=== PATIENT | female | born 1945 | race Caucasian/White ===

== ENCOUNTER → 2018-05-09 11:38 | Outpatient (CLI) | payer MEDICARE, SELFPAY ==
[2018-05-09 13:25] LABS: Appearance Urine UA CLEAR; Bilirubin Urine UA NEGATIVE (NEGATIVE); Color Urine UA YELLOW; Glucose Urine UA NEGATIVE (Normal); Ketones Urine UA NEGATIVE (NEGATIVE); Leukocyte Esterase Urine UA 1+ (NEGATIVE); Nitrite Urine UA Negative (Negative); Occult Blood Urine UA NEGATIVE (Negative); Protein Urine UA NEGATIVE (Negative); Specific Gravity Urine UA <=1.005 (1.000-1.035); Urobilinogen Urine UA 0.2 E.U./dL (0.2); pH Urine UA 6.5 (4.5-8.0)
[2018-05-09 13:29] LABS: Bacteria Urine Moderate (10-30); Culture Indicated Urine Specimen Cultured; RBC Urine 0-1/HPF (0-5/HPF); Squamous Epithelial Cell Urine 0-1 /HPF; WBC Urine 10-30/HPF (0-5/HPF)
== END ==
PROVIDERS: PCP Family Medicine; Visit Provider Family Medicine
DX: R30.0 Dysuria (principal)
CPT/HCPCS: 81001; 87077; 87086; 87186

== ENCOUNTER → 2018-05-09 11:44 | Outpatient (CLI) | payer MEDICARE, SELFPAY | PROVIDERS: Family Provider Family Medicine; PCP Family Medicine; Visit Provider Family Medicine | DX: Z53.9 Procedure and treatment not carried out, unspecified reason (principal) ==

== ENCOUNTER 2018-06-10 17:31 | Emergency (ER) | payer MEDICARE, SELFPAY ==
[2018-06-10 17:39] VITALS: BP 146/64; PULSE 77; RESP 18; TEMP 37.1; O2SAT 97
--- NOTE | 2018-06-10 17:44 | ED.FEMALEGU ---
HPI - Female Genitourinary <AMAIRANI Hurtado - Last Filed: 06/10/18 21:33> General Chief complaint: Urogenital-Female Stated complaint: UTI Time Seen by Provider: 06/10/18 17:44 Related Data Home Medications Medication Instructions Recorded Confirmed multivitamin [Multiple Vitamins] #0 11/19/17 Previous Rx's Medication Instructions Recorded atorvastatin 10 mg tablet 5 mg PO HS #30 tab 04/30/18 amoxicillin 875 mg tablet 875 mg PO BID #14 tab 05/09/18 losartan 50 mg PO QDAY #90 tab 06/03/18 nitrofurantoin monohyd/m-cryst 100 mg PO BID #14 cap 06/10/18 [Macrobid] Allergies Allergy/AdvReac Type Severity Reaction Status Date / Time Sulfa (Sulfonamide Allergy Severe ANAPHYLAXIS Verified 06/10/18 17:41 Antibiotics) Exam <AMAIRANI Hurtado - Last Filed: 06/10/18 21:33> Initial Vital Signs Initial Vital Signs: Vital Signs Temperature 98.7 F 06/10/18 17:39 Pulse Rate 77 06/10/18 17:39 Respiratory Rate 18 06/10/18 17:39 Blood Pressure 146/64 H 06/10/18 17:39 Pulse Oximetry 97 06/10/18 17:39 <Nava Madison DO - Last Filed: 06/11/18 01:17> Initial Vital Signs Initial Vital Signs: Vital Signs Temperature 98.7 F 06/10/18 17:39 Pulse Rate 77 06/10/18 17:39 Respiratory Rate 18 06/10/18 17:39 Blood Pressure 146/64 H 06/10/18 17:39 Pulse Oximetry 97 06/10/18 17:39 Course <AMAIRANI Hurtado - Last Filed: 06/10/18 21:33> Vital Signs - 8 hr 06/10/18 17:39 06/10/18 20:05 Temperature 98.7 F Pulse Rate 77 82 Respiratory Rate 18 12 Blood Pressure 146/64 H 138/87 Pulse Oximetry 97 97 <Nava Madison DO - Last Filed: 06/11/18 01:17> Vital Signs - 8 hr 06/10/18 17:39 06/10/18 20:05 Temperature 98.7 F Pulse Rate 77 82 Respiratory Rate 18 12 Blood Pressure 146/64 H 138/87 Pulse Oximetry 97 97 MDM - Female Genitourinary <AMAIRANI Hurtado - Last Filed: 06/10/18 21:33> Lab Data Lab Results 06/10/18 Range/Units Unknown Urine Color Emily Urine Appearance Slightly cloudy Urine pH 6.0 (4.5-8.0) Ur Specific [place] <=1.005 (1.000-1.035) Urine Protein Trace H (Negative) Urine Glucose (UA) Normal (Normal) g/dL Urine Ketones Negative (NEGATIVE) Urine Occult Blood 1+ H (Negative) Urine Nitrate Positive H (Negative) Urine Bilirubin Negative (NEGATIVE) Urine Urobilinogen 1.0 (0.2) E.U./dL Ur Leukocyte Esterase 3+ H (NEGATIVE) Urine RBC 0-1/hpf (0-5/HPF) Urine WBC 10-30/hpf H (0-5/HPF) Ur Squamous Epith Cells 0-1 /hpf Urine Bacteria Few (2-10) H (None) Ur Culture Indicated? Specimen cultured Micro UA Comment Not Reportable <Nava Madison DO - Last Filed: 06/11/18 01:17> Lab Data Lab Results 06/10/18 Range/Units Unknown Urine Color Emily Urine Appearance Slightly cloudy Urine pH 6.0 (4.5-8.0) Ur Specific [place] <=1.005 (1.000-1.035) Urine Protein Trace H (Negative) Urine Glucose (UA) Normal (Normal) g/dL Urine Ketones Negative (NEGATIVE) Urine Occult Blood 1+ H (Negative) Urine Nitrate Positive H (Negative) Urine Bilirubin Negative (NEGATIVE) Urine Urobilinogen 1.0 (0.2) E.U./dL Ur Leukocyte Esterase 3+ H (NEGATIVE) Urine RBC 0-1/hpf (0-5/HPF) Urine WBC 10-30/hpf H (0-5/HPF) Ur Squamous Epith Cells 0-1 /hpf Urine Bacteria Few (2-10) H (None) Ur Culture Indicated? Specimen cultured Micro UA Comment Not Reportable Discharge Plan Departure Patient Disposition: Home Clinical Impression: UTI (urinary tract infection) Discharge Date/Time: 06/10/18 20:06 Interventions: ED Discharge Assessment Last Done: 06/10/18 20:05 Instructions: DI for Urinary Tract Infection (UTI) Prescriptions: New nitrofurantoin monohyd/m-cryst [Macrobid] 100 mg capsule 100 mg PO BID Qty: 14 RF: 0 No Action multivitamin [Multiple Vitamins] 1 EACH tablet Qty: 0 RF: 0 atorvastatin [Lipitor] 10 mg tablet 5 mg PO HS Qty: 30 RF: 1 amoxicillin 875 mg tablet 875 mg PO BID Qty: 14 RF: 0 losartan 50 mg tablet 50 mg PO QDAY Qty: 90 RF: 2 Referrals: Marcell Ruvalcaba MD [Non-Staff] - Davey Mullen MD [Primary Care Provider] - (in 2-3 days for urine recheck, follow up with Alcoholic Counselor is fine too) Stanley Rivera MD [Non-Staff] - Adrian Butt MD [Non-Staff] - Tyra Carson MD [Non-Staff] - <Nava Madison DO - Last Filed: 06/11/18 01:17> Cosign ED Attending Cosignature Attestation: I was immediately available in the department for consultation. This documentation has been reviewed and I notified provider that there was no hpi, ros or exam findings. Supervised by Nava Madison DO
[2018-06-10 18:33] LABS: RBC Urine 0-1/HPF (0-5/HPF); WBC Urine 10-30/HPF (0-5/HPF)
[2018-06-10 18:34] LABS: Bacteria Urine Few (2-10); Culture Indicated Urine Specimen Cultured; Squamous Epithelial Cell Urine 0-1 /HPF
[2018-06-10 19:43] LABS: Appearance Urine UA Slightly Cloudy; Color Urine UA AMBER
[2018-06-10 19:44] LABS: Bilirubin Urine UA Negative (NEGATIVE); Glucose Urine UA Normal (Normal); Ketones Urine UA NEGATIVE (NEGATIVE); Leukocyte Esterase Urine UA 3+ (NEGATIVE); Nitrite Urine UA POSITIVE (Negative); Occult Blood Urine UA 1+ (Negative); Protein Urine UA TRACE (Negative); Specific Gravity Urine UA <=1.005 (1.000-1.035)
[2018-06-10 20:05] VITALS: BP 138/87; PULSE 82; RESP 12; O2SAT 97
--- NOTE | 2018-06-10 20:37 | ED_ITS ---
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, hx of frequent uti's and last bladder infection approx x1 month ago ROS: General: no fever Cardiac: no cp Resp: no trouble breathing Abd: no n/v/d Gu: as above, no vag issues Mus: no back pain Neuro: no dizziness, no lightheadedness, no weakness Exam: General: vs stable Head: normocephalic Neck: from without limitations Resp: resp even and unlabored, B breath sounds CTA Cardiac: RRR Abd: soft and nontender Gu: no cva/flank tenderness Musc: moving all 4 extremities without limitations Psych: normal behavior Neuro: a&ox3 results and dc plan discussed with pt, pt has appt next week with [facility] [employer] Room Attendant, agreed to give her some names of Urology, abx rx, and to continue with her azo, and pushing fluids, cranberry juice Original Note: HPI - Female Genitourinary <AMAIRANI Hurtado - Last Filed: 06/10/18 21:33> General Chief complaint: Urogenital-Female Stated complaint: UTI Time Seen by Provider: 06/10/18 17:44 Related Data Home Medications Medication Instructions Recorded Confirmed multivitamin [Multiple Vitamins] #0 11/19/17 Previous Rx's Medication Instructions Recorded atorvastatin 10 mg tablet 5 mg PO HS #30 tab 04/30/18 amoxicillin 875 mg tablet 875 mg PO BID #14 tab 05/09/18 losartan 50 mg PO QDAY #90 tab 06/03/18 nitrofurantoin monohyd/m-cryst 100 mg PO BID #14 cap 06/10/18 [Macrobid] Allergies Allergy/AdvReac Type Severity Reaction Status Date / Time Sulfa (Sulfonamide Allergy Severe ANAPHYLAXIS Verified 06/10/18 17:41 Antibiotics) Exam <AMAIRANI Hurtado - Last Filed: 06/10/18 21:33> Initial Vital Signs Initial Vital Signs: Vital Signs Temperature 98.7 F 06/10/18 17:39 Pulse Rate 77 06/10/18 17:39 Respiratory Rate 18 06/10/18 17:39 Blood Pressure 146/64 H 06/10/18 17:39 Pulse Oximetry 97 06/10/18 17:39 <Nava MadisonDO - Last Filed: 06/11/18 01:17> Initial Vital Signs Initial Vital Signs: Vital Signs Temperature 98.7 F 06/10/18 17:39 Pulse Rate 77 06/10/18 17:39 Respiratory Rate 18 06/10/18 17:39 Blood Pressure 146/64 H 06/10/18 17:39 Pulse Oximetry 97 06/10/18 17:39 Course <Louann MatthewCELIA hollandP - Last Filed: 06/10/18 21:33> Vital Signs - 8 hr 06/10/18 17:39 06/10/18 20:05 Temperature 98.7 F Pulse Rate 77 82 Respiratory Rate 18 12 Blood Pressure 146/64 H 138/87 Pulse Oximetry 97 97 <Nava BaerDO cayla - Last Filed: 06/11/18 01:17> Vital Signs - 8 hr 06/10/18 17:39 06/10/18 20:05 Temperature 98.7 F Pulse Rate 77 82 Respiratory Rate 18 12 Blood Pressure 146/64 H 138/87 Pulse Oximetry 97 97 MDM - Female Genitourinary <Louann Burks [facility] - Last Filed: 06/10/18 21:33> Lab Data Lab Results 06/10/18 Range/Units Unknown Urine Color Emily Urine Appearance Slightly cloudy Urine pH 6.0 (4.5-8.0) Ur Specific [place] <=1.005 (1.000-1.035) Urine Protein Trace H (Negative) Urine Glucose (UA) Normal (Normal) g/dL Urine Ketones Negative (NEGATIVE) Urine Occult Blood 1+ H (Negative) Urine Nitrate Positive H (Negative) Urine Bilirubin Negative (NEGATIVE) Urine Urobilinogen 1.0 (0.2) E.U./dL Ur Leukocyte Esterase 3+ H (NEGATIVE) Urine RBC 0-1/hpf (0-5/HPF) Urine WBC 10-30/hpf H (0-5/HPF) Ur Squamous Epith Cells 0-1 /hpf Urine Bacteria Few (2-10) H (None) Ur Culture Indicated? Specimen cultured Micro UA Comment Not Reportable <Nava Hero KeyurDO cayla - Last Filed: 06/11/18 01:17> Lab Data Lab Results 06/10/18 Range/Units Unknown Urine Color Emily Urine Appearance Slightly cloudy Urine pH 6.0 (4.5-8.0) Ur Specific [place] <=1.005 (1.000-1.035) Urine Protein Trace H (Negative) Urine Glucose (UA) Normal (Normal) g/dL Urine Ketones Negative (NEGATIVE) Urine Occult Blood 1+ H (Negative) Urine Nitrate Positive H (Negative) Urine Bilirubin Negative (NEGATIVE) Urine Urobilinogen 1.0 (0.2) E.U./dL Ur Leukocyte Esterase 3+ H (NEGATIVE) Urine RBC 0-1/hpf (0-5/HPF) Urine WBC 10-30/hpf H (0-5/HPF) Ur Squamous Epith Cells 0-1 /hpf Urine Bacteria Few (2-10) H (None) Ur Culture Indicated? Specimen cultured Micro UA Comment Not Reportable Discharge Plan Departure Patient Disposition: Home Clinical Impression: UTI (urinary tract infection) Discharge Date/Time: 06/10/18 20:06 Interventions: ED Discharge Assessment Last Done: 06/10/18 20:05 Instructions: DI for Urinary Tract Infection (UTI) Prescriptions: New nitrofurantoin monohyd/m-cryst [Macrobid] 100 mg capsule 100 mg PO BID Qty: 14 RF: 0 No Action multivitamin [Multiple Vitamins] 1 EACH tablet Qty: 0 RF: 0 atorvastatin [Lipitor] 10 mg tablet 5 mg PO HS Qty: 30 RF: 1 amoxicillin 875 mg tablet 875 mg PO BID Qty: 14 RF: 0 losartan 50 mg tablet 50 mg PO QDAY Qty: 90 RF: 2 Referrals: Marcell Ruvalcaba MD [Non-Staff] - Davey Mullen MD [Primary Care Provider] - (in 2-3 days for urine recheck, follow up with [facility] Room Attendant is fine too) Stanley Rivera MD [Non-Staff] - Adrian Butt MD [Non-Staff] - Tyra Carson MD [Non-Staff] - <Nava Madison DO - Last Filed: 06/11/18 01:17> Cosign ED Attending Cosignature Attestation: I was immediately available in the department for consultation. This documentation has been reviewed and I notified provider that there was no hpi, ros or exam findings. Supervised by Nava Madison DO
== END 2018-06-10 20:06 | disposition home or self-care (01) ==
PROVIDERS: Emergency Provider Nurse Practitioner; Family Provider Family Medicine; PCP Family Medicine
DX: N39.0 Urinary tract infection, site not specified (principal)
CPT/HCPCS: 81001; 87086; 99283

== ENCOUNTER → 2018-07-03 10:06 | Outpatient (CLI) | payer MEDICARE, SELFPAY ==
[2018-07-03 10:55] LABS: Add Manual Diff / Slide Review NO; Basophils Percent Auto 1.3 % (0-2); Hematocrit 41.6 % (36-46); Hemoglobin 13.6 g/dL (12.0-16.0); Lymphocytes Percent Auto 28.2 % (25-40); Mean Corpuscular HGB Conc 32.7 % (30-36); Mean Corpuscular Hemoglobin 28.5 PG (26-34); Monocytes Percent Auto 9.1 % (3-14); Neutrophils Absolute Auto 3300 /uL (3000-5900); Neutrophils Percent Auto 59.4 % (50-75); Platelet Count 237 X10^3/uL (150-400); Red Blood Cell Count 4.78 X10^6/uL (4.0-5.2); Red Cell Distribution Width 14.2 % (11.6-14.8); White Blood Cell Count 5.6 X10^3/uL (4.5-11.0)
[2018-07-03 11:17] LABS: Alanine Aminotransferase 39 IU/L (9-52); Albumin 4.7 g/dL (3.5-5.0); Albumin Globulin Ratio 1.4 (1.0-2.8); Alkaline Phosphatase 80 U/L (38-126); Aspartate Aminotransferase 33 IU/L (14-36); BUN Creatinine Ratio 28.3 (6-22); Bilirubin Total 1.7 mg/dL (0.2-1.3); Blood Urea Nitrogen 17 mg/dL (7-17); Calcium 9.5 mg/dL (8.4-10.2); Carbon Dioxide 30 mmol/L (22-32); Chloride 102 mmol/L (98-107); Cholesterol 160 mg/dL (140-199); Estimated Glomerular Filt Rate > 60.0 mL/min (>60); Globulin 3.3 g/dL (1.7-4.1); Glucose 107 mg/dL (80-110); HDL Cholesterol 45 mg/dL (40-60); HEMOLYSIS < 15 (0-50); LDL Cholesterol Calculated 100 mg/dL (<100); Potassium 4.5 mmol/L (3.4-5.1); Sodium 144 mmol/L (137-145); Triglycerides 73 mg/dL (35-150)
[2018-07-03 11:44] LABS: Thyroid Stimulating Hormone 1.16 uIU/mL (0.47-4.68)
== END ==
PROVIDERS: Family Provider Family Medicine; PCP Family Medicine; Visit Provider Family Medicine
DX: E78.2 Mixed hyperlipidemia (principal); I10 Essential (primary) hypertension
CPT/HCPCS: 36415; 80053; 80061; 84443; 85025

== ENCOUNTER → 2018-12-20 11:12 | Outpatient (CLI) | payer MEDICARE, SELFPAY ==
--- NOTE | 2018-12-20 | DI.MG.S_ITS ---
UNILATERAL LEFT DIGITAL SCREENING MAMMOGRAM 3D/2D WITH CAD POST MASTECTOMY: 12/20/2018 CLINICAL: Routine screening. Personal history of right breast cancer. Comparison is made to exams dated: 10/17/2017 mammogram, 08/29/2016 ultrasound, 08/28/2016 mammogram, 08/22/2016 mammogram, and 07/29/2015 mammogram - [facility]. There are scattered fibroglandular elements in left breast. Current study was also evaluated with a Computer Aided Detection (CAD) system. There are benign post operative findings in the left breast. There also are benign calcifications in the left breast. No significant masses, calcifications, or other findings are seen in the breast. There has been no significant interval change. IMPRESSION: There is no mammographic evidence of malignancy. A 1 year screening mammogram is recommended. This exam was interpreted at Station ID: [id number]. NOTE: For mammograms, a report in lay terms will be sent to the patient. Approximately 15% of breast malignancies will not be visualized mammographically. In the management of a palpable breast mass, a negative mammogram must not discourage biopsy of a clinically suspicious lesion. Electronically Signed By: Sadiq hankins/laurel:12/20/2018 19:35:50 letter sent: Normal Exam ACR BI-RADS Category 2: Benign Finding(s) 3342F
== END ==
PROVIDERS: PCP Family Medicine; Visit Provider Family Medicine
DX: Z12.31 Encounter for screening mammogram for malignant neoplasm of breast (principal); Z85.3 Personal history of malignant neoplasm of breast
CPT/HCPCS: 77063; 77067

== ENCOUNTER 2019-01-06 08:53 | Day surgery (SDC) | payer MEDICARE, SELFPAY ==
--- NOTE | 2019-01-06 | PATH_ITS ---
[facility] Accession Number: [id number] . 01 Material submitted: . sigmoid colon - SIGMOID COLON BIOPSY . 02 Diagnosis: Sigmoid Colon, Biopsies: Colonic mucosa with hyperplastic features. Negative for active or microscopic colitis. Negative for granulomata, dysplasia or malignancy. MRV/01/07/2019 . 02 Electronically signed: . Scooter Law MD, PhD, Pathologist NPI- [id number] . 01 Gross description: . SIGMOID COLON BIOPSY: Received in formalin is 1 fragment(s) of goldman, soft tissue measuring 0.7 x 0.3 x 0.2 cm which is entirely submitted and submitted entirely in 1 cassette(s) /DMC /DMC . 02 Pathologist provided ICD-10: Z12.11, K63.5 . 02 CPT . 678354 Performed at: 01 [facility] [address] [id number] MD Marcell Rand MD Phone: [phone] Performed at: [facility] [address] [place], [place] [id number] MD Hannah Lozoya MD Phone: [phone]
[2019-01-06] MEDS: SODIUM CHLORIDE 0.9% 1,000 ML 200 ML IV (09:05)
[2019-01-06 09:06] VITALS: BMI 32.0
[2019-01-06 09:17] VITALS: BP 121/76; PULSE 103; RESP 16; TEMP 36.5; O2SAT 96
--- NOTE | 2019-01-06 09:30 | PM.HP.1 ---
History of Present Illness Date Patient Seen: 01/06/19 Time Patient Seen: 09:30 Chief complaint: [id number] Colonoscopy Narrative: 73yo F for high risk screening colonoscopy. Last scope was 10 years ago, says they found a small benign polyp. Sister of CRC in her 60s (age estimate, pt says they were not close). No other family history. No symptoms in patient. Pt has personal history of breast cancer. Patient History Medical History Carpal tunnel syndrome (Acute) Carpal tunnel syndrome of right wrist (Acute) History of UTI (Acute) Skin lesion (Acute) Ankle pain (Chronic) Anxiety (Chronic) Breast cancer (Chronic) Chicken pox (Resolved) Mumps (Resolved) Surgical History Anesthesia (Resolved) History of mastectomy (Resolved ~10/1993) Status post left foot surgery (Resolved) Status post cholecystectomy (~2009) Status post hysterectomy (~08/2013) Family History Father No problems noted. Sister No problems noted. Social History household members: none Smoking Status: Never smoker Family & Social History Family History Father No problems noted. Sister No problems noted. Social History: household members none Tobacco & Substance use: Smoking Status Never smoker alcohol intake frequency 0-2 drinks per day Substance Use Type does not use Meds Home Medications Medication Instructions Recorded Confirmed Type multivitamin [Multiple Vitamins] 1 tab PO DAILY #0 11/19/17 07/03/18 History atorvastatin 10 mg tablet 5 mg PO HS #90 tab 07/03/18 01/06/19 Rx losartan 50 mg tablet 50 mg PO QDAY #90 tab 07/03/18 01/06/19 Rx Allergies Allergy/AdvReac Type Severity Reaction Status Date / Time Sulfa (Sulfonamide Allergy Severe ANAPHYLAXIS Verified 01/06/19 09:14 Antibiotics) Review of Systems Constitutional Constitutional: Reports as per HPI Exam Vital Signs (past 8 hours): AAO, nervous, NAD, oberweight female EOMI, MMM, no scleral icterus unlabored RA soft, nt/nd MAEW Assessment & Plan (1) Family history of colon cancer requiring screening colonoscopy: Current visit: Yes Status: Acute Assessment & Plan narrative: - high risk screening colonoscopy --> all R/B/A discussed and pt wishes to proceed
[2019-01-06] MEDS: MIDAZOLAM 5 MG/5 ML VIAL IV (10:21)
--- NOTE | 2019-01-06 10:24 | PM.OP.ENDO ---
Operative Date/Time/Diagnoses Date of procedure: 01/06/19 Time of procedure: 10:24 Pre-op diagnosis: High risk screening colonoscopy Post-op diagnosis: same Procedure & Clinicians Study performed: High risk screening colonscopy with biopsy Same procedure as scheduled: Yes Indications: Family history of CRC in sister, 10 years from last scope. Surgeon: Sita Garcia Procedure Notes SCOAP/Timeout: 938 Procedure in detail: After obtaining informed consent, the patient was brought to the GI suite and placed in the left lateral decubitus position on the examination table. After placement of appropriate monitors, the patient was given incremental doses of Versed and Fentanyl until an appropriate level of sedation was achieved. A time out was held per SCOAP protocol. A digital rectal examination was performed and did not reveal any masses or obstructing lesions but tiny external hemorrhoids and a possible 2mm cyst are noted. The colonoscope was gently passed into the patient's anus and the entire colon navigated to the level of the cecum with difficulty due to tortuosity and severe diverticulosis as well as a history of partial hysterectomy. The colonscope was exchanged for a pediatric scope which allowed us to proceed. Pt also did not respond well to medications so was quite uncomfortable despite steady titration. Prep was adequate. Once in the cecum, the scope was slowly withdrawn being sure to go before and beyond all mucosal folds and prominences as able to get a thorough examination. A 5mm polyp was noted in the sigmoid colon and was biopsied with cold forceps; not completely removed as it was sessile. Other findings include severe diverticulosis in the sigmoid and scattered diverticula throughout the colon. At the level of the rectal vault, the scope was retroflexed and the internal anal canal was examined. The scope was straightened and air aspirated from the colon. The instrument was removed from the patient's body and the procedure was concluded. The patient was allowed to awaken from sedation without difficulty and taken to the post-anesthesia care unit in good condition. Scope withdrawal time: 10 min Sedation minutes: 41 Findings: diverticulosis (severe) and polyp (small (~5mm), sessile, in sigmoid colon) Specimen(s): other (sigmoid polyp) Complications: none Impression: 1. severe diverticulosis- predominantly in sigmoid but scattered throughout colon 2. small polyp- biopsy sent 3. tortuous colon and poor patient tolerance- would recommend propofol sedation and pediatric scope for next procedure Recommendations: Colonscopy in 5 years (pending path) and High fiber diet Follow up: as needed Disposition: PACU
[2019-01-06] MEDS: fentaNYL 250 MCG/5 ML INJ IV (10:25)
[2019-01-06 10:27] VITALS: BP 98/58; PULSE 77; RESP 12; TEMP 36.5; O2SAT 93
[2019-01-06 10:32] VITALS: BP 94/50; PULSE 88; RESP 16; TEMP 36.5; O2SAT 96
[2019-01-06 10:37] VITALS: BP 104/59; PULSE 77; RESP 14; O2SAT 97
[2019-01-06 10:38] VITALS: BP 105/58; PULSE 77; RESP 14; TEMP 36.5; O2SAT 97
== END 2019-01-06 10:55 | disposition home or self-care (01) ==
PROVIDERS: PCP Family Medicine; Visit Provider Surgery
PROC: 0DJD8ZZ Inspection of Lower Intestinal Tract, Via Natural or Artificial Opening Endoscopic (ICD-10-PCS; CPT 45378; principal; 2019-01-06 09:45)
DX: Z12.11 Encounter for screening for malignant neoplasm of colon (principal); Z80.0 Family history of malignant neoplasm of digestive organs; Z85.3 Personal history of malignant neoplasm of breast; K57.30 Diverticulosis of large intestine without perforation or abscess without bleeding; K63.5 Polyp of colon
CPT/HCPCS: 45380; 88305; 99152; 99153; J2250; J3010

== ENCOUNTER 2019-03-23 20:35 | Emergency (ER) | payer MEDICARE, SELFPAY ==
[2019-03-23 20:44] VITALS: BP 160/79; PULSE 104; RESP 21; TEMP 36.4; O2SAT 96; BMI 31.4
--- NOTE | 2019-03-23 22:00 | ED_ITS ---
HPI - URI/Sore Throat General Chief Complaint: Nasal Problem Stated Complaint: allergies since yesterday, trouble breathing Time Seen by Provider: 03/23/19 21:52 Source: patient Mode of arrival: ambulatory Limitations: no limitations History of Present Illness HPI Narrative: Patient is a 73-year-old female presenting with nasal congestion. She says it has been off and on for about a week however yesterday after she painted is some things it has gotten significantly worse. She has significant pressure all over her maxillary sinuses. No fever. She says she is really worried because she cannot breathe out of her no Related Data Home Medications Medication Instructions Recorded Confirmed multivitamin [Multiple Vitamins] 1 tab PO DAILY #0 11/19/17 07/03/18 Previous Rx's Medication Instructions Recorded atorvastatin 10 mg tablet 5 mg PO HS #90 tab 07/03/18 losartan 50 mg tablet 50 mg PO QDAY #90 tab 07/03/18 Allergies Allergy/AdvReac Type Severity Reaction Status Date / Time Sulfa (Sulfonamide Allergy Severe ANAPHYLAXIS Verified 01/06/19 09:14 Antibiotics) Review of Systems Review of Systems ROS Unobtainable: All systems reviewed & are unremarkable except as noted in HPI and below Constitutional Denies chills, Denies fever(s), Denies lethargy and Denies weakness Eyes Denies change in vision, Denies eye discharge, Denies irritation and Denies loss of vision ENT Ears, Nose, Mouth, and Throat: Reports system reviewed and no additional complaints, except as docu, Reports post nasal drip and Reports sinus pressure Cardiovascular Denies chest pain, Denies irregular heart rhythm, Denies lightheadedness, Denies palpitations, Denies dyspnea, Denies dyspnea on exertion and Denies orthopnea Respiratory Denies cough, Denies dyspnea, Denies dyspnea on exertion and Denies wheezing Gastrointestinal Gastrointestinal: Denies abdominal pain, Denies change in bowel habits, Denies diarrhea, Denies nausea and Denies vomiting Genitourinary Denies hematuria, Denies flank pain, Denies urinary incontinence and Denies urinary urgency Musculoskeletal Denies back pain, Denies muscle weakness, Denies numbness and Denies tingling Integumentary/Breasts Denies pruritus, Denies erythema, Denies rash and Denies wounds Neurologic Denies loss of vision, Denies numbness, Denies tingling and Denies weakness Endocrine Denies palpitations Allergic/Immunologic Denies wheezing [facility] Social History household members: none Smoking Status: Former smoker Exam Initial Vital Signs Initial Vital Signs: Vital Signs Temperature 97.5 F L 03/23/19 20:44 Pulse Rate 104 H 03/23/19 20:44 Respiratory Rate 21 03/23/19 20:44 Blood Pressure 160/79 H 03/23/19 20:44 Pulse Oximetry 96 03/23/19 20:44 GENERAL: Well-appearing, well-nourished and in no acute distress. HEENT: Significant tenderness over maxillary sinuses. CARDIOVASCULAR: peripheral pulses in tact, cap refill <2 sec RESPIRATORY: No respiratory distress, speaks in full sentences without difficulty EXTREMITIES: Normal range of motion, no clubbing or edema. Neurovascularly intact NEUROLOGICAL: Cranial nerves II through XII grossly intact. Normal gait and speech. SKIN: Warm, dry, no petechiae, no rashes or lesions. Course Vital Signs - 8 hr 03/23/19 20:44 03/23/19 22:14 Temperature 97.5 F L Pulse Rate 104 H 89 Respiratory Rate 21 18 Blood Pressure 160/79 H 152/88 H Pulse Oximetry 96 96 MDM - URI/Sore Throat MDM Narrative Medical decision making narrative: Patient is quite anxious she has not seem septic. No indication for antibiotics at this time. I recommend that she take [id number] Benadryl and Claritin. Discharge Plan Departure Patient Disposition: Home Clinical Impression: Acute seasonal allergic rhinitis Discharge Date/Time: 03/23/19 22:15 Interventions: ED Discharge Assessment Last Done: 03/23/19 22:14 Instructions: Allergic Rhinitis Activity Restrictions/Additional Instructions: *You have been diagnosed with seasonal allergies *What to do: *Continue to take medications as directed Benadryl 25-50 mg at night time or every 6 hours Claritin or Bridgette take as directed [id number] *Follow up with your primary care provider in 2-3 days *Return to ER if you should have a fever, increased pain or any new, worsening or concerning symptoms Prescriptions: No Action multivitamin [Multiple Vitamins] 1 EACH tablet 1 tab PO DAILY Qty: 0 RF: 0 atorvastatin [Lipitor] 10 mg tablet 5 mg PO HS Qty: 90 RF: 3 losartan 50 mg tablet 50 mg PO QDAY Qty: 90 RF: 3 Referrals: Davey Mullen MD [Primary Care Provider] -
[2019-03-23 22:14] VITALS: BP 152/88; PULSE 89; RESP 18; O2SAT 96
== END 2019-03-23 22:15 | disposition home or self-care (01) ==
PROVIDERS: Emergency Provider Emergency Medicine; PCP Family Medicine
DX: J30.9 Allergic rhinitis, unspecified (principal)
CPT/HCPCS: 99282

== ENCOUNTER 2019-04-09 16:00 | Outpatient (RCR) | payer MEDICARE, SELFPAY ==
--- NOTE | 2019-02-05 17:35 | PT.OIE ---
Current Diagnoses Bursitis of left shoulder (02/05/19) Past Medical History (Last Reviewed 01/15/19 @ 14:58 by Sita Garcia MD) Arthritis (Acute) Carpal tunnel syndrome (Acute) Carpal tunnel syndrome of right wrist (Acute) History of UTI (Acute) Skin lesion (Acute) Ankle pain (Chronic) Anxiety (Chronic) Breast cancer (Chronic) Chicken pox (Resolved) Mumps (Resolved) Past Surgical History (Last Reviewed 01/15/19 @ 14:58 by Sita Garcia MD) Anesthesia (Resolved) History of mastectomy (Resolved ~10/1993) Status post left foot surgery (Resolved) Status post cholecystectomy (~2009) Status post hysterectomy (~08/2013) Provider Visit Care Team Role Provider Type Davey Mullen MD Primary Care Provider Physician Specialty: Family Practice Address: [address] [place] [address], [id number] Email: [email or web address] Luisito Ruelas MD Attending Provider Physician Specialty: Orthopedic Surgery Address: [address] [place] [address], [id number] Email: [email or web address] [facility] Initial Evaluation PT-OP-A Visit Information Start: 02/05/19 17:19 Freq: Status: Active Protocol: Document 02/05/19 17:22 EA (Rec: 02/05/19 17:31 EA [id number]) Out-Patient Physical Therapy Visit Information Visit Information Visit Type Initial Evaluation Visit Start Time 16:00 Visit Stop Time 16:35 Total Visit Minutes 35 Visit Number 1 Evaluation Information Evaluation Date 02/05/19 Precautions Precautions None identified PT-OP-B Current Condition Start: 02/05/19 17:19 Freq: Status: Active Protocol: Document 02/05/19 17:22 EA (Rec: 02/05/19 17:31 EA [id number]) Current Condition History of Current Condition Onset Date A year ago Current Complaints Right shoulder localized pain History of Current Condition Present condition gradually developed in a year course with no recalled of significant injury. Pt reports he loves to sleep on left shoulder even at this time where pain always wake her up. Patient reports had cortisone shot a month ago and feels that shoulder pain improves few days after the shot. Pt states she is referred to PT to prevent shoulder pain recurrence and to improve strength. Prior Treatments and Tests Cortisone shot a month ago X-ray from her shoulder specialist Future Testing and Treatments Planned Possible second phase of cortisone shot Treatment Goals Patient/Caregiver Goals Patient would like to prevent further shoulder symptoms recurrence. Patient would like to be able to perform overhead activities with no difficulty Prior Functional Status Baseline Function- ADL's Independent Baseline Function- Mobility Independent Baseline Function- Work/School Retired Baseline Function- Recreation/Hobbies House chores with no difficulty a year ago. Baseline Function- Other No difficulty with overhead activities and sleeping to left side a year ago Current Functional Impairments (Reported) Functional Limitations- ADL's Indep with limitation to overhead activities and other personal care. Functional Limitations- Work/School Retired Functional Limitations- Recreation/ Unable to perform recreational Hobbies activities that require hand overhead. Personal Factors Other Personal Factors That May Effect Blood pressure but controlled, Therapy/Recovery chronic low back pain PT-OP-C Subjective Start: 02/05/19 17:19 Freq: Status: Active Protocol: Document 02/05/19 17:31 EA (Rec: 02/05/19 17:38 EA [id number]) OP-PT Subjective Patient Comments Patient Comments as much as the shot helps my shoulder still sore Patient Reported Progress Improving Patient Questionnaires Quick Dash- Upper Extremity Quick Dash UE Score 30 Quick Dash UE Impairment 20 to 39% Impaired (Score 20- 39) PT-OP-E Functional Tests Start: 02/05/19 17:19 Freq: Status: Active Protocol: Document 02/05/19 17:31 EA (Rec: 02/05/19 17:38 EA [id number]) Functional Tests Noelleey's Scratch Test Action 1: The subject is instructed to touch the opposite shoulder with his/her hand. This motion checks Glenohumeral adduction, internal rotation , horizontal adduction and scapular protraction Action 2: The subject is instructed to place his/her arm overhead and reach behind the neck to touch his/her upper back. This motion checks Glenohumeral abduction, external rotation and scapular upward rotation and elevation. Action 3: The subject puts his/her hand on the lower back and reaches upward as far as possible. This motion checks glenohumeral adduction, internal rotation and scapular retraction with downward rotation Action 1- Left able to touch opp shoulder Action 1- Right able Action 2- Left T2 Action 2- Right C6 Action 3- Left L3 Action 3- Right T10 PT-OP-F Manual Assessment Start: 02/05/19 17:19 Freq: Status: Active Protocol: Document 02/05/19 17:31 EA (Rec: 02/05/19 17:38 EA [id number]) Manual Assessments Soft Tissue Assessment Soft Tissue Mobility Assessment Tight Pectorals, int rotators PT-OP-J Posture/Palpation/Skin Start: 02/05/19 17:19 Freq: Status: Active Protocol: Document 02/05/19 17:31 EA (Rec: 02/05/19 17:38 EA [id number]) Posture Evaluation Comments Posture Comments Sligth Fwd head and round shoulder Palpation Assessment Location One Palpation Location Anterior shoulder, LHBT, RTC tendon, SS/IF muscle Palpation Findings Soft Tissue Tightness Tenderness PT-OP-L Special Tests Start: 02/05/19 17:19 Freq: Status: Active Protocol: Document 02/05/19 17:31 EA (Rec: 02/05/19 17:38 EA [id number]) Special Tests Shoulder Special Tests Elevation Impingement Test Results + Empty Can Test Results + Drop Arm Rotator Cuff Test Results - Omalley Rickey Impingement Test Results + Yergason's Biceps Test Results + Lift-Off Rotator Cuff Test Results - Belly Press Test Results - PT-OP-M Strength Start: 02/05/19 17:19 Freq: Status: Active Protocol: Document 02/05/19 17:31 EA (Rec: 02/05/19 17:38 EA [id number]) Shoulder Strength Shoulder Manual Muscle Testing Left Flexion 3+ Fair+ Extension 4 Good Abduction (C5) 3+ Fair+ Adduction 4 Good External Rotation 4- Good- Internal Rotation 3+ Fair+ Horizontal Abduction 4- Good- Horizontal Adduction 4- Good- Right Reason Not Measured WFL PT-OP-Q Treatments Start: 02/05/19 17:19 Freq: Status: Active Protocol: Document 02/05/19 17:31 EA (Rec: 02/05/19 17:38 EA [id number]) Self-Care/Home Management Treatment Education Patient Education Home Exercise Program Joint Protection Pain Management Posture PT-OP-T Assessment and Plan Start: 02/05/19 17:19 Freq: Status: Active Protocol: Document 02/05/19 17:22 GRIFFIN (Rec: 02/05/19 17:31 EA [id number]) Physical Therapy Assessment Rehab Potential Rehabilitation Potential Good Evaluation Complexity Number of Personal Factors/Comorbidities 1-2 Number of Body Systems Impaired 1-2 Clinical Presentation at Evaluation Stable Impairments Impairments Activity Tolerance Functional Activities Pain Posture ROM Soft Tissue Mobility Strength Goals Three Impairment Impaired shoulder strength Skilled Nursing Goal (LTG) Patient will increase L shoulder ABD/Flexors, rotators to functional level to enable overhead activities without difficulty. LTG Duration 6 wks Two Impairment Impaired Apley's functional test Food Processing Chemist Goal (LTG) Patient will demonstrate normal shoulder mobility base on Apley's functional test LTG Duration 6 wks One Impairment Quick Dash score of 30 Skilled Nursing Goal (LTG) Quick Dash Score of less than 15 LTG Duration 4 wks Assessment Summary Assessment Pleasant 73 y/o F patient with referring diagnosis of L subacromial bursitis. Today patient demonstrates impaired shoulder mobility due to pain and LOM even to PROM. Special tests reveals three tests positive to a referring diagnosis. Due to joint and muscular dysfunction, patient unable to perform overhead activities that usually had no limitation 6 months ago. Although pain is much improved at this time, left shoulder muscular weakness is noticeable and shoulder substitution with overhead movement is noted. In my professional opinion, patient would greatly benefit with skilled PT to enhance shoulder function and improve quality of life. Physical Therapy Plan Frequency and Duration Frequency of Treatment 2x/Week Duration of Treatment 8 wks Plan of Care Start Date 02/05/19 Plan of Care End Date 04/02/19 Therapeutic Interventions Therapeutic Interventions Home Exercise Program Joint Mobilizations Manual Therapy Neuromuscular Re-education Orthotic/Prosthetic Management Patient/Caregiver Education Self-Care/Home Management Soft Tissue Mobilization Taping Therapeutic Exercises Modalities Cold Pack/Ice Massage Electric Stimulation Hot Packs Ultrasound Next Visit Focus/Plan Next Note Type Treatment Note Next Visit Plan strengthen, Provide HEP with images, modalities for pain
--- NOTE | 2019-02-05 17:35 | PT.OPPOC ---
Current Diagnoses Bursitis of left shoulder (02/05/19) Provider Visit Care Team Role Provider Type Davey Mullen MD Primary Care Provider Physician Specialty: Family Practice Address: [address] [place] [address], [phone] Email: [email or web address] Luisito Ruelas MD Attending Provider Physician Specialty: Orthopedic Surgery Address: [address] [place] [address], [phone] Email: [email or web address] Plan Of Care PT-OP-T Assessment and Plan Start: 02/05/19 17:19 Freq: Status: Active Protocol: Document 02/05/19 17:22 EA (Rec: 02/05/19 17:31 EA [id number]) Physical Therapy Assessment Rehab Potential Rehabilitation Potential Good Evaluation Complexity Number of Personal Factors/Comorbidities 1-2 Number of Body Systems Impaired 1-2 Clinical Presentation at Evaluation Stable Impairments Impairments Activity Tolerance Functional Activities Pain Posture ROM Soft Tissue Mobility Strength Goals Three Impairment Impaired shoulder strength Manager Operating Goal (LTG) Patient will increase L shoulder ABD/Flexors, rotators to functional level to enable overhead activities without difficulty. LTG Duration 6 wks Two Impairment Impaired Apley's functional test Manager Operating Goal (LTG) Patient will demonstrate normal shoulder mobility base on Apley's functional test LTG Duration 6 wks One Impairment Quick Dash score of 30 Manager Operating Goal (LTG) Quick Dash Score of less than 15 LTG Duration 4 wks Assessment Summary Assessment Pleasant 73 y/o F patient with referring diagnosis of L subacromial bursitis. Today patient demonstrates impaired shoulder mobility due to pain and LOM even to PROM. Special tests reveals three tests positive to a referring diagnosis. Due to joint and muscular dysfunction, patient unable to perform overhead activities that usually had no limitation 6 months ago. Although pain is much improved at this time, left shoulder muscular weakness is noticeable and shoulder substitution with overhead movement is noted. In my professional opinion, patient would greatly benefit with skilled PT to enhance shoulder function and improve quality of life. Physical Therapy Plan Frequency and Duration Frequency of Treatment 2x/Week Duration of Treatment 8 wks Plan of Care Start Date 02/05/19 Plan of Care End Date 04/02/19 Therapeutic Interventions Therapeutic Interventions Home Exercise Program Joint Mobilizations Manual Therapy Neuromuscular Re-education Orthotic/Prosthetic Management Patient/Caregiver Education Self-Care/Home Management Soft Tissue Mobilization Taping Therapeutic Exercises Modalities Cold Pack/Ice Massage Electric Stimulation Hot Packs Ultrasound Next Visit Focus/Plan Next Note Type Treatment Note Next Visit Plan strengthen, Provide HEP with images, modalities for pain Plan of Care Dates Plan of Care Start Date 02/05/19 Plan of Care End Date 04/02/19 Please Sign and Return: I have reviewed this Plan of Care and certify that the skilled therapy services above are required to meet the patient?s needs. Physician Signature Date Printed Name and Credentials Clinical Instructor Signature Printed Name and Credentials
--- NOTE | 2019-02-18 12:33 | PT.OTN ---
Current Diagnoses Bursitis of left shoulder (02/18/19) Physical Therapy Treatment Note PT-OP-A Visit Information Start: 02/05/19 17:19 Freq: Status: Active Protocol: Document 02/18/19 09:45 HH (Rec: 02/18/19 12:33 HH [email or web address]) Out-Patient Physical Therapy Visit Information Visit Information Visit Type Treatment Note Visit Start Time 09:45 Visit Stop Time 10:30 Total Visit Minutes 45 Visit Number 2 PT-OP-B Current Condition Start: 02/05/19 17:19 Freq: Status: Active Protocol: Document 02/05/19 17:22 EA (Rec: 02/05/19 17:31 EA [id number]) Current Condition History of Current Condition Onset Date A year ago Current Complaints Right shoulder localized pain History of Current Condition Present condition gradually developed in a year course with no recalled of significant injury. Pt reports he loves to sleep on left shoulder even at this time where pain always wake her up. Patient reports had cortisone shot a month ago and feels that shoulder pain improves few days after the shot. Pt states she is referred to PT to prevent shoulder pain recurrence and to improve strength. Prior Treatments and Tests Cortisone shot a month ago X-ray from her shoulder specialist Future Testing and Treatments Planned Possible second phase of cortisone shot Treatment Goals Patient/Caregiver Goals Patient would like to prevent further shoulder symptoms recurrence. Patient would like to be able to perform overhead activities with no difficulty Prior Functional Status Baseline Function- ADL's Independent Baseline Function- Mobility Independent Baseline Function- Work/School Retired Baseline Function- Recreation/Hobbies House chores with no difficulty a year ago. Baseline Function- Other No difficulty with overehad activities and sleeping to left side a year ago Current Functional Impairments (Reported) Functional Limitations- ADL's Indep with limitation to overhead activities and other personal care. Functional Limitations- Work/School Retired Functional Limitations- Recreation/ Unable to perform recreational Hobbies activities that require hand overhead. Personal Factors Other Personal Factors That May Effect Blood pressure but controlled, Therapy/Recovery chronic low back pain PT-OP-C Subjective Start: 02/05/19 17:19 Freq: Status: Active Protocol: Document 02/18/19 09:45 HH (Rec: 02/18/19 12:33 HH [email or web address]) OP-PT Subjective Patient Comments Patient Comments It's been bad for my left shoulder since last week especially i kind of hurt my shoulde because something heavy dropped on it couple days ago. PT-OP-E Functional Tests Start: 02/05/19 17:19 Freq: Status: Active Protocol: Document 02/05/19 17:31 EA (Rec: 02/05/19 17:38 EA [id number]) Functional Tests Apley's Scratch Test Action 1: The subject is instructed to touch the opposite shoulder with his/her hand. This motion checks Glenohumeral adduction, internal rotation , horizontal adduction and scapular protraction Action 2: The subject is instructed to place his/her arm overhead and reach behind the neck to touch his/her upper back. This motion checks Glenohumeral abduction, external rotation and scapular upward rotation and elevation. Action 3: The subject puts his/her hand on the lower back and reaches upward as far as possible. This motion checks glenohumeral adduction, internal rotation and scapular retraction with downward rotation Action 1- Left able to touch opp shoulder Action 1- Right able Action 2- Left T2 Action 2- Right C6 Action 3- Left L3 Action 3- Right T10 PT-OP-F Manual Assessment Start: 02/05/19 17:19 Freq: Status: Active Protocol: Document 02/05/19 17:31 EA (Rec: 02/05/19 17:38 EA [id number]) Manual Assessments Soft Tissue Assessment Soft Tissue Mobility Assessment Tight Pectorals, int rotators PT-OP-J Posture/Palpation/Skin Start: 02/05/19 17:19 Freq: Status: Active Protocol: Document 02/05/19 17:31 EA (Rec: 02/05/19 17:38 EA [id number]) Posture Evaluation Comments Posture Comments Sligth Fwd head and round shoulder Palpation Assessment Location One Palpation Location Anterior shoulder, LHBT, RTC tendon, SS/IF muscle Palpation Findings Soft Tissue Tightness Tenderness PT-OP-L Special Tests Start: 02/05/19 17:19 Freq: Status: Active Protocol: Document 02/05/19 17:31 EA (Rec: 02/05/19 17:38 EA [id number]) Special Tests Shoulder Special Tests Elevation Impingement Test Results + Empty Can Test Results + Drop Arm Rotator Cuff Test Results - Omalley Rickey Impingement Test Results + Yerucheson's Biceps Test Results + Lift-Off Rotator Cuff Test Results - Belly Press Test Results - PT-OP-M Strength Start: 02/05/19 17:19 Freq: Status: Active Protocol: Document 02/05/19 17:31 EA (Rec: 02/05/19 17:38 EA [id number]) Shoulder Strength Shoulder Manual Muscle Testing Left Flexion 3+ Fair+ Extension 4 Good Abduction (C5) 3+ Fair+ Adduction 4 Good External Rotation 4- Good- Internal Rotation 3+ Fair+ Horizontal Abduction 4- Good- Horizontal Adduction 4- Good- Right Reason Not Measured WFL PT-OP-Q Treatments Start: 02/05/19 17:19 Freq: Status: Active Protocol: Document 02/18/19 09:45 HH (Rec: 02/18/19 12:33 HH [email or web address]) Therapeutic Exercises Supine Exercises scap punch Side bilateral Reps/Minutes 8 x2 shoulder flexion Supine Exercise Name AAROM Side bilateral Reps/Minutes 5 x2 Comments slow concentric and eccentric Sidelying Exercises should flexion Sidelying Exercise Name AAROM Side left Reps/Minutes 8 x2 Comments focus on slow eccentric shoulder abd Sidelying Exercise Name AROM Side left Reps/Minutes 8 x2 Comments focus on slow eccentric Sitting Exercises OH pulleys Sitting Exercise Name scaption and flexion PROM and AAROM Equipment Used niki Reps/Minutes 5 mins Comments full ROM bilaterally Manual Therapy Treatment Joint Mobilizations scap mob 2 Joint downward rotation Grade II Body Position Sidelying Reps/Duration 8 mins Comments with L shd extension scap mob Joint upward rotation Grade II Body Position Sidelying Reps/Duration 7 mins Comments with L shoulder flexion and abd AAROM PT-OP-T Assessment and Plan Start: 02/05/19 17:19 Freq: Status: Active Protocol: Document 02/18/19 09:45 HH (Rec: 02/18/19 12:33 HH [email or web address]) Physical Therapy Assessment Assessment Summary Assessment Pt reports no pain with PROM/ AAROM during [place] niki and scap mob but increase in pain with AROM for flexion and abduction. Given sidelying shoulde flexion and abduction for HEP. Physical Therapy Plan Next Visit Focus/Plan Next Note Type Treatment Note Next Visit Plan start with PROM and AAROM for flexion and abduction in pain free range. Strength as nely
--- NOTE | 2019-02-21 10:30 | PT.OTN ---
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 Pt reports he loves to sleep on left shoulder even at this time where pain always wake her up. Patient reports had cortisone shot a month ago and feels that shoulder pain improves few days after the shot. Pt states she is referred to PT to prevent shoulder pain recurrence and to improve strength. Prior Treatments and Tests Cortisone shot a month ago X-ray from her shoulder specialist Future Testing and Treatments Planned Possible second phase of cortisone shot Treatment Goals Patient/Caregiver Goals Patient would like to prevent further shoulder symptoms recurrence. Patient would like to be able to perform overhead activities with no difficulty Prior Functional Status Baseline Function- ADL's Independent Baseline Function- Mobility Independent Baseline Function- Work/School Retired Baseline Function- Recreation/Hobbies House chores with no difficulty a year ago. Baseline Function- Other No difficulty with overehad activities and sleeping to left side a year ago Current Functional Impairments (Reported) Functional Limitations- ADL's Indep with limitation to overhead activities and other personal care. Functional Limitations- Work/School Retired Functional Limitations- Recreation/ Unable to perform recreational Hobbies activities that require hand overhead. Personal Factors Other Personal Factors That May Effect Blood pressure but controlled, Therapy/Recovery chronic low back pain PT-OP-C Subjective Start: 02/05/19 17:19 Freq: Status: Active Protocol: Document 02/21/19 09:45 DCW (Rec: 02/21/19 10:27 [facility] [id number]) OP-PT Subjective Patient Comments Patient Comments Pt reports overall she is improving, but it still gets sore, especially when she forgets about it and rolls over onto her shoulder. Pt does note that she has been working out in her yard, and her back is bothrering her, so she would prefer not to lay down for any of her exercises today. PT-OP-E Functional Tests Start: 02/05/19 17:19 Freq: Status: Active Protocol: Document 02/05/19 17:31 EA (Rec: 02/05/19 17:38 EA [id number]) Functional Tests Apley's Scratch Test Action 1: The subject is instructed to touch the opposite shoulder with his/her hand. This motion checks Glenohumeral adduction, internal rotation , horizontal adduction and scapular protraction Action 2: The subject is instructed to place his/her arm overhead and reach behind the neck to touch his/her upper back. This motion checks Glenohumeral abduction, external rotation and scapular upward rotation and elevation. Action 3: The subject puts his/her hand on the lower back and reaches upward as far as possible. This motion checks glenohumeral adduction, internal rotation and scapular retraction with downward rotation Action 1- Left able to touch opp shoulder Action 1- Right able Action 2- Left T2 Action 2- Right C6 Action 3- Left L3 Action 3- Right T10 PT-OP-F Manual Assessment Start: 02/05/19 17:19 Freq: Status: Active Protocol: Document 02/05/19 17:31 EA (Rec: 02/05/19 17:38 EA [id number]) Manual Assessments Soft Tissue Assessment Soft Tissue Mobility Assessment Tight Pectorals, int rotators PT-OP-J Posture/Palpation/Skin Start: 02/05/19 17:19 Freq: Status: Active Protocol: Document 02/05/19 17:31 EA (Rec: 02/05/19 17:38 EA [id number]) Posture Evaluation Comments Posture Comments [place] Fwd head and round shoulder Palpation Assessment Location One Palpation Location Anterior shoulder, LHBT, RTC tendon, SS/IF muscle Palpation Findings Soft Tissue Tightness Tenderness PT-OP-L Special Tests Start: 02/05/19 17:19 Freq: Status: Active Protocol: Document 02/05/19 17:31 EA (Rec: 02/05/19 17:38 EA [id number]) Special Tests Shoulder Special Tests Elevation Impingement Test Results + Empty Can Test Results + Drop Arm Rotator Cuff Test Results - Omalley Rickey Impingement Test Results + Yergason's Biceps Test Results + Lift-Off Rotator Cuff Test Results - Belly Press Test Results - PT-OP-M Strength Start: 02/05/19 17:19 Freq: Status: Active Protocol: Document 02/05/19 17:31 EA (Rec: 02/05/19 17:38 EA [id number]) Shoulder Strength Shoulder Manual Muscle Testing Left Flexion 3+ Fair+ Extension 4 Good Abduction (C5) 3+ Fair+ Adduction 4 Good External Rotation 4- Good- Internal Rotation 3+ Fair+ Horizontal Abduction 4- Good- Horizontal Adduction 4- Good- Right Reason Not Measured WFL PT-OP-Q Treatments Start: 02/05/19 17:19 Freq: Status: Active Protocol: Document 02/21/19 09:45 DCW (Rec: 02/21/19 10:27 DCW [id number]) Cardio Equipment Upper Body Ergometer (UBE) Duration (Minutes) 5 RPM 60 Seat Position 11 Height 2.5 Therapeutic Exercises Sitting Exercises OH pulleys Sitting Exercise Name scaption and flexion PROM and AAROM Equipment Used niki Reps/Minutes 5 mins Comments full ROM bilaterally Standing Exercises Shoulder Abduction Standing Exercise Name Abduction Side left Resistance 1# Comments Pain-free ROM, VCs to prevent shoulder shrugs Shoulder Flexion Standing Exercise Name Flexion Side left Resistance 1# Comments Pain-free ROM, VCs to prevent shoulder shrugs Wall Slides Standing Exercise Name Wall Slides - Flex/Abd Side left Equipment Used Furniture slider Comments Pain-free ROM Manual Therapy Treatment Joint Mobilizations GH mob Joint GH mobilization Direction Inf Grade III scap mob 2 Joint downward rotation Grade II Body Position Sidelying Reps/Duration 8 mins Comments with L shd extension scap mob Joint upward rotation Grade II Body Position Sidelying Reps/Duration 7 mins Comments with L shoulder flexion and abd AAROM PT-OP-R Modalities Start: 02/05/19 17:19 Freq: Status: Active Protocol: Document 02/21/19 09:45 DCW (Rec: 02/21/19 10:27 DCW [id number]) Hot Pack/Cold Pack Treatment Cold Pack Location L shoulder Patient Position Sitting Treatment Duration (minutes) 10 Patient Tolerance Good PT-OP-T Assessment and Plan Start: 02/05/19 17:19 Freq: Status: Active Protocol: Document 02/21/19 09:45 DCW (Rec: 02/21/19 10:27 DCW [id number]) Physical Therapy Assessment Impairments Impairments Activity Tolerance Functional Activities Pain Posture ROM Soft Tissue Mobility Strength Goals Three Impairment Impaired shoulder strength Skilled Nursing Goal (LTG) Patient will increase L shoulder ABD/Flexors, rotators to functional level to enable overhead activities without difficulty. LTG Duration 6 wks Two Impairment Impaired Apley's functional test Skilled Nursing Goal (LTG) Patient will demonstrate normal shoulder mobility base on Apley's functional test LTG Duration 6 wks One Impairment Quick Dash score of 30 Music Department Chair Goal (LTG) Quick Dash Score of less than 15 LTG Duration 4 wks Assessment Summary Assessment Pt reported mild pain with shoulder flexion and abduction , stopped exercises early. Pt overall feels optimistic with how shoulder is progressing. Physical Therapy Plan Frequency and Duration Frequency of Treatment 2x/Week Duration of Treatment 8 wks Plan of Care Start Date 02/05/19 Plan of Care End Date 04/02/19 Therapeutic Interventions Therapeutic Interventions Home Exercise Program Joint Mobilizations Manual Therapy Neuromuscular Re-education Orthotic/Prosthetic Management Patient/Caregiver Education Self-Care/Home Management Soft Tissue Mobilization Taping Therapeutic Exercises Modalities Cold Pack/Ice Massage Electric Stimulation Hot Packs Ultrasound Next Visit Focus/Plan Next Note Type Treatment Note Next Visit Plan start with PROM and AAROM for flexion and abduction in pain free range. Strength as nely
--- NOTE | 2019-03-10 12:14 | PT.OTN ---
Current Diagnoses Bursitis of left shoulder (03/10/19) Physical Therapy Treatment Note PT-OP-A Visit Information Start: 02/05/19 17:19 Freq: Status: Active Protocol: Document 03/10/19 12:08 EA (Rec: 03/10/19 12:14 EA [id number]) Out-Patient Physical Therapy Visit Information Visit Information Visit Type Treatment Note Visit Start Time 10:30 Visit Stop Time 11:15 Total Visit Minutes 45 Visit Number 4 PT-OP-B Current Condition Start: 02/05/19 17:19 Freq: Status: Active Protocol: Document 02/05/19 17:22 EA (Rec: 02/05/19 17:31 EA [id number]) Current Condition History of Current Condition Onset Date A year ago Current Complaints Right shoulder localized pain History of Current Condition Present condition gradually developed in a year course with no recalled of significant injury. Pt reports he loves to sleep on left shoulder even at this time where pain always wake her up. Patient reports had cortisone shot a month ago and feels that shoulder pain improves few days after the shot. Pt states she is referred to PT to prevent shoulder pain recurrence and to improve strength. Prior Treatments and Tests Cortisone shot a month ago X-ray from her shoulder specialist Future Testing and Treatments Planned Possible second phase of cortisone shot Treatment Goals Patient/Caregiver Goals Patient would like to prevent further shoulder symptoms recurrence. Patient would like to be able to perform overhead activities with no difficulty Prior Functional Status Baseline Function- ADL's Independent Baseline Function- Mobility Independent Baseline Function- Work/School Retired Baseline Function- Recreation/Hobbies House chores with no difficulty a year ago. Baseline Function- Other No difficulty with overehad activities and sleeping to left side a year ago Current Functional Impairments (Reported) Functional Limitations- ADL's Indep with limitation to overhead activities and other personal care. Functional Limitations- Work/School Retired Functional Limitations- Recreation/ Unable to perform recreational Hobbies activities that require hand overhead. Personal Factors Other Personal Factors That May Effect Blood pressure but controlled, Therapy/Recovery chronic low back pain PT-OP-C Subjective Start: 02/05/19 17:19 Freq: Status: Active Protocol: Document 03/10/19 12:08 EA (Rec: 03/10/19 12:14 EA [id number]) OP-PT Subjective Patient Comments Patient Comments Pt reports she is much feeling better pain colon; states pain only when sleeping to affected side. Pt request not to treat in laying position due to allergies reason PT-OP-E Functional Tests Start: 02/05/19 17:19 Freq: Status: Active Protocol: Document 02/05/19 17:31 EA (Rec: 02/05/19 17:38 EA [id number]) Functional Tests Apley's Scratch Test Action 1- Left able to touch opp shoulder Action 1- Right able Action 2- Left T2 Action 2- Right C6 Action 3- Left L3 Action 3- Right T10 PT-OP-F Manual Assessment Start: 02/05/19 17:19 Freq: Status: Active Protocol: Document 02/05/19 17:31 EA (Rec: 02/05/19 17:38 EA [id number]) Manual Assessments Soft Tissue Assessment Soft Tissue Mobility Assessment Tight Pectorals, int rotators PT-OP-J Posture/Palpation/Skin Start: 02/05/19 17:19 Freq: Status: Active Protocol: Document 02/05/19 17:31 EA (Rec: 02/05/19 17:38 EA [id number]) Posture Evaluation Comments Posture Comments [place] Fwd head and round shoulder Palpation Assessment Location One Palpation Location Anterior shoulder, LHBT, RTC tendon, SS/IF muscle Palpation Findings Soft Tissue Tightness Tenderness PT-OP-L Special Tests Start: 02/05/19 17:19 Freq: Status: Active Protocol: Document 02/05/19 17:31 EA (Rec: 02/05/19 17:38 EA [id number]) Special Tests Shoulder Special Tests Elevation Impingement Test Results + Empty Can Test Results + Drop Arm Rotator Cuff Test Results - Omalley Rickey Impingement Test Results + Yergason's Biceps Test Results + Lift-Off Rotator Cuff Test Results - Belly Press Test Results - PT-OP-M Strength Start: 02/05/19 17:19 Freq: Status: Active Protocol: Document 02/05/19 17:31 EA (Rec: 02/05/19 17:38 EA [id number]) Shoulder Strength Shoulder Manual Muscle Testing Left Flexion 3+ Fair+ Extension 4 Good Abduction (C5) 3+ Fair+ Adduction 4 Good External Rotation 4- Good- Internal Rotation 3+ Fair+ Horizontal Abduction 4- Good- Horizontal Adduction 4- Good- Right Reason Not Measured WFL PT-OP-Q Treatments Start: 02/05/19 17:19 Freq: Status: Active Protocol: Document 03/10/19 12:08 EA (Rec: 03/10/19 12:14 EA [id number]) Cardio Equipment Upper Body Ergometer (UBE) Duration (Minutes) 5 RPM 60 Seat Position 11 Height 2.5 Therapeutic Exercises Sidelying Exercises should flexion Sidelying Exercise Name arom Side left Reps/Minutes 15 Comments focus on slow eccentric shoulder abd Sidelying Exercise Name AROM Side left Reps/Minutes 15 reps Comments focus on slow eccentric Sitting Exercises OH pulleys Sitting Exercise Name scaption and flexion PROM and AAROM Equipment Used niki Reps/Minutes 5 mins Comments full ROM bilaterally Standing Exercises 2 Standing Exercise Name ER/IR Resistance Lv1 Reps/Minutes x 10 reps 1 Standing Exercise Name shoulder ext Resistance Lv1 Reps/Minutes x 10 reps Shoulder Abduction Standing Exercise Name Abduction Side left Resistance 1# Comments Pain-free ROM, VCs to prevent shoulder shrugs Shoulder Flexion Standing Exercise Name Flexion Side left Resistance 1# Comments Pain-free ROM, VCs to prevent shoulder shrugs Wall Slides Standing Exercise Name Wall Slides - Flex/Abd Side left Equipment Used Furniture slider Comments Pain-free ROM Manual Therapy Treatment Joint Mobilizations GH mob Joint GH mobilization Direction Inf Grade III scap mob 2 Joint downward rotation Grade II Body Position Sitting Reps/Duration 8 mins Comments with L shd extension PT-OP-R Modalities Start: 02/05/19 17:19 Freq: Status: Active Protocol: Document 03/10/19 12:08 EA (Rec: 03/10/19 12:14 EA [id number]) Hot Pack/Cold Pack Treatment Cold Pack Location L shoulder Patient Position Sitting Treatment Duration (minutes) 10 Patient Tolerance Good PT-OP-T Assessment and Plan Start: 02/05/19 17:19 Freq: Status: Active Protocol: Document 03/10/19 12:08 EA (Rec: 03/10/19 12:14 EA [id number]) Physical Therapy Assessment Assessment Summary Assessment Improved shoulder shoulder ROM and strength with min discomfort. Physical Therapy Plan Next Visit Focus/Plan Next Note Type Treatment Note Next Visit Plan start with PROM and AAROM for flexion and abduction in pain free range. Strength as nely
--- NOTE | 2019-03-12 16:48 | PT.OTN ---
Current Diagnoses Bursitis of left shoulder (03/12/19) Physical Therapy Treatment Note PT-OP-A Visit Information Start: 02/05/19 17:19 Freq: Status: Active Protocol: Document 03/12/19 16:41 SA (Rec: 03/12/19 16:48 SA [id number]) Out-Patient Physical Therapy Visit Information Visit Information Visit Type Treatment Note Visit Start Time 16:00 Visit Stop Time 16:46 Total Visit Minutes 46 Visit Number 5 Number of PARTS ANALYST Visits 1 PT-OP-B Current Condition Start: 02/05/19 17:19 Freq: Status: Active Protocol: Document 02/05/19 17:22 EA (Rec: 02/05/19 17:31 EA [id number]) Current Condition History of Current Condition Onset Date A year ago Current Complaints Right shoulder localized pain History of Current Condition Present condition gradually developed in a year course with no recalled of significant injury. Pt reports he loves to sleep on left shoulder even at this time where pain always wake her up. Patient reports had cortisone shot a month ago and feels that shoulder pain improves few days after the shot. Pt states she is referred to PT to prevent shoulder pain recurrence and to improve strength. Prior Treatments and Tests Cortisone shot a month ago X-ray from her shoulder specialist Future Testing and Treatments Planned Possible second phase of cortisone shot Treatment Goals Patient/Caregiver Goals Patient would like to prevent further shoulder symptoms recurrence. Patient would like to be able to perform overhead activities with no difficulty Prior Functional Status Baseline Function- ADL's Independent Baseline Function- Mobility Independent Baseline Function- Work/School Retired Baseline Function- Recreation/Hobbies House chores with no difficulty a year ago. Baseline Function- Other No difficulty with overehad activities and sleeping to left side a year ago Current Functional Impairments (Reported) Functional Limitations- ADL's Indep with limitation to overhead activities and other personal care. Functional Limitations- Work/School Retired Functional Limitations- Recreation/ Unable to perform recreational Hobbies activities that require hand overhead. Personal Factors Other Personal Factors That May Effect Blood pressure but controlled, Therapy/Recovery chronic low back pain PT-OP-C Subjective Start: 02/05/19 17:19 Freq: Status: Active Protocol: Document 03/12/19 16:41 SA (Rec: 03/12/19 16:48 SA [id number]) OP-PT Subjective Patient Comments Patient Comments Pt continues to report progress with decreased L shoulder pain and improving functional mobility. PT-OP-E Functional Tests Start: 02/05/19 17:19 Freq: Status: Active Protocol: Document 02/05/19 17:31 EA (Rec: 02/05/19 17:38 EA [id number]) Functional Tests Apley's Scratch Test Action 1- Left able to touch opp shoulder Action 1- Right able Action 2- Left T2 Action 2- Right C6 Action 3- Left L3 Action 3- Right T10 PT-OP-F Manual Assessment Start: 02/05/19 17:19 Freq: Status: Active Protocol: Document 02/05/19 17:31 EA (Rec: 02/05/19 17:38 EA [id number]) Manual Assessments Soft Tissue Assessment Soft Tissue Mobility Assessment Tight Pectorals, int rotators PT-OP-J Posture/Palpation/Skin Start: 02/05/19 17:19 Freq: Status: Active Protocol: Document 02/05/19 17:31 EA (Rec: 02/05/19 17:38 EA [id number]) Posture Evaluation Comments Posture Comments [place] Fwd head and round shoulder Palpation Assessment Location One Palpation Location Anterior shoulder, LHBT, RTC tendon, SS/IF muscle Palpation Findings Soft Tissue Tightness Tenderness PT-OP-L Special Tests Start: 02/05/19 17:19 Freq: Status: Active Protocol: Document 02/05/19 17:31 EA (Rec: 02/05/19 17:38 EA [id number]) Special Tests Shoulder Special Tests Elevation Impingement Test Results + Empty Can Test Results + Drop Arm Rotator Cuff Test Results - Omalley Rickey Impingement Test Results + Yergason's Biceps Test Results + Lift-Off Rotator Cuff Test Results - Belly Press Test Results - PT-OP-M Strength Start: 02/05/19 17:19 Freq: Status: Active Protocol: Document 02/05/19 17:31 EA (Rec: 02/05/19 17:38 EA [id number]) Shoulder Strength Shoulder Manual Muscle Testing Left Flexion 3+ Fair+ Extension 4 Good Abduction (C5) 3+ Fair+ Adduction 4 Good External Rotation 4- Good- Internal Rotation 3+ Fair+ Horizontal Abduction 4- Good- Horizontal Adduction 4- Good- Right Reason Not Measured WFL PT-OP-Q Treatments Start: 02/05/19 17:19 Freq: Status: Active Protocol: Document 03/12/19 16:41 SA (Rec: 03/12/19 16:48 SA [id number]) Cardio Equipment Upper Body Ergometer (UBE) Duration (Minutes) 5 RPM 60 Seat Position 11 Height 2.5 Therapeutic Exercises Supine Exercises shoulder flexion Supine Exercise Name AAROM Side bilateral Resistance wand Equipment Used standing Reps/Minutes 15x Comments slow concentric and eccentric Sitting Exercises OH pulleys Sitting Exercise Name scaption and flexion PROM and AAROM Equipment Used niki Reps/Minutes 5 mins Comments full ROM bilaterally Standing Exercises Scapular Rows Side bilateral Resistance LV 2 Reps/Minutes 15 x 2 Standing Exercise Name ER/IR Resistance LV 2 Reps/Minutes x 10 reps 1 Standing Exercise Name shoulder ext Resistance LV2 Reps/Minutes x 10 reps Shoulder Abduction Standing Exercise Name Abduction Side left Resistance 1# Comments Pain-free ROM, VCs to prevent shoulder shrugs Wall Slides Standing Exercise Name Wall Slides - Flex/Abd Side left Equipment Used Furniture slider Comments Pain-free ROM Manual Therapy Treatment Joint Mobilizations GH mob Joint GH mobilization Direction Inf Grade III scap mob 2 Joint downward rotation Grade II Body Position Sitting Reps/Duration 8 mins Comments with L shd extension scap mob Joint upward rotation Grade II Body Position Sidelying Reps/Duration 7 mins Comments with L shoulder flexion and abd AAROM PT-OP-R Modalities Start: 02/05/19 17:19 Freq: Status: Active Protocol: Document 03/12/19 16:41 SA (Rec: 03/12/19 16:48 [id number]) Hot Pack/Cold Pack Treatment Cold Pack Location L shoulder Patient Position Sitting Treatment Duration (minutes) 10 Patient Tolerance Good PT-OP-T Assessment and Plan Start: 02/05/19 17:19 Freq: Status: Active Protocol: Document 03/12/19 16:41 SA (Rec: 03/12/19 16:48 [id number]) Physical Therapy Assessment Assessment Summary Assessment Pt tolerating ther ex progressions well, consistent with HEP, decreasing symptoms. Physical Therapy Plan Next Visit Focus/Plan Next Note Type Treatment Note Next Visit Plan start with PROM and AAROM for flexion and abduction in pain free range. Strength as nely
--- NOTE | 2019-03-17 12:16 | PT.OTN ---
Current Diagnoses Bursitis of left shoulder (03/17/19) Physical Therapy Treatment Note PT-OP-A Visit Information Start: 02/05/19 17:19 Freq: Status: Active Protocol: Document 03/17/19 09:35 EA (Rec: 03/17/19 09:40 EA [id number]) Out-Patient Physical Therapy Visit Information Visit Information Visit Type Treatment Note Visit Start Time 09:00 Visit Stop Time 09:45 Total Visit Minutes 45 Visit Number 6 Number of HOT END OPERATOR Visits 0 PT-OP-B Current Condition Start: 02/05/19 17:19 Freq: Status: Active Protocol: Document 02/05/19 17:22 EA (Rec: 02/05/19 17:31 EA [id number]) Current Condition History of Current Condition Onset Date A year ago Current Complaints Right shoulder localized pain History of Current Condition Present condition gradually developed in a year course with no recalled of significant injury. Pt reports he loves to sleep on left shoulder even at this time where pain always wake her up. Patient reports had cortisone shot a month ago and feels that shoulder pain improves few days after the shot. Pt states she is referred to PT to prevent shoulder pain recurrence and to improve strength. Prior Treatments and Tests Cortisone shot a month ago X-ray from her shoulder specialist Future Testing and Treatments Planned Possible second phase of cortisone shot Treatment Goals Patient/Caregiver Goals Patient would like to prevent further shoulder symptoms recurrence. Patient would like to be able to perform overhead activities with no difficulty Prior Functional Status Baseline Function- ADL's Independent Baseline Function- Mobility Independent Baseline Function- Work/School Retired Baseline Function- Recreation/Hobbies House chores with no difficulty a year ago. Baseline Function- Other No difficulty with overehad activities and sleeping to left side a year ago Current Functional Impairments (Reported) Functional Limitations- ADL's Indep with limitation to overhead activities and other personal care. Functional Limitations- Work/School Retired Functional Limitations- Recreation/ Unable to perform recreational Hobbies activities that require hand overhead. Personal Factors Other Personal Factors That May Effect Blood pressure but controlled, Therapy/Recovery chronic low back pain PT-OP-C Subjective Start: 02/05/19 17:19 Freq: Status: Active Protocol: Document 03/17/19 09:35 EA (Rec: 03/17/19 09:40 EA [id number]) OP-PT Subjective Patient Comments Patient Comments I feel much even better at this time; states complied with HEP and no increased insymptoms except when sleeping to affected side. PT-OP-E Functional Tests Start: 02/05/19 17:19 Freq: Status: Active Protocol: Document 02/05/19 17:31 EA (Rec: 02/05/19 17:38 EA [id number]) Functional Tests Apley's Scratch Test Action 1- Left able to touch opp shoulder Action 1- Right able Action 2- Left T2 Action 2- Right C6 Action 3- Left L3 Action 3- Right T10 PT-OP-F Manual Assessment Start: 02/05/19 17:19 Freq: Status: Active Protocol: Document 02/05/19 17:31 EA (Rec: 02/05/19 17:38 EA [id number]) Manual Assessments Soft Tissue Assessment Soft Tissue Mobility Assessment Tight Pectorals, int rotators PT-OP-J Posture/Palpation/Skin Start: 02/05/19 17:19 Freq: Status: Active Protocol: Document 02/05/19 17:31 EA (Rec: 02/05/19 17:38 EA [id number]) Posture Evaluation Comments Posture Comments [place]lig[place] Fwd head and round shoulder Palpation Assessment Location One Palpation Location Anterior shoulder, LHBT, RTC tendon, SS/IF muscle Palpation Findings Soft Tissue Tightness Tenderness PT-OP-L Special Tests Start: 02/05/19 17:19 Freq: Status: Active Protocol: Document 02/05/19 17:31 EA (Rec: 02/05/19 17:38 EA [id number]) Special Tests Shoulder Special Tests Elevation Impingement Test Results + Empty Can Test Results + Drop Arm Rotator Cuff Test Results - Omalley Rickey Impingement Test Results + Yergason's Biceps Test Results + Lift-Off Rotator Cuff Test Results - Belly Press Test Results - PT-OP-M Strength Start: 02/05/19 17:19 Freq: Status: Active Protocol: Document 02/05/19 17:31 EA (Rec: 02/05/19 17:38 EA [id number]) Shoulder Strength Shoulder Manual Muscle Testing Left Flexion 3+ Fair+ Extension 4 Good Abduction (C5) 3+ Fair+ Adduction 4 Good External Rotation 4- Good- Internal Rotation 3+ Fair+ Horizontal Abduction 4- Good- Horizontal Adduction 4- Good- Right Reason Not Measured WFL PT-OP-Q Treatments Start: 02/05/19 17:19 Freq: Status: Active Protocol: Document 03/17/19 09:35 EA (Rec: 03/17/19 09:40 EA [id number]) Cardio Equipment Upper Body Ergometer (UBE) Duration (Minutes) 5 RPM 60 Seat Position 11 Height 3 Therapeutic Exercises Standing Exercises Scapular Rows Side bilateral Resistance LV 2 Reps/Minutes 15 x 2 Standing Exercise Name ER/IR Resistance LV 2 Reps/Minutes x 10 reps 1 Standing Exercise Name shoulder ext Resistance LV2 Reps/Minutes x 10 reps Shoulder Abduction Standing Exercise Name Abduction Side left Resistance 1# Comments Pain-free ROM, VCs to prevent shoulder shrugs Shoulder Flexion Standing Exercise Name Flexion Side left Resistance 1# Comments Pain-free ROM, VCs to prevent shoulder shrugs Wall Slides Standing Exercise Name Wall Slides - Flex/Abd Side left Equipment Used Furniture slider Comments AW to both hands Manual Therapy Treatment Joint Mobilizations GH mob Joint GH mobilization Direction Inf Grade III scap mob 2 Joint downward rotation Grade II Body Position Sitting Reps/Duration 8 mins Comments with L shd extension PT-OP-R Modalities Start: 02/05/19 17:19 Freq: Status: Active Protocol: Document 03/17/19 09:35 EA (Rec: 03/17/19 09:40 EA [id number]) Hot Pack/Cold Pack Treatment Cold Pack Location L shoulder Patient Position Sitting Treatment Duration (minutes) 10 Patient Tolerance Good PT-OP-T Assessment and Plan Start: 02/05/19 17:19 Freq: Status: Active Protocol: Document 03/17/19 09:35 EA (Rec: 03/17/19 09:40 EA [id number]) Physical Therapy Assessment Assessment Summary Assessment Performed overhead therex with no difficulty at lower resistance except when passing shoulder at 90 deg. Physical Therapy Plan Next Visit Focus/Plan Next Note Type Treatment Note Next Visit Plan progress as tolerated.
--- NOTE | 2019-03-19 15:20 | PT.OTN ---
Current Diagnoses Bursitis of left shoulder (03/19/19) Physical Therapy Treatment Note PT-OP-A Visit Information Start: 02/05/19 17:19 Freq: Status: Active Protocol: Document 03/19/19 14:29 EA (Rec: 03/19/19 14:33 EA [id number]) Out-Patient Physical Therapy Visit Information Visit Information Visit Type Treatment Note Visit Start Time 13:45 Visit Stop Time 14:30 Total Visit Minutes 45 Visit Number 7 PT-OP-B Current Condition Start: 02/05/19 17:19 Freq: Status: Active Protocol: Document 02/05/19 17:22 EA (Rec: 02/05/19 17:31 EA [id number]) Current Condition History of Current Condition Onset Date A year ago Current Complaints Right shoulder localized pain History of Current Condition Present condition gradually developed in a year course with no recalled of significant injury. Pt reports he loves to sleep on left shoulder even at this time where pain always wake her up. Patient reports had cortisone shot a month ago and feels that shoulder pain improves few days after the shot. Pt states she is referred to PT to prevent shoulder pain recurrence and to improve strength. Prior Treatments and Tests Cortisone shot a month ago X-ray from her shoulder specialist Future Testing and Treatments Planned Possible second phase of cortisone shot Treatment Goals Patient/Caregiver Goals Patient would like to prevent further shoulder symptoms recurrence. Patient would like to be able to perform overhead activities with no difficulty Prior Functional Status Baseline Function- ADL's Independent Baseline Function- Mobility Independent Baseline Function- Work/School Retired Baseline Function- Recreation/Hobbies House chores with no difficulty a year ago. Baseline Function- Other No difficulty with overehad activities and sleeping to left side a year ago Current Functional Impairments (Reported) Functional Limitations- ADL's Indep with limitation to overhead activities and other personal care. Functional Limitations- Work/School Retired Functional Limitations- Recreation/ Unable to perform recreational Hobbies activities that require hand overhead. Personal Factors Other Personal Factors That May Effect Blood pressure but controlled, Therapy/Recovery chronic low back pain PT-OP-C Subjective Start: 02/05/19 17:19 Freq: Status: Active Protocol: Document 03/19/19 14:29 EA (Rec: 03/19/19 14:33 EA [id number]) OP-PT Subjective Patient Comments Patient Comments Pt reports left shoulder was sore after last session but feels much better today. PT-OP-E Functional Tests Start: 02/05/19 17:19 Freq: Status: Active Protocol: Document 02/05/19 17:31 EA (Rec: 02/05/19 17:38 EA [id number]) Functional Tests Apley's Scratch Test Action 1- Left able to touch opp shoulder Action 1- Right able Action 2- Left T2 Action 2- Right C6 Action 3- Left L3 Action 3- Right T10 PT-OP-F Manual Assessment Start: 02/05/19 17:19 Freq: Status: Active Protocol: Document 02/05/19 17:31 EA (Rec: 02/05/19 17:38 EA [id number]) Manual Assessments Soft Tissue Assessment Soft Tissue Mobility Assessment Tight Pectorals, int rotators PT-OP-J Posture/Palpation/Skin Start: 02/05/19 17:19 Freq: Status: Active Protocol: Document 02/05/19 17:31 EA (Rec: 02/05/19 17:38 EA [id number]) Posture Evaluation Comments Posture Comments [place]lig[place] Fwd head and round shoulder Palpation Assessment Location One Palpation Location Anterior shoulder, LHBT, RTC tendon, SS/IF muscle Palpation Findings Soft Tissue Tightness Tenderness PT-OP-L Special Tests Start: 02/05/19 17:19 Freq: Status: Active Protocol: Document 02/05/19 17:31 EA (Rec: 02/05/19 17:38 EA [id number]) Special Tests Shoulder Special Tests Elevation Impingement Test Results + Empty Can Test Results + Drop Arm Rotator Cuff Test Results - Omalley Rickey Impingement Test Results + Yergason's Biceps Test Results + Lift-Off Rotator Cuff Test Results - Belly Press Test Results - PT-OP-M Strength Start: 02/05/19 17:19 Freq: Status: Active Protocol: Document 02/05/19 17:31 EA (Rec: 02/05/19 17:38 EA [id number]) Shoulder Strength Shoulder Manual Muscle Testing Left Flexion 3+ Fair+ Extension 4 Good Abduction (C5) 3+ Fair+ Adduction 4 Good External Rotation 4- Good- Internal Rotation 3+ Fair+ Horizontal Abduction 4- Good- Horizontal Adduction 4- Good- Right Reason Not Measured WFL PT-OP-Q Treatments Start: 02/05/19 17:19 Freq: Status: Active Protocol: Document 03/19/19 14:29 EA (Rec: 03/19/19 14:33 EA [id number]) Cardio Equipment Upper Body Ergometer (UBE) Duration (Minutes) 6 RPM 60 Seat Position 11 Height 3-5.5 Therapeutic Exercises Standing Exercises Scapular Rows Side bilateral Resistance LV 2 Reps/Minutes 15 x 2 Standing Exercise Name ER/IR Resistance LV 2 Reps/Minutes x 10 reps 1 Standing Exercise Name shoulder ext Resistance LV2 Reps/Minutes x 10 reps Shoulder Abduction Standing Exercise Name Abduction Side left Resistance 1# Comments Pain-free ROM, VCs to prevent shoulder shrugs Shoulder Flexion Standing Exercise Name Flexion Side left Resistance 1# Comments Pain-free ROM, VCs to prevent shoulder shrugs Wall Slides Standing Exercise Name Wall Slides - Flex/Abd Side left Resistance 1# AW Equipment Used Furniture slider Comments add small circular at 150 deg PT-OP-R Modalities Start: 02/05/19 17:19 Freq: Status: Active Protocol: Document 03/19/19 14:29 EA (Rec: 03/19/19 14:33 EA [id number]) Hot Pack/Cold Pack Treatment Cold Pack Location L shoulder Patient Position Sitting Treatment Duration (minutes) 10 Patient Tolerance Good PT-OP-T Assessment and Plan Start: 02/05/19 17:19 Freq: Status: Active Protocol: Document 03/19/19 14:29 EA (Rec: 03/19/19 14:33 EA [id number]) Physical Therapy Assessment Assessment Summary Assessment Discomfort after few sets of wall sliders exercises otherwise none in all therex. Physical Therapy Plan Next Visit Focus/Plan Next Note Type Treatment Note Next Visit Plan progress as tolerated.
--- NOTE | 2019-03-31 16:03 | PT.OTN ---
Current Diagnoses Bursitis of left shoulder (03/31/19) Physical Therapy Treatment Note PT-OP-A Visit Information Start: 02/05/19 17:19 Freq: Status: Active Protocol: Document 03/31/19 15:03 LRN (Rec: 03/31/19 16:02 LRN [id number]) Out-Patient Physical Therapy Visit Information Visit Information Visit Type Treatment Note Visit Start Time 15:03 Visit Stop Time 15:53 Total Visit Minutes 50 Visit Number 8 Evaluation Information Evaluation Date 02/05/19 Precautions Precautions None identified PT-OP-B Current Condition Start: 02/05/19 17:19 Freq: Status: Active Protocol: Document 02/05/19 17:22 EA (Rec: 02/05/19 17:31 EA [id number]) Current Condition History of Current Condition Onset Date A year ago Current Complaints Right shoulder localized pain History of Current Condition Present condition gradually developed in a year course with no recalled of significant injury. Pt reports he loves to sleep on left shoulder even at this time where pain always wake her up. Patient reports had cortisone shot a month ago and feels that shoulder pain improves few days after the shot. Pt states she is referred to PT to prevent shoulder pain recurrence and to improve strength. Prior Treatments and Tests Cortisone shot a month ago X-ray from her shoulder specialist Future Testing and Treatments Planned Possible second phase of cortisone shot Treatment Goals Patient/Caregiver Goals Patient would like to prevent further shoulder symptoms recurrence. Patient would like to be able to perform overhead activities with no difficulty Prior Functional Status Baseline Function- ADL's Independent Baseline Function- Mobility Independent Baseline Function- Work/School Retired Baseline Function- Recreation/Hobbies House chores with no difficulty a year ago. Baseline Function- Other No difficulty with overehad activities and sleeping to left side a year ago Current Functional Impairments (Reported) Functional Limitations- ADL's Indep with limitation to overhead activities and other personal care. Functional Limitations- Work/School Retired Functional Limitations- Recreation/ Unable to perform recreational Hobbies activities that require hand overhead. Personal Factors Other Personal Factors That May Effect Blood pressure but controlled, Therapy/Recovery chronic low back pain PT-OP-C Subjective Start: 02/05/19 17:19 Freq: Status: Active Protocol: Document 03/31/19 15:03 LRN (Rec: 03/31/19 16:02 LRN [id number]) OP-PT Subjective Patient Comments Patient Comments Way better than when first started. n Only 2 ex's at home . PT-OP-E Functional Tests Start: 02/05/19 17:19 Freq: Status: Active Protocol: Document 02/05/19 17:31 EA (Rec: 02/05/19 17:38 EA [id number]) Functional Tests Apley's Scratch Test Action 1- Left able to touch opp shoulder Action 1- Right able Action 2- Left T2 Action 2- Right C6 Action 3- Left L3 Action 3- Right T10 PT-OP-F Manual Assessment Start: 02/05/19 17:19 Freq: Status: Active Protocol: Document 02/05/19 17:31 EA (Rec: 02/05/19 17:38 EA [id number]) Manual Assessments Soft Tissue Assessment Soft Tissue Mobility Assessment Tight Pectorals, int rotators PT-OP-J Posture/Palpation/Skin Start: 02/05/19 17:19 Freq: Status: Active Protocol: Document 02/05/19 17:31 EA (Rec: 02/05/19 17:38 EA [id number]) Posture Evaluation Comments Posture Comments [place]ligth Fwd head and round shoulder Palpation Assessment Location One Palpation Location Anterior shoulder, LHBT, RTC tendon, SS/IF muscle Palpation Findings Soft Tissue Tightness Tenderness PT-OP-L Special Tests Start: 02/05/19 17:19 Freq: Status: Active Protocol: Document 02/05/19 17:31 EA (Rec: 02/05/19 17:38 EA [id number]) Special Tests Shoulder Special Tests Elevation Impingement Test Results + Empty Can Test Results + Drop Arm Rotator Cuff Test Results - Omalley Rickey Impingement Test Results + Yergason's Biceps Test Results + Lift-Off Rotator Cuff Test Results - Belly Press Test Results - PT-OP-M Strength Start: 02/05/19 17:19 Freq: Status: Active Protocol: Document 02/05/19 17:31 EA (Rec: 02/05/19 17:38 EA [id number]) Shoulder Strength Shoulder Manual Muscle Testing Left Flexion 3+ Fair+ Extension 4 Good Abduction (C5) 3+ Fair+ Adduction 4 Good External Rotation 4- Good- Internal Rotation 3+ Fair+ Horizontal Abduction 4- Good- Horizontal Adduction 4- Good- Right Reason Not Measured WFL PT-OP-Q Treatments Start: 02/05/19 17:19 Freq: Status: Active Protocol: Document 03/31/19 15:03 LRN (Rec: 03/31/19 16:02 LRN [id number]) Cardio Equipment Upper Body Ergometer (UBE) Duration (Minutes) 8 RPM 60 Seat Position 11 Height 3-5.5 Therapeutic Exercises Standing Exercises Chest press Standing Exercise Name Chest press Side bilateral Equipment Used Lev 2 T-Band Reps/Minutes 10x Scapular Rows Side bilateral Resistance LV 2 Reps/Minutes 15 x 2 2 Standing Exercise Name ER/IR Resistance LV 2 Reps/Minutes 15 x 2 reps 1 Standing Exercise Name shoulder ext Resistance LV2 Reps/Minutes 15 x 2 reps Shoulder Abduction Standing Exercise Name Abduction Side left Resistance 1# Reps/Minutes 10x Comments Pain-free ROM, VCs to prevent shoulder shrugs Shoulder Flexion Standing Exercise Name Flexion Side left Resistance 1# Reps/Minutes 10x Comments Pain-free ROM, VCs to prevent shoulder shrugs Manual Therapy Treatment Joint Mobilizations GH mob Joint GH mobilization Direction Inf Grade III scap mob 2 Joint downward rotation Grade II Body Position Sitting Comments with L shd extension Self-Care/Home Management Treatment Education Patient Education Home Exercise Program Activities Self-Care/Home Management Activities Issue & reviewed HEP: T-Band ex's of shoulder flex, row, ER , IR, extension. shoulder AB . Issued Lev 2 T-Band for home. PT-OP-R Modalities Start: 02/05/19 17:19 Freq: Status: Active Protocol: Document 03/19/19 14:29 EA (Rec: 03/19/19 14:33 EA [id number]) Hot Pack/Cold Pack Treatment Cold Pack Location L shoulder Patient Position Sitting Treatment Duration (minutes) 10 Patient Tolerance Good PT-OP-T Assessment and Plan Start: 02/05/19 17:19 Freq: Status: Active Protocol: Document 03/31/19 15:03 LRN (Rec: 03/31/19 16:02 LRN [id number]) Physical Therapy Assessment Assessment Summary Assessment Pt had no complaints of pain with T-Band home ex's. Added chest press and issued T-Band. Pt happy with progress. Physical Therapy Plan Frequency and Duration Frequency of Treatment 2x/Week Duration of Treatment 8 wks Plan of Care Start Date 02/05/19 Plan of Care End Date 04/02/19 Next Visit Focus/Plan Next Note Type Treatment Note Next Visit Plan Can start PROM with UBE or niki's, and progress as tolerated.
--- NOTE | 2019-04-07 12:14 | PT.OTN ---
Current Diagnoses Bursitis of left shoulder (04/07/19) Physical Therapy Treatment Note PT-OP-A Visit Information Start: 02/05/19 17:19 Freq: Status: Active Protocol: Document 04/07/19 09:40 EA (Rec: 04/07/19 09:46 EA [id number]) Out-Patient Physical Therapy Visit Information Visit Information Visit Type Treatment Note Visit Start Time 09:00 Visit Stop Time 09:45 Total Visit Minutes 45 Visit Number 9 Number of REPROGRAPHICS ASSOCIATE Visits 0 PT-OP-B Current Condition Start: 02/05/19 17:19 Freq: Status: Active Protocol: Document 02/05/19 17:22 EA (Rec: 02/05/19 17:31 EA [id number]) Current Condition History of Current Condition Onset Date A year ago Current Complaints Right shoulder localized pain History of Current Condition Present condition gradually developed in a year course with no recalled of significant injury. Pt reports he loves to sleep on left shoulder even at this time where pain always wake her up. Patient reports had cortisone shot a month ago and feels that shoulder pain improves few days after the shot. Pt states she is referred to PT to prevent shoulder pain recurrence and to improve strength. Prior Treatments and Tests Cortisone shot a month ago X-ray from her shoulder specialist Future Testing and Treatments Planned Possible second phase of cortisone shot Treatment Goals Patient/Caregiver Goals Patient would like to prevent further shoulder symptoms recurrence. Patient would like to be able to perform overhead activities with no difficulty Prior Functional Status Baseline Function- ADL's Independent Baseline Function- Mobility Independent Baseline Function- Work/School Retired Baseline Function- Recreation/Hobbies House chores with no difficulty a year ago. Baseline Function- Other No difficulty with overehad activities and sleeping to left side a year ago Current Functional Impairments (Reported) Functional Limitations- ADL's Indep with limitation to overhead activities and other personal care. Functional Limitations- Work/School Retired Functional Limitations- Recreation/ Unable to perform recreational Hobbies activities that require hand overhead. Personal Factors Other Personal Factors That May Effect Blood pressure but controlled, Therapy/Recovery chronic low back pain PT-OP-C Subjective Start: 02/05/19 17:19 Freq: Status: Active Protocol: Document 04/07/19 09:40 EA (Rec: 04/07/19 09:46 EA [id number]) OP-PT Subjective Patient Comments Patient Comments Pt reports that she was able to sleep on her left shoulder without increased of symptoms. PT-OP-E Functional Tests Start: 02/05/19 17:19 Freq: Status: Active Protocol: Document 02/05/19 17:31 EA (Rec: 02/05/19 17:38 EA [id number]) Functional Tests Apley's Scratch Test Action 1- Left able to touch opp shoulder Action 1- Right able Action 2- Left T2 Action 2- Right C6 Action 3- Left L3 Action 3- Right T10 PT-OP-F Manual Assessment Start: 02/05/19 17:19 Freq: Status: Active Protocol: Document 02/05/19 17:31 EA (Rec: 02/05/19 17:38 EA [id number]) Manual Assessments Soft Tissue Assessment Soft Tissue Mobility Assessment Tight Pectorals, int rotators PT-OP-J Posture/Palpation/Skin Start: 02/05/19 17:19 Freq: Status: Active Protocol: Document 02/05/19 17:31 EA (Rec: 02/05/19 17:38 EA [id number]) Posture Evaluation Comments Posture Comments [place]ligth Fwd head and round shoulder Palpation Assessment Location One Palpation Location Anterior shoulder, LHBT, RTC tendon, SS/IF muscle Palpation Findings Soft Tissue Tightness Tenderness PT-OP-L Special Tests Start: 02/05/19 17:19 Freq: Status: Active Protocol: Document 02/05/19 17:31 EA (Rec: 02/05/19 17:38 EA [id number]) Special Tests Shoulder Special Tests Elevation Impingement Test Results + Empty Can Test Results + Drop Arm Rotator Cuff Test Results - Omalley Rickey Impingement Test Results + Yergason's Biceps Test Results + Lift-Off Rotator Cuff Test Results - Belly Press Test Results - PT-OP-M Strength Start: 02/05/19 17:19 Freq: Status: Active Protocol: Document 02/05/19 17:31 EA (Rec: 02/05/19 17:38 EA [id number]) Shoulder Strength Shoulder Manual Muscle Testing Left Flexion 3+ Fair+ Extension 4 Good Abduction (C5) 3+ Fair+ Adduction 4 Good External Rotation 4- Good- Internal Rotation 3+ Fair+ Horizontal Abduction 4- Good- Horizontal Adduction 4- Good- Right Reason Not Measured WFL PT-OP-Q Treatments Start: 02/05/19 17:19 Freq: Status: Active Protocol: Document 04/07/19 09:40 EA (Rec: 04/07/19 09:46 EA [id number]) Cardio Equipment Upper Body Ergometer (UBE) Duration (Minutes) 8 RPM 60 Seat Position 11 Height 3-5.5 Gym Equipment Cable Column (Body Solid) Lat Pull Down Resistance 20# Reps/Time x 12 reps x 2 Therapeutic Exercises Standing Exercises Chest press Standing Exercise Name Chest press Side bilateral Equipment Used Lev 2 T-Band Reps/Minutes 10x Comments HEP comp Scapular Rows Side bilateral Resistance LV 2 Reps/Minutes 15 x 2 2 Standing Exercise Name ER/IR Resistance LV 2 Reps/Minutes 15 x 2 reps 1 Standing Exercise Name shoulder ext Resistance LV2 Reps/Minutes 15 x 2 reps Comments HEP comp Shoulder Abduction Standing Exercise Name Abduction Side left Resistance 1# Reps/Minutes 10x Comments Pain-free ROM, VCs to prevent shoulder shrugs Shoulder Flexion Standing Exercise Name Flexion Side left Resistance 1# Reps/Minutes 10x Comments Pain-free ROM, VCs to prevent shoulder shrugs Wall Slides Standing Exercise Name Wall Slides - Flex/Abd Side left Resistance 1# AW Equipment Used Furniture slider Comments add small circular at 150 deg PT-OP-R Modalities Start: 02/05/19 17:19 Freq: Status: Active Protocol: Document 04/07/19 09:47 EA (Rec: 04/07/19 09:47 EA [id number]) Hot Pack/Cold Pack Treatment Cold Pack Location L shoulder Patient Position Sitting Treatment Duration (minutes) 10 Patient Tolerance Good PT-OP-T Assessment and Plan Start: 02/05/19 17:19 Freq: Status: Active Protocol: Document 04/07/19 09:40 EA (Rec: 04/07/19 09:46 EA [id number]) Physical Therapy Assessment Rehab Potential Rehabilitation Potential Good Evaluation Complexity Number of Personal Factors/Comorbidities 1-2 Number of Body Systems Impaired 1-2 Clinical Presentation at Evaluation Stable Impairments Impairments Activity Tolerance Functional Activities Pain Posture ROM Soft Tissue Mobility Strength Goals Three Impairment Impaired shoulder strength Correction Goal (LTG) Patient will increase L shoulder ABD/Flexors, rotators to functional level to enable overhead activities without difficulty. LTG Duration 4 wks good progress Two Impairment Impaired Apley's functional test Correction Goal (LTG) Patient will demonstrate normal shoulder mobility base on Apley's functional test LTG Duration 6 wks (Good Progress) One Impairment Quick Dash score of 30 Correction Goal (LTG) Quick Dash Score of less than 15 LTG Duration 4 wks (Excellent progress) Assessment Summary Assessment Patient is very happy with her progress. Functionally she is performing well although she feels strength is not completely back yet. Overall patient is progressing well and will continue to benefit with skilled PT. Physical Therapy Plan Frequency and Duration Frequency of Treatment 1x/Week Duration of Treatment 6 wks Plan of Care Start Date 04/07/19 Plan of Care End Date 05/19/19 Therapeutic Interventions Therapeutic Interventions Home Exercise Program Joint Mobilizations Manual Therapy Neuromuscular Re-education Orthotic/Prosthetic Management Patient/Caregiver Education Self-Care/Home Management Soft Tissue Mobilization Taping Therapeutic Exercises Modalities Cold Pack/Ice Massage Electric Stimulation Hot Packs Ultrasound Next Visit Focus/Plan Next Note Type Treatment Note Next Visit Plan Advance as tolerated.
--- NOTE | 2019-04-07 12:14 | PT.OPPOC ---
Current Diagnoses Bursitis of left shoulder (04/07/19) Provider Visit Care Team Role Provider Type Davey Mullen MD Primary Care Provider Physician Specialty: Family Practice Address: [address] [place] [address], [id number] Email: [email or web address] Luisito Ruelas MD Attending Provider Physician Specialty: Orthopedic Surgery Address: [address] [place] [address], [id number] Email: [email or web address] Plan Of Care PT-OP-T Assessment and Plan Start: 02/05/19 17:19 Freq: Status: Active Protocol: Document 04/07/19 09:40 EA (Rec: 04/07/19 09:46 EA [id number]) Physical Therapy Assessment Rehab Potential Rehabilitation Potential Good Evaluation Complexity Number of Personal Factors/Comorbidities 1-2 Number of Body Systems Impaired 1-2 Clinical Presentation at Evaluation Stable Impairments Impairments Activity Tolerance Functional Activities Pain Posture ROM Soft Tissue Mobility Strength Goals Three Impairment Impaired shoulder strength Inspecting And Testing Lead Hand Goal (LTG) Patient will increase L shoulder ABD/Flexors, rotators to functional level to enable overhead activities without difficulty. LTG Duration 4 wks good progress Two Impairment Impaired Apley's functional test Inspecting And Testing Lead Hand Goal (LTG) Patient will demonstrate normal shoulder mobility base on Apley's functional test LTG Duration 6 wks (Good Progress) One Impairment Quick Dash score of 30 Residential Goal (LTG) Quick Dash Score of less than 15 LTG Duration 4 wks (Excellent progress) Assessment Summary Assessment Patient is very happy with her progress. Functionally she is performing well although she feels strength is not completely back yet. Overall patient is progressing well and will continue to benefit with skilled PT. Physical Therapy Plan Frequency and Duration Frequency of Treatment 1x/Week Duration of Treatment 6 wks Plan of Care Start Date 04/07/19 Plan of Care End Date 05/19/19 Therapeutic Interventions Therapeutic Interventions Home Exercise Program Joint Mobilizations Manual Therapy Neuromuscular Re-education Orthotic/Prosthetic Management Patient/Caregiver Education Self-Care/Home Management Soft Tissue Mobilization Taping Therapeutic Exercises Modalities Cold Pack/Ice Massage Electric Stimulation Hot Packs Ultrasound Next Visit Focus/Plan Next Note Type Treatment Note Next Visit Plan Advance as tolerated. Plan of Care Dates Plan of Care Start Date 04/07/19 Plan of Care End Date 05/19/19 Please Sign and Return: I have reviewed this Plan of Care and certify that the skilled therapy services above are required to meet the patient?s needs. Physician Signature Date Printed Name and Credentials Clinical Instructor Signature Printed Name and Credentials
--- NOTE | 2019-04-09 18:25 | PT.OTN ---
Current Diagnoses Bursitis of left shoulder (04/09/19) Physical Therapy Treatment Note PT-OP-A Visit Information Start: 02/05/19 17:19 Freq: Status: Active Protocol: Document 04/09/19 16:00 HH (Rec: 04/09/19 18:24 HH [email or web address]) Out-Patient Physical Therapy Visit Information Visit Information Visit Type Treatment Note Visit Start Time 16:00 Visit Stop Time 16:45 Total Visit Minutes 45 Visit Number 10 Number of CLERK RATING Visits 0 PT-OP-B Current Condition Start: 02/05/19 17:19 Freq: Status: Active Protocol: Document 02/05/19 17:22 EA (Rec: 02/05/19 17:31 EA [id number]) Current Condition History of Current Condition Onset Date A year ago Current Complaints Right shoulder localized pain History of Current Condition Present condition gradually developed in a year course with no recalled of significant injury. Pt reports he loves to sleep on left shoulder even at this time where pain always wake her up. Patient reports had cortisone shot a month ago and feels that shoulder pain improves few days after the shot. Pt states she is referred to PT to prevent shoulder pain recurrence and to improve strength. Prior Treatments and Tests Cortisone shot a month ago X-ray from her shoulder specialist Future Testing and Treatments Planned Possible second phase of cortisone shot Treatment Goals Patient/Caregiver Goals Patient would like to prevent further shoulder symptoms recurrence. Patient would like to be able to perform overhead activities with no difficulty Prior Functional Status Baseline Function- ADL's Independent Baseline Function- Mobility Independent Baseline Function- Work/School Retired Baseline Function- Recreation/Hobbies House chores with no difficulty a year ago. Baseline Function- Other No difficulty with overehad activities and sleeping to left side a year ago Current Functional Impairments (Reported) Functional Limitations- ADL's Indep with limitation to overhead activities and other personal care. Functional Limitations- Work/School Retired Functional Limitations- Recreation/ Unable to perform recreational Hobbies activities that require hand overhead. Personal Factors Other Personal Factors That May Effect Blood pressure but controlled, Therapy/Recovery chronic low back pain PT-OP-C Subjective Start: 02/05/19 17:19 Freq: Status: Active Protocol: Document 04/09/19 16:00 HH (Rec: 04/09/19 18:24 HH [email or web address]) OP-PT Subjective Patient Comments Patient Comments I am doing good overall. Cont to sleep on L side. But im not feeling very well today and i dont know why. Patient Reported Progress Improving PT-OP-E Functional Tests Start: 02/05/19 17:19 Freq: Status: Active Protocol: Document 02/05/19 17:31 EA (Rec: 02/05/19 17:38 EA [id number]) Functional Tests Apley's Scratch Test Action 1- Left able to touch opp shoulder Action 1- Right able Action 2- Left T2 Action 2- Right C6 Action 3- Left L3 Action 3- Right T10 PT-OP-F Manual Assessment Start: 02/05/19 17:19 Freq: Status: Active Protocol: Document 02/05/19 17:31 EA (Rec: 02/05/19 17:38 EA [id number]) Manual Assessments Soft Tissue Assessment Soft Tissue Mobility Assessment Tight Pectorals, int rotators PT-OP-J Posture/Palpation/Skin Start: 02/05/19 17:19 Freq: Status: Active Protocol: Document 02/05/19 17:31 EA (Rec: 02/05/19 17:38 EA [id number]) Posture Evaluation Comments Posture Comments [place]lig[place] Fwd head and round shoulder Palpation Assessment Location One Palpation Location Anterior shoulder, LHBT, RTC tendon, SS/IF muscle Palpation Findings Soft Tissue Tightness Tenderness PT-OP-L Special Tests Start: 02/05/19 17:19 Freq: Status: Active Protocol: Document 02/05/19 17:31 EA (Rec: 02/05/19 17:38 EA [id number]) Special Tests Shoulder Special Tests Elevation Impingement Test Results + Empty Can Test Results + Drop Arm Rotator Cuff Test Results - Omalley Rickey Impingement Test Results + Yergason's Biceps Test Results + Lift-Off Rotator Cuff Test Results - Belly Press Test Results - PT-OP-M Strength Start: 02/05/19 17:19 Freq: Status: Active Protocol: Document 02/05/19 17:31 EA (Rec: 02/05/19 17:38 EA [id number]) Shoulder Strength Shoulder Manual Muscle Testing Left Flexion 3+ Fair+ Extension 4 Good Abduction (C5) 3+ Fair+ Adduction 4 Good External Rotation 4- Good- Internal Rotation 3+ Fair+ Horizontal Abduction 4- Good- Horizontal Adduction 4- Good- Right Reason Not Measured WFL PT-OP-Q Treatments Start: 02/05/19 17:19 Freq: Status: Active Protocol: Document 04/09/19 16:00 (Rec: 04/09/19 18:24 [id number]) Cardio Equipment Upper Body Ergometer (UBE) Duration (Minutes) 8 RPM 60 Seat Position 11 Height 3-5.5 Therapeutic Exercises Sitting Exercises shoulder abd Sitting Exercise Name with shd ER and IR Side bilateral Reps/Minutes 10 x 3 Comments with trunk SB Standing Exercises wall clock Side bilateral Reps/Minutes 10 x 2 Comments clockwise and anticlockwise Scapular Rows Side bilateral Resistance LV 3 Reps/Minutes 15 x 2 2 Standing Exercise Name ER/IR Resistance LV 2 Reps/Minutes 15 x 2 reps 1 Standing Exercise Name shoulder ext Resistance LV3 Reps/Minutes 15 x 2 reps Shoulder Flexion Standing Exercise Name Flexion Side bilateral Resistance 2 lb PVC Reps/Minutes 10x Comments Pain-free ROM, VCs to prevent shoulder shrugs PT-OP-R Modalities Start: 02/05/19 17:19 Freq: Status: Active Protocol: Document 04/09/19 16:00 (Rec: 04/09/19 18:25 [email or web address]) Hot Pack/Cold Pack Treatment Cold Pack Location L shoulder Patient Position Sitting Treatment Duration (minutes) 5 Patient Tolerance Good PT-OP-T Assessment and Plan Start: 02/05/19 17:19 Freq: Status: Active Protocol: Document 04/09/19 16:00 (Rec: 04/09/19 18:24 [email or web address]) Physical Therapy Assessment Assessment Summary Assessment Pt cont to improve with ROM and strength. Noticeable pain during active shd abduction with IR UE, but pain reduced with ER UE. Pt denies pain with active abduction after wall clock and shd abduction ( with ER UE) Physical Therapy Plan Next Visit Focus/Plan Next Note Type Treatment Note Next Visit Plan Advance as tolerated. check shd abd
--- NOTE | 2019-05-05 17:00 | PT.OPDS ---
Current Diagnoses Bursitis of left shoulder (04/09/19) Provider Visit Care Team Role Provider Type Davey Mullen MD Primary Care Provider Physician Specialty: Family Practice Address: [address] [place] [address], [address] Email: [email or web address] Luisito Ruelas MD Attending Provider Physician Specialty: Orthopedic Surgery Address: [address] [place] [address], [address] Email: [email or web address] Visit Number Visit Number 10 Discharge Summary PT-OP-B Current Condition Start: 02/05/19 17:19 Freq: Status: Active Protocol: Document 02/05/19 17:22 EA (Rec: 02/05/19 17:31 EA [id number]) Current Condition History of Current Condition Onset Date A year ago Current Complaints Right shoulder localized pain History of Current Condition Present condition gradually developed in a year course with no recalled of significant injury. Pt reports he loves to sleep on left shoulder even at this time where pain always wake her up. Patient reports had cortisone shot a month ago and feels that shoulder pain improves few days after the shot. Pt states she is referred to PT to prevent shoulder pain recurrence and to improve strength. Prior Treatments and Tests Cortisone shot a month ago X-ray from her shoulder specialist Future Testing and Treatments Planned Possible second phase of cortisone shot Treatment Goals Patient/Caregiver Goals Patient would like to prevent further shoulder symptoms recurrence. Patient would like to be able to perform overhead activities with no difficulty Prior Functional Status Baseline Function- ADL's Independent Baseline Function- Mobility Independent Baseline Function- Work/School Retired Baseline Function- Recreation/Hobbies House chores with no difficulty a year ago. Baseline Function- Other No difficulty with overehad activities and sleeping to left side a year ago Current Functional Impairments (Reported) Functional Limitations- ADL's Indep with limitation to overhead activities and other personal care. Functional Limitations- Work/School Retired Functional Limitations- Recreation/ Unable to perform recreational Hobbies activities that require hand overhead. Personal Factors Other Personal Factors That May Effect Blood pressure but controlled, Therapy/Recovery chronic low back pain PT-OP-C Subjective Start: 02/05/19 17:19 Freq: Status: Active Protocol: Document 05/05/19 16:58 EA (Rec: 05/05/19 17:00 EA [id number]) OP-PT Subjective Patient Comments Patient Comments Pt reports by phone she would like to discharge in PT as she feels her shoulder is recovered. PT-OP-E Functional Tests Start: 02/05/19 17:19 Freq: Status: Active Protocol: Document 02/05/19 17:31 EA (Rec: 02/05/19 17:38 EA [id number]) Functional Tests Apley's Scratch Test Action 1- Left able to touch opp shoulder Action 1- Right able Action 2- Left T2 Action 2- Right C6 Action 3- Left L3 Action 3- Right T10 PT-OP-F Manual Assessment Start: 02/05/19 17:19 Freq: Status: Active Protocol: Document 02/05/19 17:31 EA (Rec: 02/05/19 17:38 EA [id number]) Manual Assessments Soft Tissue Assessment Soft Tissue Mobility Assessment Tight Pectorals, int rotators PT-OP-J Posture/Palpation/Skin Start: 02/05/19 17:19 Freq: Status: Active Protocol: Document 02/05/19 17:31 EA (Rec: 02/05/19 17:38 EA [id number]) Posture Evaluation Comments Posture Comments Sligth Fwd head and round shoulder Palpation Assessment Location One Palpation Location Anterior shoulder, LHBT, RTC tendon, SS/IF muscle Palpation Findings Soft Tissue Tightness Tenderness PT-OP-L Special Tests Start: 02/05/19 17:19 Freq: Status: Active Protocol: Document 02/05/19 17:31 EA (Rec: 02/05/19 17:38 EA [id number]) Special Tests Shoulder Special Tests Elevation Impingement Test Results + Empty Can Test Results + Drop Arm Rotator Cuff Test Results - Omalley Rickey Impingement Test Results + Yergason's Biceps Test Results + Lift-Off Rotator Cuff Test Results - Belly Press Test Results - PT-OP-M Strength Start: 02/05/19 17:19 Freq: Status: Active Protocol: Document 02/05/19 17:31 EA (Rec: 02/05/19 17:38 EA [id number]) Shoulder Strength Shoulder Manual Muscle Testing Left Flexion 3+ Fair+ Extension 4 Good Abduction (C5) 3+ Fair+ Adduction 4 Good External Rotation 4- Good- Internal Rotation 3+ Fair+ Horizontal Abduction 4- Good- Horizontal Adduction 4- Good- Right Reason Not Measured WFL PT-OP-T Assessment and Plan Start: 02/05/19 17:19 Freq: Status: Active Protocol: Document 05/05/19 16:58 EA (Rec: 05/05/19 17:00 GRIFFIN [id number]) Physical Therapy Assessment Assessment Summary Assessment Patient is discharge in PT today and aware for new referral is she wishes to comeback. Physical Therapy Plan Discharge Physical Therapy Discharge Reasons Goals Met Discharge Comments patient request
== END 2019-05-09 09:28 | disposition home or self-care (01) ==
LOC: PHYS 16:00
PROVIDERS: PCP Family Medicine; Visit Provider Orthopaedic Surgery
DX: M75.52 Bursitis of left shoulder (principal)
CPT/HCPCS: 97110; 97140; 97161; 97535

== ENCOUNTER → 2019-06-26 08:02 | Outpatient (CLI) | payer MEDICARE, SELFPAY ==
[2019-06-26 09:10] LABS: Add Manual Diff / Slide Review NO; Basophils Absolute Auto 0 /uL (0-100); Basophils Percent Auto 0.8 % (0-2); Eosinophils Absolute Auto 200 /uL (0-450); Eosinophils Percent Auto 4.3 % (2-4); Hemoglobin 13.6 g/dL (12.0-16.0); Lymphocytes Absolute Auto 1800 /uL (1100-4500); Lymphocytes Percent Auto 33.6 % (25-40); Mean Corpuscular HGB Conc 33.1 % (30-36); Mean Corpuscular Hemoglobin 28.9 PG (26-34); Mean Corpuscular Volume 87.3 fL (80-100); Monocytes Absolute Auto 500 /uL (0-900); Monocytes Percent Auto 8.5 % (3-14); Neutrophils Absolute Auto 2900 /uL (1500-7000); Neutrophils Percent Auto 52.8 % (50-75); Platelet Count 210 X10^3/uL (150-400); Red Cell Distribution Width 14.5 % (11.6-14.8); White Blood Cell Count 5.4 X10^3/uL (4.5-11.0)
[2019-06-26 09:38] LABS: Alanine Aminotransferase 29 IU/L (9-52); Albumin 4.4 g/dL (3.5-5.0); Albumin Globulin Ratio 1.4 (1.0-2.8); Alkaline Phosphatase 85 U/L (38-126); Aspartate Aminotransferase 32 IU/L (14-36); BUN Creatinine Ratio 26.7 (6-22); Bilirubin Total 1.1 mg/dL (0.2-1.3); Blood Urea Nitrogen 16 mg/dL (7-17); Calcium 9.7 mg/dL (8.4-10.2); Carbon Dioxide 25 mmol/L (22-32); Chloride 105 mmol/L (98-107); Cholesterol 146 mg/dL (140-199); Estimated Glomerular Filt Rate > 60.0 mL/min (>60); Globulin 3.1 g/dL (1.7-4.1); Glucose 111 mg/dL (80-110); HDL Cholesterol 39 mg/dL (40-60); HEMOLYSIS 23 (0-50); LDL Cholesterol Calculated 83 mg/dL (<100); Potassium 4.8 mmol/L (3.4-5.1); Sodium 139 mmol/L (137-145); Total Protein 7.5 g/dL (6.3-8.2); Triglycerides 119 mg/dL (35-150)
== END ==
PROVIDERS: PCP Family Medicine; Visit Provider Family Medicine
DX: Z13.0 Encounter for screening for diseases of the blood and blood-forming organs and certain disorders involving the immune mechanism (principal); Z13.1 Encounter for screening for diabetes mellitus; Z13.29 Encounter for screening for other suspected endocrine disorder; E78.2 Mixed hyperlipidemia; I10 Essential (primary) hypertension
CPT/HCPCS: 36415; 80053; 80061; 84443; 85025

== ENCOUNTER → 2019-07-18 09:35 | Outpatient (CLI) | payer MEDICARE, SELFPAY | PROVIDERS: PCP Family Medicine; Visit Provider Family Medicine | DX: M85.851 Other specified disorders of bone density and structure, right thigh (principal); Z78.0 Asymptomatic menopausal state; Z85.3 Personal history of malignant neoplasm of breast | CPT/HCPCS: 77080 ==

== ENCOUNTER 2019-10-23 15:57 | Observation (INO) | payer MEDICARE, SELFPAY ==
[2019-10-23] VITALS (8 sets, daily range): BP systolic 140–202; BP diastolic 72–99; PULSE 72–82; RESP 11–20; TEMP 36–36.6; O2SAT 95–98; BMI 32.0
[2019-10-23 17:26] LABS: Add Manual Diff / Slide Review NO; Basophils Absolute Auto 0 /uL (0-100); Basophils Percent Auto 0.7 % (0-2); Eosinophils Absolute Auto 200 /uL (0-450); Eosinophils Percent Auto 3.1 % (2-4); Hematocrit 41.7 % (36-46); Hemoglobin 13.9 g/dL (12.0-16.0); Lymphocytes Absolute Auto 1900 /uL (1100-4500); Lymphocytes Percent Auto 32.2 % (25-40); Mean Corpuscular HGB Conc 33.4 % (30-36); Mean Corpuscular Hemoglobin 29.2 PG (26-34); Mean Corpuscular Volume 87.2 fL (80-100); Monocytes Absolute Auto 500 /uL (0-900); Monocytes Percent Auto 8.8 % (3-14); Neutrophils Absolute Auto 3300 /uL (1500-7000); Neutrophils Percent Auto 55.2 % (50-75); Platelet Count 205 X10^3/uL (150-400); Red Blood Cell Count 4.78 X10^6/uL (4.0-5.2); Red Cell Distribution Width 13.9 % (11.6-14.8); White Blood Cell Count 5.9 X10^3/uL (4.5-11.0)
[2019-10-23 17:29] LABS: Prothrombin Time 11.6 SECONDS (10.1-12.7)
[2019-10-23 17:32] LABS: PTT Partial Thromboplastin Tim 31 SECONDS (26.4-36.2)
[2019-10-23 17:37] LABS: Alanine Aminotransferase 29 IU/L (<35); Albumin 4.6 g/dL (3.5-5.0); Albumin Globulin Ratio 1.2 (1.0-2.8); Alkaline Phosphatase 96 U/L (38-126); Aspartate Aminotransferase 35 IU/L (14-36); Bilirubin Total 1.4 mg/dL (0.2-1.3); Blood Urea Nitrogen 12 mg/dL (7-17); Carbon Dioxide 28 mmol/L (22-32); Chloride 104 mmol/L (98-107); Creatine Kinase 99 U/L (30-135); Estimated Glomerular Filt Rate > 60.0 mL/min (>60); Globulin 3.7 g/dL (1.7-4.1); Glucose 112 mg/dL (80-110); HEMOLYSIS < 15 (0-50); Lipase 79 U/L (23-300); Sodium 141 mmol/L (137-145); Total Protein 8.3 g/dL (6.3-8.2)
[2019-10-23 17:49] LABS: Troponin I < 0.012 ng/mL (0.01-0.034)
--- NOTE | 2019-10-23 18:06 | ED.GENADULT ---
HPI - General Adult General Chief complaint: Hypertension Stated complaint: tingling on right side hand,up arm,neck now mouth Time Seen by Provider: 10/23/19 18:04 Source: patient and family Mode of arrival: Ambulatory Limitations: no limitations History of Present Illness HPI narrative: 74F former smoker with HTN, hyperlipidemia presents with her son and chief complaint of neurologic symptoms including right upper extremity heaviness, numbness, tingling and right-sided facial numbness and tingling. She denies other neurologic symptoms such as blurred or double vision, trouble with speech or ambulation. She denies any chest pain or shortness of breath nor cardiac equivalent such as dizziness, lightheadedness, nausea or generalized weakness. She denies any recent injury. Her symptoms lasted approximately 10 minutes and resolved prior to her arrival. She has never had any similar symptoms nor any TIA or stroke in her past. Related Data Home Medications Medication Instructions Recorded Confirmed calcium 1,000 mg PO .QDAY 07/25/19 10/23/19 cholecalciferol (vitamin D3) 25 1,000 unit PO DAILY 07/25/19 10/23/19 mcg (1,000 unit) capsule Previous Rx's Medication Instructions Recorded atorvastatin 10 mg tablet 5 mg PO HS #90 tab 08/06/19 losartan 50 mg tablet 50 mg PO QDAY #90 tab 08/06/19 Allergies Allergy/AdvReac Type Severity Reaction Status Date / Time Sulfa (Sulfonamide Allergy Severe ANAPHYLAXIS Verified 10/23/19 16:01 Antibiotics) Review of Systems Constitutional Constitutional: Denies chills, Denies fatigue, Denies fever(s), Denies frequent falls, Denies lethargy and Reports weakness Eyes Eyes: Denies change in vision, Denies eye discharge, Denies irritation and Denies loss of vision ENT Ears, Nose, Mouth, and Throat: Denies change in voice, Denies dizziness, Denies neck pain, Denies sore throat and Denies throat swelling Cardiovascular Cardiovascular: Denies chest pain, Denies irregular heart rhythm, Denies lightheadedness, Denies palpitations, Denies dyspnea, Denies dyspnea on exertion and Denies orthopnea Respiratory Respiratory: Denies cough, Denies dyspnea, Denies dyspnea on exertion and Denies wheezing Gastrointestinal Gastrointestinal: Denies abdominal pain, Denies change in bowel habits, Denies diarrhea, Denies nausea and Denies vomiting Genitourinary Genitourinary: Denies hematuria, Denies flank pain, Denies urinary incontinence and Denies urinary urgency Musculoskeletal Musculoskeletal: Denies back pain, Denies muscle weakness, Denies neck pain, Reports numbness and Reports tingling Integumentary/Breasts Skin/Breast: Denies pruritus, Denies erythema, Denies rash and Denies wounds Neurologic Neurologic: Denies behavioral changes, Denies confusion, Denies dizziness, Denies frequent falls, Denies loss of vision, Reports numbness, Reports tingling and Reports weakness Psychiatric Psychiatric: Denies anxiety, Denies behavioral changes, Denies confusion, Denies depression, Denies homicidal ideation and Denies suicidal ideation Endocrine Endocrine: Denies fatigue, Denies flushing and Denies palpitations Hematologic/Lymphatic Hematologic/Lymphatic: Denies easy bruising Allergic/Immunologic Allergic/Immunologic: Denies urticaria, Denies throat swelling and Denies wheezing Patient History Medical History Ankle pain (Chronic) Anxiety (Chronic) Arthritis (Acute) Breast cancer (Chronic) Carpal tunnel syndrome (Acute) Carpal tunnel syndrome of right wrist (Acute) History of UTI (Acute) Skin lesion (Acute) Surgical History Anesthesia (Resolved) History of mastectomy (Resolved ~10/1993) Status post cholecystectomy (~2009) Status post hysterectomy (~08/2013) Status post left foot surgery (Resolved) Family History Father No problems noted. Sister No problems noted. Social History household members: none Smoking Status: Former smoker Smoking Status: Former smoker alcohol intake frequency: a few times a month Substance Use Type: does not use Exam Narrative Exam Narrative: GENERAL: [74] year old patient appears stated age. Well-nourished, well-developed patient, in mild distress. Anxious HEAD: Atraumatic. Normocephalic. EYES: Pupils equal round and reactive. Extraocular motions intact. No scleral icterus. No injection or drainage. ENT: Nose without bleeding, purulent drainage. Throat without erythema, tonsillar hypertrophy or exudate. Airway patent. NECK: Trachea midline. Non tender CARDIOVASCULAR: Regular rate and rhythm without murmurs, gallops, or rubs. RESPIRATORY: Clear to auscultation. Breath sounds equal bilaterally. No wheezes, rales, or rhonchi. GASTROINTESTINAL: Abdomen soft, non-tender, nondistended. EXTREMITIES: No edema or joint tenderness. BACK: Nontender without deformity or crepitance. No flank tenderness. NEURO: AOx3. SKIN: No rash or erythema of visible areas Initial Vital Signs Initial Vital Signs: Vital Signs Temperature 97.8 F 10/23/19 16:01 Pulse Rate 80 10/23/19 16:01 Respiratory Rate 17 10/23/19 16:01 Blood Pressure 202/91 H 10/23/19 16:01 Pulse Oximetry 98 10/23/19 16:01 Course Course Course Narrative: patient is former smoker with HTN and hyperlipidemia has neurologic symptoms consistent with TIA earlier today. No history of the same. Complete resolution of symptoms. She has mutltiple risk factors and a concerning set of symptoms. She requires hospitalization for further evaluation of her TIA Orders Ordered: ED Orders 10/23/19 16:09 EKG-12 Lead Stat 10/23/19 17:09 Complete Blood Count AUTO DIFF Stat Comprehensive Metabolic Panel Stat Lipase Stat Partial Thromboplastin Time Stat Prothrombin Time INR Stat Troponin & CK Cardiac Panel Stat 10/23/19 18:07 CT head/brain wo con Stat Acetaminophen (Tylenol) 650 mg PO Q6HR PRN PRN Reason: Fever/Mild Pain (1-3) Al Hydrox/Mg Hydrox/Simethicone (Maalox Plus) 30 ml PO Q6HR PRN PRN Reason: Dyspepsia Atorvastatin Calcium (Lipitor) 5 mg PO BEDTIME [facility] Last Admin: 10/23/19 22:54 Dose: 5 mg Documented by: MIMI Calcium Carbonate (Tums) 1,000 mg PO Q4HR PRN PRN Reason: Dyspepsia Enoxaparin Sodium (Lovenox) 40 mg SUBCUT DAILY [facility] Losartan Potassium (Cozaar) 50 mg PO DAILY [facility] Naloxone HCl (Narcan) 0.2 mg IV Q2MIN PRN PRN Reason: Opiate Reversal Sodium Chloride (Normal Saline 0.9% Flush) 10 ml IV PRN PRN PRN Reason: Flush Sodium Chloride (Normal Saline 0.9% Flush) 10 ml IV BID [facility] Last Admin: 10/23/19 22:56 Dose: 10 ml Documented by: MIMI Discontinued Medications Aspirin (Aspirin Chew) 324 mg PO NOW ONE Stop: 10/23/19 19:06 Last Admin: 10/23/19 20:11 Dose: 324 mg Documented by: BRUCE Vital Signs Vital signs: Vital Signs - 8 hr 10/23/19 16:01 10/23/19 16:35 10/23/19 18:17 Temperature 97.8 F Pulse Rate 80 76 74 Respiratory Rate 17 18 11 L Blood Pressure 202/91 H Blood Pressure [Right Arm] 179/76 H 176/81 H Pulse Oximetry 98 96 98 10/23/19 19:05 Temperature Pulse Rate 72 Respiratory Rate 17 Blood Pressure Blood Pressure [Right Arm] 155/72 H Pulse Oximetry 98 Medical Decision Making Lab Data Result diagrams: 10/23/19 17:09 10/23/19 17:09 Labs: Lab Results 10/23/19 10/23/19 10/23/19 Range/Units 17:09 17:09 17:09 WBC 5.9 (4.5-11.0) X10^3/uL RBC 4.78 (4.0-5.2) X10^6/uL Hgb 13.9 (12.0-16.0) g/dL Hct 41.7 (36-46) % MCV 87.2 (80-100) fL MCH 29.2 (26-34) PG MCHC 33.4 (30-36) % RDW 13.9 (11.6-14.8) % Plt Count 205 (150-400) X10^3/uL Neut % (Auto) 55.2 (50-75) % Lymph % (Auto) 32.2 (25-40) % [place] % (Auto) 8.8 (3-14) % Eos % (Auto) 3.1 (2-4) % Baso % (Auto) 0.7 (0-2) % Neut # (Auto) 3300 (9794-9329) /uL Lymph # (Auto) 1900 (6417-7319) /uL [place] # (Auto) 500 (0-900) /uL Eos # (Auto) 200 (0-450) /uL Baso # (Auto) 0 (0-100) /uL PT 11.6 (10.1-12.7) SECONDS INR 1.0 (0.9-1.3) APTT 31 (26.4-36.2) SECONDS Sodium 141 (137-145) mmol/L Potassium 4.0 (3.4-5.1) mmol/L Chloride 104 (98-107) mmol/L Carbon Dioxide 28 (22-32) mmol/L BUN 12 (7-17) mg/dL Creatinine 0.50 L (0.52-1.04) mg/dL Estimated GFR > 60.0 (>60) mL/min BUN/Creatinine Ratio 24.0 H (6-22) Glucose 112 H (80-110) mg/dL Calcium 10.0 (8.4-10.2) mg/dL Total Bilirubin 1.4 H (0.2-1.3) mg/dL AST 35 (14-36) IU/L ALT 29 (<35) IU/L Alkaline Phosphatase 96 (38-126) U/L Total Creatine Kinase 99 (30-135) U/L CK-MB (CK-2) TNP CK-MB (CK-2) Rel Index TNP Troponin I < 0.012 (0.01-0.034) ng/mL Total Protein 8.3 H (6.3-8.2) g/dL Albumin 4.6 (3.5-5.0) g/dL Globulin 3.7 (1.7-4.1) g/dL Albumin/Globulin Ratio 1.2 (1.0-2.8) Lipase 79 (23-300) U/L Imaging Data CT scan - head: Radiologist's Impression: Chart Viewer Diagnostics DATE TYPE STATUS AUTHOR Salima 10/23/19 18:07 CallProsper 07/18/19 10:49 Bone Density 07/18/19 09:38 01/06/19 08:53 12/20/18 00:00 Sadiq Bunch Jacqueline L 74, [id number] ADM BILL, Main ED R07 157.48cm 79.379kg BMI: 32.0kg/m? Search Chart No Data to Display NF - Not included in interaction checking ANAPHYLAXIS ONSET 04/19/17 04/19/17 Today 19:05 Saira Wu F [address] [address] [address] Scan Report Signed Patient: Saira Wu LMR#: [id number] : 4Acct:[id number] Age/Sex: 74 / FDate of Service: 10/23/19 Loc: ED Accession Number: [id number] Procedure: CT head/brain wo con Ordering Provider: Neri Aragon D.O. PROCEDURE: CT HEAD/BRAIN WO CON INDICATIONS: neuro symptoms TECHNIQUE: Noncontrast 4.5 mm thick angled axial sections acquired from the foramen magnum to the vertex, with coronal and sagittal reformats. For radiation dose reduction, the following was used: automated exposure control, adjustment of mA and/or kV according to patient size. COMPARISON: None. FINDINGS: Image quality: Excellent. CSF spaces: Basal cisterns are patent. No extra-axial fluid collections. Ventricles are normal in size and shape. Brain: No midline shift. No intracranial masses or hemorrhage. No area of hypodensity in a large vascular distribution to suggest acute infarction. Periventricular hypodensity consistent with chronic microvascular ischemic change. Distal intracranial ICA atherosclerotic calcification. Basal ganglia calcifications. Skull and face: Calvarium and visualized facial bones are intact, without suspicious lesions. Sinuses: Visualized sinuses and mastoids are clear. IMPRESSION: No acute intracranial abnormality demonstrated. Chronic microvascular ischemic disease. Dictated by: Prosper Goodwin M.D. on 10/23/2019 at 18:46 Approved by: Prosper Goodwin M.D. on 10/23/2019 at 18:48 Discharge Plan Departure Patient Disposition: Admitted as Observation Clinical Impression: Brain TIA Discharge Date/Time: 10/23/19 20:21 Admit Date/Time: 10/23/19 19:16 Admit Provider: Fredy Lambert
[2019-10-23] MEDS: ASPIRIN 81 MG CHEW TAB 324 MG PO (20:11)
[2019-10-23] MEDS: ATORVASTATIN 10 MG TABLET 5 MG PO (22:54)
[2019-10-23] MEDS: SODIUM CHLORIDE 0.9% FLUSH 10 ML IV (22:56)
--- NOTE | 2019-10-23 23:49 | PC.NURSE ---
Admit/Evening Shift Note- Patient arrived to room via stretcher from ER. Admission quesiothns done, home medicaitons reviewed, and physical assessment done. Patient alert and oriented and able to make needs known to staff. Patient pleasent, calm, and cooperative with care. No caomplaitns of pain or discomfort. No complaints of N/V. NIH stroke scale done with patient. Patient score= 0. Safety measures in place. Bed alarm activated. Patient agrees to call for assistance. Call mcgraw and phone within reach. Will continue to monitor.
[2019-10-24 04:01] VITALS: BP 136/75; PULSE 98; RESP 16; TEMP 36.6; O2SAT 95
--- NOTE | 2019-10-24 07:00 | DI.US.S_ITS ---
PROCEDURE: US CAROTID DOPPLER BI INDICATIONS: TIA TECHNIQUE: Color and pulse Doppler interrogation was performed of both carotid systems, with image documentation and velocity measurements. COMPARISON: None. FINDINGS: Stenosis calculations are based on SRU (Society of Radiologists in Ultrasound) criteria. Right side: Brachial blood pressure: 135/84 mm Hg. Common carotid artery peak systolic velocity: 97 cm/sec. Internal carotid artery peak systolic velocity: 64 cm/sec. Internal carotid artery end diastolic velocity: 26 cm/sec. External carotid artery peak systolic velocity: 74 cm/sec. ICA/CCA peak systolic ratio: 0.7 Abernathy scale imaging description: Mild plaquing Percent internal carotid artery stenosis: Less than 50%. Vertebral artery: Flow direction is antegrade. Left side: Brachial blood pressure: 143/74 mm Hg. Common carotid artery peak systolic velocity: 117 cm/sec. Internal carotid artery peak systolic velocity: 70 cm/sec. Internal carotid artery end diastolic velocity: 27 cm/sec. External carotid artery peak systolic velocity: 103 cm/sec. ICA/CCA peak systolic ratio: 0.6. Abernathy scale imaging description: Minimal plaquing Percent internal carotid artery stenosis: Less than 50%. Vertebral artery: Flow direction is antegrade. IMPRESSION: Less than 50% internal carotid stenosis bilaterally. Dictated by: Chandler Munoz M.D. on 10/24/2019 at 9:23 Approved by: Chandler Munoz M.D. on 10/24/2019 at 9:27
--- NOTE | 2019-10-24 07:17 | PM.HP.1 ---
History of Present Illness History of Present Illness Date Patient Seen: 10/24/19 Time Patient Seen: 07:00 Chief complaint: tingling on right side hand,up arm,neck now mouth Narrative: 74-year-old female who normally sees Dr. Mullen admitted via the emergency department after presenting with some neurologic symptoms Her story is that in the afternoon day of admission she developed some right arm heaviness with some discoordination difficulty using her hands. Also reported some vague numbness and tingling of her right upper lip. She denies any visual speech or swallowing difficulties. Denied any headache. There are no symptoms in her lower extremities whatsoever. No recent falls or other injuries. She estimates the symptoms lasted for 5-10 minutes (or perhaps even less) then resolved completely. She never had any prior symptoms such as this. Workup in the emergency department was unremarkable however this was felt to possibly be a TIA and was elected to admit her for further testing and observation. Of note her blood pressure was initially quite elevated in the emergency department at 202/91 but has consistently come down to more typical levels without specific intervention Patient History Medical History Ankle pain (Chronic) Anxiety (Chronic) Arthritis (Acute) Breast cancer (Chronic) Carpal tunnel syndrome (Acute) Carpal tunnel syndrome of right wrist (Acute) History of UTI (Acute) Skin lesion (Acute) Surgical History Anesthesia (Resolved) History of mastectomy (Resolved ~10/1993) Status post cholecystectomy (~2009) Status post hysterectomy (~08/2013) Status post left foot surgery (Resolved) Family & Social History Family History Father No problems noted. Sister No problems noted. Social History: household members none Prior Living Arrangements House Safety & Behavioral: Feels Safe in Current Yes Environment Been Physically Hurt or No Threatened By a Person Tobacco & Substance use: Smoking Status Former smoker alcohol intake frequency a few times a month Substance Use Type does not use Meds Home Medications and Allergies Home Medications Medication Instructions Recorded Confirmed Type calcium 1,000 mg PO .QDAY 07/25/19 10/23/19 History cholecalciferol (vitamin D3) 25 1,000 unit PO DAILY 07/25/19 10/23/19 History mcg (1,000 unit) capsule losartan 50 mg tablet 50 mg PO QDAY #90 tab 08/06/19 10/23/19 Rx aspirin 325 mg PO DAILY #150 tab 10/24/19 Rx atorvastatin 20 mg PO DAILY #30 tab 10/24/19 Rx Allergies Allergy/AdvReac Type Severity Reaction Status Date / Time Sulfa (Sulfonamide Allergy Severe ANAPHYLAXIS Verified 10/23/19 16:01 Antibiotics) Review of Systems Constitutional Constitutional: Denies excessive sweating, Denies fever(s), Denies headache(s), Denies weakness, Denies weight gain and Denies weight loss Eyes Eyes: Denies change in vision, Denies itchy eyes, Denies loss of vision and Denies other visual disturbances ENT Ears, Nose, Mouth, and Throat: No change in voice, No difficulty swallowing, No dizziness, No ear pain, No headache(s), No hoarseness, No lip swelling, No neck pain, No sore throat, No throat swelling and No tongue swelling Cardiovascular Cardiovascular: Denies chest pain, Denies fainting, Denies fast heart rate, Denies irregular heart rhythm, Denies rapid, pounding, or irregular heartbeat, Denies shortness of breath, Denies shortness of breath with activity and Denies slow heart rate Respiratory Respiratory: Denies chest congestion, Denies cough, Denies hemoptysis, Denies dyspnea, Denies dyspnea on exertion, Denies stridor and Denies wheezing Gastrointestinal Gastrointestinal: Denies abdominal pain, Denies bloating, Denies change in bowel habits, Denies change in stool character, Denies dysphagia, Denies nausea, Denies vomiting and Denies hematemesis Genitourinary Genitourinary: Denies hematuria, Denies urinary frequency and Denies difficulty voiding Musculoskeletal Musculoskeletal: Denies abnormal gait, Denies myalgias, Denies arthralgias, Denies limited range of motion and Denies neck pain Integumentary/Breasts Skin/Breast: Denies bleeding lesions, Denies change in pigmentation, Denies changing lesions, Denies new lesions, Denies rash, Denies skin swelling, Denies sores and Denies jaundice Neurologic Neurologic: Denies abnormal speech, Denies abnormal gait, Denies behavioral changes, Denies confusion, Denies dizziness, Denies syncope, Denies headache(s), Denies loss of vision, Denies memory loss, Denies seizure-like activity and Denies weakness Psychiatric Psychiatric: Denies behavioral changes, Denies change in appetite, Denies confusion, Denies difficulty concentrating, Denies auditory hallucinations, Denies memory loss, Denies mood swings and Denies suicidal ideation Endocrine Endocrine: Denies excessive sweating, Denies flushing, Denies polyuria and Denies palpitations Hematologic/Lymphatic Hematologic/Lymphatic: Denies easy bleeding, Denies easy bruising and Denies lymphadenopathy Allergic/Immunologic Allergic/Immunologic: Denies urticaria, Denies itchy eyes, Denies lip swelling, Denies throat swelling, Denies tongue swelling and Denies wheezing Exam Vital Signs (past 8 hours): - 10/23/19 23:52 10/24/19 04:01 Temperature 96.8 F L 97.9 F Pulse Rate 80 98 H Respiratory Rate 16 16 Blood Pressure 140/77 136/75 Pulse Oximetry 95 95 Oxygen Delivery Method Room Air Oxygen Flow Rate 0 Narrative Exam Narrative: Elderly female in no obvious distress lying in hospital bed HEENT-unremarkable, normocephalic atraumatic Neck-no lymphadenopathy no bruits Lungs-clear anteriorly and posteriorly no wheezes no crackles good breath sounds Heart-regular rate and rhythm, no murmur, rub, or gallop. normal S1-S2 Abdomen-positive bowel tones, soft, nontender, nondistended, no hepatosplenomegaly, no masses palpable Neuro-normal to screening exam, gait not tested, no muscle weakness, no sensory changes, specifically no changes in right upper extremity that I can detect or with right face Extremities-no cyanosis clubbing or edema Objective Labs Result Diagrams: 10/23/19 17:09 10/23/19 17:09 Labs: Laboratory Results - last 24 hr 10/23/19 10/23/19 10/23/19 17:09 17:09 17:09 WBC 5.9 RBC 4.78 Hgb 13.9 Hct 41.7 MCV 87.2 MCH 29.2 MCHC 33.4 RDW 13.9 Plt Count 205 Neut % (Auto) 55.2 Lymph % (Auto) 32.2 [place] % (Auto) 8.8 Eos % (Auto) 3.1 Baso % (Auto) 0.7 Neut # (Auto) 3300 Lymph # (Auto) 1900 [place] # (Auto) 500 Eos # (Auto) 200 Baso # (Auto) 0 PT 11.6 INR 1.0 APTT 31 Sodium 141 Potassium 4.0 Chloride 104 Carbon Dioxide 28 BUN 12 Creatinine 0.50 L Estimated GFR > 60.0 BUN/Creatinine Ratio 24.0 H Glucose 112 H Calcium 10.0 Total Bilirubin 1.4 H AST 35 ALT 29 Alkaline Phosphatase 96 Total Creatine Kinase 99 CK-MB (CK-2) TNP CK-MB (CK-2) Rel Index TNP Troponin I < 0.012 Total Protein 8.3 H Albumin 4.6 Globulin 3.7 Albumin/Globulin Ratio 1.2 Lipase 79 Assessment & Plan Assessment & Plan narrative: 1. Possible TIA-patient with a relatively vague neurologic symptoms of very short duration. In my opinion this is unlikely to be a vascular type TIA but certainly would be on the differential diagnosis. Patient with increased risk for vascular disease based on her known hypertension and hyperlipidemia. At this point she is admitted for continued observation to include quality assurance monitor chassis looking for dysrhythmias that may promote thromboembolic disease. Patient would benefit from MRI of the brain including angiography but she has severe anxiety and horrible claustrophobia the that basically makes this impossible by her report. After discussing with her at some length I agree I don't think she would tolerate this even with some fairly large dose benzodiazepine pre treatment. Therefore will skip the MRI but will obtain carotid ultrasound. If she does need MR imaging of the brain she may have to go to a center with an open MRI. However given what I think is a very atypical presentation for classic vascular TIA as above, I'm not convinced this is absolutely necessary at this time Continue with full-dose aspirin once daily. Monitor blood pressure carefully. 2. Patient's other medical problems appear to be stable including her hypertension hyperlipidemia. Continue usual medications. Depending on outcomes consider increase her lipid lowering therapy to high-intensity statin therapy given her presentation, again assuming this to be a true vascular TIA 3. VTE prophylaxis-SCDs and Lovenox 4. Code status-full code Scores NIHSS Level of Conciousness: Alert, keenly responsive Ask month/age: Answers both questions correctly. Open/close eyes, close hand: Performs both tasks correctly Best gaze horizontal: Normal Visual wilson: No visual loss Facial palsy: Normal symetrical movement Left arm drift: No drift for full 10 sec Right arm drift: No drift for full 10 sec Left leg drift: No drift for full 5 sec Right leg drift: No drift for full 5 sec Limb ataxia: Absent Sensory on face/arms/legs: Normal, no sensory loss Best language: No aphasia, normal Dysarthria: Normal Extinction or inattention: No abnormality Total NIH Stroke scale score: 0
[2019-10-24 08:00] VITALS: BP 143/74; PULSE 78; RESP 16; TEMP 36.5; O2SAT 96
[2019-10-24 08:02] VITALS: BP 135/84
[2019-10-24] MEDS: ENOXAPARIN 40 MG/0.4 ML SYRINGE SUBCUT (09:35)
[2019-10-24] MEDS: ASPIRIN 325 MG TABLET PO (09:35)
[2019-10-24] MEDS: LOSARTAN 50 MG TABLET PO (09:38)
[2019-10-24] MEDS: SODIUM CHLORIDE 0.9% FLUSH 10 ML IV (09:39)
--- NOTE | 2019-10-24 12:08 | P.DS_ITS ---
History of Present Illness History of Present Illness Chief complaint: tingling on right side hand,up arm,neck now mouth Narrative: 74-year-old female who normally sees Dr. Mullen admitted via the emergency department after presenting with some neurologic symptoms Her story is that in the afternoon day of admission she developed some right arm heaviness with some discoordination difficulty using her hands. Also reported some vague numbness and tingling of her right upper lip. She denies any visual speech or swallowing difficulties. Denied any headache. There are no symptoms in her lower extremities whatsoever. No recent falls or other injuries. She estimates the symptoms lasted for 5-10 minutes (or perhaps even less) then resolved completely. She never had any prior symptoms such as this. Workup in the emergency department was unremarkable however this was felt to possibly be a TIA and was elected to admit her for further testing and observation. Of note her blood pressure was initially quite elevated in the emergency department at 202/91 but has consistently come down to more typical l evels without specific intervention Discharge Providers Provider Date of admission: 10/23/19 19:16 Discharge Date: 10/24/19 Primary care physician: Davey Mullen MD Discharge provider: Fredy Lambert MD Summary Hospital Course Discharge Diagnosis: 1. Probable TIA 2. Hypertension 3. Hyperlipidemia 4. Obesity with BMI 32 Hospital Course: Patient was admitted to the hospital after her presentation in the ER as above. She had no further neurologic symptoms whatsoever. Patient refused an MRI because of severe claustrophobia. Carotid ultrasound was done which failed to show any evidence of significant obstruction of her carotids. There is no cardiac dysrhythmia identified on telemetry. Therefore she was felt to be stable to be discharged home. She will add an aspirin a day, full 325 mg aspirin to her regimen. Her statin therapy was increased to high-intensity statin therapy at 20 mg a day of atorvastatin which was felt to further lower her risk of further vascular events She will be seen by her PCP Dr. Mullen in the outpatient clinic in approximately 2 weeks time Exam Vital Signs (past 8 hours): - 10/24/19 08:00 10/24/19 08:02 Temperature 97.7 F Pulse Rate 78 Respiratory Rate 16 Blood Pressure 143/74 H 135/84 Pulse Oximetry 96 Oxygen Delivery Method Room Air Oxygen Flow Rate 0 Objective Labs Result Diagrams: 10/23/19 17:09 10/23/19 17:09 Labs: Laboratory Results - last 24 hr 10/23/19 10/23/19 10/23/19 17:09 17:09 17:09 WBC 5.9 RBC 4.78 Hgb 13.9 Hct 41.7 MCV 87.2 MCH 29.2 MCHC 33.4 RDW 13.9 Plt Count 205 Neut % (Auto) 55.2 Lymph % (Auto) 32.2 [place] % (Auto) 8.8 Eos % (Auto) 3.1 Baso % (Auto) 0.7 Neut # (Auto) 3300 Lymph # (Auto) 1900 [place] # (Auto) 500 Eos # (Auto) 200 Baso # (Auto) 0 PT 11.6 INR 1.0 APTT 31 Sodium 141 Potassium 4.0 Chloride 104 Carbon Dioxide 28 BUN 12 Creatinine 0.50 L Estimated GFR > 60.0 BUN/Creatinine Ratio 24.0 H Glucose 112 H Calcium 10.0 Total Bilirubin 1.4 H AST 35 ALT 29 Alkaline Phosphatase 96 Total Creatine Kinase 99 CK-MB (CK-2) TNP CK-MB (CK-2) Rel Index TNP Troponin I < 0.012 Total Protein 8.3 H Albumin 4.6 Globulin 3.7 Albumin/Globulin Ratio 1.2 Lipase 79 Discharge Plan Discharge Plan Patient Disposition: Home Discharge orders & Medications Prescriptions: New atorvastatin 20 mg tablet 20 mg PO DAILY Qty: 30 RF: 6 aspirin 325 mg tablet 325 mg PO DAILY Qty: 150 RF: 2 Continued cholecalciferol (vitamin D3) 1,000 unit capsule 1,000 unit PO DAILY RF: 0 calcium 1,000 mg PO .QDAY RF: 0 losartan 50 mg tablet 50 mg PO QDAY Qty: 90 RF: 3 Discontinued atorvastatin [Lipitor] 10 mg tablet 5 mg PO HS Qty: 90 RF: 3 Follow up/Referrals: Davey Mullen MD [Primary Care Provider] - 2 Weeks Discharge Health Status Multidrug resistant organism: No MDRO Diet/Activity/Treatments Diet: Low-sodium Discharge Data Primary Care Provider: Davey Mullen Attending Provider: Fredy Lambert Admit Date/Time: 10/23/19 19:16
[2019-10-24 13:00] VITALS: BP 121/66; PULSE 74; RESP 16; TEMP 36.9; O2SAT 97
--- NOTE | 2019-10-24 13:42 | PC.NURSE ---
Patient receptive to discharge instructions. Denies any pain, SOB, or discomfort at this time. Patient is amicable and talkative. Patient verbalizes potential anxiety around current job, passing of friend and passing of 5 years ago, sat with patient for some time. Suggested patient mention these feelings during follow up with PCM. Patient is receptive to that, believes she may internalize emotions. Patient expresses feeling better after discussion and education. Patient currently dressing herself and preparing for discharge.
--- NOTE | 2019-10-25 12:30 | CM.DPNOTE ---
Late Entry Initial DCP Assessment Note: Pt is a 74 yo female, resident of [place]. Pt here for TIA r/o PCP: Davey Mullen Payer: [employer]/PAMELA On 10.24.19, met w/pt in the morning to explain SW role. Pt explained she lives alone but has supportive family nearby. Pt is indp at baseline. Pt expected to DC home Sunday. She was sharing w/this NOCTURNIST that she is too anxious to get a closed MRI and so one was not done here, Dr Lambert then entered the room to discuss medical POC and this NOCTURNIST stepped out. No barriers identified by this NOCTURNIST, RN, or Dr Lambert to return home Sunday10.24.19. Home w/family JW
== END 2019-10-24 14:15 | disposition home or self-care (01) ==
LOC: ED 19:15 → AC 19:20
PROVIDERS: Emergency Medicine; Admitting Provider Internal Medicine; Emergency Provider Emergency Medicine; PCP Family Medicine; Referring Provider Family Medicine; Visit Provider Internal Medicine
DX: I10 Essential (primary) hypertension (principal); R20.2 Paresthesia of skin; R20.0 Anesthesia of skin; E78.5 Hyperlipidemia, unspecified; E66.9 Obesity, unspecified; Z68.32 Body mass index [BMI] 32.0-32.9, adult
CPT/HCPCS: 36415; 70450; 80053; 82550; 83690; 84484; 85025; 85610; 85730; 93005; 93880; 96372; 99219; 99284; 99285; G0378; J1650

== ENCOUNTER → 2020-04-02 10:59 | Outpatient (CLI) | payer MEDICARE, SELFPAY ==
[2019-10-23 20:40] VITALS: BMI 32.0
--- NOTE | 2020-04-02 | DI.MG.S_ITS ---
UNILATERAL LEFT DIGITAL SCREENING MAMMOGRAM 3D/2D WITH CAD POST MASTECTOMY: 04/02/2020 CLINICAL: Routine screening. Personal history of right breast cancer. Comparison is made to exams dated: 12/20/2018 mammogram, 10/17/2017 mammogram, and 08/28/2016 mammogram - [facility]. There are scattered fibroglandular elements in left breast. Current study was also evaluated with a Computer Aided Detection (CAD) system. There are benign calcifications in the left breast. There also are benign post operative findings in the left breast. No significant masses, calcifications, or other findings are seen in the breast. There has been no significant interval change. IMPRESSION: There is no mammographic evidence of malignancy. A 1 year screening mammogram is recommended. This exam was interpreted at Station ID: [id number]. NOTE: For mammograms, a report in lay terms will be sent to the patient. Approximately 15% of breast malignancies will not be visualized mammographically. In the management of a palpable breast mass, a negative mammogram must not discourage biopsy of a clinically suspicious lesion. Electronically Signed By: Bernadette vargas/laurel:04/02/2020 11:45:19 letter sent: Normal Exam ACR BI-RADS Category 2: Benign Finding(s) 3342F
== END ==
PROVIDERS: PCP Family Medicine; Referring Provider Family Medicine; Visit Provider Family Medicine
DX: Z12.31 Encounter for screening mammogram for malignant neoplasm of breast (principal); Z85.3 Personal history of malignant neoplasm of breast
CPT/HCPCS: 77063; 77067

== ENCOUNTER → 2020-06-17 08:50 | Outpatient (CLI) | payer MEDICARE, SELFPAY ==
[2019-10-23 20:40] VITALS: BMI 32.0
[2020-06-17 09:48] LABS: Add Manual Diff / Slide Review NO; Basophils Absolute Auto 0 /uL (0-100); Basophils Percent Auto 0.5 % (0-2); Eosinophils Absolute Auto 100 /uL (0-450); Eosinophils Percent Auto 2.1 % (2-4); Hematocrit 39.2 % (36-46); Lymphocytes Absolute Auto 1400 /uL (1100-4500); Lymphocytes Percent Auto 24.8 % (25-40); Mean Corpuscular HGB Conc 33.3 % (30-36); Monocytes Absolute Auto 500 /uL (0-900); Neutrophils Absolute Auto 3700 /uL (1500-7000); Neutrophils Percent Auto 63.6 % (50-75); Platelet Count 203 X10^3/uL (150-400); White Blood Cell Count 5.8 X10^3/uL (4.5-11.0)
[2020-06-17 10:20] LABS: Alanine Aminotransferase 27 IU/L (<35); Albumin Globulin Ratio 1.2 (1.0-2.8); Alkaline Phosphatase 85 U/L (38-126); Aspartate Aminotransferase 30 IU/L (14-36); BUN Creatinine Ratio 29.8 (6-22); Bilirubin Total 1.7 mg/dL (0.2-1.3); Blood Urea Nitrogen 17 mg/dL (7-17); Calcium 9.1 mg/dL (8.4-10.2); Carbon Dioxide 28 mmol/L (22-32); Chloride 105 mmol/L (98-107); Cholesterol 120 mg/dL (140-199); Estimated Glomerular Filt Rate > 60.0 mL/min (>60); Globulin 3.3 g/dL (1.7-4.1); Glucose 116 mg/dL (80-110); HDL Cholesterol 34 mg/dL (40-60); HEMOLYSIS < 15 (0-50); LDL Cholesterol Calculated 66 mg/dL (<100); Sodium 140 mmol/L (137-145); Total Protein 7.3 g/dL (6.3-8.2); Triglycerides 101 mg/dL (35-150)
[2020-06-17 11:37] LABS: Thyroid Stimulating Hormone 1.77 uIU/mL (0.47-4.68)
== END ==
PROVIDERS: PCP Family Medicine; Referring Provider Family Medicine; Visit Provider Family Medicine
DX: E78.2 Mixed hyperlipidemia (principal); I10 Essential (primary) hypertension
CPT/HCPCS: 36415; 80053; 80061; 82306; 84443; 85025

== ENCOUNTER → 2020-09-06 17:26 | Outpatient (CLI) | payer MEDICARE, SELFPAY ==
[2019-10-23 20:40] VITALS: BMI 32.0
== END ==
PROVIDERS: PCP Family Medicine; Visit Provider Physician Assistant
DX: N30.01 Acute cystitis with hematuria (principal)
CPT/HCPCS: 87077; 87086; 87186

== ENCOUNTER → 2020-12-16 09:39 | Outpatient (CLI) | payer MEDICARE, SELFPAY ==
[2019-10-23 20:40] VITALS: BMI 32.0
[2020-12-16] MEDS: COVID-19 VACC, Ad26(JANSSEN)/PF 0.5 ML IM (09:52)
== END ==
PROVIDERS: PCP Nurse Practitioner; Visit Provider Internal Medicine
DX: Z23 Encounter for immunization (principal)
CPT/HCPCS: 0031A; 91303

== ENCOUNTER → 2021-03-05 19:11 | Outpatient (CLI) | payer MEDICARE, SELFPAY ==
[2019-10-23 20:40] VITALS: BMI 32.0
== END ==
PROVIDERS: PCP Nurse Practitioner; Referring Provider Physician Assistant; Visit Provider Physician Assistant
DX: N34.3 Urethral syndrome, unspecified (principal)
CPT/HCPCS: 87077; 87086; 87186

== ENCOUNTER → 2021-03-16 08:19 | Outpatient (CLI) | payer MEDICARE, SELFPAY ==
[2019-10-23 20:40] VITALS: BMI 32.0
[2021-03-16 09:36] LABS: Add Manual Diff / Slide Review NO; Basophils Absolute Auto 0 /uL (0-100); Basophils Percent Auto 0.7 % (0-2); Eosinophils Absolute Auto 200 /uL (0-450); Eosinophils Percent Auto 2.6 % (2-4); Hematocrit 40.7 % (36-46); Hemoglobin 13.6 g/dL (12.0-16.0); Lymphocytes Absolute Auto 1700 /uL (1100-4500); Lymphocytes Percent Auto 25.2 % (25-40); Mean Corpuscular HGB Conc 33.4 % (30-36); Mean Corpuscular Hemoglobin 29.1 PG (26-34); Mean Corpuscular Volume 87.1 fL (80-100); Monocytes Absolute Auto 500 /uL (0-900); Monocytes Percent Auto 7.4 % (3-14); Neutrophils Absolute Auto 4300 /uL (1500-7000); Neutrophils Percent Auto 64.1 % (50-75); Platelet Count 205 X10^3/uL (150-400); Red Blood Cell Count 4.67 X10^6/uL (4.0-5.2); Red Cell Distribution Width 14.5 % (11.6-14.8); White Blood Cell Count 6.6 X10^3/uL (4.5-11.0)
[2021-03-16 10:30] LABS: Hemoglobin A1C% w Est Avg Glu 6.5 % (4.0-6.0)
[2021-03-16 10:31] LABS: Alanine Aminotransferase 23 IU/L (<35); Albumin 4.3 g/dL (3.5-5.0); Albumin Globulin Ratio 1.4 (1.0-2.8); Alkaline Phosphatase 78 U/L (38-126); Aspartate Aminotransferase 30 IU/L (14-36); BUN Creatinine Ratio 35.3 (6-22); Bilirubin Total 1.5 mg/dL (0.2-1.3); Blood Urea Nitrogen 18 mg/dL (7-17); Calcium 9.8 mg/dL (8.4-10.2); Carbon Dioxide 23 mmol/L (22-32); Chloride 106 mmol/L (98-107); Cholesterol 146 mg/dL (140-199); Estimated Glomerular Filt Rate > 60.0 mL/min (>60); Glucose 134 mg/dL (80-110); HDL Cholesterol 41 mg/dL (40-60); HEMOLYSIS 18 (0-50); LDL Cholesterol Calculated 78 mg/dL (<100); Potassium 4.7 mmol/L (3.4-5.1); Sodium 139 mmol/L (137-145); Total Protein 7.3 g/dL (6.3-8.2); Triglycerides 133 mg/dL (35-150)
[2021-03-16 10:44] LABS: Free T4, Direct Thyroxine 0.88 ng/dL (0.78-2.19)
[2021-03-16 10:57] LABS: Thyroid Stimulating Hormone 2.31 uIU/mL (0.47-4.68)
== END ==
PROVIDERS: PCP Nurse Practitioner; Referring Provider Nurse Practitioner; Visit Provider Nurse Practitioner
DX: E78.2 Mixed hyperlipidemia (principal); I10 Essential (primary) hypertension; Z79.899 Other long term (current) drug therapy; F41.0 Panic disorder [episodic paroxysmal anxiety]; F41.1 Generalized anxiety disorder; G45.9 Transient cerebral ischemic attack, unspecified; Z68.32 Body mass index [BMI] 32.0-32.9, adult; Z85.3 Personal history of malignant neoplasm of breast
CPT/HCPCS: 36415; 80053; 80061; 83036; 84439; 84443; 84481; 85025

== ENCOUNTER → 2021-03-17 11:45 | Outpatient (CLI) | payer MEDICARE, SELFPAY ==
[2019-10-23 20:40] VITALS: BMI 32.0
[2021-03-17 16:00] LABS: Creatinine Urine Random 57.3 mg/dL
[2021-03-17 16:09] LABS: Microalbumin Urine Random < 0.6 mg/dL (0-1.6)
== END ==
PROVIDERS: PCP Nurse Practitioner; Referring Provider Nurse Practitioner; Visit Provider Nurse Practitioner
DX: E78.2 Mixed hyperlipidemia (principal); F41.0 Panic disorder [episodic paroxysmal anxiety]; F41.1 Generalized anxiety disorder; G45.9 Transient cerebral ischemic attack, unspecified; I10 Essential (primary) hypertension; Z68.32 Body mass index [BMI] 32.0-32.9, adult; Z79.899 Other long term (current) drug therapy; Z85.3 Personal history of malignant neoplasm of breast
CPT/HCPCS: 82043; 82570

== ENCOUNTER → 2021-04-21 15:11 | Outpatient (CLI) | payer MEDICARE, SELFPAY ==
[2019-10-23 20:40] VITALS: BMI 32.0
== END ==
PROVIDERS: PCP Nurse Practitioner; Referring Provider Nurse Practitioner; Visit Provider Nurse Practitioner
DX: R73.03 Prediabetes (principal); Z71.3 Dietary counseling and surveillance
CPT/HCPCS: 97802

== ENCOUNTER 2021-04-22 15:14 | Emergency (ER) | payer MEDICARE, SELFPAY ==
[2019-10-23 20:40] VITALS: BMI 32.0
[2021-04-22] VITALS (26 sets, daily range): BP systolic 106–161; BP diastolic 52–77; PULSE 72–109; RESP 15–37; TEMP 36.9–37.3; O2SAT 88–98
--- NOTE | 2021-04-22 15:18 | DI.RAD.S_ITS ---
PROCEDURE: XR KNEE RT 1TO2V INDICATIONS: fall/deformed TECHNIQUE: 2 views of the knee were acquired. COMPARISON: None. FINDINGS: Bones: There is a comminuted intra-articular fracture of the proximal tibia. Large fracture with mild depression of approximately 4 mm is present the lateral tibial plateau. There is a focus of faint lucency identified within the midportion of the medial plateau without depression. The tibial spine particularly the lateral aspect appears abnormal. Fracture lucency is noted at the proximal tibial diaphysis. Soft tissues: No suspicious soft tissue calcifications. IMPRESSION: 1. Comminuted intra-articular proximal tibial fracture including depression of the lateral tibial plateau. There is questionable extension of fracture fragment into the tibial spine given somewhat dysmorphic appearance. Additionally, as noted above, lucency is also noted nondisplaced and nondepressed at the medial tibial plateau suggestive of fracture. Fracture lucencies also present at the proximal tibial diaphysis. Dictated by: Neelima Kohler M.D. on 04/22/2021 at 15:47 Approved by: Neelima Kohler M.D. on 04/22/2021 at 15:49
--- NOTE | 2021-04-22 15:18 | DI.RAD.S_ITS ---
PROCEDURE: XR SHOULDER RT MIN 2V INDICATIONS: fall/deformed TECHNIQUE: 2 views of the shoulder were acquired. COMPARISON: [facility], , SHOULDER MINIMUM 2VIEW RIGHT, 01/16/2013, 12:01. FINDINGS: Bones: There is inferior position of the humeral head in relation to the glenohumeral joint. No distinct fracture is identified. Soft tissues: No suspicious soft tissue calcifications. IMPRESSION: Anterior shoulder dislocation without visualized fracture. Dictated by: Neelima Kohler M.D. on 04/22/2021 at 15:49 Approved by: Neelima Kohler M.D. on 04/22/2021 at 15:54
--- NOTE | 2021-04-22 15:47 | DI.RAD.S_ITS ---
PROCEDURE: XR CHEST 1V INDICATIONS: fall, dislocated shoulder/knee fx. TECHNIQUE: One view of the chest was acquired. COMPARISON: [facility], , CHEST 2 VIEW, 01/05/2018, 20:26. FINDINGS: Surgical changes and devices: Right axillary clips. Lungs and pleura: Lungs are clear. No pleural effusions or pneumothorax. Mediastinum: Mediastinal contours appear normal. Heart size is normal. Bones and chest wall: No suspicious bony lesions. Overlying soft tissues appear unremarkable. Anterior right shoulder dislocation. IMPRESSION: Anterior right shoulder dislocation. No evidence acute pulmonary process. Dictated by: Shay Stevens M.D. on 04/22/2021 at 16:10 Approved by: Shay Stevens M.D. on 04/22/2021 at 16:11
--- NOTE | 2021-04-22 15:47 | DI.RAD.S_ITS ---
PROCEDURE: XR PELVIS 1-2V INDICATIONS: fall, dislocated shoulder/knee fx. TECHNIQUE: 1 view(s) of the pelvis acquired. COMPARISON: None. FINDINGS: Bones: No fractures or dislocations. No suspicious bony lesions. Left hip suboptimally visualized. Soft tissues: Visualized bowel gas pattern is normal. No suspicious soft tissue calcifications. IMPRESSION: No evidence acute bony abnormality of the pelvis. If clinical suspicion and/or symptoms persist, further assessment with repeat plain films, or advanced imaging (e.g., CT, MRI, or bone scan) may be helpful for further assessment. Dictated by: Shay Stevens M.D. on 04/22/2021 at 16:11 Approved by: Shay Stevens M.D. on 04/22/2021 at 16:12
[2021-04-22] MEDS: ONDANSETRON 4 MG/2 ML INJ IV (16:20)
[2021-04-22] MEDS: HYDROMORPHONE 1 MG INJ IV (16:21)
--- NOTE | 2021-04-22 16:25 | ED_ITS ---
HPI - Fall General Chief Complaint: Fall Stated Complaint: Possible dislocated knee Time Seen by Provider: 04/22/21 15:46 Source: patient, family (son) and EMS Mode of arrival: EMS Limitations: no limitations History of Present Illness HPI Narrative: This is a pleasant 75 year female who comes with complaint of right shoulder or knee pain. Patient was with her grandson, she stepped out the door way of a store that had a very small step/lip that she did not realize was present. She was turning because the shock deeper went to talk to her, missed the step down and with a twisting motion of her leg fell onto her right side. She denies hitting her head. She denies any neck or back pain. Her pain is localized to her right shoulder and she feels like there is a pressure against her chest with her shoulder and she cannot it she denies any numbness or tingling but has pain with attempt to move her arm. She also has pain at the right knee and states it looks twisted. She denies any numbness or tingling she states she could not lift or move it after she fell. She denies any chest pain or shortness of breath she denies any nausea or vomiting. She denies any headache. She denies any vision changes. She denies any loss of bowel or bladder control. She takes an aspirin daily. She takes atorvastatin and losartan daily. She does have a history of TIA but denies any prior history of coronary artery stents or intervention. She also has a known past history of breast cancer with mastectomy in 1993. Patient is a former remote smoker, rare alcohol, no illicit. She normally ambulates and lives independently. Related Data Home Medications Medication Instructions Recorded Confirmed calcium 1,000 mg PO .QDAY 07/25/19 03/22/21 cholecalciferol (vitamin D3) 25 1,000 unit PO DAILY 07/25/19 03/22/21 mcg (1,000 unit) capsule Previous Rx's Medication Instructions Recorded aspirin 325 mg tablet 325 mg PO DAILY #150 tab 10/24/19 atorvastatin 20 mg tablet 20 mg PO DAILY #90 tab 03/22/21 losartan 50 mg tablet 50 mg PO QDAY #90 tab 03/22/21 Allergies Allergy/AdvReac Type Severity Reaction Status Date / Time Sulfa (Sulfonamide Allergy Severe ANAPHYLAXIS Verified 03/22/21 10:14 Antibiotics) Review of Systems Review of Systems ROS Unobtainable: All systems reviewed & are unremarkable except as noted in HPI and below Patient History Medical History Ankle pain Anxiety Arthritis Breast cancer Carpal tunnel syndrome Carpal tunnel syndrome of right wrist Elevated fasting glucose Elevated liver enzymes History of UTI Pre-diabetes Skin lesion UTI (urinary tract infection) Surgical History Anesthesia History of mastectomy (~10/1993) Status post cholecystectomy (~2009) Status post hysterectomy (~08/2013) Status post left foot surgery Family History Father No problems noted. Sister No problems noted. Social History household members: none Smoking Status: Former smoker Smoking Status: Former smoker alcohol intake frequency: a few times a month Substance Use Type: does not use Exam Narrative Exam Narrative: GEN: Patient appears in moderate distress. HEAD: No evidence of trauma, no raccoon/Monroy sign. NECK: Nontender, painless range of motion, trachea midline Negative Nexus criteria, there is no mid line tenderness, distracting injury, altered mental status, neuro deficit, recent EtOH. EYES: PERRLA, EOMI ENT: External inspection normal, trachea is midline, TM's are normal no hemotypanum, Nares are clear, no septal hematoma, no dental or oral injury, airway is normal and with normal occlusion, No bony tenderness RESP: Chest is nontender and has symmetric movement, no ecchymosis, breath sounds are normal no crackles, wheezes or rales CVS: Heart sounds are normal, no murmur noted, No JVD. ABG/GI: Nontender, soft, normal bowel sounds, no distention, no organomegaly, pelvic rock is negative NEURO: Oriented AOx3, neuro is grossly intact, sensation and motor is normal all 4 extremities moving, cranial nerves II through XII are intact, GCS is 15 PSYCH: Normal mood and affect SKIN: Intact, warm and dry, no crepitus and without decubitus BACK: No CVA tenderness, no vertebral tenderness, no step-off's, no crepitus EXT: Patient has right shoulder deformity. She is nontender over the elbow, forearm or hand. 2+ radial pulse. Full range of motion of the hand with flexion extension and normal abduction/adduction, and flexion/extension of fingers. Patient has pain over the distal knee with some deformity infrapatellar. Patient does not have patellar tenderness. She does not have any tenderness over the hip. She has 2+ dorsalis pedis pulse bilaterally. Normal sensation throughout the lower extremity. No obvious ecchymosis. Patient does have some effusion at the knee. no pedal edema, normal color and temperature, normal range of motion of left upper and lower extremity, equal pulses bilaterally upper and lower extremities. Initial Vital Signs Initial Vital Signs: Vital Signs Temperature 98.4 F 04/22/21 15:44 Pulse Rate 78 04/22/21 15:44 Respiratory Rate 20 04/22/21 15:44 Blood Pressure 129/58 L 04/22/21 15:44 Pulse Oximetry 98 04/22/21 15:44 Procedures Orthopedic Joint Reduction Joint #1: Time Out Performed: Yes Side: right Joint Reduction Location: shoulder Analgesia: procedural sedation Shoulder Technique Used (if applicable): external rotation Post-reduction neuro exam: intact and no change Post-reduction vascular: intact and no change Post Reduction X-Ray Obtained: Yes Post Reduction X-Ray Results: reduced Splint Applied: Yes (sling) Patient Tolerated Procedure: Well Orthopedic Splinting/Casting Injury #1: Lower Extremity Injury Location: knee Lower Extremity Immobilizer: knee immobilizer Post splinting neuro exam: intact Post splinting vascular exam: intact Placed by: Provider Additional Comments: Mild traction of knee with rotation to mildline from slight internal rotation of foot. While patient was sedated. Procedural Sedation Consent signed: Yes Indication: fracture/dislocation reduction ASA Class: II Mallampati Airway Classification: Class II Time of Last PO Intake: 12:00 Preparation: ophthalmology technician applied, pulse oximeter, capnometry used, supplemental O2 applied, suction/airway equipment at bedside and IV secured Ketamine: IV Ketamine dose (mg): 80 ED Sedation Level: Moderate (Concious) Patient Tolerated Procedure: Well Complications: hypoxia Interventions: Assist by BVM (patient had low 02 but BP cuff activated. unclear if true hypoxia, no Oxygen applied.) Scores GCS [place] coma scale eye opening: Spontaneous Frank coma scale verbal response: Orientated [place] coma scale motor response: Obey commands [place] coma scale total score: 15 Course Orders Ordered: ED Orders 04/22/21 15:18 XR knee RT 1to2V Stat XR shoulder RT min 2V Stat 04/22/21 15:47 XR chest 1V Stat XR pelvis 1-2V Stat 04/22/21 15:54 COVID19 - ADMIT (RENEWALS REPRESENTATIVE swab/PCR) Stat 04/22/21 17:21 Basic Metabolic Panel Stat Complete Blood Count AUTO DIFF Stat 04/22/21 18:09 XR elbow RT 2V Stat XR shoulder RT min 2V Stat Discontinued Medications Hydromorphone HCl (Hydromorphone 1 Mg Inj) 1 mg IV NOW ONE Stop: 04/22/21 15:47 Last Admin: 04/22/21 16:21 Dose: 1 mg Documented by: SHEELA Ketamine HCl (Ketamine 500 Mg/5 Ml Inj) 80 mg 1 mg/kg (80 mg) IV NOW ONE Stop: 04/22/21 17:22 Last Admin: 04/22/21 18:03 Dose: 80 mg Documented by: VIVI Morphine Sulfate (Morphine 4 Mg/Ml Inj) 4 mg IV NOW ONE Stop: 04/22/21 21:38 Last Admin: 04/22/21 21:41 Dose: 4 mg Documented by: BEVERLY Morphine Sulfate (Morphine 4 Mg/Ml Inj) 4 mg IV NOW ONE Stop: 04/22/21 22:31 Last Admin: 04/22/21 22:35 Dose: 4 mg Documented by: BEVERLY Ondansetron HCl (Ondansetron 4 Mg/2 Ml Inj) 4 mg IV NOW ONE Stop: 04/22/21 15:47 Last Admin: 04/22/21 16:20 Dose: 4 mg Documented by: SHEELA Consultations Consultation #1: Dr. Lynch, orthopedic surgery at [facility]. Recommends patient be transferred or seen by Orthopedic surgery at [facility]. Consultation #2: [facility]- Dr. Marie accepts for transfer ED to ED. we did discuss patient's shoulder has been reduced. And her main reason for coming today is for her tibial plateau fracture as requested by Dr. Lynch. Chest and pelvic x-ray are negative. Patient's labs do not show any major abnormalities. Patient is covid negative with PCR. Vital Signs Vital signs: Vital Signs - 8 hr 04/22/21 15:44 04/22/21 17:45 04/22/21 17:54 Temperature 98.4 F Pulse Rate 78 90 72 Respiratory Rate 20 16 24 Blood Pressure 129/58 L Pulse Oximetry 98 97 04/22/21 18:00 04/22/21 18:01 04/22/21 18:05 Temperature Pulse Rate 88 90 99 H Respiratory Rate 32 H 35 H 25 H Blood Pressure 128/63 132/63 153/77 H Pulse Oximetry 94 95 91 04/22/21 18:07 04/22/21 18:10 04/22/21 18:15 Temperature Pulse Rate 104 H 109 H 104 H Respiratory Rate 16 17 19 Blood Pressure 153/77 H 155/67 H 147/58 H Pulse Oximetry 97 92 92 04/22/21 18:20 04/22/21 18:25 04/22/21 18:30 Temperature Pulse Rate 95 H 89 86 Respiratory Rate 21 26 H 27 H Blood Pressure 152/65 H 143/63 H 161/67 H Pulse Oximetry 93 96 98 04/22/21 18:36 04/22/21 18:41 04/22/21 19:00 Temperature Pulse Rate 77 75 77 Respiratory Rate 37 H 20 20 Blood Pressure 155/69 H 126/57 L 128/55 L Pulse Oximetry 98 98 95 04/22/21 19:13 04/22/21 19:30 04/22/21 19:31 Temperature 99.2 F Pulse Rate 80 80 Respiratory Rate 21 18 Blood Pressure 106/52 L Pulse Oximetry 88 L 92 04/22/21 20:00 04/22/21 20:01 04/22/21 20:30 Temperature Pulse Rate 79 78 77 Respiratory Rate 27 H 23 20 Blood Pressure 110/55 L 110/54 L Pulse Oximetry 95 96 94 04/22/21 21:00 04/22/21 21:30 04/22/21 21:31 Temperature Pulse Rate 80 80 80 Respiratory Rate 20 15 24 Blood Pressure 119/57 L 107/54 L Pulse Oximetry 97 94 93 04/22/21 22:00 04/22/21 22:30 Temperature Pulse Rate 76 78 Respiratory Rate 15 19 Blood Pressure 106/57 L 107/52 L Pulse Oximetry 93 92 MDM - Fall Lab Data Result diagrams: 04/22/21 17:21 04/22/21 17:21 Labs: Lab Results 04/22/21 04/22/21 04/22/21 Range/Units 15:54 17:21 17:21 WBC 11.7 H (4.5-11.0) X10^3/uL RBC 4.60 (4.0-5.2) X10^6/uL Hgb 13.1 (12.0-16.0) g/dL Hct 40.2 (36-46) % MCV 87.5 (80-100) fL MCH 28.4 (26-34) PG MCHC 32.5 (30-36) % RDW 14.3 (11.6-14.8) % Plt Count 203 (150-400) X10^3/uL Neut % (Auto) 84.2 H (50-75) % Lymph % (Auto) 8.9 L (25-40) % [place] % (Auto) 6.4 (3-14) % Eos % (Auto) 0.2 L (2-4) % Baso % (Auto) 0.3 (0-2) % Neut # (Auto) 9900 H (8541-8988) /uL Lymph # (Auto) 1000 L (2612-3484) /uL [place] # (Auto) 700 (0-900) /uL Eos # (Auto) 0 (0-450) /uL Baso # (Auto) 0 (0-100) /uL Sodium 140 (137-145) mmol/L Potassium 4.2 (3.4-5.1) mmol/L Chloride 104 (98-107) mmol/L Carbon Dioxide 27 (22-32) mmol/L BUN 19 H (7-17) mg/dL Creatinine 0.60 (0.52-1.04) mg/dL Estimated GFR > 60.0 (>60) mL/min BUN/Creatinine Ratio 31.7 H (6-22) Glucose 119 H (80-110) mg/dL Calcium 9.5 (8.4-10.2) mg/dL SARS-CoV-2 (PCR) Negative (Negative) Point of Care Testing Test Results Not applicable Imaging Data Chest x-ray: Radiologist's Impression: [address] [id number] ReportSigned Patient: Saira Wu LMR#: [id number]: 4Acct:[id number]/Sex: 75 / FDate of Service: 04/22/21Loc: E DAccession Number: [id number] Procedure: XR chest 1V Ordering Provider: Nava Madison D.O. PROCEDURE: XR CHEST 1V INDICATIONS: fall, dislocated shoulder/knee fx. TECHNIQUE: One view of the chest was acquired. COMPARISON: [facility], CHEST 2 VIEW, 01/05/2018, 20:26. FINDINGS: Surgical changes and devices: Right axillary clips. Lungs and pleura: Lungs are clear. No pleural effusions or pneumothorax. Mediastinum: Mediastinal contours appear normal. Heart size is normal. Bones and chest wall: No suspicious bony lesions. Overlying soft tissues appear unremarkable. Anterior right shoulder dislocation. IMPRESSION: Anterior right shoulder dislocation. No evidence acute pulmonary process. Dictated by: Shay Stevens M.D. on 04/22/2021 at 16:10 Approved by: Shay Stevens M.D. on 04/22/2021 at 16:11 pelvic Xray: Radiologist's Impression: [address] [id number] ReportSigned Patient: Saira Wu LMR#: [id number]: 4Acct:[id number]/Sex: 75 / FDate of Service: 04/22/21Loc: EDAccession Number: [id number] Procedure: XR pelvis 1-2V Ordering Provider: Nava Madison D.O. PROCEDURE: XR PELVIS 1-2V INDICATIONS: fall, dislocated shoulder/knee fx. TECHNIQUE: 1 view(s) of the pelvis acquired. COMPARISON: None. FINDINGS: Bones: No fractures or dislocations. No suspicious bony lesions. Left hip suboptimally visualized. Soft tissues: Visualized bowel gas pattern is normal. No suspicious soft tissue calcifications. IMPRESSION: No evidence acute bony abnormality of the pelvis. If clinical suspicion and/or symptoms persist, further assessment with repeat plain films, or advanced imaging (e.g., CT, MRI, or bone scan) may be helpful for further assessment. Dictated by: Shay Stevens M.D. on 04/22/2021 at 16:11 Approved by: Shay Stevens M.D. on 04/22/2021 at 16:12 Extremity x-ray #3: Radiologist's Impression: [address] [id number] ReportSigned Patient: Saira Wu LMR#: [id number]: 1943cct:[id number]/Se x: 75 / FDate of Service: 04/22/21Lo: EDAccession Number: [id number] Procedure: XR elbow RT 2V Ordering Provider: Nava Madison D.O. PROCEDURE: XR ELBOW RT 2V INDICATIONS: Trauma, fall TECHNIQUE: Two views of the elbow were acquired. COMPARISON: None. FINDINGS: Bones: No fracture demonstrated. Normal alignment of the elbow. Soft tissues: No elbow joint effusion. No suspicious soft tissue calcifications. IMPRESSION: No acute finding. Dictated by: Cj Moreno M.D. on 04/22/2021 at 18:31 Approved by: Cj Moreno M.D. on 04/22/2021 at 18:32 Extremity x-ray #1: Radiologist's Impression: [address] [id number] ReportSigned Patient: Saira Wu LMR#: [id number]: 4Acct:[id number]/Sex: 75 / FDate of Service: 04/22/21Lo: EDAccession Number: [id number] Procedure: XR knee RT 1to2V Ordering Provider: Nava Madison D.O. PROCEDURE: XR KNEE RT 1TO2V INDICATIONS: fall/deformed TECHNIQUE: 2 views of the knee were acquired. COMPARISON: None. FINDINGS: Bones: There is a comminuted intra-articular fracture of the proximal tibia. Large fracture with mild depression of approximately 4 mm is present the lateral tibial plateau. There is a focus of faint lucency identified within the midportion of the medial plateau without depression. The tibial spine particularly the lateral aspect appears abnormal. Fracture lucency is noted at the proximal tibial diaphysis. Soft tissues: No suspicious soft tissue calcifications. IMPRESSION: 1. Comminuted intra-articular proximal tibial fracture including depression of the lateral tibial plateau. There is questionable extension of fracture fragment into the tibial spine given somewhat dysmorphic appearance. Additionally, as noted above, lucency is also noted nondisplaced and nondepressed at the medial tibial plateau suggestive of fracture. Fracture lucencies also present at the proximal tibial diaphysis. Dictated by: Neelima Kohler M.D. on 04/22/2021 at 15:47 Approved by: Neelima Kohler M.D. on 04/22/2021 at 15:49 Extremity x-ray #2: Radiologist's Impression: [address] [id number] ReportSigned Patient: Saira Wu LMR#: [id number]: 1945cct:[id number]/Sex: 75 / FDate of Service: 04/22/21Loc: EDAccession Number: [id number] Procedure: XR shoulder RT min 2V Ordering Provider: Nava Madison D.O. PROCEDURE: XR SHOULDER RT MIN 2V INDICATIONS: fall/deformed TECHNIQUE: 2 views of the shoulder were acquired. COMPARISON: [facility], SHOULDER MINIMUM 2VIEW RIGHT, 01/16/2013, 12:01. FINDINGS: Bones: There is inferior position of the humeral head in relation to the glenohumeral joint. No distinct fracture is identified. Soft tissues: No suspicious soft tissue calcifications. IMPRESSION: Anterior shoulder dislocation without visualized fracture. Dictated by: Neelima Kohler M.D. on 04/22/2021 at 15:49 Approved by: Neelima Kohler M.D. on 04/22/2021 at 15:54 post reduc shoulder xray: Radiologist's Impression: [address] [id number] ReportSigned Patient: Saira Wu LMR#: [id number]: 1945cct:[id number]/Sex: 75 / FDate of Service: 04/22/21Loc: EDAccession Number: [id number] Procedure: XR shoulder RT min 2V Ordering Provider: Nava Madison D.O. PROCEDURE: XR SHOULDER RT MIN 2V INDICATIONS: Post reduction TECHNIQUE: Two views of the shoulder were acquired. COMPARISON: [facility], XR SHOULDER RT MIN 2V, 04/22/2021, 15:26. FINDINGS: There has been interval reduction of the previously seen anterior glenohumeral dislocation. There is a subtle cortical irregularity along the inferior aspect of the glenoid, suspicious for a fracture related to the dislocation. The humeral head appears intact. IMPRESSION: Successful interval glenohumeral reduction. Small cortical lucency in the inferior glenoid is suspicious for fracture. Dictated by: Cj Moreno M.D. on 04/22/2021 at 18:32 Approved by: Cj Moreno M.D. on 04/22/2021 at 18:33 [facility] Narrative Medical decision making narrative: This is a 75-year-old female comes emergency department with witnessed ground level fall without loss consciousness. Patient states she did not strike her head she does not have any headache, neck pain or back pain. Patient does have a right shoulder dislocation appears have a closed tibial plateau fracture which is comminuted and after discussion with our local orthopedic surgeon feels she needs higher level of care with thought on more specialized orthopedic surgery. Patient's shoulder was reduced. Chest and pelvic x-ray are negative. Patient has not had any new or worsening headache or neck pain requiring additional CT imaging. Patient is been neurovascularly intact and is much more comfortable after her shoulder dislocation was reduced. Patient tolerated procedure well. Patient was accepted by Dr. Marie at [facility] for ER to ER transfer. Patient is quite anxious about her transfer and was reassured that she is to the best possible option for her care. All questions answered. Plan for transfer via BLS. Patient has not required additional pain medication so far after her reduction. Patient did have additional doses of pain medication prior to transfer. Critical Care Time Critical Care Time Critical Care Time: Yes Total Critical Care Time: 60 Attestation: The high probability of a clinically significant, sudden or life threatening deterioration of the [msk] system(s) required my full and direct attention, intervention and personal management. The aggregate critical care time was [60] minutes. This time is in addition to time spent performing reported procedures but includes the following: [x] Data Review and interpretation [x] Patient assessment and monitoring of vital signs [x] Documentation [x] Medication orders and management Discharge Plan Departure Patient Disposition: [facility] Clinical Impression: Anterior shoulder dislocation, Closed fracture of tibial plateau Prescriptions: No Action cholecalciferol (vitamin D3) 1,000 unit capsule 1,000 unit PO DAILY RF: 0 calcium 1,000 mg PO .QDAY RF: 0 atorvastatin 20 mg tablet 20 mg PO DAILY Qty: 90 RF: 3 losartan 50 mg tablet 50 mg PO QDAY Qty: 90 RF: 3 aspirin 325 mg tablet 325 mg PO DAILY Qty: 150 RF: 2 Referrals: Loni Pereyra ARNP [Primary Care Provider] -
[2021-04-22 16:57] LABS: COVID19 - ADMIT (NP swab/PCR) Negative (Negative)
[2021-04-22 17:27] LABS: Add Manual Diff / Slide Review NO; Basophils Absolute Auto 0 /uL (0-100); Basophils Percent Auto 0.3 % (0-2); Eosinophils Absolute Auto 0 /uL (0-450); Eosinophils Percent Auto 0.2 % (2-4); Hematocrit 40.2 % (36-46); Hemoglobin 13.1 g/dL (12.0-16.0); Lymphocytes Absolute Auto 1000 /uL (1100-4500); Lymphocytes Percent Auto 8.9 % (25-40); Mean Corpuscular HGB Conc 32.5 % (30-36); Mean Corpuscular Hemoglobin 28.4 PG (26-34); Mean Corpuscular Volume 87.5 fL (80-100); Monocytes Absolute Auto 700 /uL (0-900); Monocytes Percent Auto 6.4 % (3-14); Neutrophils Absolute Auto 9900 /uL (1500-7000); Neutrophils Percent Auto 84.2 % (50-75); Platelet Count 203 X10^3/uL (150-400); Red Cell Distribution Width 14.3 % (11.6-14.8); White Blood Cell Count 11.7 X10^3/uL (4.5-11.0)
[2021-04-22 17:40] LABS: BUN Creatinine Ratio 31.7 (6-22); Blood Urea Nitrogen 19 mg/dL (7-17); Calcium 9.5 mg/dL (8.4-10.2); Carbon Dioxide 27 mmol/L (22-32); Chloride 104 mmol/L (98-107); Estimated Glomerular Filt Rate > 60.0 mL/min (>60); Glucose 119 mg/dL (80-110); HEMOLYSIS < 15 (0-50); Potassium 4.2 mmol/L (3.4-5.1); Sodium 140 mmol/L (137-145)
[2021-04-22] MEDS: KETAMINE 500 MG/5 ML INJ 80 MG IV (18:03)
--- NOTE | 2021-04-22 18:09 | DI.RAD.S_ITS ---
PROCEDURE: XR SHOULDER RT MIN 2V INDICATIONS: Post reduction TECHNIQUE: Two views of the shoulder were acquired. COMPARISON: [facility], , XR SHOULDER RT MIN 2V, 04/22/2021, 15:26. FINDINGS: There has been interval reduction of the previously seen anterior glenohumeral dislocation. There is a subtle cortical irregularity along the inferior aspect of the glenoid, suspicious for a fracture related to the dislocation. The humeral head appears intact. IMPRESSION: Successful interval glenohumeral reduction. Small cortical lucency in the inferior glenoid is suspicious for fracture. Dictated by: Cj Moreno M.D. on 04/22/2021 at 18:32 Approved by: Cj Moreno M.D. on 04/22/2021 at 18:33
--- NOTE | 2021-04-22 18:09 | DI.RAD.S_ITS ---
PROCEDURE: XR ELBOW RT 2V INDICATIONS: Trauma, fall TECHNIQUE: Two views of the elbow were acquired. COMPARISON: None. FINDINGS: Bones: No fracture demonstrated. Normal alignment of the elbow. Soft tissues: No elbow joint effusion. No suspicious soft tissue calcifications. IMPRESSION: No acute finding. Dictated by: Cj Moreno M.D. on 04/22/2021 at 18:31 Approved by: Cj Moreno M.D. on 04/22/2021 at 18:32
--- NOTE | 2021-04-22 18:11 | PC.NURSE ---
Pt had a need for PPV, after 2 resps, pt then became responsive and ventilated spontaneously.
[2021-04-22] MEDS: MORPHINE 4 MG/ML INJ IV ×2 (21:41→22:35)
== END 2021-04-22 22:56 | disposition short-term general hospital (02) ==
PROVIDERS: Emergency Provider Emergency Medicine; PCP Nurse Practitioner
DX: S43.004A Unspecified dislocation of right shoulder joint, initial encounter (principal); S82.141A Displaced bicondylar fracture of right tibia, initial encounter for closed fracture; R07.89 Other chest pain; Z20.822 Contact with and (suspected) exposure to COVID-19; W19.XXXA Unspecified fall, initial encounter
CPT/HCPCS: 23650; 36415; 71045; 72170; 73030; 73070; 73560; 80048; 85025; 87635; 96374; 96375; 96376; 99152; 99285; 99291; C9803; J1170; J2270; J2405

== ENCOUNTER → 2021-06-21 11:05 | Outpatient (CLI) | payer MEDICARE, SELFPAY ==
[2019-10-23 20:40] VITALS: BMI 32.0
[2021-06-21 12:42] LABS: Hemoglobin A1C% w Est Avg Glu 5.4 % (4.0-6.0)
[2021-06-21 12:54] LABS: Glucose 106 mg/dL (80-110)
[2021-06-22 07:08] LABS: HBsAg Screen Negative (Negative); Hepatitis A Antibody IgM Negative (Negative); Hepatitis B Core Antibody IgM Negative (Negative); Hepatitis C Antibody <0.1 s/co ratio (0.0-0.9)
== END ==
PROVIDERS: PCP Nurse Practitioner; Referring Provider Nurse Practitioner; Visit Provider Nurse Practitioner
DX: R73.01 Impaired fasting glucose (principal); R74.8 Abnormal levels of other serum enzymes; R73.03 Prediabetes; Z79.899 Other long term (current) drug therapy; R17 Unspecified jaundice
CPT/HCPCS: 36415; 80074; 82947; 83036

== ENCOUNTER → 2021-10-17 10:03 | Outpatient (CLI) | payer MEDICARE, SELFPAY ==
[2019-10-23 20:40] VITALS: BMI 32.0
--- NOTE | 2021-10-17 | DI.MG.S_ITS ---
UNILATERAL LEFT DIGITAL SCREENING MAMMOGRAM 3D/2D WITH CAD: 10/17/2021 CLINICAL: Routine screening. Personal history of right breast cancer. Family history of breast cancer. Comparison is made to exams dated: 04/02/2020 mammogram, 12/20/2018 mammogram, and 10/17/2017 mammogram - [facility]. There are scattered fibroglandular elements in left breast. Current study was also evaluated with a Computer Aided Detection (CAD) system. There are benign calcifications in the left breast. There also are benign post operative findings in the left breast. No significant masses, calcifications, or other findings are seen in the breast. There has been no significant interval change. IMPRESSION: BENIGN There is no mammographic evidence of malignancy. A 1 year screening mammogram is recommended. This exam was interpreted at Station ID: [id number]. NOTE: For mammograms, a report in lay terms will be sent to the patient. Approximately 15% of breast malignancies will not be visualized mammographically. In the management of a palpable breast mass, a negative mammogram must not discourage biopsy of a clinically suspicious lesion. Electronically Signed By: Cj Moreno M.D., jr/laurel:10/17/2021 11:30:09 letter sent: Normal Exam ACR BI-RADS Category 2: Benign Finding(s) 3342F
== END ==
PROVIDERS: PCP Nurse Practitioner; Referring Provider Nurse Practitioner; Visit Provider Nurse Practitioner
DX: Z12.31 Encounter for screening mammogram for malignant neoplasm of breast (principal); Z85.3 Personal history of malignant neoplasm of breast; Z80.3 Family history of malignant neoplasm of breast
CPT/HCPCS: 77063; 77067

== ENCOUNTER → 2021-10-27 10:28 | Outpatient (CLI) | payer MEDICARE, SELFPAY ==
[2019-10-23 20:40] VITALS: BMI 32.0
--- NOTE | 2021-10-27 10:29 | DI.RAD.S_ITS ---
PROCEDURE: XR DEXA AXIAL SKELETON INDICATIONS: osteoporosis with fracture COMPARISON: None. FINDINGS: This blank DEXA report has been sent in error by the PACS system. The correct and complete report will be forthcoming in 1-2 days. Thank you for your patience and understanding. Dictated by: Muna Chappell MD, PhD on 10/27/2021 at 15:07 Approved by: Muna Chappell MD, PhD on 10/27/2021 at 15:07
== END ==
PROVIDERS: PCP Nurse Practitioner; Referring Provider Nurse Practitioner; Visit Provider Nurse Practitioner
DX: M85.851 Other specified disorders of bone density and structure, right thigh (principal); Z78.0 Asymptomatic menopausal state; Z85.3 Personal history of malignant neoplasm of breast; Z87.891 Personal history of nicotine dependence
CPT/HCPCS: 77080

== ENCOUNTER 2022-05-05 13:00 | Outpatient (RCR) | payer MEDICARE, SELFPAY ==
[2019-10-23 20:40] VITALS: BMI 32.0
--- NOTE | 2022-02-09 16:31 | PT.OIE ---
Current Diagnoses Displaced bicondylar fracture of right tibia, initial encounter for closed fracture (02/09/22) Past Medical History (Last Reviewed 09/15/21 @ 11:09 by AMAIRANI Short) Ankle pain Anxiety Anxiety Arthritis Breast cancer Carpal tunnel syndrome Carpal tunnel syndrome of right wrist Elevated fasting glucose Elevated liver enzymes History of mastectomy (~10/1993) History of UTI Osteoporosis with fracture Pre-diabetes Skin lesion Status post left foot surgery UTI (urinary tract infection) Vitamin B12 deficiency Past Surgical History (Last Reviewed 09/15/21 @ 11:09 by AMAIRANI Short) Anesthesia History of mastectomy (~10/1993) Status post cholecystectomy (~2009) Status post hysterectomy (~08/2013) Status post left foot surgery Visit Care Team Role Provider Type Referring Provider Specialty: Address: Phone: Fax: Email: AMAIRANI Short Family Provider Advanced Drop Wire Stringer Primary Care Provider Specialty: Family Practice Address: [address] [place] [address], [facility] Email: [email or web address] Miguelito Massey MD Attending Provider Non-Staff Specialty: Orthopedic Surgery Address: [facility], [address] [place] [address],[id number], [place], [place], [facility] Email: Physical Therapy Initial Evaluation PT-OP-A Visit Information Start: 02/08/22 17:25 Freq: Status: Active Protocol: Document 02/09/22 10:30 AW (Rec: 02/08/22 17:45 AW [id number]) Out-Patient Physical Therapy Visit Information Visit Information Visit Type Initial Evaluation Visit Start Time 09:45 Visit Stop Time 10:35 Total Visit Minutes 50 Visit Number 1 Number of CONTINUOUS IMPROVEMENT BLACK BELT Visits 0 Evaluation Information Evaluation Date 02/09/22 PT-OP-B Current Condition Start: 02/08/22 17:25 Freq: Status: Active Protocol: Document 02/09/22 10:30 AW (Rec: 02/08/22 17:45 AW [id number]) Current Condition History of Current Condition Onset Date April 2021 Current Complaints RLE weakness, impaired balance ; RUE weakness and reduced ROM History of Current Condition Before last April, Dorothy had two falls over a period of eight years - one of which resulted in broken left ankle which was treated conservatively. On Sunday the (04/22/21), Dorothy fell down a stair when leaving a store. She dislocated her right shoulder which was reduced at ED. She also suffered a right tibial plateau fracture which was treated with ORIF on 04/23/21 at [facility]. Upon discharge from [facility] she went to [facility] SNF until June 15. She was NWB RLE for three months, upgraded to WBAT in July 2021. She progressed well with [facility] therapy for right arm and right leg until September when outpatient PT was recommended. It has taken several months for her to get to outpatient. She has no precautions currently. Using a cane mostly when out of the house but is able to navigate her home without AD. She does admit to staying close to roman and furniture for support. She states her right knee locks or sis every now and then while walking. She is hesitant to walk without a cane because of this. Pt has history of right radical mastectomy which may have decreased ROM R shoulder prior to current injury. She is now limited in her ability to hold a coffee cup at arm's length. She is also having difficulty styling her hair with her right arm. Dorothy Lives alone and has stairs at home. She is able to navigate stairs with a rail but she can not get to her backyard (3 steps no rail). Prior Treatments and Tests SNF and HH therapies as above. Treatment Goals Patient/Caregiver Goals Reach into microwave get coffee cup without using left arm to support the right. Comb and style hair with right hand. Improve confidence with RLE. Improve balance. Be able to shop in a housewares store without fear of bumping displays or falling. Personal Factors Other Personal Factors That May Effect PMH includes anxiety, R breast Therapy/Recovery cancer, hypertension, TIA PT-OP-C Subjective Start: 02/08/22 17:25 Freq: Status: Active Protocol: Document 02/09/22 10:30 AW (Rec: 02/09/22 11:01 AW [id number]) OP-PT Subjective Patient Comments Patient Comments Balance is my main concern. I 'd like to move with more confidence. OP-PT Pain Assessment Pain Assessment Grid Paper Pain Assessment Grid Completed No: Pt has pain with resisted R shoulder and R knee movements. Home Pain Medication Use Pain Medications Used Yes: occasional use of lidocaine patches for knee pain PT-OP-E Functional Tests Start: 02/08/22 17:25 Freq: Status: Active Protocol: Document 02/09/22 10:30 AW (Rec: 02/09/22 11:01 AW [id number]) Functional Tests 2 Minute Walk Test Distance 190 feet/42 seconds Device Used SPC carried but not used Comments 0.57 m/s average gait speed PT-OP-G Mobility & Gait Start: 02/08/22 17:25 Freq: Status: Active Protocol: Document 02/09/22 10:30 AW (Rec: 02/12/22 16:09 AW [id number]) OP Gait Assessment Comments Gait Comments Pt has bilateral genu valgum affecting gait stability. Feet are moderately pronated bilaterally. Right iliac crest is higher than left. Pt carries a cane but uses it only with increased distance or on uneven surfaces. PT-OP-H Neuro Start: 02/08/22 17:25 Freq: Status: Active Protocol: Document 02/09/22 10:30 AW (Rec: 02/12/22 16:09 AW [id number]) Sensation Evaluation Gross Sensation Gross Sensation WNL PT-OP-J Posture/Palpation/Skin Start: 02/08/22 17:25 Freq: Status: Active Protocol: Document 02/09/22 10:30 AW (Rec: 02/09/22 11:06 AW [id number]) Posture Evaluation Position Standing Evaluation View anterior, lateral Comments Posture Comments Pt stands and walks with modest genu valgus bilaterally . Feet are moderately pronated . Right iliac crest is higher than left. Pelvis is anteriorly tilted Skin Assessment Incisional Assessment Incision Appearance/Comments Well healed surgical incisions RLE PT-OP-K Range of Motion Start: 02/08/22 17:25 Freq: Status: Active Protocol: Document 02/09/22 10:30 AW (Rec: 02/09/22 11:06 AW [id number]) Shoulder Goniometric Range of Motion Shoulder Right Active Shoulder ROM WFL No Testing Position Sitting Flexion 140 Abduction 145 External Rotation at 0 degrees Abduction 0 Internal Rotation Behind Back (text) T8 Left Active Shoulder ROM WFL Yes Testing Position Sitting Flexion 145 Abduction 150 External Rotation at 0 degrees Abduction 50 Internal Rotation Behind Back (text) T4 Elbow/Forearm Range of Motion Elbow/Forearm bilat Elbow/Forearm ROM WFL Yes Hip Goniometric Range of Motion Hip bilat Hip ROM WFL Yes Testing Position Supine Comments No restriction in flexion, rotation. Knee Goniometric Range of Motion Knee Right Knee ROM WFL Yes Patient Position Supine Flexion Active (degrees) 128 Extension Active (degrees) 0 Comments Pt hesitates to flex knee further due to fear avoidance related to her surgery but ROM is WNL. Left Knee ROM WFL Yes Patient Position Supine Flexion Active (degrees) 139 Extension Active (degrees) 0 PT-OP-M Strength Start: 02/08/22 17:25 Freq: Status: Active Protocol: Document 02/09/22 10:30 AW (Rec: 02/09/22 11:09 AW [id number]) Shoulder Strength Shoulder Manual Muscle Testing Left Flexion 4 Good Abduction (C5) 4 Good External Rotation 4 Good Internal Rotation 4 Good Right Flexion 3 Fair Abduction (C5) 3+ Fair+ Internal Rotation 4- Good- Horizontal Abduction 4- Good- Hip Strength Hip Manual Muscle Testing Right Flexion (L2) 4- Good- Extension (S1) 3+ Fair+ Abduction 4- Good- External Rotation 4- Good- Internal Rotation 4- Good- Left Flexion (L2) 4+ Good+ Extension (S1) 4- Good- Abduction 4- Good- External Rotation 4 Good Internal Rotation 4 Good Knee Strength Knee Manual Muscle Testing Right Flexion (S2) 4- Good- Extension (L3) 4 Good Left Flexion (S2) 5 Normal Extension (L3) 5 Normal PT-OP-Q Treatments Start: 02/08/22 17:25 Freq: Status: Active Protocol: Document 02/09/22 10:30 AW (Rec: 02/12/22 16:31 AW [id number]) Self-Care/Home Management Treatment Education Other Education Discussed evaluation findings and proposed plan of care based on improving right side strength globally as well as focusing on balance and gait. Pt understood and agreed. PT-OP-T Assessment and Plan Start: 02/08/22 17:25 Freq: Status: Active Protocol: Document 02/09/22 10:30 AW (Rec: 02/12/22 16:31 AW [id number]) Physical Therapy Assessment Rehab Potential Rehabilitation Potential Good Evaluation Complexity Number of Personal Factors/Comorbidities 1-2 Number of Body Systems Impaired 3 Clinical Presentation at Evaluation Evolving Impairments Impairments Balance,Gait,Posture,ROM, Strength Goals Six Impairment balance Corporate Development Manager Goal (LTG) Pt will score 24/30 or greater on Functional Gait Assessment as a measure of improved self -efficacy in gait. LTG Duration 05/12/22 Five Impairment pt needs cane for longer distance gait Short Term Goal (STG) Pt will improve average gait speed on 6MWT to 0.75 m/s or greater without AD. STG Duration 03/23/22 Group Home Goal (LTG) Pt will improve distance on 6MWT without AD by 10% over performance on short term goal as a measure of safe community ambulation. LTG Duration 05/12/22 Four Impairment LE strength Short Term Goal (STG) Pt will complete 5 Time Sit to Stand without use of UE's in 13 seconds or less as a measure of improved LE strength STG Duration 03/23/22 Group Home Goal (LTG) Pt will complete 12 reps on 30 Second Sit to Stand test as a measure of improved LE strength and power. LTG Duration 05/12/22 Three Impairment RUE ROM Corporate Development Manager Goal (LTG) Pt will be able to style her own hair using both arms without compensatory measures and without increase in baseline pain. LTG Duration 05/12/22 Two Impairment RUE strength Short Term Goal (STG) Pt will be able to lift 2 pounds with straight right arm to improve her ability to complete household duties and to hold a coffee cup with outstretched arm. STG Duration 03/23/22 Corporate Development Manager Goal (LTG) Pt will lift five pounds or more overhead with right arm to improve her ability to put away dishes on tall shelves. LTG Duration 05/12/22 One Impairment lacks HEP Short Term Goal (STG) Pt will be instructed in HEP for right UE and LE ROM, strength, and balance to support therapy services provided in clinic. STG Duration 03/23/22 Group Home Goal (LTG) Pt will be independent with HEP for ROM, strength, and balance to sustain therapy gains. LTG Duration 05/12/22 Assessment Summary Assessment Dorothy is a 76 yo woman who attends physical therapy 10 months after right shoulder dislocation and right tibial plateau fracture resulting from a ground level fall. She had SNF rehab and home health but has had no therapy since September. She presents with impairments in RUE and RLE strength, RUE range of motion, gait, and balance. She should benefit from skilled therapy to address these deficits, improve her ability to care for herself, and improve her confidence in community ambulation. Physical Therapy Plan Frequency and Duration Frequency of Treatment 2x/Week Duration of Treatment 3 months Plan of Care Start Date 02/09/22 Plan of Care End Date 05/12/22 Therapeutic Interventions Therapeutic Interventions Balance Training,Gait Training ,Home Exercise Program,Manual Therapy,Neuromuscular Re- education,Self-Care/Home Management,Soft Tissue Mobilization,Taping, Therapeutic Activities, Therapeutic Exercises Modalities Cold Pack/Ice Massage,Electric Stimulation,Hot Packs Next Visit Focus/Plan Next Visit Plan Assess DGI and FGA. Assess pt' s HEP. Consider JG DODGE. Assess sit to stand (5x and 30 -sec).
--- NOTE | 2022-02-09 16:32 | PT.OPPOC ---
Physical, Occupational & Speech Therapy At [facility] Current Diagnoses Displaced bicondylar fracture of right tibia, initial encounter for closed fracture (02/09/22) Visit Care Team Role Provider Type Referring Provider Specialty: Address: Phone: Fax: Email: AMAIRANI Short Family Provider Advanced Attorney Law Clerk Primary Care Provider Specialty: Family Practice Address: [address] [place] [address], [id number] Email: [email or web address] Miguelito Massey MD Attending Provider Non-Staff Specialty: Orthopedic Surgery Address: [facility], [address] [place] [address] Avenue,[id number], [place], [address] Email: Plan Of Care PT-OP-T Assessment and Plan Start: 02/08/22 17:25 Freq: Status: Active Protocol: Document 02/09/22 10:30 AW (Rec: 02/12/22 16:31 AW [id number]) Physical Therapy Assessment Rehab Potential Rehabilitation Potential Good Evaluation Complexity Number of Personal Factors/Comorbidities 1-2 Number of Body Systems Impaired 3 Clinical Presentation at Evaluation Evolving Impairments Impairments Balance,Gait,Posture,ROM, Strength Goals Six Impairment balance Care Home Goal (LTG) Pt will score 24/30 or greater on Functional Gait Assessment as a measure of improved self -efficacy in gait. LTG Duration 05/12/22 Five Impairment pt needs cane for longer distance gait Short Term Goal (STG) Pt will improve average gait speed on 6MWT to 0.75 m/s or greater without AD. STG Duration 03/23/22 Global Chief Experience Officer Goal (LTG) Pt will improve distance on 6MWT without AD by 10% over performance on short term goal as a measure of safe community ambulation. LTG Duration 05/12/22 Four Impairment LE strength Short Term Goal (STG) Pt will complete 5 Time Sit to Stand without use of UE's in 13 seconds or less as a measure of improved LE strength STG Duration 03/23/22 Global Chief Experience Officer Goal (LTG) Pt will complete 12 reps on 30 Second Sit to Stand test as a measure of improved LE strength and power. LTG Duration 05/12/22 Three Impairment RUE ROM Care Home Goal (LTG) Pt will be able to style her own hair using both arms without compensatory measures and without increase in baseline pain. LTG Duration 05/12/22 Two Impairment RUE strength Short Term Goal (STG) Pt will be able to lift 2 pounds with straight right arm to improve her ability to complete household duties and to hold a coffee cup with outstretched arm. STG Duration 03/23/22 Global Chief Experience Officer Goal (LTG) Pt will lift five pounds or more overhead with right arm to improve her ability to put away dishes on tall shelves. LTG Duration 05/12/22 One Impairment lacks HEP Short Term Goal (STG) Pt will be instructed in HEP for right UE and LE ROM, strength, and balance to support therapy services provided in clinic. STG Duration 03/23/22 Global Chief Experience Officer Goal (LTG) Pt will be independent with HEP for ROM, strength, and balance to sustain therapy gains. LTG Duration 05/12/22 Assessment Summary Assessment Dorothy is a 76 yo woman who attends physical therapy 10 months after right shoulder dislocation and right tibial plateau fracture resulting from a ground level fall. She had SNF rehab and home health but has had no therapy since September. She presents with impairments in RUE and RLE strength, RUE range of motion, gait, and balance. She should benefit from skilled therapy to address these deficits, improve her ability to care for herself, and improve her confidence in community ambulation. Physical Therapy Plan Frequency and Duration Frequency of Treatment 2x/Week Duration of Treatment 3 months Plan of Care Start Date 02/09/22 Plan of Care End Date 05/12/22 Therapeutic Interventions Therapeutic Interventions Balance Training,Gait Training ,Home Exercise Program,Manual Therapy,Neuromuscular Re- education,Self-Care/Home Management,Soft Tissue Mobilization,Taping, Therapeutic Activities, Therapeutic Exercises Modalities Cold Pack/Ice Massage,Electric Stimulation,Hot Packs Next Visit Focus/Plan Next Visit Plan Assess DGI and FGA. Assess pt' s HEP. Consider AAROM RUE. Assess sit to stand (5x and 30 -sec). Plan of Care Dates Plan of Care Start Date 02/09/22 Plan of Care End Date 05/12/22 Electronically Signed by: Tahira Stanford, PT 02/12/22 1269 If you are in agreement with this Plan of Care, please return a signed and dated copy. I have reviewed this Plan of Care and certify that the skilled therapy services above are required to meet the patient?s needs. Physician Signature Date Printed Name and Credentials Clinical Instructor Signature Printed Name and Credentials
--- NOTE | 2022-02-14 12:33 | PT.OTN ---
Current Diagnoses Displaced bicondylar fracture of right tibia, initial encounter for closed fracture (02/14/22) Physical Therapy Treatment Note PT-OP-A Visit Information Start: 02/08/22 17:25 Freq: Status: Active Protocol: Document 02/14/22 09:00 AW (Rec: 02/14/22 09:48 AW [id number]) Out-Patient Physical Therapy Visit Information Visit Information Visit Type Treatment Note Visit Start Time 09:00 Visit Stop Time 09:45 Total Visit Minutes 45 Visit Number 2 Number of WINDOW INSTALLER Visits 0 Evaluation Information Evaluation Date 02/09/22 PT-OP-B Current Condition Start: 02/08/22 17:25 Freq: Status: Active Protocol: Document 02/09/22 10:30 AW (Rec: 02/08/22 17:45 AW [id number]) Current Condition History of Current Condition Onset Date April 2021 Current Complaints RLE weakness, impaired balance ; RUE weakness and reduced ROM History of Current Condition Before last April, Dorothy had two falls over a period of eight years - one of which resulted in broken left ankle which was treated conservatively. On Sunday the (04/22/21), Dorothy fell down a stair when leaving a store. She dislocated her right shoulder which was reduced at ED. She also suffered a right tibial plateau fracture which was treated with ORIF on 04/23/21 at [facility]. Upon discharge from [facility] she went to [facility] until June 15. She was NWB RLE for three months, upgraded to WBAT in July 2021. She progressed well with [facility] therapy for right arm and right leg until September when outpatient PT was recommended. It has taken several months for her to get to outpatient. She has no precautions currently. Using a cane mostly when out of the house but is able to navigate her home without AD. She does admit to staying close to roman and furniture for support. She states her right knee locks or sis every now and then while walking. She is hesitant to walk without a cane because of this. Pt has history of right radical mastectomy which may have decreased ROM R shoulder prior to current injury. She is now limited in her ability to hold a coffee cup at arm's length. She is also having difficulty styling her hair with her right arm. Dorothy Lives alone and has stairs at home. She is able to navigate stairs with a rail but she can not get to her backyard (3 steps no rail). Prior Treatments and Tests SNF and HH therapies as above. Treatment Goals Patient/Caregiver Goals Reach into microwave get coffee cup without using left arm to support the right. Comb and style hair with right hand. Improve confidence with RLE. Improve balance. Be able to shop in a housewares store without fear of bumping displays or falling. Personal Factors Other Personal Factors That May Effect PMH includes anxiety, R breast Therapy/Recovery cancer, hypertension, TIA PT-OP-C Subjective Start: 02/08/22 17:25 Freq: Status: Active Protocol: Document 02/14/22 09:00 AW (Rec: 02/14/22 09:48 AW [id number]) OP-PT Subjective Patient Comments Patient Comments Received Prolia shot for osteoporosis two weeks ago and had headaches, hip and shoulder pain. Dorothy thinks these have improved but still has some joint pain. PT-OP-E Functional Tests Start: 02/08/22 17:25 Freq: Status: Active Protocol: Document 02/14/22 09:00 AW (Rec: 02/14/22 12:33 AW [id number]) Functional Tests 30 Second Sit to Stand Test Score 12 reps Comments no UE support Dynamic Gait Index (DGI) Score 18 DGI Impairment Rating 20 to <40% Impaired (Score 15- 19) Five Times Sit to Stand Test Score 12.5 seconds Comments no UE support Functional Gait Assessment Score 17 Functional Gait Assessment Impairment 40 to <60% Impaired (Score 13- Rating 18) PT-OP-G Mobility & Gait Start: 02/08/22 17:25 Freq: Status: Active Protocol: Document 02/09/22 10:30 AW (Rec: 02/12/22 16:09 AW [id number]) OP Gait Assessment Comments Gait Comments Pt has bilateral genu valgum affecting gait stability. Feet are moderately pronated bilaterally. Right iliac crest is higher than left. Pt carries a cane but uses it only with increased distance or on uneven surfaces. PT-OP-H Neuro Start: 02/08/22 17:25 Freq: Status: Active Protocol: Document 02/09/22 10:30 AW (Rec: 02/12/22 16:09 AW [id number]) Sensation Evaluation Gross Sensation Gross Sensation WNL PT-OP-J Posture/Palpation/Skin Start: 02/08/22 17:25 Freq: Status: Active Protocol: Document 02/09/22 10:30 AW (Rec: 02/09/22 11:06 AW [id number]) Posture Evaluation Position Standing Evaluation View anterior, lateral Comments Posture Comments Pt stands and walks with modest genu valgus bilaterally . Feet are moderately pronated . Right iliac crest is higher than left. Pelvis is anteriorly tilted Skin Assessment Incisional Assessment Incision Appearance/Comments Well healed surgical incisions RLE PT-OP-K Range of Motion Start: 02/08/22 17:25 Freq: Status: Active Protocol: Document 02/09/22 10:30 AW (Rec: 02/09/22 11:06 AW [id number]) Shoulder Goniometric Range of Motion Shoulder Right Active Shoulder ROM WFL No Testing Position Sitting Flexion 140 Abduction 145 External Rotation at 0 degrees Abduction 0 Internal Rotation Behind Back (text) T8 Left Active Shoulder ROM WFL Yes Testing Position Sitting Flexion 145 Abduction 150 External Rotation at 0 degrees Abduction 50 Internal Rotation Behind Back (text) T4 Elbow/Forearm Range of Motion Elbow/Forearm bilat Elbow/Forearm ROM WFL Yes Hip Goniometric Range of Motion Hip bilat Hip ROM WFL Yes Testing Position Supine Comments No restriction in flexion, rotation. Knee Goniometric Range of Motion Knee Right Knee ROM WFL Yes Patient Position Supine Flexion Active (degrees) 128 Extension Active (degrees) 0 Comments Pt hesitates to flex knee further due to fear avoidance related to her surgery but ROM is WNL. Left Knee ROM WFL Yes Patient Position Supine Flexion Active (degrees) 139 Extension Active (degrees) 0 PT-OP-M Strength Start: 02/08/22 17:25 Freq: Status: Active Protocol: Document 02/09/22 10:30 AW (Rec: 02/09/22 11:09 AW [id number]) Shoulder Strength Shoulder Manual Muscle Testing Left Flexion 4 Good Abduction (C5) 4 Good External Rotation 4 Good Internal Rotation 4 Good Right Flexion 3 Fair Abduction (C5) 3+ Fair+ Internal Rotation 4- Good- Horizontal Abduction 4- Good- Hip Strength Hip Manual Muscle Testing Right Flexion (L2) 4- Good- Extension (S1) 3+ Fair+ Abduction 4- Good- External Rotation 4- Good- Internal Rotation 4- Good- Left Flexion (L2) 4+ Good+ Extension (S1) 4- Good- Abduction 4- Good- External Rotation 4 Good Internal Rotation 4 Good Knee Strength Knee Manual Muscle Testing Right Flexion (S2) 4- Good- Extension (L3) 4 Good Left Flexion (S2) 5 Normal Extension (L3) 5 Normal PT-OP-Q Treatments Start: 02/08/22 17:25 Freq: Status: Active Protocol: Document 02/14/22 09:00 AW (Rec: 02/14/22 09:48 AW [id number]) Cardio Equipment Recumbent Elliptical (Biodex) Duration (Minutes) 5 Resistance 3 Seat Position 5 seen Other target 30+ rpm Therapeutic Exercises Other Exercises sit to stand Other Exercise Name sit to stand Resistance education on technique, anterior weight shift, no use of UE's Equipment Used std height chair Comments 5xSTS in 12.5 seconds; 12 reps on 30 sec sit to stand Gait Training Gait Activity stairs Description stairs Device Used B rail, uni rail Level of Assistance SBA with B rail; CGA with uni rail Surface 6 steps Treatment Focus assessment Comments Pt able to ascend/descend step to pattern with B or unilateral rail. When asked to attempt with step over step pattern, pt able to ascend with unilateral rail CGA but decreased stabilty on RLE, poor control of descent requiring CGA. FGA Description FGA Device Used none Level of Assistance SBA (CGA with NBOS and EC ambulation) Treatment Focus assessment Comments (scanned to EMR) DGI Description DGI Device Used none Level of Assistance SBA Surface level Treatment Focus assessment Comments (scanned to EMR) Self-Care/Home Management Treatment Education Patient Education Home Exercise Program Other Education Added sit to stand - 10 reps AM, 10 reps PM, 10 reps evening - for HEP. PT-OP-T Assessment and Plan Start: 02/08/22 17:25 Freq: Status: Active Protocol: Document 02/14/22 09:00 AW (Rec: 02/14/22 09:48 AW [id number]) Physical Therapy Assessment Goals Six Impairment balance Detention Goal (LTG) Pt will score 24/30 or greater on Functional Gait Assessment as a measure of improved self -efficacy in gait. LTG Duration 05/12/22 Five Impairment pt needs cane for longer distance gait Short Term Goal (STG) Pt will improve average gait speed on 6MWT to 0.75 m/s or greater without AD. STG Duration 03/23/22 Consulting Practice Manager Goal (LTG) Pt will improve distance on 6MWT without AD by 10% over performance on short term goal as a measure of safe community ambulation. LTG Duration 05/12/22 Four Impairment LE strength Short Term Goal (STG) Pt will complete 5 Time Sit to Stand without use of UE's in 13 seconds or less as a measure of improved LE strength STG Duration 03/23/22 Consulting Practice Manager Goal (LTG) Pt will complete 12 reps on 30 Second Sit to Stand test as a measure of improved LE strength and power. LTG Duration 05/12/22 Three Impairment RUE ROM Detention Goal (LTG) Pt will be able to style her own hair using both arms without compensatory measures and without increase in baseline pain. LTG Duration 05/12/22 Two Impairment RUE strength Short Term Goal (STG) Pt will be able to lift 2 pounds with straight right arm to improve her ability to complete household duties and to hold a coffee cup with outstretched arm. STG Duration 03/23/22 Detention Goal (LTG) Pt will lift five pounds or more overhead with right arm to improve her ability to put away dishes on tall shelves. LTG Duration 05/12/22 One Impairment lacks HEP Short Term Goal (STG) Pt will be instructed in HEP for right UE and LE ROM, strength, and balance to support therapy services provided in clinic. STG Duration 03/23/22 Detention Goal (LTG) Pt will be independent with HEP for ROM, strength, and balance to sustain therapy gains. LTG Duration 05/12/22 Assessment Summary Assessment Assessed Dynamic Gait Index ( ) and Functional Gait Assessment (), indicating high risk of falls. Pt does ambulate with posteriorly-held weight and poor push off bilaterally and will benefit from gait training to improve anterior weight shift and glute drive. Added sit to stand for HEP today and will plan to progress HEP at next visit. Physical Therapy Plan Frequency and Duration Frequency of Treatment 2x/Week Duration of Treatment 3 months Plan of Care Start Date 02/09/22 Plan of Care End Date 05/12/22 Therapeutic Interventions Therapeutic Interventions Balance Training,Gait Training ,Home Exercise Program,Manual Therapy,Neuromuscular Re- education,Self-Care/Home Management,Soft Tissue Mobilization,Taping, Therapeutic Activities, Therapeutic Exercises Modalities Cold Pack/Ice Massage,Electric Stimulation,Hot Packs Next Visit Focus/Plan Next Visit Plan Corner balance with focus on weight distribution. Review sit to stands. Consider adding standing hip abduction and hip extension at rail - possibly for HEP. Consider step ups with 4 step.
--- NOTE | 2022-02-16 13:36 | PT.OTN ---
Current Diagnoses Displaced bicondylar fracture of right tibia, initial encounter for closed fracture (02/16/22) Physical Therapy Treatment Note PT-OP-A Visit Information Start: 02/08/22 17:25 Freq: Status: Active Protocol: Document 02/16/22 09:49 NBM (Rec: 02/16/22 13:35 NBM [id number]) Out-Patient Physical Therapy Visit Information Visit Information Visit Type Treatment Note Visit Start Time 09:49 Visit Stop Time 10:36 Total Visit Minutes 47 Visit Number 3 Number of CHOPPED STRAND OPERATOR Visits 1 PT-OP-B Current Condition Start: 02/08/22 17:25 Freq: Status: Active Protocol: Document 02/09/22 10:30 AW (Rec: 02/08/22 17:45 AW [id number]) Current Condition History of Current Condition Onset Date April 2021 Current Complaints RLE weakness, impaired balance ; RUE weakness and reduced ROM History of Current Condition Before last April, Dorothy had two falls over a period of eight years - one of which resulted in broken left ankle which was treated conservatively. On Sunday the (04/22/21), Dorothy fell down a stair when leaving a store. She dislocated her right shoulder which was reduced at ED. She also suffered a right tibial plateau fracture which was treated with ORIF on 04/23/21 at [facility]. Upon discharge from [facility] she went to [facility] until June 15. She was NWB RLE for three months, upgraded to WBAT in July 2021. She progressed well with [facility] therapy for right arm and right leg until September when outpatient PT was recommended. It has taken several months for her to get to outpatient. She has no precautions currently. Using a cane mostly when out of the house but is able to navigate her home without AD. She does admit to staying close to roman and furniture for support. She states her right knee locks or sis every now and then while walking. She is hesitant to walk without a cane because of this. Pt has history of right radical mastectomy which may have decreased ROM R shoulder prior to current injury. She is now limited in her ability to hold a coffee cup at arm's length. She is also having difficulty styling her hair with her right arm. Dorothy Lives alone and has stairs at home. She is able to navigate stairs with a rail but she can not get to her backyard (3 steps no rail). Prior Treatments and Tests SNF and HH therapies as above. Treatment Goals Patient/Caregiver Goals Reach into microwave get coffee cup without using left arm to support the right. Comb and style hair with right hand. Improve confidence with RLE. Improve balance. Be able to shop in a housewares store without fear of bumping displays or falling. Personal Factors Other Personal Factors That May Effect PMH includes anxiety, R breast Therapy/Recovery cancer, hypertension, TIA PT-OP-C Subjective Start: 02/08/22 17:25 Freq: Status: Active Protocol: Document 02/16/22 09:49 NBM (Rec: 02/16/22 13:35 NBM [id number]) OP-PT Subjective Patient Comments Patient Comments Feeling tired today. She felt she worked a lot at PT on , but it was good. PT-OP-E Functional Tests Start: 02/08/22 17:25 Freq: Status: Active Protocol: Document 02/14/22 09:00 AW (Rec: 02/14/22 12:33 AW [id number]) Functional Tests 30 Second Sit to Stand Test Score 12 reps Comments no UE support Dynamic Gait Index (DGI) Score 18 DGI Impairment Rating 20 to <40% Impaired (Score 15- 19) Five Times Sit to Stand Test Score 12.5 seconds Comments no UE support Functional Gait Assessment Score 17 Functional Gait Assessment Impairment 40 to <60% Impaired (Score 13- Rating 18) PT-OP-G Mobility & Gait Start: 02/08/22 17:25 Freq: Status: Active Protocol: Document 02/09/22 10:30 AW (Rec: 02/12/22 16:09 AW [id number]) OP Gait Assessment Comments Gait Comments Pt has bilateral genu valgum affecting gait stability. Feet are moderately pronated bilaterally. Right iliac crest is higher than left. Pt carries a cane but uses it only with increased distance or on uneven surfaces. PT-OP-H Neuro Start: 02/08/22 17:25 Freq: Status: Active Protocol: Document 02/09/22 10:30 AW (Rec: 02/12/22 16:09 AW [id number]) Sensation Evaluation Gross Sensation Gross Sensation WNL PT-OP-J Posture/Palpation/Skin Start: 06/01/22 17:25 Freq: Status: Active Protocol: Document 02/09/22 10:30 AW (Rec: 02/09/22 11:06 AW [id number]) Posture Evaluation Position Standing Evaluation View anterior, lateral Comments Posture Comments Pt stands and walks with modest genu valgus bilaterally . Feet are moderately pronated . Right iliac crest is higher than left. Pelvis is anteriorly tilted Skin Assessment Incisional Assessment Incision Appearance/Comments Well healed surgical incisions RLE PT-OP-K Range of Motion Start: 02/08/22 17:25 Freq: Status: Active Protocol: Document 02/09/22 10:30 AW (Rec: 02/09/22 11:06 AW [id number]) Shoulder Goniometric Range of Motion Shoulder Right Active Shoulder ROM WFL No Testing Position Sitting Flexion 140 Abduction 145 External Rotation at 0 degrees Abduction 0 Internal Rotation Behind Back (text) T8 Left Active Shoulder ROM WFL Yes Testing Position Sitting Flexion 145 Abduction 150 External Rotation at 0 degrees Abduction 50 Internal Rotation Behind Back (text) T4 Elbow/Forearm Range of Motion Elbow/Forearm bilat Elbow/Forearm ROM WFL Yes Hip Goniometric Range of Motion Hip bilat Hip ROM WFL Yes Testing Position Supine Comments No restriction in flexion, rotation. Knee Goniometric Range of Motion Knee Right Knee ROM WFL Yes Patient Position Supine Flexion Active (degrees) 128 Extension Active (degrees) 0 Comments Pt hesitates to flex knee further due to fear avoidance related to her surgery but ROM is WNL. Left Knee ROM WFL Yes Patient Position Supine Flexion Active (degrees) 139 Extension Active (degrees) 0 PT-OP-M Strength Start: 02/08/22 17:25 Freq: Status: Active Protocol: Document 02/09/22 10:30 AW (Rec: 02/09/22 11:09 AW [id number]) Shoulder Strength Shoulder Manual Muscle Testing Left Flexion 4 Good Abduction (C5) 4 Good External Rotation 4 Good Internal Rotation 4 Good Right Flexion 3 Fair Abduction (C5) 3+ Fair+ Internal Rotation 4- Good- Horizontal Abduction 4- Good- Hip Strength Hip Manual Muscle Testing Right Flexion (L2) 4- Good- Extension (S1) 3+ Fair+ Abduction 4- Good- External Rotation 4- Good- Internal Rotation 4- Good- Left Flexion (L2) 4+ Good+ Extension (S1) 4- Good- Abduction 4- Good- External Rotation 4 Good Internal Rotation 4 Good Knee Strength Knee Manual Muscle Testing Right Flexion (S2) 4- Good- Extension (L3) 4 Good Left Flexion (S2) 5 Normal Extension (L3) 5 Normal PT-OP-Q Treatments Start: 02/08/22 17:25 Freq: Status: Active Protocol: Document 02/16/22 09:49 [facility] (Rec: 02/16/22 13:35 [facility] [id number]) Cardio Equipment Recumbent Elliptical (Biodex) Duration (Minutes) 6 Resistance 3 Seat Position 5 Other target 30+ rpm Therapeutic Exercises Standing Exercises Hip Extension Side bilateral Reps/Minutes 2 x 10 ea Comments verbal and tactile cueing for form and controlled movement. Added to HEP. Hip Abduction Side bilateral Reps/Minutes 2 x 10 rep ea Comments verbal and tactile cueing for form and controlled movement. Added to HEP. Other Exercises sit to stand Other Exercise Name sit to stand Equipment Used std height chair Comments 5xSTS, good control, used UE last two reps Neuro Re-Education Treatment Balance Activities Corner Balance Details 1. Standard 2. Narrow ANDREW 3. Staggered Comments EO/EC with each x 30 sec. Increased swaying and anterior trunk lean w/ narrow ANDREW and staggered, increased with EC. Self-Care/Home Management Treatment Education Patient Education Home Exercise Program Caregiver Education Gait with SPC with each step 2 x 10' Other Education Added standing hip abduction/ extension 3 x 5-10 - reduce how far out to avoid leaning, stop if pain in low back PT-OP-T Assessment and Plan Start: 02/08/22 17:25 Freq: Status: Active Protocol: Document 02/16/22 09:49 [facility] (Rec: 02/16/22 13:35 [facility] [id number]) Physical Therapy Assessment Goals Six Impairment balance Jail Goal (LTG) Pt will score 24/30 or greater on Functional Gait Assessment as a measure of improved self -efficacy in gait. LTG Duration 05/12/22 Five Impairment pt needs cane for longer distance gait Short Term Goal (STG) Pt will improve average gait speed on 6MWT to 0.75 m/s or greater without AD. STG Duration 03/23/22 Jail Goal (LTG) Pt will improve distance on 6MWT without AD by 10% over performance on short term goal as a measure of safe community ambulation. LTG Duration 05/12/22 Four Impairment LE strength Short Term Goal (STG) Pt will complete 5 Time Sit to Stand without use of UE's in 13 seconds or less as a measure of improved LE strength STG Duration 03/23/22 Jail Goal (LTG) Pt will complete 12 reps on 30 Second Sit to Stand test as a measure of improved LE strength and power. LTG Duration 05/12/22 Three Impairment RUE ROM Renewable Energy Consultant Goal (LTG) Pt will be able to style her own hair using both arms without compensatory measures and without increase in baseline pain. LTG Duration 05/12/22 Two Impairment RUE strength Short Term Goal (STG) Pt will be able to lift 2 pounds with straight right arm to improve her ability to complete household duties and to hold a coffee cup with outstretched arm. STG Duration 03/23/22 Jail Goal (LTG) Pt will lift five pounds or more overhead with right arm to improve her ability to put away dishes on tall shelves. LTG Duration 05/12/22 One Impairment lacks HEP Short Term Goal (STG) Pt will be instructed in HEP for right UE and LE ROM, strength, and balance to support therapy services provided in clinic. STG Duration 03/23/22 Renewable Energy Consultant Goal (LTG) Pt will be independent with HEP for ROM, strength, and balance to sustain therapy gains. LTG Duration 05/12/22 Assessment Summary Assessment Dorothy demonstrates challenge with balance with decreased ANDREW and w/ eyes closed. She demonstrates decreased self- awareness for form with fatigue with sit to stands. She responds well to verbal and tactile cues for form with standing hip extension and abduction. Physical Therapy Plan Next Visit Focus/Plan Next Visit Plan Corner balance with focus on weight distribution. Review standing hip abduction and hip extension at rail. Consider step ups with 4 step.
--- NOTE | 2022-02-21 10:35 | PT.OTN ---
Current Diagnoses Displaced bicondylar fracture of right tibia, initial encounter for closed fracture (02/21/22) Physical Therapy Treatment Note PT-OP-A Visit Information Start: 02/08/22 17:25 Freq: Status: Active Protocol: Document 02/21/22 09:52 SP (Rec: 02/21/22 11:10 SP [id number]) Out-Patient Physical Therapy Visit Information Visit Information Visit Type Treatment Note Visit Start Time 09:52 Visit Stop Time 10:35 Total Visit Minutes 43 Visit Number 4 Number of MANAGER DISCOVERY Visits 2 Evaluation Information Evaluation Date 02/09/22 PT-OP-B Current Condition Start: 02/08/22 17:25 Freq: Status: Active Protocol: Document 02/09/22 10:30 AW (Rec: 02/08/22 17:45 AW [id number]) Current Condition History of Current Condition Onset Date April 2021 Current Complaints RLE weakness, impaired balance ; RUE weakness and reduced ROM History of Current Condition Before last April, Dorothy had two falls over a period of eight years - one of which resulted in broken left ankle which was treated conservatively. On Sunday the (04/22/21), Dorothy fell down a stair when leaving a store. She dislocated her right shoulder which was reduced at ED. She also suffered a right tibial plateau fracture which was treated with ORIF on 04/23/21 at [facility]. Upon discharge from [facility] she went to [facility] until June 15. She was NWB RLE for three months, upgraded to WBAT in July 2021. She progressed well with [facility] therapy for right arm and right leg until September when outpatient PT was recommended. It has taken several months for her to get to outpatient. She has no precautions currently. Using a cane mostly when out of the house but is able to navigate her home without AD. She does admit to staying close to roman and furniture for support. She states her right knee locks or sis every now and then while walking. She is hesitant to walk without a cane because of this. Pt has history of right radical mastectomy which may have decreased ROM R shoulder prior to current injury. She is now limited in her ability to hold a coffee cup at arm's length. She is also having difficulty styling her hair with her right arm. Dorothy Lives alone and has stairs at home. She is able to navigate stairs with a rail but she can not get to her backyard (3 steps no rail). Prior Treatments and Tests SNF and HH therapies as above. Treatment Goals Patient/Caregiver Goals Reach into microwave get coffee cup without using left arm to support the right. Comb and style hair with right hand. Improve confidence with RLE. Improve balance. Be able to shop in a housewares store without fear of bumping displays or falling. Personal Factors Other Personal Factors That May Effect PMH includes anxiety, R breast Therapy/Recovery cancer, hypertension, TIA PT-OP-C Subjective Start: 02/08/22 17:25 Freq: Status: Active Protocol: Document 02/21/22 09:52 SP (Rec: 02/21/22 11:10 SP [id number]) OP-PT Subjective Patient Comments Patient Comments Pt reported R knee at times feels like lock spasm tightens straight and buckle feeling others that stops her in her place but goes away quickly no pain though. She uses R arm circles wiping down top stove exercise at home but hoping will get R arm exercises, did pulleys in past with HHPT/ Rehab. She feels little nervous walking backwards but notices alot improvement with PT has been getting, compliant with HEP current and past have been given. She even thinks of TA and proper form vaccuming/ mopping carryover proper form wt shifts. She states gets tired easy, due for prolia shot for osteoporosis. PT-OP-E Functional Tests Start: 02/08/22 17:25 Freq: Status: Active Protocol: Document 02/14/22 09:00 AW (Rec: 02/14/22 12:33 AW [id number]) Functional Tests 30 Second Sit to Stand Test Score 12 reps Comments no UE support Dynamic Gait Index (DGI) Score 18 DGI Impairment Rating 20 to <40% Impaired (Score 15- 19) Five Times Sit to Stand Test Score 12.5 seconds Comments no UE support Functional Gait Assessment Score 17 Functional Gait Assessment Impairment 40 to <60% Impaired (Score 13- Rating 18) PT-OP-G Mobility & Gait Start: 02/08/22 17:25 Freq: Status: Active Protocol: Document 02/09/22 10:30 AW (Rec: 02/12/22 16:09 AW [id number]) OP Gait Assessment Comments Gait Comments Pt has bilateral genu valgum affecting gait stability. Feet are moderately pronated bilaterally. Right iliac crest is higher than left. Pt carries a cane but uses it only with increased distance or on uneven surfaces. PT-OP-H Neuro Start: 02/08/22 17:25 Freq: Status: Active Protocol: Document 02/09/22 10:30 AW (Rec: 02/12/22 16:09 AW [id number]) Sensation Evaluation Gross Sensation Gross Sensation WNL PT-OP-J Posture/Palpation/Skin Start: 02/08/22 17:25 Freq: Status: Active Protocol: Document 02/09/22 10:30 AW (Rec: 02/09/22 11:06 AW [id number]) Posture Evaluation Position Standing Evaluation View anterior, lateral Comments Posture Comments Pt stands and walks with modest genu valgus bilaterally . Feet are moderately pronated . Right iliac crest is higher than left. Pelvis is anteriorly tilted Skin Assessment Incisional Assessment Incision Appearance/Comments Well healed surgical incisions RLE PT-OP-K Range of Motion Start: 02/08/22 17:25 Freq: Status: Active Protocol: Document 02/09/22 10:30 AW (Rec: 02/09/22 11:06 AW [id number]) Shoulder Goniometric Range of Motion Shoulder Right Active Shoulder ROM WFL No Testing Position Sitting Flexion 140 Abduction 145 External Rotation at 0 degrees Abduction 0 Internal Rotation Behind Back (text) T8 Left Active Shoulder ROM WFL Yes Testing Position Sitting Flexion 145 Abduction 150 External Rotation at 0 degrees Abduction 50 Internal Rotation Behind Back (text) T4 Elbow/Forearm Range of Motion Elbow/Forearm bilat Elbow/Forearm ROM WFL Yes Hip Goniometric Range of Motion Hip bilat Hip ROM WFL Yes Testing Position Supine Comments No restriction in flexion, rotation. Knee Goniometric Range of Motion Knee Right Knee ROM WFL Yes Patient Position Supine Flexion Active (degrees) 128 Extension Active (degrees) 0 Comments Pt hesitates to flex knee further due to fear avoidance related to her surgery but ROM is WNL. Left Knee ROM WFL Yes Patient Position Supine Flexion Active (degrees) 139 Extension Active (degrees) 0 PT-OP-M Strength Start: 02/08/22 17:25 Freq: Status: Active Protocol: Document 02/09/22 10:30 AW (Rec: 02/09/22 11:09 AW [id number]) Shoulder Strength Shoulder Manual Muscle Testing Left Flexion 4 Good Abduction (C5) 4 Good External Rotation 4 Good Internal Rotation 4 Good Right Flexion 3 Fair Abduction (C5) 3+ Fair+ Internal Rotation 4- Good- Horizontal Abduction 4- Good- Hip Strength Hip Manual Muscle Testing Right Flexion (L2) 4- Good- Extension (S1) 3+ Fair+ Abduction 4- Good- External Rotation 4- Good- Internal Rotation 4- Good- Left Flexion (L2) 4+ Good+ Extension (S1) 4- Good- Abduction 4- Good- External Rotation 4 Good Internal Rotation 4 Good Knee Strength Knee Manual Muscle Testing Right Flexion (S2) 4- Good- Extension (L3) 4 Good Left Flexion (S2) 5 Normal Extension (L3) 5 Normal PT-OP-Q Treatments Start: 02/08/22 17:25 Freq: Status: Active Protocol: Document 02/21/22 09:52 SP (Rec: 02/21/22 11:10 SP [id number]) Therapeutic Exercises Sitting Exercises hip abd Sitting Exercise Name add next tx Resistance TB loop- review past HEP HS curl Sitting Exercise Name added next tx pulleys Sitting Exercise Name added to HEP- FF, scaption Side right Resistance PROM Equipment Used mirror for self feedback Reps/Minutes x10 Comments occasional cues for no UT, LT facilitation eccentric control LAQ Sitting Exercise Name added to HEP Side right Reps/Minutes 10 s hold x10 Comments good form and response Standing Exercises heel and toe raises Standing Exercise Name added to HEP Resistance AROM Equipment Used contact chair for support needed Reps/Minutes 10x2 Comments cued pelvis under her Hip Extension Standing Exercise Name reviewed HEP Side bilateral Reps/Minutes 2 x 10 ea Comments occasional cue for form, tall over stance LE, to range glut fac lift Hip Abduction Standing Exercise Name reviewed HEP Side bilateral Reps/Minutes 2 x 10 rep ea Comments occasional cue for form and controlled movement. Other Exercises sit to stand Other Exercise Name sit to stand Resistance arms across chest Equipment Used std height chair Reps/Minutes 2x5 reps- Comments good control, knees apart with toes Gait Training Gait Activity gait mirror Description fwd/bwk Device Used 0 Level of Assistance S Surface firm Distance/Duration 20 ft x3 laps in from mirror Treatment Focus hip abd and core fac Comments cued tall posture, core hip abd fac, no lateral SB, allow UE swing wit PT-OP-T Assessment and Plan Start: 02/08/22 17:25 Freq: Status: Active Protocol: Document 02/21/22 09:52 SP (Rec: 02/21/22 11:10 SP [id number]) Physical Therapy Assessment Goals Six Impairment balance [employer] Goal (LTG) Pt will score 24/30 or greater on Functional Gait Assessment as a measure of improved self -efficacy in gait. LTG Duration 05/12/22 Five Impairment pt needs cane for longer distance gait Short Term Goal (STG) Pt will improve average gait speed on 6MWT to 0.75 m/s or greater without AD. STG Duration 03/23/22 Correction Goal (LTG) Pt will improve distance on 6MWT without AD by 10% over performance on short term goal as a measure of safe community ambulation. LTG Duration 05/12/22 Four Impairment LE strength Short Term Goal (STG) Pt will complete 5 Time Sit to Stand without use of UE's in 13 seconds or less as a measure of improved LE strength STG Duration 03/23/22 Correction Goal (LTG) Pt will complete 12 reps on 30 Second Sit to Stand test as a measure of improved LE strength and power. LTG Duration 05/12/22 Three Impairment RUE ROM Correction Goal (LTG) Pt will be able to style her own hair using both arms without compensatory measures and without increase in baseline pain. LTG Duration 05/12/22 Two Impairment RUE strength Short Term Goal (STG) Pt will be able to lift 2 pounds with straight right arm to improve her ability to complete household duties and to hold a coffee cup with outstretched arm. STG Duration 03/23/22 Correction Goal (LTG) Pt will lift five pounds or more overhead with right arm to improve her ability to put away dishes on tall shelves. LTG Duration 05/12/22 One Impairment lacks HEP Short Term Goal (STG) Pt will be instructed in HEP for right UE and LE ROM, strength, and balance to support therapy services provided in clinic. STG Duration 03/23/22 [employer] Goal (LTG) Pt will be independent with HEP for ROM, strength, and balance to sustain therapy gains. LTG Duration 05/12/22 Assessment Summary Assessment Pt good feedback to ther ex initiated/self past HEP for home hyperverbal at times review past experience/trauma with good feedback occasional cues for task at hand, cued for R knee alignment hip abd fac. Pt able ascend/descend chair without UE support and proper hip hinge ease. Pt good understanding mechanics standing and R UE niki initiated today post ed and cued form/alignment corrections. Provided HOs for self recall and form support at home. Physical Therapy Plan Frequency and Duration Frequency of Treatment 2x/Week Duration of Treatment 3 months Plan of Care Start Date 02/09/22 Plan of Care End Date 05/12/22 Therapeutic Interventions Therapeutic Interventions Balance Training,Gait Training ,Home Exercise Program,Manual Therapy,Neuromuscular Re- education,Self-Care/Home Management,Soft Tissue Mobilization,Taping, Therapeutic Activities, Therapeutic Exercises Modalities Cold Pack/Ice Massage,Electric Stimulation,Hot Packs Next Visit Focus/Plan Next Visit Plan Next tx: HEP review needed. Incorporate corner balance with focus on weight distribution w/ R knee alignment. Consider step ups with 4 step next tx.
--- NOTE | 2022-02-23 12:51 | PT.OTN ---
Current Diagnoses Displaced bicondylar fracture of right tibia, initial encounter for closed fracture (02/23/22) Physical Therapy Treatment Note PT-OP-A Visit Information Start: 02/08/22 17:25 Freq: Status: Active Protocol: Document 02/23/22 08:59 AW (Rec: 02/23/22 12:50 AW [id number]) Out-Patient Physical Therapy Visit Information Visit Information Visit Type Treatment Note Visit Start Time 09:45 Visit Stop Time 10:30 Total Visit Minutes 45 Visit Number 5 Number of ELECTRONIC MASKING SYSTEM OPERATOR Visits 0 Evaluation Information Evaluation Date 02/09/22 PT-OP-B Current Condition Start: 02/08/22 17:25 Freq: Status: Active Protocol: Document 02/09/22 10:30 AW (Rec: 02/08/22 17:45 AW [id number]) Current Condition History of Current Condition Onset Date April 2021 Current Complaints RLE weakness, impaired balance ; RUE weakness and reduced ROM History of Current Condition Before last April, Dorothy had two falls over a period of eight years - one of which resulted in broken left ankle which was treated conservatively. On Sunday the (04/22/21), Dorothy fell down a stair when leaving a store. She dislocated her right shoulder which was reduced at ED. She also suffered a right tibial plateau fracture which was treated with ORIF on 04/23/21 at [facility]. Upon discharge from [facility] she went to [facility] until June 15. She was NWB RLE for three months, upgraded to WBAT in July 2021. She progressed well with [facility] therapy for right arm and right leg until September when outpatient PT was recommended. It has taken several months for her to get to outpatient. She has no precautions currently. Using a cane mostly when out of the house but is able to navigate her home without AD. She does admit to staying close to roman and furniture for support. She states her right knee locks or sis every now and then while walking. She is hesitant to walk without a cane because of this. Pt has history of right radical mastectomy which may have decreased ROM R shoulder prior to current injury. She is now limited in her ability to hold a coffee cup at arm's length. She is also having difficulty styling her hair with her right arm. Dorothy Lives alone and has stairs at home. She is able to navigate stairs with a rail but she can not get to her backyard (3 steps no rail). Prior Treatments and Tests SNF and HH therapies as above. Treatment Goals Patient/Caregiver Goals Reach into microwave get coffee cup without using left arm to support the right. Comb and style hair with right hand. Improve confidence with RLE. Improve balance. Be able to shop in a housewares store without fear of bumping displays or falling. Personal Factors Other Personal Factors That May Effect PMH includes anxiety, R breast Therapy/Recovery cancer, hypertension, TIA PT-OP-C Subjective Start: 02/08/22 17:25 Freq: Status: Active Protocol: Document 02/23/22 08:59 AW (Rec: 02/23/22 12:50 AW [id number]) OP-PT Subjective Patient Comments Patient Comments Pt would like to focus on UE today. PT-OP-E Functional Tests Start: 02/08/22 17:25 Freq: Status: Active Protocol: Document 02/14/22 09:00 AW (Rec: 02/14/22 12:33 AW [id number]) Functional Tests 30 Second Sit to Stand Test Score 12 reps Comments no UE support Dynamic Gait Index (DGI) Score 18 DGI Impairment Rating 20 to <40% Impaired (Score 15- 19) Five Times Sit to Stand Test Score 12.5 seconds Comments no UE support Functional Gait Assessment Score 17 Functional Gait Assessment Impairment 40 to <60% Impaired (Score 13- Rating 18) PT-OP-G Mobility & Gait Start: 02/08/22 17:25 Freq: Status: Active Protocol: Document 02/09/22 10:30 AW (Rec: 02/12/22 16:09 AW [id number]) OP Gait Assessment Comments Gait Comments Pt has bilateral genu valgum affecting gait stability. Feet are moderately pronated bilaterally. Right iliac crest is higher than left. Pt carries a cane but uses it only with increased distance or on uneven surfaces. PT-OP-H Neuro Start: 02/08/22 17:25 Freq: Status: Active Protocol: Document 02/09/22 10:30 AW (Rec: 02/12/22 16:09 AW [id number]) Sensation Evaluation Gross Sensation Gross Sensation WNL PT-OP-J Posture/Palpation/Skin Start: 02/08/22 17:25 Freq: Status: Active Protocol: Document 02/09/22 10:30 AW (Rec: 02/09/22 11:06 AW [id number]) Posture Evaluation Position Standing Evaluation View anterior, lateral Comments Posture Comments Pt stands and walks with modest genu valgus bilaterally . Feet are moderately pronated . Right iliac crest is higher than left. Pelvis is anteriorly tilted Skin Assessment Incisional Assessment Incision Appearance/Comments Well healed surgical incisions RLE PT-OP-K Range of Motion Start: 02/08/22 17:25 Freq: Status: Active Protocol: Document 02/09/22 10:30 AW (Rec: 02/09/22 11:06 AW [id number]) Shoulder Goniometric Range of Motion Shoulder Right Active Shoulder ROM WFL No Testing Position Sitting Flexion 140 Abduction 145 External Rotation at 0 degrees Abduction 0 Internal Rotation Behind Back (text) T8 Left Active Shoulder ROM WFL Yes Testing Position Sitting Flexion 145 Abduction 150 External Rotation at 0 degrees Abduction 50 Internal Rotation Behind Back (text) T4 Elbow/Forearm Range of Motion Elbow/Forearm bilat Elbow/Forearm ROM WFL Yes Hip Goniometric Range of Motion Hip bilat Hip ROM WFL Yes Testing Position Supine Comments No restriction in flexion, rotation. Knee Goniometric Range of Motion Knee Right Knee ROM WFL Yes Patient Position Supine Flexion Active (degrees) 128 Extension Active (degrees) 0 Comments Pt hesitates to flex knee further due to fear avoidance related to her surgery but ROM is WNL. Left Knee ROM WFL Yes Patient Position Supine Flexion Active (degrees) 139 Extension Active (degrees) 0 PT-OP-M Strength Start: 02/08/22 17:25 Freq: Status: Active Protocol: Document 02/09/22 10:30 AW (Rec: 02/09/22 11:09 AW [id number]) Shoulder Strength Shoulder Manual Muscle Testing Left Flexion 4 Good Abduction (C5) 4 Good External Rotation 4 Good Internal Rotation 4 Good Right Flexion 3 Fair Abduction (C5) 3+ Fair+ Internal Rotation 4- Good- Horizontal Abduction 4- Good- Hip Strength Hip Manual Muscle Testing Right Flexion (L2) 4- Good- Extension (S1) 3+ Fair+ Abduction 4- Good- External Rotation 4- Good- Internal Rotation 4- Good- Left Flexion (L2) 4+ Good+ Extension (S1) 4- Good- Abduction 4- Good- External Rotation 4 Good Internal Rotation 4 Good Knee Strength Knee Manual Muscle Testing Right Flexion (S2) 4- Good- Extension (L3) 4 Good Left Flexion (S2) 5 Normal Extension (L3) 5 Normal PT-OP-Q Treatments Start: 02/08/22 17:25 Freq: Status: Active Protocol: Document 02/23/22 08:59 AW (Rec: 02/23/22 12:50 AW [id number]) Cardio Equipment Recumbent Elliptical (Biodex) Duration (Minutes) 6 Resistance 4 Seat Position 5 Other target 40+ rpm Therapeutic Exercises Sidelying Exercises GH ER Sidelying Exercise Name GH ER Side right Resistance AROM>AAROM with therapist assist Comments pt needs max cues for set up, maintaining elbow flexion; clinic only Sitting Exercises GH flexion AROM Sitting Exercise Name GH flexion AROM Side right Resistance AROM to shoulder ht Reps/Minutes 3-5 sec hold X 15 Comments HEP isometric GH ER Sitting Exercise Name isometric GH ER Side bilateral Resistance TB1 held with elbows at sides Equipment Used gentle pull apart and hold 5 sec Reps/Minutes x20 Comments clinic only pulleys Sitting Exercise Name HEP review- FF, scaption Side right Resistance PROM Equipment Used mirror for self feedback Reps/Minutes x10 Comments occasional cues for no UT, LT facilitation eccentric control Other Exercises sit to stand Other Exercise Name sit to stand Resistance arms across chest Equipment Used std height chair Reps/Minutes 2x5 reps- Comments good control, knees apart with toes Self-Care/Home Management Treatment Education Patient Education Home Exercise Program Other Education Added standing shoulder flexion AROM/isometric hold and resisted row PT-OP-T Assessment and Plan Start: 02/08/22 17:25 Freq: Status: Active Protocol: Document 02/23/22 08:59 AW (Rec: 02/23/22 12:50 AW [id number]) Physical Therapy Assessment Goals Six Impairment balance Senior Living Goal (LTG) Pt will score 24/30 or greater on Functional Gait Assessment as a measure of improved self -efficacy in gait. LTG Duration 05/12/22 Five Impairment pt needs cane for longer distance gait Short Term Goal (STG) Pt will improve average gait speed on 6MWT to 0.75 m/s or greater without AD. STG Duration 03/23/22 Senior Living Goal (LTG) Pt will improve distance on 6MWT without AD by 10% over performance on short term goal as a measure of safe community ambulation. LTG Duration 05/12/22 Four Impairment LE strength Short Term Goal (STG) Pt will complete 5 Time Sit to Stand without use of UE's in 13 seconds or less as a measure of improved LE strength STG Duration 03/23/22 Spa Technician Goal (LTG) Pt will complete 12 reps on 30 Second Sit to Stand test as a measure of improved LE strength and power. LTG Duration 05/12/22 Three Impairment RUE ROM Spa Technician Goal (LTG) Pt will be able to style her own hair using both arms without compensatory measures and without increase in baseline pain. LTG Duration 05/12/22 Two Impairment RUE strength Short Term Goal (STG) Pt will be able to lift 2 pounds with straight right arm to improve her ability to complete household duties and to hold a coffee cup with outstretched arm. STG Duration 03/23/22 Spa Technician Goal (LTG) Pt will lift five pounds or more overhead with right arm to improve her ability to put away dishes on tall shelves. LTG Duration 05/12/22 One Impairment lacks HEP Short Term Goal (STG) Pt will be instructed in HEP for right UE and LE ROM, strength, and balance to support therapy services provided in clinic. STG Duration 03/23/22 Senior Living Goal (LTG) Pt will be independent with HEP for ROM, strength, and balance to sustain therapy gains. LTG Duration 05/12/22 Assessment Summary Assessment Initiated shoulder strength with pt today. She has ER ROM deficits and needs max cues for set up with sidelying external rotation (clinic only ). Plan to continue addressing lower and upper extremity ROM and strength. Physical Therapy Plan Frequency and Duration Frequency of Treatment 2x/Week Duration of Treatment 3 months Plan of Care Start Date 02/09/22 Plan of Care End Date 05/12/22 Therapeutic Interventions Therapeutic Interventions Balance Training,Gait Training ,Home Exercise Program,Manual Therapy,Neuromuscular Re- education,Self-Care/Home Management,Soft Tissue Mobilization,Taping, Therapeutic Activities, Therapeutic Exercises Modalities Cold Pack/Ice Massage,Electric Stimulation,Hot Packs Next Visit Focus/Plan Next Note Type Treatment Note Next Visit Plan Review HEP LE and UE. Continue static balance with focus on weight distribution w/ R knee alignment. Consider step ups on short step
--- NOTE | 2022-02-28 10:33 | PT.OTN ---
Current Diagnoses Displaced bicondylar fracture of right tibia, initial encounter for closed fracture (02/28/22) Physical Therapy Treatment Note PT-OP-A Visit Information Start: 02/08/22 17:25 Freq: Status: Active Protocol: Document 02/28/22 09:50 SP (Rec: 02/28/22 10:36 SP [id number]) Out-Patient Physical Therapy Visit Information Visit Information Visit Type Treatment Note Visit Start Time 09:50 Visit Stop Time 10:33 Total Visit Minutes 43 Visit Number 6 Number of EDGE GLUER Visits 1 Evaluation Information Evaluation Date 02/09/22 PT-OP-B Current Condition Start: 02/08/22 17:25 Freq: Status: Active Protocol: Document 02/09/22 10:30 AW (Rec: 02/08/22 17:45 AW [id number]) Current Condition History of Current Condition Onset Date April 2021 Current Complaints RLE weakness, impaired balance ; RUE weakness and reduced ROM History of Current Condition Before last April, Dorothy had two falls over a period of eight years - one of which resulted in broken left ankle which was treated conservatively. On Sunday the (04/22/21), Dorothy fell down a stair when leaving a store. She dislocated her right shoulder which was reduced at ED. She also suffered a right tibial plateau fracture which was treated with ORIF on 04/23/21 at [facility]. [place] [facility] she went to [facility] until June 15. She was NWB RLE for three months, upgraded to WBAT in July 2021. She progressed well with [facility] therapy for right arm and right leg until September when outpatient PT was recommended. It has taken several months for her to get to outpatient. She has no precautions currently. Using a cane mostly when out of the house but is able to navigate her home without AD. She does admit to staying close to roman and furniture for support. She states her right knee locks or sis every now and then while walking. She is hesitant to walk without a cane because of this. Pt has history of right radical mastectomy which may have decreased ROM R shoulder prior to current injury. She is now limited in her ability to hold a coffee cup at arm's length. She is also having difficulty styling her hair with her right arm. Dorothy Lives alone and has stairs at home. She is able to navigate stairs with a rail but she can not get to her backyard (3 steps no rail). Prior Treatments and Tests SNF and HH therapies as above. Treatment Goals Patient/Caregiver Goals Reach into microwave get coffee cup without using left arm to support the right. Comb and style hair with right hand. Improve confidence with RLE. Improve balance. Be able to shop in a housewares store without fear of bumping displays or falling. Personal Factors Other Personal Factors That May Effect PMH includes anxiety, R breast Therapy/Recovery cancer, hypertension, TIA PT-OP-C Subjective Start: 02/08/22 17:25 Freq: Status: Active Protocol: Document 02/28/22 09:50 SP (Rec: 02/28/22 10:36 SP [id number]) OP-PT Subjective Patient Comments Patient Comments Pt stated felt fine with focus of upper body, is challenged with R UE ER isometric, plans to focus on strength to get things to work better. States incorporates UE ROM when cleaning, joyce top of stove. Pt stated had across LBP, focused on postural alignment walking helped to improve gait alignment and less pain. PT-OP-E Functional Tests Start: 02/08/22 17:25 Freq: Status: Active Protocol: Document 02/14/22 09:00 AW (Rec: 02/14/22 12:33 AW [id number]) Functional Tests 30 Second Sit to Stand Test Score 12 reps Comments no UE support Dynamic Gait Index (DGI) Score 18 DGI Impairment Rating 20 to <40% Impaired (Score 15- 19) Five Times Sit to Stand Test Score 12.5 seconds Comments no UE support Functional Gait Assessment Score 17 Functional Gait Assessment Impairment 40 to <60% Impaired (Score 13- Rating 18) PT-OP-G Mobility & Gait Start: 02/08/22 17:25 Freq: Status: Active Protocol: Document 02/09/22 10:30 AW (Rec: 02/12/22 16:09 AW [id number]) OP Gait Assessment Comments Gait Comments Pt has bilateral genu valgum affecting gait stability. Feet are moderately pronated bilaterally. Right iliac crest is higher than left. Pt carries a cane but uses it only with increased distance or on uneven surfaces. PT-OP-H Neuro Start: 02/08/22 17:25 Freq: Status: Active Protocol: Document 02/09/22 10:30 AW (Rec: 02/12/22 16:09 AW [id number]) Sensation Evaluation Gross Sensation Gross Sensation WNL PT-OP-J Posture/Palpation/Skin Start: 02/08/22 17:25 Freq: Status: Active Protocol: Document 02/09/22 10:30 AW (Rec: 02/09/22 11:06 AW [id number]) Posture Evaluation Position Standing Evaluation View anterior, lateral Comments Posture Comments Pt stands and walks with modest genu valgus bilaterally . Feet are moderately pronated . Right iliac crest is higher than left. Pelvis is anteriorly tilted Skin Assessment Incisional Assessment Incision Appearance/Comments Well healed surgical incisions RLE PT-OP-K Range of Motion Start: 02/08/22 17:25 Freq: Status: Active Protocol: Document 02/09/22 10:30 AW (Rec: 02/09/22 11:06 AW [id number]) Shoulder Goniometric Range of Motion Shoulder Right Active Shoulder ROM WFL No Testing Position Sitting Flexion 140 Abduction 145 External Rotation at 0 degrees Abduction 0 Internal Rotation Behind Back (text) T8 Left Active Shoulder ROM WFL Yes Testing Position Sitting Flexion 145 Abduction 150 External Rotation at 0 degrees Abduction 50 Internal Rotation Behind Back (text) T4 Elbow/Forearm Range of Motion Elbow/Forearm bilat Elbow/Forearm ROM WFL Yes Hip Goniometric Range of Motion Hip bilat Hip ROM WFL Yes Testing Position Supine Comments No restriction in flexion, rotation. Knee Goniometric Range of Motion Knee Right Knee ROM WFL Yes Patient Position Supine Flexion Active (degrees) 128 Extension Active (degrees) 0 Comments Pt hesitates to flex knee further due to fear avoidance related to her surgery but ROM is WNL. Left Knee ROM WFL Yes Patient Position Supine Flexion Active (degrees) 139 Extension Active (degrees) 0 PT-OP-M Strength Start: 02/08/22 17:25 Freq: Status: Active Protocol: Document 02/09/22 10:30 AW (Rec: 02/09/22 11:09 AW [id number]) Shoulder Strength Shoulder Manual Muscle Testing Left Flexion 4 Good Abduction (C5) 4 Good External Rotation 4 Good Internal Rotation 4 Good Right Flexion 3 Fair Abduction (C5) 3+ Fair+ Internal Rotation 4- Good- Horizontal Abduction 4- Good- Hip Strength Hip Manual Muscle Testing Right Flexion (L2) 4- Good- Extension (S1) 3+ Fair+ Abduction 4- Good- External Rotation 4- Good- Internal Rotation 4- Good- Left Flexion (L2) 4+ Good+ Extension (S1) 4- Good- Abduction 4- Good- External Rotation 4 Good Internal Rotation 4 Good Knee Strength Knee Manual Muscle Testing Right Flexion (S2) 4- Good- Extension (L3) 4 Good Left Flexion (S2) 5 Normal Extension (L3) 5 Normal PT-OP-Q Treatments Start: 02/08/22 17:25 Freq: Status: Active Protocol: Document 02/28/22 09:50 SP (Rec: 02/28/22 10:36 SP [id number]) Cardio Equipment Recumbent Elliptical (Soccer Manager) Duration (Minutes) 6 Resistance 4 Seat Position 5 Other target 45-50 RPMs, Therapeutic Exercises Sitting Exercises GH flexion AROM Sitting Exercise Name GH flexion AROM- performed in standing from mirror Side right Resistance AROM to shoulder ht, AAROM to 120 deg contact LT recruitment and use mirror Equipment Used mirror in front for corrections Reps/Minutes 3-5 sec hold X 15 Comments HEP, cued no UT recruit isometric GH ER Sitting Exercise Name isometric GH ER Side bilateral Resistance standing at doorframe Equipment Used towel under arm- post shld deltoid fac Reps/Minutes 2x10 2 sec hold Comments Cued straight wrist, scap retract, inferior glide LAQ Sitting Exercise Name reviewed HEP Side right Resistance AROM Reps/Minutes 10 s hold x10 Comments good form and response Standing Exercises shld ER Standing Exercise Name [facility] washers- IR/ ER added to HEP Side right Resistance AROM Equipment Used elbow on table, cone Reps/Minutes x10 Comments cued straight wrist, elbow close to side, rotation motion only- improved step ups Standing Exercise Name add next tx Equipment Used 4 step Hip Extension Standing Exercise Name reviewed HEP Side bilateral Resistance TB #1 loop- added Reps/Minutes 2 x 10 ea Comments cued knee extension Hip Abduction Standing Exercise Name reviewed HEP Side bilateral Resistance TB #1 loop- added Reps/Minutes 2 x 10 rep ea Comments cued knee extension Gait Training Gait Activity corner balance Description add next tx PT-OP-T Assessment and Plan Start: 02/08/22 17:25 Freq: Status: Active Protocol: Document 02/28/22 09:50 SP (Rec: 02/28/22 10:36 SP [id number]) Physical Therapy Assessment Goals Six Impairment balance Group Home Goal (LTG) Pt will score 24/30 or greater on Functional Gait Assessment as a measure of improved self -efficacy in gait. LTG Duration 05/12/22 Five Impairment pt needs cane for longer distance gait Short Term Goal (STG) Pt will improve average gait speed on 6MWT to 0.75 m/s or greater without AD. STG Duration 03/23/22 Group Home Goal (LTG) Pt will improve distance on 6MWT without AD by 10% over performance on short term goal as a measure of safe community ambulation. LTG Duration 05/12/22 Four Impairment LE strength Short Term Goal (STG) Pt will complete 5 Time Sit to Stand without use of UE's in 13 seconds or less as a measure of improved LE strength STG Duration 03/23/22 Radial Drill Press Operator For Plastic Goal (LTG) Pt will complete 12 reps on 30 Second Sit to Stand test as a measure of improved LE strength and power. LTG Duration 05/12/22 Three Impairment RUE ROM Group Home Goal (LTG) Pt will be able to style her own hair using both arms without compensatory measures and without increase in baseline pain. LTG Duration 05/12/22 Two Impairment RUE strength Short Term Goal (STG) Pt will be able to lift 2 pounds with straight right arm to improve her ability to complete household duties and to hold a coffee cup with outstretched arm. STG Duration 03/23/22 Group Home Goal (LTG) Pt will lift five pounds or more overhead with right arm to improve her ability to put away dishes on tall shelves. LTG Duration 05/12/22 One Impairment lacks HEP Short Term Goal (STG) Pt will be instructed in HEP for right UE and LE ROM, strength, and balance to support therapy services provided in clinic. STG Duration 03/23/22 Radial Drill Press Operator For Plastic Goal (LTG) Pt will be independent with HEP for ROM, strength, and balance to sustain therapy gains. LTG Duration 05/12/22 Assessment Summary Assessment Pt improved R shld ER isometric modified using corner vs TB with good scapular stabilization to support trunk alignment during gait. Pt had decreased to no hip elevation during hip abd/ ext with added resistance this tx. Next tx incorporate corner balance and step ups for WB facilitation into RLE. Physical Therapy Plan Frequency and Duration Frequency of Treatment 2x/Week Duration of Treatment 3 months Plan of Care Start Date 02/09/22 Plan of Care End Date 05/12/22 Therapeutic Interventions Therapeutic Interventions Balance Training,Gait Training ,Home Exercise Program,Manual Therapy,Neuromuscular Re- education,Self-Care/Home Management,Soft Tissue Mobilization,Taping, Therapeutic Activities, Therapeutic Exercises Modalities Cold Pack/Ice Massage,Electric Stimulation,Hot Packs Next Visit Focus/Plan Next Note Type Treatment Note Next Visit Plan Review HEP LE and UE. Continue static balance with focus on weight distribution w/ R knee alignment. Consider step ups on short step
--- NOTE | 2022-03-02 10:31 | PT.OTN ---
Current Diagnoses Displaced bicondylar fracture of right tibia, initial encounter for closed fracture (03/02/22) Physical Therapy Treatment Note PT-OP-A Visit Information Start: 02/08/22 17:25 Freq: Status: Active Protocol: Document 03/02/22 09:49 SP (Rec: 03/02/22 10:33 SP [id number]) Out-Patient Physical Therapy Visit Information Visit Information Visit Type Treatment Note Visit Start Time 09:49 Visit Stop Time 10:31 Total Visit Minutes 42 Visit Number 7 Number of BLACKJACK DEALER Visits 2 Evaluation Information Evaluation Date 02/09/22 PT-OP-B Current Condition Start: 02/08/22 17:25 Freq: Status: Active Protocol: Document 02/09/22 10:30 AW (Rec: 02/08/22 17:45 AW [id number]) Current Condition History of Current Condition Onset Date April 2021 Current Complaints RLE weakness, impaired balance ; RUE weakness and reduced ROM History of Current Condition Before last April, Dorothy had two falls over a period of eight years - one of which resulted in broken left ankle which was treated conservatively. On Sunday the (04/22/21), Dorothy fell down a stair when leaving a store. She dislocated her right shoulder which was reduced at ED. She also suffered a right tibial plateau fracture which was treated with ORIF on 04/23/21 at [facility]. Upon discharge from [facility] she went to [facility] until June 15. She was NWB RLE for three months, upgraded to WBAT in July 2021. She progressed well with [facility] therapy for right arm and right leg until September when outpatient PT was recommended. It has taken several months for her to get to outpatient. She has no precautions currently. Using a cane mostly when out of the house but is able to navigate her home without AD. She does admit to staying close to roman and furniture for support. She states her right knee locks or sis every now and then while walking. She is hesitant to walk without a cane because of this. Pt has history of right radical mastectomy which may have decreased ROM R shoulder prior to current injury. She is now limited in her ability to hold a coffee cup at arm's length. She is also having difficulty styling her hair with her right arm. Dorothy Lives alone and has stairs at home. She is able to navigate stairs with a rail but she can not get to her backyard (3 steps no rail). Prior Treatments and Tests SNF and HH therapies as above. Treatment Goals Patient/Caregiver Goals Reach into microwave get coffee cup without using left arm to support the right. Comb and style hair with right hand. Improve confidence with RLE. Improve balance. Be able to shop in a housewares store without fear of bumping displays or falling. Personal Factors Other Personal Factors That May Effect PMH includes anxiety, R breast Therapy/Recovery cancer, hypertension, TIA PT-OP-C Subjective Start: 02/08/22 17:25 Freq: Status: Active Protocol: Document 03/02/22 09:49 SP (Rec: 03/02/22 10:33 SP [id number]) OP-PT Subjective Patient Comments Patient Comments Pt reported was ableto complete R shld ER on side last night but when sat up still can't perform as well as standing. Wants to go for walks on uneven grass near park and beach but nervous off falling if go on beach/sand so wants to have someone for safety. Has follow up on March 15 with ortho. PT-OP-E Functional Tests Start: 02/08/22 17:25 Freq: Status: Active Protocol: Document 02/14/22 09:00 AW (Rec: 02/14/22 12:33 AW [id number]) Functional Tests 30 Second Sit to Stand Test Score 12 reps Comments no UE support Dynamic Gait Index (DGI) Score 18 DGI Impairment Rating 20 to <40% Impaired (Score 15- 19) Five Times Sit to Stand Test Score 12.5 seconds Comments no UE support Functional Gait Assessment Score 17 Functional Gait Assessment Impairment 40 to <60% Impaired (Score 13- Rating 18) PT-OP-G Mobility & Gait Start: 02/08/22 17:25 Freq: Status: Active Protocol: Document 02/09/22 10:30 AW (Rec: 02/12/22 16:09 AW [id number]) OP Gait Assessment Comments Gait Comments Pt has bilateral genu valgum affecting gait stability. Feet are moderately pronated bilaterally. Right iliac crest is higher than left. Pt carries a cane but uses it only with increased distance or on uneven surfaces. PT-OP-H Neuro Start: 02/08/22 17:25 Freq: Status: Active Protocol: Document 02/09/22 10:30 AW (Rec: 02/12/22 16:09 AW [id number]) Sensation Evaluation Gross Sensation Gross Sensation WNL PT-OP-J Posture/Palpation/Skin Start: 02/08/22 17:25 Freq: Status: Active Protocol: Document 02/09/22 10:30 AW (Rec: 02/09/22 11:06 AW [id number]) Posture Evaluation Position Standing Evaluation View anterior, lateral Comments Posture Comments Pt stands and walks with modest genu valgus bilaterally . Feet are moderately pronated . Right iliac crest is higher than left. Pelvis is anteriorly tilted Skin Assessment Incisional Assessment Incision Appearance/Comments Well healed surgical incisions RLE PT-OP-K Range of Motion Start: 02/08/22 17:25 Freq: Status: Active Protocol: Document 02/09/22 10:30 AW (Rec: 02/09/22 11:06 AW [id number]) Shoulder Goniometric Range of Motion Shoulder Right Active Shoulder ROM WFL No Testing Position Sitting Flexion 140 Abduction 145 External Rotation at 0 degrees Abduction 0 Internal Rotation Behind Back (text) T8 Left Active Shoulder ROM WFL Yes Testing Position Sitting Flexion 145 Abduction 150 External Rotation at 0 degrees Abduction 50 Internal Rotation Behind Back (text) T4 Elbow/Forearm Range of Motion Elbow/Forearm bilat Elbow/Forearm ROM WFL Yes Hip Goniometric Range of Motion Hip bilat Hip ROM WFL Yes Testing Position Supine Comments No restriction in flexion, rotation. Knee Goniometric Range of Motion Knee Right Knee ROM WFL Yes Patient Position Supine Flexion Active (degrees) 128 Extension Active (degrees) 0 Comments Pt hesitates to flex knee further due to fear avoidance related to her surgery but ROM is WNL. Left Knee ROM WFL Yes Patient Position Supine Flexion Active (degrees) 139 Extension Active (degrees) 0 PT-OP-M Strength Start: 02/08/22 17:25 Freq: Status: Active Protocol: Document 02/09/22 10:30 AW (Rec: 02/09/22 11:09 AW [id number]) Shoulder Strength Shoulder Manual Muscle Testing Left Flexion 4 Good Abduction (C5) 4 Good External Rotation 4 Good Internal Rotation 4 Good Right Flexion 3 Fair Abduction (C5) 3+ Fair+ Internal Rotation 4- Good- Horizontal Abduction 4- Good- Hip Strength Hip Manual Muscle Testing Right Flexion (L2) 4- Good- Extension (S1) 3+ Fair+ Abduction 4- Good- External Rotation 4- Good- Internal Rotation 4- Good- Left Flexion (L2) 4+ Good+ Extension (S1) 4- Good- Abduction 4- Good- External Rotation 4 Good Internal Rotation 4 Good Knee Strength Knee Manual Muscle Testing Right Flexion (S2) 4- Good- Extension (L3) 4 Good Left Flexion (S2) 5 Normal Extension (L3) 5 Normal PT-OP-Q Treatments Start: 02/08/22 17:25 Freq: Status: Active Protocol: Document 03/02/22 09:49 SP (Rec: 03/02/22 10:33 SP [id number]) Cardio Equipment Recumbent Elliptical ([place]) Duration (Minutes) 6 Resistance 2>3>2 due to hard breath with mask Seat Position 5 Other target 45-50 RPMs at 2, 40-50 briefly RPMs at L3,610 steps Therapeutic Exercises Sidelying Exercises GH ER Sidelying Exercise Name GH ER- HEP reviewed Side right Resistance AROM>AAROM with therapist assist Comments cued elbow 90 deg and proper form, improve ROM post manual Standing Exercises ball wall self STMs Standing Exercise Name add PRN HEP relax muscles: Trap, infrasp, Pec Side right Resistance corner wall Reps/Minutes 1 min Comments good feedback and form shld ER Standing Exercise Name alison clementsers- IR/ ER reviewed HEP Side right Resistance AROM Equipment Used towel under arm (seated) Reps/Minutes x10 Comments cued straight wrist, elbow close to side, rotation motion only- improved Other Exercises sit to stand Other Exercise Name sit to stand Resistance arms across chest Equipment Used std height chair Reps/Minutes x10 at quick pace Comments good control, cue x1 knees apart with toes Gait Training Gait Activity uneven surfaces Description balance stability, R knee stability Device Used 0, CIVIL ENGINE[employer]AND [employer]ELOPMENT as needed Level of Assistance SBA- CGA Surface uneven grass,curb Distance/Duration 20 ft Treatment Focus R knee soft knee, RLE extension calf fac for hip abd stability Comments cued calf toe off and level pelvis, improved confidence. stairs Description stairs and curb Device Used B rail, uni rail Level of Assistance SBA with B rail; CGA with uni rail Surface 6 curb and stairs outside MAP bldg Distance/Duration F/B stepping curb SPCon R, descend 7 stairs L SPC Treatment Focus assessment Comments Pt able to ascend/descend receiprocal pattern SPC in LUE . CGA provided but able to complete. Improved stair mgt, decreased RLE stance time descend knee flexion but able SPC in LUE. no LOB. Gait level surfaces no AD, improve almost equal R and L with cues and self upright posture and TA fac awareness. Manual Therapy Treatment Soft Tissue Mobilization R shld Body Location pec, UT, LS, infraspinatus, teres, SCM, Temporalis Mobilization Type Cross-Friction,Myofascial Release,Strumming Intensity/Depth Moderate Body Position Sidelying Comments manual and ed use of LUE R anterior shld and SCM, and ball roll in sock on wall post scap. Joint Mobilizations scapulothoracis Joint L PT-OP-T Assessment and Plan Start: 02/08/22 17:25 Freq: Status: Active Protocol: Document 03/02/22 09:49 SP (Rec: 03/02/22 10:33 SP [id number]) Physical Therapy Assessment Goals Six Impairment balance Straddle Carrier Operator Goal (LTG) Pt will score 24/30 or greater on Functional Gait Assessment as a measure of improved self -efficacy in gait. LTG Duration 05/12/22 Five Impairment pt needs cane for longer distance gait Short Term Goal (STG) Pt will improve average gait speed on 6MWT to 0.75 m/s or greater without AD. STG Duration 03/23/22 Half-Way Goal (LTG) Pt will improve distance on 6MWT without AD by 10% over performance on short term goal as a measure of safe community ambulation. LTG Duration 05/12/22 Four Impairment LE strength Short Term Goal (STG) Pt will complete 5 Time Sit to Stand without use of UE's in 13 seconds or less as a measure of improved LE strength STG Duration 03/23/22 Straddle Carrier Operator Goal (LTG) Pt will complete 12 reps on 30 Second Sit to Stand test as a measure of improved LE strength and power. LTG Duration 05/12/22 Three Impairment RUE ROM Half-Way Goal (LTG) Pt will be able to style her own hair using both arms without compensatory measures and without increase in baseline pain. LTG Duration 05/12/22 Two Impairment RUE strength Short Term Goal (STG) Pt will be able to lift 2 pounds with straight right arm to improve her ability to complete household duties and to hold a coffee cup with outstretched arm. STG Duration 03/23/22 Half-Way Goal (LTG) Pt will lift five pounds or more overhead with right arm to improve her ability to put away dishes on tall shelves. LTG Duration 05/12/22 One Impairment lacks HEP Short Term Goal (STG) Pt will be instructed in HEP for right UE and LE ROM, strength, and balance to support therapy services provided in clinic. STG Duration 03/23/22 Half-Way Goal (LTG) Pt will be independent with HEP for ROM, strength, and balance to sustain therapy gains. LTG Duration 05/12/22 Assessment Summary Assessment Pt improved in R shld ER post manual sidelying, seated and provided self use ball on wall post scap and pec anteriorly. Pt improved increased R hip stability post STS and curb stepping to allow no use of AD but conscious awareness of posture and TA and more comfortable uneven surface with SBA- CGA not using AD but know to use at this time. Physical Therapy Plan Frequency and Duration Frequency of Treatment 2x/Week Duration of Treatment 3 months Plan of Care Start Date 02/09/22 Plan of Care End Date 05/12/22 Therapeutic Interventions Therapeutic Interventions Balance Training,Gait Training ,Home Exercise Program,Manual Therapy,Neuromuscular Re- education,Self-Care/Home Management,Soft Tissue Mobilization,Taping, Therapeutic Activities, Therapeutic Exercises Modalities Cold Pack/Ice Massage,Electric Stimulation,Hot Packs Next Visit Focus/Plan Next Note Type Treatment Note Next Visit Plan Review HEP LE and UE. Continue static balance with focus on weight distribution w/ R knee alignment. Dynamic gait without AD, uneven surfaces and for confidence during PT.
--- NOTE | 2022-03-09 10:33 | PT.OTN ---
Current Diagnoses Displaced bicondylar fracture of right tibia, initial encounter for closed fracture (03/09/22) Physical Therapy Treatment Note PT-OP-A Visit Information Start: 02/08/22 17:25 Freq: Status: Active Protocol: Document 03/09/22 09:50 SP (Rec: 03/09/22 10:35 SP [id number]) Out-Patient Physical Therapy Visit Information Visit Information Visit Type Treatment Note Visit Start Time 09:50 Visit Stop Time 10:33 Total Visit Minutes 42 Visit Number 8 Number of HEAVY MOBILE EQUIPMENT REPAIRER Visits 3 Evaluation Information Evaluation Date 02/09/22 PT-OP-B Current Condition Start: 02/08/22 17:25 Freq: Status: Active Protocol: Document 02/09/22 10:30 AW (Rec: 02/08/22 17:45 AW [id number]) Current Condition History of Current Condition Onset Date April 2021 Current Complaints RLE weakness, impaired balance ; RUE weakness and reduced ROM History of Current Condition Before last April, Dorothy had two falls over a period of eight years - one of which resulted in broken left ankle which was treated conservatively. On Sunday the (04/22/21), Dorothy fell down a stair when leaving a store. She dislocated her right shoulder which was reduced at ED. She also suffered a right tibial plateau fracture which was treated with ORIF on 04/23/21 at [facility]. Upon discharge from [facility] she went to [facility] until June 15. She was NWB RLE for three months, upgraded to WBAT in July 2021. She progressed well with [facility] therapy for right arm and right leg until September when outpatient PT was recommended. It has taken several months for her to get to outpatient. She has no precautions currently. Using a cane mostly when out of the house but is able to navigate her home without AD. She does admit to staying close to roman and furniture for support. She states her right knee locks or sis every now and then while walking. She is hesitant to walk without a cane because of this. Pt has history of right radical mastectomy which may have decreased ROM R shoulder prior to current injury. She is now limited in her ability to hold a coffee cup at arm's length. She is also having difficulty styling her hair with her right arm. Dorothy Lives alone and has stairs at home. She is able to navigate stairs with a rail but she can not get to her backyard (3 steps no rail). Prior Treatments and Tests SNF and HH therapies as above. Treatment Goals Patient/Caregiver Goals Reach into microwave get coffee cup without using left arm to support the right. Comb and style hair with right hand. Improve confidence with RLE. Improve balance. Be able to shop in a housewares store without fear of bumping displays or falling. Personal Factors Other Personal Factors That May Effect PMH includes anxiety, R breast Therapy/Recovery cancer, hypertension, TIA PT-OP-C Subjective Start: 02/08/22 17:25 Freq: Status: Active Protocol: Document 03/09/22 09:50 SP (Rec: 03/09/22 10:35 SP [id number]) OP-PT Subjective Patient Comments Patient Comments Pt reported practiced ascend/ descend bottom step outside with rail and cane PRN assist if needed and focus slow quality movement and felt helped build more confidence, thinks the fall descend curb was traumatizing and after last tx realized needs to work more on this to feel normal/ no fear and more stable doing stairs. Patient Reported Progress Improving PT-OP-E Functional Tests Start: 02/08/22 17:25 Freq: Status: Active Protocol: Document 02/14/22 09:00 AW (Rec: 02/14/22 12:33 AW [id number]) Functional Tests 30 Second Sit to Stand Test Score 12 reps Comments no UE support Dynamic Gait Index (DGI) Score 18 DGI Impairment Rating 20 to <40% Impaired (Score 15- 19) Five Times Sit to Stand Test Score 12.5 seconds Comments no UE support Functional Gait Assessment Score 17 Functional Gait Assessment Impairment 40 to <60% Impaired (Score 13- Rating 18) PT-OP-G Mobility & Gait Start: 02/08/22 17:25 Freq: Status: Active Protocol: Document 02/09/22 10:30 AW (Rec: 02/12/22 16:09 AW [id number]) OP Gait Assessment Comments Gait Comments Pt has bilateral genu valgum affecting gait stability. Feet are moderately pronated bilaterally. Right iliac crest is higher than left. Pt carries a cane but uses it only with increased distance or on uneven surfaces. PT-OP-H Neuro Start: 02/08/22 17:25 Freq: Status: Active Protocol: Document 02/09/22 10:30 AW (Rec: 02/12/22 16:09 AW [id number]) Sensation Evaluation Gross Sensation Gross Sensation WNL PT-OP-J Posture/Palpation/Skin Start: 02/08/22 17:25 Freq: Status: Active Protocol: Document 02/09/22 10:30 AW (Rec: 02/09/22 11:06 AW [id number]) Posture Evaluation Position Standing Evaluation View anterior, lateral Comments Posture Comments Pt stands and walks with modest genu valgus bilaterally . Feet are moderately pronated . Right iliac crest is higher than left. Pelvis is anteriorly tilted Skin Assessment Incisional Assessment Incision Appearance/Comments Well healed surgical incisions RLE PT-OP-K Range of Motion Start: 02/08/22 17:25 Freq: Status: Active Protocol: Document 02/09/22 10:30 AW (Rec: 02/09/22 11:06 AW [id number]) Shoulder Goniometric Range of Motion Shoulder Right Active Shoulder ROM WFL No Testing Position Sitting Flexion 140 Abduction 145 External Rotation at 0 degrees Abduction 0 Internal Rotation Behind Back (text) T8 Left Active Shoulder ROM WFL Yes Testing Position Sitting Flexion 145 Abduction 150 External Rotation at 0 degrees Abduction 50 Internal Rotation Behind Back (text) T4 Elbow/Forearm Range of Motion Elbow/Forearm bilat Elbow/Forearm ROM WFL Yes Hip Goniometric Range of Motion Hip bilat Hip ROM WFL Yes Testing Position Supine Comments No restriction in flexion, rotation. Knee Goniometric Range of Motion Knee Right Knee ROM WFL Yes Patient Position Supine Flexion Active (degrees) 128 Extension Active (degrees) 0 Comments Pt hesitates to flex knee further due to fear avoidance related to her surgery but ROM is WNL. Left Knee ROM WFL Yes Patient Position Supine Flexion Active (degrees) 139 Extension Active (degrees) 0 PT-OP-M Strength Start: 02/08/22 17:25 Freq: Status: Active Protocol: Document 02/09/22 10:30 AW (Rec: 02/09/22 11:09 AW [id number]) Shoulder Strength Shoulder Manual Muscle Testing Left Flexion 4 Good Abduction (C5) 4 Good External Rotation 4 Good Internal Rotation 4 Good Right Flexion 3 Fair Abduction (C5) 3+ Fair+ Internal Rotation 4- Good- Horizontal Abduction 4- Good- Hip Strength Hip Manual Muscle Testing Right Flexion (L2) 4- Good- Extension (S1) 3+ Fair+ Abduction 4- Good- External Rotation 4- Good- Internal Rotation 4- Good- Left Flexion (L2) 4+ Good+ Extension (S1) 4- Good- Abduction 4- Good- External Rotation 4 Good Internal Rotation 4 Good Knee Strength Knee Manual Muscle Testing Right Flexion (S2) 4- Good- Extension (L3) 4 Good Left Flexion (S2) 5 Normal Extension (L3) 5 Normal PT-OP-Q Treatments Start: 02/08/22 17:25 Freq: Status: Active Protocol: Document 03/09/22 09:50 SP (Rec: 03/09/22 10:35 SP [id number]) Cardio Equipment Recumbent Elliptical (Unmetric) Duration (Minutes) 8 Resistance 3 with hospital mask Seat Position 5 Other target 45-50 RPMs at L 3, 769 steps Therapeutic Exercises Standing Exercises step downs Standing Exercise Name Lead LLE for RLe stability/ alignment into ABD neutral Side right Resistance forward Equipment Used 6 step, contact min WB RUE rail>light>no AD Reps/Minutes x10 reps Comments improved slower descend LLE/ RLE stabililty with abd cues step ups Standing Exercise Name step up/ back down, lateral caused pain so stopped Equipment Used 6 step, rail PRN initially and light RLE ascend, able deminish Reps/Minutes 5x2 lead each LE Comments difficulty initially ascend RLE without UE support & momentum, impro w/reps Other Exercises sit to stand Other Exercise Name sit to stand Resistance arms across chest Equipment Used std height chair Reps/Minutes 5 reps in 9sec Comments good control, cue x1 knees apart with toes Gait Training Gait Activity dynamic gait Description across gym end tx: HT, pivot turns Device Used 0 Level of Assistance SBA/S Surface firm Distance/Duration 30 ft x3 laps Treatment Focus trunk alignment, Comments able complete HTs and vertical stable no deviation but little decrease in speed noted . 6MWT Device Used 0 Distance/Duration 315m/s: Treatment Focus trunk alignment, heel toe to normalize gait and endurance for community amb Comments 1034 ft in 6 min stairs Description step ups curb 6 step, Device Used B rail, uni rail Level of Assistance SBA with B rail; CGA with uni rail Surface 6 curb and stairs outside MAP bldg Distance/Duration F/B stepping curb SPCon R, descend 7 stairs L SPC Treatment Focus assessment Comments Able to ascend RLE descend LLE improved with reps no UE contact nearby safety PT-OP-T Assessment and Plan Start: 02/08/22 17:25 Freq: Status: Active Protocol: Document 03/09/22 09:50 SP (Rec: 03/09/22 10:35 SP [id number]) Physical Therapy Assessment Goals Six Impairment balance Executive Legal Secretary Goal (LTG) Pt will score 24/30 or greater on Functional Gait Assessment as a measure of improved self -efficacy in gait. LTG Duration 05/12/22 Five Impairment pt needs cane for longer distance gait Short Term Goal (STG) Pt will improve average gait speed on 6MWT to 0.75 m/s or greater without AD. 03/09/22: MET GOAL: 315m/360s=0 .87m/s with no AD, noted lateral trunk wt shifting cues for posture/core stability corrections. STG Duration GOAL MET 03/09/22 Fdc Goal (LTG) Pt will improve distance on 6MWT without AD by 10% over performance on short term goal as a measure of safe community ambulation. LTG Duration 05/12/22 Four Impairment LE strength Short Term Goal (STG) Pt will complete 5 Time Sit to Stand without use of UE's in 13 seconds or less as a measure of improved LE strength 03/09/22: MET GOAL: 5 STS in 9sec, arms across chest. STG Duration GOAL MET 03/09/22 Executive Legal Secretary Goal (LTG) Pt will complete 12 reps on 30 Second Sit to Stand test as a measure of improved LE strength and power. 03/09/22: progress: LTG Duration 05/12/22 progressing 03/09/22 Three Impairment RUE ROM Fdc Goal (LTG) Pt will be able to style her own hair using both arms without compensatory measures and without increase in baseline pain. LTG Duration 05/12/22 Two Impairment RUE strength Short Term Goal (STG) Pt will be able to lift 2 pounds with straight right arm to improve her ability to complete household duties and to hold a coffee cup with outstretched arm. STG Duration 03/23/22 Fdc Goal (LTG) Pt will lift five pounds or more overhead with right arm to improve her ability to put away dishes on tall shelves. LTG Duration 05/12/22 One Impairment lacks HEP Short Term Goal (STG) Pt will be instructed in HEP for right UE and LE ROM, strength, and balance to support therapy services provided in clinic. STG Duration 03/23/22 Fdc Goal (LTG) Pt will be independent with HEP for ROM, strength, and balance to sustain therapy gains. LTG Duration 05/12/22 Progress Towards Goals Progress Towards Goals Progressing Toward Goals Progress Comments MET STG GOAL: #4, #5 Assessment Summary Assessment Tx focused on updated goal data baseline, patterning step mgt ascend/ descend, improved R knee stability with reps forward/back stepping with deminishing RUE support. Unable lateral step up without lateral R knee pain with and without support so stopped will stick to sagittal plane for now. Physical Therapy Plan Frequency and Duration Frequency of Treatment 2x/Week Duration of Treatment 3 months Plan of Care Start Date 02/09/22 Plan of Care End Date 05/12/22 Therapeutic Interventions Therapeutic Interventions Balance Training,Gait Training ,Home Exercise Program,Manual Therapy,Neuromuscular Re- education,Self-Care/Home Management,Soft Tissue Mobilization,Taping, Therapeutic Activities, Therapeutic Exercises Modalities Cold Pack/Ice Massage,Electric Stimulation,Hot Packs Next Visit Focus/Plan Next Note Type Treatment Note Next Visit Plan Review HEP LE and UE. Continue static balance with focus on weight distribution w/ R knee alignment. Dynamic gait without AD, uneven surfaces and for confidence during PT.
--- NOTE | 2022-03-14 12:18 | PT.OTN ---
Current Diagnoses Displaced bicondylar fracture of right tibia, initial encounter for closed fracture (03/14/22) Physical Therapy Treatment Note PT-OP-A Visit Information Start: 02/08/22 17:25 Freq: Status: Active Protocol: Document 03/14/22 09:50 AW (Rec: 03/14/22 10:32 AW [id number]) Out-Patient Physical Therapy Visit Information Visit Information Visit Type Progress Note Visit Start Time 09:49 Visit Stop Time 10:30 Total Visit Minutes 41 Visit Number 9 Number of LANDSCAPE ACCOUNT MANAGER Visits 0 Evaluation Information Evaluation Date 02/09/22 PT-OP-B Current Condition Start: 02/08/22 17:25 Freq: Status: Active Protocol: Document 02/09/22 10:30 AW (Rec: 02/08/22 17:45 AW [id number]) Current Condition History of Current Condition Onset Date April 2021 Current Complaints RLE weakness, impaired balance ; RUE weakness and reduced ROM History of Current Condition Before last April, Dorothy had two falls over a period of eight years - one of which resulted in broken left ankle which was treated conservatively. On Sunday the (04/22/21), Dorothy fell down a stair when leaving a store. She dislocated her right shoulder which was reduced at ED. She also suffered a right tibial plateau fracture which was treated with ORIF on 04/23/21 at [facility]. Upon discharge from [facility] she went to [facility] until June 15. She was NWB RLE for three months, upgraded to WBAT in July 2021. She progressed well with [facility] therapy for right arm and right leg until September when outpatient PT was recommended. It has taken several months for her to get to outpatient. She has no precautions currently. Using a cane mostly when out of the house but is able to navigate her home without AD. She does admit to staying close to roman and furniture for support. She states her right knee locks or sis every now and then while walking. She is hesitant to walk without a cane because of this. Pt has history of right radical mastectomy which may have decreased ROM R shoulder prior to current injury. She is now limited in her ability to hold a coffee cup at arm's length. She is also having difficulty styling her hair with her right arm. Dorothy Lives alone and has stairs at home. She is able to navigate stairs with a rail but she can not get to her backyard (3 steps no rail). Prior Treatments and Tests SNF and HH therapies as above. Treatment Goals Patient/Caregiver Goals Reach into microwave get coffee cup without using left arm to support the right. Comb and style hair with right hand. Improve confidence with RLE. Improve balance. Be able to shop in a housewares store without fear of bumping displays or falling. Personal Factors Other Personal Factors That May Effect PMH includes anxiety, R breast Therapy/Recovery cancer, hypertension, TIA PT-OP-C Subjective Start: 02/08/22 17:25 Freq: Status: Active Protocol: Document 03/14/22 09:50 AW (Rec: 03/14/22 10:32 AW [id number]) OP-PT Subjective Patient Comments Patient Comments I feel like I'm walking funny this weekend. Starting to have some hip and low back pain. PT-OP-E Functional Tests Start: 02/08/22 17:25 Freq: Status: Active Protocol: Document 02/14/22 09:00 AW (Rec: 02/14/22 12:33 AW [id number]) Functional Tests 30 Second Sit to Stand Test Score 12 reps Comments no UE support Dynamic Gait Index (DGI) Score 18 DGI Impairment Rating 20 to <40% Impaired (Score 15- 19) Five Times Sit to Stand Test Score 12.5 seconds Comments no UE support Functional Gait Assessment Score 17 Functional Gait Assessment Impairment 40 to <60% Impaired (Score 13- Rating 18) PT-OP-G Mobility & Gait Start: 02/08/22 17:25 Freq: Status: Active Protocol: Document 02/09/22 10:30 AW (Rec: 02/12/22 16:09 AW [id number]) OP Gait Assessment Comments Gait Comments Pt has bilateral genu valgum affecting gait stability. Feet are moderately pronated bilaterally. Right iliac crest is higher than left. Pt carries a cane but uses it only with increased distance or on uneven surfaces. PT-OP-H Neuro Start: 02/08/22 17:25 Freq: Status: Active Protocol: Document 02/09/22 10:30 AW (Rec: 02/12/22 16:09 AW [id number]) Sensation Evaluation Gross Sensation Gross Sensation WNL PT-OP-J Posture/Palpation/Skin Start: 02/08/22 17:25 Freq: Status: Active Protocol: Document 02/09/22 10:30 AW (Rec: 02/09/22 11:06 AW [id number]) Posture Evaluation Position Standing Evaluation View anterior, lateral Comments Posture Comments Pt stands and walks with modest genu valgus bilaterally . Feet are moderately pronated . Right iliac crest is higher than left. Pelvis is anteriorly tilted Skin Assessment Incisional Assessment Incision Appearance/Comments Well healed surgical incisions RLE PT-OP-K Range of Motion Start: 02/08/22 17:25 Freq: Status: Active Protocol: Document 02/09/22 10:30 AW (Rec: 02/09/22 11:06 AW [id number]) Shoulder Goniometric Range of Motion Shoulder Right Active Shoulder ROM WFL No Testing Position Sitting Flexion 140 Abduction 145 External Rotation at 0 degrees Abduction 0 Internal Rotation Behind Back (text) T8 Left Active Shoulder ROM WFL Yes Testing Position Sitting Flexion 145 Abduction 150 External Rotation at 0 degrees Abduction 50 Internal Rotation Behind Back (text) T4 Elbow/Forearm Range of Motion Elbow/Forearm bilat Elbow/Forearm ROM WFL Yes Hip Goniometric Range of Motion Hip bilat Hip ROM WFL Yes Testing Position Supine Comments No restriction in flexion, rotation. Knee Goniometric Range of Motion Knee Right Knee ROM WFL Yes Patient Position Supine Flexion Active (degrees) 128 Extension Active (degrees) 0 Comments Pt hesitates to flex knee further due to fear avoidance related to her surgery but ROM is WNL. Left Knee ROM WFL Yes Patient Position Supine Flexion Active (degrees) 139 Extension Active (degrees) 0 PT-OP-M Strength Start: 02/08/22 17:25 Freq: Status: Active Protocol: Document 02/09/22 10:30 AW (Rec: 02/09/22 11:09 AW [id number]) Shoulder Strength Shoulder Manual Muscle Testing Left Flexion 4 Good Abduction (C5) 4 Good External Rotation 4 Good Internal Rotation 4 Good Right Flexion 3 Fair Abduction (C5) 3+ Fair+ Internal Rotation 4- Good- Horizontal Abduction 4- Good- Hip Strength Hip Manual Muscle Testing Right Flexion (L2) 4- Good- Extension (S1) 3+ Fair+ Abduction 4- Good- External Rotation 4- Good- Internal Rotation 4- Good- Left Flexion (L2) 4+ Good+ Extension (S1) 4- Good- Abduction 4- Good- External Rotation 4 Good Internal Rotation 4 Good Knee Strength Knee Manual Muscle Testing Right Flexion (S2) 4- Good- Extension (L3) 4 Good Left Flexion (S2) 5 Normal Extension (L3) 5 Normal PT-OP-Q Treatments Start: 02/08/22 17:25 Freq: Status: Active Protocol: Document 03/14/22 09:50 AW (Rec: 03/14/22 10:32 AW [id number]) Cardio Equipment Recumbent Elliptical ([email or web address]) Duration (Minutes) 8 Resistance 3 with hospital mask Seat Position 5 Other target 45-50 RPMs at L 3, 751 steps Therapeutic Exercises Standing Exercises SLS Standing Exercise Name SLS Side bilateral Reps/Minutes up to 10 LLE with min rail support; 5-10 RLE with mod rail support Comments cued glute and core engage; HEP Other Exercises sit to stand Other Exercise Name sit to stand Resistance arms across chest Equipment Used std height chair Reps/Minutes 15 reps in 30 seconds Comments good control, cue x1 knees apart with toes Gait Training Gait Activity stairs Description step ups curb 6 step, Device Used B rail, uni rail Level of Assistance SBA with B rail; CGA with uni rail Surface 6 curb and stairs outside MAP bldg Distance/Duration F/B stepping curb SPCon R, descend 7 stairs L SPC Treatment Focus assessment Comments Able to ascend RLE descend LLE improved with reps no UE contact nearby safety PT-OP-T Assessment and Plan Start: 02/08/22 17:25 Freq: Status: Active Protocol: Document 03/14/22 09:50 AW (Rec: 03/14/22 10:32 AW [id number]) Physical Therapy Assessment Goals Seven Impairment RLE single leg strength Fdc Goal (LTG) Pt will stand on right leg 20 seconds without increased lateral shear and without UE support LTG Duration 05/12/22 Six Impairment balance Desolderer Goal (LTG) Pt will score 24/30 or greater on Functional Gait Assessment as a measure of improved self -efficacy in gait. LTG Duration 05/12/22 Five Impairment pt needs cane for longer distance gait Short Term Goal (STG) Pt will improve average gait speed on 6MWT to 0.75 m/s or greater without AD. 03/09/22: MET GOAL: 315m/360s=0 .87m/s with no AD, noted lateral trunk wt shifting cues for posture/core stability corrections. STG Duration GOAL MET 03/09/22 Fdc Goal (LTG) Pt will improve distance on 6MWT without AD by 10% over performance on short term goal as a measure of safe community ambulation. LTG Duration 05/12/22 Four Impairment LE strength Short Term Goal (STG) Pt will complete 5 Time Sit to Stand without use of UE's in 13 seconds or less as a measure of improved LE strength 03/09/22: MET GOAL: 5 STS in 9 sec, arms across chest. STG Duration GOAL MET 03/09/22 Fdc Goal (LTG) Pt will complete 12 reps on 30 Second Sit to Stand test as a measure of improved LE strength and power. 03/09/22: progress: Pt completes 15 reps on 30 Sec STS. LTG Duration 05/12/22 progressing 03/09/22 GOAL MET Three Impairment RUE ROM Fdc Goal (LTG) Pt will be able to style her own hair using both arms without compensatory measures and without increase in baseline pain. LTG Duration 05/12/22 Two Impairment RUE strength Short Term Goal (STG) Pt will be able to lift 2 pounds with straight right arm to improve her ability to complete household duties and to hold a coffee cup with outstretched arm. 03/14/22 - Pt able to lift weight of arm with good self- correction/no shoulder hike. Can lift 1#db 1 rep before fatigue. STG Duration 03/23/22 Fdc Goal (LTG) Pt will lift five pounds or more overhead with right arm to improve her ability to put away dishes on tall shelves. LTG Duration 05/12/22 One Impairment lacks HEP Short Term Goal (STG) Pt will be instructed in HEP for right UE and LE ROM, strength, and balance to support therapy services provided in clinic. STG Duration 03/23/22 Desolderer Goal (LTG) Pt will be independent with HEP for ROM, strength, and balance to sustain therapy gains. LTG Duration 05/12/22 Progress Towards Goals Progress Towards Goals Progressing Toward Goals Progress Comments MET LTG #4, progressing toward STG #2 Assessment Summary Assessment Dorothy has improved in her BLE strength and is able to complete 15 reps on 30 Second Sit to Stand test. Single leg strength remains challenged. RUE strength is improving and pt is able to hold her arm in 90 degrees elevation up to 15 seconds but is challenged with the addition of 1 pounds weight. Gait initiation has improved with no signs of hesitancy. Pt arrived today with a significant limp but left with improved gait mechanics. Physical Therapy Plan Frequency and Duration Frequency of Treatment 2x/Week Duration of Treatment 3 months Plan of Care Start Date 02/09/22 Plan of Care End Date 05/12/22 Therapeutic Interventions Therapeutic Interventions Balance Training,Gait Training ,Home Exercise Program,Manual Therapy,Neuromuscular Re- education,Self-Care/Home Management,Soft Tissue Mobilization,Taping, Therapeutic Activities, Therapeutic Exercises Modalities Cold Pack/Ice Massage,Electric Stimulation,Hot Packs Next Visit Focus/Plan Next Note Type Treatment Note Next Visit Plan Review HEP LE and UE. Continue static balance with focus on weight distribution w/ R knee alignment. Dynamic gait without AD, uneven surfaces and for confidence during PT. Re-visit RUE flexion, scaption with mirror for feedback on UT activation.
--- NOTE | 2022-03-16 12:26 | PT.OTN ---
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 On Sunday the (04/22/21), Dorothy fell down a stair when leaving a store. She dislocated her right shoulder which was reduced at ED. She also suffered a right tibial plateau fracture which was treated with ORIF on 04/23/21 at [facility]. Upon discharge from [facility] she went to [facility] until June 15. She was NWB RLE for three months, upgraded to WBAT in July 2021. She progressed well with [facility] therapy for right arm and right leg until September when outpatient PT was recommended. It has taken several months for her to get to outpatient. She has no precautions currently. Using a cane mostly when out of the house but is able to navigate her home without AD. She does admit to staying close to roman and furniture for support. She states her right knee locks or sis every now and then while walking. She is hesitant to walk without a cane because of this. Pt has history of right radical mastectomy which may have decreased ROM R shoulder prior to current injury. She is now limited in her ability to hold a coffee cup at arm's length. She is also having difficulty styling her hair with her right arm. Dorothy Lives alone and has stairs at home. She is able to navigate stairs with a rail but she can not get to her backyard (3 steps no rail). Prior Treatments and Tests SNF and HH therapies as above. Treatment Goals Patient/Caregiver Goals Reach into microwave get coffee cup without using left arm to support the right. Comb and style hair with right hand. Improve confidence with RLE. Improve balance. Be able to shop in a housewares store without fear of bumping displays or falling. Personal Factors Other Personal Factors That May Effect PMH includes anxiety, R breast Therapy/Recovery cancer, hypertension, TIA PT-OP-C Subjective Start: 02/08/22 17:25 Freq: Status: Active Protocol: Document 03/16/22 08:55 AW (Rec: 03/16/22 10:33 AW [id number]) OP-PT Subjective Patient Comments Patient Comments Pt saw ortho yesterday at [facility]. No concerns other than need for more strength. PT-OP-E Functional Tests Start: 02/08/22 17:25 Freq: Status: Active Protocol: Document 02/14/22 09:00 AW (Rec: 02/14/22 12:33 AW [id number]) Functional Tests 30 Second Sit to Stand Test Score 12 reps Comments no UE support Dynamic Gait Index (DGI) Score 18 DGI Impairment Rating 20 to <40% Impaired (Score 15- 19) Five Times Sit to Stand Test Score 12.5 seconds Comments no UE support Functional Gait Assessment Score 17 Functional Gait Assessment Impairment 40 to <60% Impaired (Score 13- Rating 18) PT-OP-G Mobility & Gait Start: 02/08/22 17:25 Freq: Status: Active Protocol: Document 02/09/22 10:30 AW (Rec: 02/12/22 16:09 AW [id number]) OP Gait Assessment Comments Gait Comments Pt has bilateral genu valgum affecting gait stability. Feet are moderately pronated bilaterally. Right iliac crest is higher than left. Pt carries a cane but uses it only with increased distance or on uneven surfaces. PT-OP-H Neuro Start: 02/08/22 17:25 Freq: Status: Active Protocol: Document 02/09/22 10:30 AW (Rec: 02/12/22 16:09 AW [id number]) Sensation Evaluation Gross Sensation Gross Sensation WNL PT-OP-J Posture/Palpation/Skin Start: 02/08/22 17:25 Freq: Status: Active Protocol: Document 02/09/22 10:30 AW (Rec: 02/09/22 11:06 AW [id number]) Posture Evaluation Position Standing Evaluation View anterior, lateral Comments Posture Comments Pt stands and walks with modest genu valgus bilaterally . Feet are moderately pronated . Right iliac crest is higher than left. Pelvis is anteriorly tilted Skin Assessment Incisional Assessment Incision Appearance/Comments Well healed surgical incisions RLE PT-OP-K Range of Motion Start: 02/08/22 17:25 Freq: Status: Active Protocol: Document 02/09/22 10:30 AW (Rec: 02/09/22 11:06 AW [id number]) Shoulder Goniometric Range of Motion Shoulder Right Active Shoulder ROM WFL No Testing Position Sitting Flexion 140 Abduction 145 External Rotation at 0 degrees Abduction 0 Internal Rotation Behind Back (text) T8 Left Active Shoulder ROM WFL Yes Testing Position Sitting Flexion 145 Abduction 150 External Rotation at 0 degrees Abduction 50 Internal Rotation Behind Back (text) T4 Elbow/Forearm Range of Motion Elbow/Forearm bilat Elbow/Forearm ROM WFL Yes Hip Goniometric Range of Motion Hip bilat Hip ROM WFL Yes Testing Position Supine Comments No restriction in flexion, rotation. Knee Goniometric Range of Motion Knee Right Knee ROM WFL Yes Patient Position Supine Flexion Active (degrees) 128 Extension Active (degrees) 0 Comments Pt hesitates to flex knee further due to fear avoidance related to her surgery but ROM is WNL. Left Knee ROM WFL Yes Patient Position Supine Flexion Active (degrees) 139 Extension Active (degrees) 0 PT-OP-M Strength Start: 02/08/22 17:25 Freq: Status: Active Protocol: Document 02/09/22 10:30 AW (Rec: 02/09/22 11:09 AW [id number]) Shoulder Strength Shoulder Manual Muscle Testing Left Flexion 4 Good Abduction (C5) 4 Good External Rotation 4 Good Internal Rotation 4 Good Right Flexion 3 Fair Abduction (C5) 3+ Fair+ Internal Rotation 4- Good- Horizontal Abduction 4- Good- Hip Strength Hip Manual Muscle Testing Right Flexion (L2) 4- Good- Extension (S1) 3+ Fair+ Abduction 4- Good- External Rotation 4- Good- Internal Rotation 4- Good- Left Flexion (L2) 4+ Good+ Extension (S1) 4- Good- Abduction 4- Good- External Rotation 4 Good Internal Rotation 4 Good Knee Strength Knee Manual Muscle Testing Right Flexion (S2) 4- Good- Extension (L3) 4 Good Left Flexion (S2) 5 Normal Extension (L3) 5 Normal PT-OP-Q Treatments Start: 02/08/22 17:25 Freq: Status: Active Protocol: Document 03/16/22 08:55 AW (Rec: 03/16/22 10:33 AW [id number]) Cardio Equipment Recumbent Elliptical (Biodex) Duration (Minutes) 6 Resistance 3 with hospital mask Seat Position 5 Other target 45-50 RPM Gym Equipment Shuttle Recovery Bilateral Squats Details B squats Resistance 50, 75; start at 75 next time Shuttle Recovery Platform Stable Reps/Time 2x10 Therapeutic Exercises Supine Exercises LTR Supine Exercise Name LTR Comments offered for HEP SKTC Supine Exercise Name SKTC Comments offered for HEP TrA Supine Exercise Name BKFO, SL march Reps/Minutes nylon belt under low back for tactile feedback Comments HEP (BKFO) Other Exercises sit to stand Other Exercise Name squat tap Resistance arms across chest Equipment Used std height chair Reps/Minutes x10 Comments no cues needed for knees apart PT-OP-T Assessment and Plan Start: 02/08/22 17:25 Freq: Status: Active Protocol: Document 03/16/22 08:55 AW (Rec: 03/16/22 10:33 AW [id number]) Physical Therapy Assessment Goals Seven Impairment RLE single leg strength Scrap Picker Goal (LTG) Pt will stand on right leg 20 seconds without increased lateral shear and without UE support LTG Duration 05/12/22 Six Impairment balance Care Home Goal (LTG) Pt will score 24/30 or greater on Functional Gait Assessment as a measure of improved self -efficacy in gait. LTG Duration 05/12/22 Five Impairment pt needs cane for longer distance gait Short Term Goal (STG) Pt will improve average gait speed on 6MWT to 0.75 m/s or greater without AD. 03/09/22: MET GOAL: 315m/360s=0 .87m/s with no AD, noted lateral trunk wt shifting cues for posture/core stability corrections. STG Duration GOAL MET 03/09/22 Care Home Goal (LTG) Pt will improve distance on 6MWT without AD by 10% over performance on short term goal as a measure of safe community ambulation. LTG Duration 05/12/22 Four Impairment LE strength Short Term Goal (STG) Pt will complete 5 Time Sit to Stand without use of UE's in 13 seconds or less as a measure of improved LE strength 03/09/22: MET GOAL: 5 STS in 9 sec, arms across chest. STG Duration GOAL MET 03/09/22 Care Home Goal (LTG) Pt will complete 12 reps on 30 Second Sit to Stand test as a measure of improved LE strength and power. 03/09/22: progress: Pt completes 15 reps on 30 Sec STS. LTG Duration 05/12/22 progressing 03/09/22 GOAL MET Three Impairment RUE ROM Scrap Picker Goal (LTG) Pt will be able to style her own hair using both arms without compensatory measures and without increase in baseline pain. LTG Duration 05/12/22 Two Impairment RUE strength Short Term Goal (STG) Pt will be able to lift 2 pounds with straight right arm to improve her ability to complete household duties and to hold a coffee cup with outstretched arm. 03/14/22 - Pt able to lift weight of arm with good self- correction/no shoulder hike. Can lift 1#db 1 rep before fatigue. STG Duration 03/23/22 Care Home Goal (LTG) Pt will lift five pounds or more overhead with right arm to improve her ability to put away dishes on tall shelves. LTG Duration 05/12/22 One Impairment lacks HEP Short Term Goal (STG) Pt will be instructed in HEP for right UE and LE ROM, strength, and balance to support therapy services provided in clinic. STG Duration 03/23/22 Care Home Goal (LTG) Pt will be independent with HEP for ROM, strength, and balance to sustain therapy gains. LTG Duration 05/12/22 Assessment Summary Assessment Pt has complained of low back pain - possibly due to altered gait mechanics - for the past week. Spent time today initiating core training in supine and pt has good awareness of pelvic tilt, is able to isolate transverse abdominus. Will re-check core strength next visit and progress to sitting as able. Initiated squat tap today to replace sit to stands and educated pt on need to continue to load and progress resistance in all exercises. Physical Therapy Plan Frequency and Duration Frequency of Treatment 2x/Week Duration of Treatment 3 months Plan of Care Start Date 02/09/22 Plan of Care End Date 05/12/22 Therapeutic Interventions Therapeutic Interventions Balance Training,Gait Training ,Home Exercise Program,Manual Therapy,Neuromuscular Re- education,Self-Care/Home Management,Soft Tissue Mobilization,Taping, Therapeutic Activities, Therapeutic Exercises Modalities Cold Pack/Ice Massage,Electric Stimulation,Hot Packs Next Visit Focus/Plan Next Note Type Treatment Note Next Visit Plan Re-visit core stab in supine; progress to sitting as able ( ball?) Single leg stance, dynamic gait, uneven surfaces. Curb training. Consider [facility] towel stretch.
--- NOTE | 2022-03-21 10:31 | PT.OTN ---
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 On Sunday the (04/22/21), Dorothy fell down a stair when leaving a store. She dislocated her right shoulder which was reduced at ED. She also suffered a right tibial plateau fracture which was treated with ORIF on 04/23/21 at [facility]. Upon [facility] she went to [facility] until June 15. She was NWB RLE for three months, upgraded to WBAT in July 2021. She progressed well with [facility] therapy for right arm and right leg until September when outpatient PT was recommended. It has taken several months for her to get to outpatient. She has no precautions currently. Using a cane mostly when out of the house but is able to navigate her home without AD. She does admit to staying close to roman and furniture for support. She states her right knee locks or sis every now and then while walking. She is hesitant to walk without a cane because of this. Pt has history of right radical mastectomy which may have decreased ROM R shoulder prior to current injury. She is now limited in her ability to hold a coffee cup at arm's length. She is also having difficulty styling her hair with her right arm. Dorothy Lives alone and has stairs at home. She is able to navigate stairs with a rail but she can not get to her backyard (3 steps no rail). Prior Treatments and Tests SNF and HH therapies as above. Treatment Goals Patient/Caregiver Goals Reach into microwave get coffee cup without using left arm to support the right. Comb and style hair with right hand. Improve confidence with RLE. Improve balance. Be able to shop in a housewares store without fear of bumping displays or falling. Personal Factors Other Personal Factors That May Effect PMH includes anxiety, R breast Therapy/Recovery cancer, hypertension, TIA PT-OP-C Subjective Start: 02/08/22 17:25 Freq: Status: Active Protocol: Document 03/21/22 09:46 SP (Rec: 03/21/22 10:35 SP [id number]) OP-PT Subjective Patient Comments Patient Comments Pt reports trying to be more aware of no UT recruitment, level pelvis trunk walking alignment for no trunk SB wt shift for normal gait. PT-OP-E Functional Tests Start: 02/08/22 17:25 Freq: Status: Active Protocol: Document 02/14/22 09:00 AW (Rec: 02/14/22 12:33 AW [id number]) Functional Tests 30 Second Sit to Stand Test Score 12 reps Comments no UE support Dynamic Gait Index (DGI) Score 18 DGI Impairment Rating 20 to <40% Impaired (Score 15- 19) Five Times Sit to Stand Test Score 12.5 seconds Comments no UE support Functional Gait Assessment Score 17 Functional Gait Assessment Impairment 40 to <60% Impaired (Score 13- Rating 18) PT-OP-G Mobility & Gait Start: 02/08/22 17:25 Freq: Status: Active Protocol: Document 02/09/22 10:30 AW (Rec: 02/12/22 16:09 AW [id number]) OP Gait Assessment Comments Gait Comments Pt has bilateral genu valgum affecting gait stability. Feet are moderately pronated bilaterally. Right iliac crest is higher than left. Pt carries a cane but uses it only with increased distance or on uneven surfaces. PT-OP-H Neuro Start: 02/08/22 17:25 Freq: Status: Active Protocol: Document 02/09/22 10:30 AW (Rec: 02/12/22 16:09 AW [id number]) Sensation Evaluation Gross Sensation Gross Sensation WNL PT-OP-J Posture/Palpation/Skin Start: 02/08/22 17:25 Freq: Status: Active Protocol: Document 02/09/22 10:30 AW (Rec: 02/09/22 11:06 AW [id number]) Posture Evaluation Position Standing Evaluation View anterior, lateral Comments Posture Comments Pt stands and walks with modest genu valgus bilaterally . Feet are moderately pronated . Right iliac crest is higher than left. Pelvis is anteriorly tilted Skin Assessment Incisional Assessment Incision Appearance/Comments Well healed surgical incisions RLE PT-OP-K Range of Motion Start: 02/08/22 17:25 Freq: Status: Active Protocol: Document 02/09/22 10:30 AW (Rec: 02/09/22 11:06 AW [id number]) Shoulder Goniometric Range of Motion Shoulder Right Active Shoulder ROM WFL No Testing Position Sitting Flexion 140 Abduction 145 External Rotation at 0 degrees Abduction 0 Internal Rotation Behind Back (text) T8 Left Active Shoulder ROM WFL Yes Testing Position Sitting Flexion 145 Abduction 150 External Rotation at 0 degrees Abduction 50 Internal Rotation Behind Back (text) T4 Elbow/Forearm Range of Motion Elbow/Forearm bilat Elbow/Forearm ROM WFL Yes Hip Goniometric Range of Motion Hip bilat Hip ROM WFL Yes Testing Position Supine Comments No restriction in flexion, rotation. Knee Goniometric Range of Motion Knee Right Knee ROM WFL Yes Patient Position Supine Flexion Active (degrees) 128 Extension Active (degrees) 0 Comments Pt hesitates to flex knee further due to fear avoidance related to her surgery but ROM is WNL. Left Knee ROM WFL Yes Patient Position Supine Flexion Active (degrees) 139 Extension Active (degrees) 0 PT-OP-M Strength Start: 02/08/22 17:25 Freq: Status: Active Protocol: Document 02/09/22 10:30 AW (Rec: 02/09/22 11:09 AW [id number]) Shoulder Strength Shoulder Manual Muscle Testing Left Flexion 4 Good Abduction (C5) 4 Good External Rotation 4 Good Internal Rotation 4 Good Right Flexion 3 Fair Abduction (C5) 3+ Fair+ Internal Rotation 4- Good- Horizontal Abduction 4- Good- Hip Strength Hip Manual Muscle Testing Right Flexion (L2) 4- Good- Extension (S1) 3+ Fair+ Abduction 4- Good- External Rotation 4- Good- Internal Rotation 4- Good- Left Flexion (L2) 4+ Good+ Extension (S1) 4- Good- Abduction 4- Good- External Rotation 4 Good Internal Rotation 4 Good Knee Strength Knee Manual Muscle Testing Right Flexion (S2) 4- Good- Extension (L3) 4 Good Left Flexion (S2) 5 Normal Extension (L3) 5 Normal PT-OP-Q Treatments Start: 02/08/22 17:25 Freq: Status: Active Protocol: Document 03/21/22 09:46 SP (Rec: 03/21/22 10:35 SP [id number]) Cardio Equipment Recumbent Elliptical (Massdrop) Duration (Minutes) 6 Resistance 3 with hospital mask Seat Position 5 Other target 45-50 RPM, 530 reps Therapeutic Exercises Supine Exercises LTR Supine Exercise Name LTR HEP review Reps/Minutes x10 Comments cued feet together and upper body still SKTC Supine Exercise Name SKTC- HEP review Equipment Used nylon belt under low back for tactile feedback Reps/Minutes x10 TrA Supine Exercise Name BKFO, SL march- HEP review Equipment Used nylon belt under low back for tactile feedback Reps/Minutes x10 Comments cued level pelvis stationary Standing Exercises SLS Standing Exercise Name SLS- HEP Side bilateral Equipment Used marco dynadisc/kickbll initial 4 trunk awareness then SLS timed, //bars PRN Reps/Minutes 3, 3, 4: LLE; 5, 9, 12: RLE Comments cued glute & core engage w/ alignment Other Exercises sit to stand Other Exercise Name 1. squat tap x10 firm floor, 2 . STS on blue foam Resistance arms across chest Equipment Used Mesh chair, blue foam Reps/Minutes x10 each Comments 1 cue for knees apart Gait Training Gait Activity gait mirror Description fwd/bwk Device Used 0 Level of Assistance S Surface firm Distance/Duration 20 ft x3 laps in from mirror Treatment Focus hip abd and core fac Comments cued tall posture, no lateral SB, allow UE swing w/ no UT recruitment improved. PT-OP-T Assessment and Plan Start: 02/08/22 17:25 Freq: Status: Active Protocol: Document 03/21/22 09:46 SP (Rec: 03/21/22 10:35 SP [id number]) Physical Therapy Assessment Goals Seven Impairment RLE single leg strength Sterilization Tech Goal (LTG) Pt will stand on right leg 20 seconds without increased lateral shear and without UE support LTG Duration 05/12/22 Six Impairment balance Longterm Goal (LTG) Pt will score 24/30 or greater on Functional Gait Assessment as a measure of improved self -efficacy in gait. LTG Duration 05/12/22 Five Impairment pt needs cane for longer distance gait Short Term Goal (STG) Pt will improve average gait speed on 6MWT to 0.75 m/s or greater without AD. 03/09/22: MET GOAL: 315m/360s=0 .87m/s with no AD, noted lateral trunk wt shifting cues for posture/core stability corrections. STG Duration GOAL MET 03/09/22 Sterilization Tech Goal (LTG) Pt will improve distance on 6MWT without AD by 10% over performance on short term goal as a measure of safe community ambulation. LTG Duration 05/12/22 Four Impairment LE strength Short Term Goal (STG) Pt will complete 5 Time Sit to Stand without use of UE's in 13 seconds or less as a measure of improved LE strength 03/09/22: MET GOAL: 5 STS in 9 sec, arms across chest. STG Duration GOAL MET 03/09/22 Longterm Goal (LTG) Pt will complete 12 reps on 30 Second Sit to Stand test as a measure of improved LE strength and power. 03/09/22: progress: Pt completes 15 reps on 30 Sec STS. LTG Duration 05/12/22 progressing 03/09/22 GOAL MET Three Impairment RUE ROM Longterm Goal (LTG) Pt will be able to style her own hair using both arms without compensatory measures and without increase in baseline pain. LTG Duration 05/12/22 Two Impairment RUE strength Short Term Goal (STG) Pt will be able to lift 2 pounds with straight right arm to improve her ability to complete household duties and to hold a coffee cup with outstretched arm. 03/14/22 - Pt able to lift weight of arm with good self- correction/no shoulder hike. Can lift 1#db 1 rep before fatigue. STG Duration 03/23/22 Longterm Goal (LTG) Pt will lift five pounds or more overhead with right arm to improve her ability to put away dishes on tall shelves. LTG Duration 05/12/22 One Impairment lacks HEP Short Term Goal (STG) Pt will be instructed in HEP for right UE and LE ROM, strength, and balance to support therapy services provided in clinic. STG Duration 03/23/22 Longterm Goal (LTG) Pt will be independent with HEP for ROM, strength, and balance to sustain therapy gains. LTG Duration 05/12/22 Assessment Summary Assessment Pt improved with demonstration newly added core HEP given last tx, occasional cues for stable pelvis during LTR with good PPT positioning. Pt improved 12 SLS on RLE post opp foot contact uneven surface support, LLE challenged. Pt improved STS on uneven surface, and eccentric squat taps firm surface painfree. Physical Therapy Plan Frequency and Duration Frequency of Treatment 2x/Week Duration of Treatment 3 months Plan of Care Start Date 02/09/22 Plan of Care End Date 05/12/22 Therapeutic Interventions Therapeutic Interventions Balance Training,Gait Training ,Home Exercise Program,Manual Therapy,Neuromuscular Re- education,Self-Care/Home Management,Soft Tissue Mobilization,Taping, Therapeutic Activities, Therapeutic Exercises Modalities Cold Pack/Ice Massage,Electric Stimulation,Hot Packs Next Visit Focus/Plan Next Note Type Treatment Note Next Visit Plan Progress to sitting as able ( ball?) next tx. Single leg stance, dynamic gait, uneven surfaces. Curb training. Consider [facility] towel stretch.
--- NOTE | 2022-03-23 12:19 | PT.OTN ---
Current Diagnoses Displaced bicondylar fracture of right tibia, initial encounter for closed fracture (03/23/22) Physical Therapy Treatment Note PT-OP-A Visit Information Start: 02/08/22 17:25 Freq: Status: Active Protocol: Document 03/23/22 09:47 AW (Rec: 03/23/22 10:32 AW [id number]) Out-Patient Physical Therapy Visit Information Visit Information Visit Type Treatment Note Visit Start Time 09:50 Visit Stop Time 10:30 Total Visit Minutes 40 Visit Number 12 Evaluation Information Evaluation Date 02/09/22 PT-OP-B Current Condition Start: 02/08/22 17:25 Freq: Status: Active Protocol: Document 02/09/22 10:30 AW (Rec: 02/08/22 17:45 AW [id number]) Current Condition History of Current Condition Onset Date April 2021 Current Complaints RLE weakness, impaired balance ; RUE weakness and reduced ROM History of Current Condition Before last April, Dorothy had two falls over a period of eight years - one of which resulted in broken left ankle which was treated conservatively. On Sunday the (04/22/21), Dorothy fell down a stair when leaving a store. She dislocated her right shoulder which was reduced at ED. She also suffered a right tibial plateau fracture which was treated with ORIF on 04/23/21 at [facility]. Upon discharge from [facility], she went to [facility] until June 15. She was NWB RLE for three months, upgraded to WBAT in July 2021. She progressed well with [facility] therapy for right arm and right leg until September when outpatient PT was recommended. It has taken several months for her to get to outpatient. She has no precautions currently. Using a cane mostly when out of the house but is able to navigate her home without AD. She does admit to staying close to roman and furniture for support. She states her right knee locks or sis every now and then while walking. She is hesitant to walk without a cane because of this. Pt has history of right radical mastectomy which may have decreased ROM R shoulder prior to current injury. She is now limited in her ability to hold a coffee cup at arm's length. She is also having difficulty styling her hair with her right arm. Dorothy Lives alone and has stairs at home. She is able to navigate stairs with a rail but she can not get to her backyard (3 steps no rail). Prior Treatments and Tests SNF and HH therapies as above. Treatment Goals Patient/Caregiver Goals Reach into microwave get coffee cup without using left arm to support the right. Comb and style hair with right hand. Improve confidence with RLE. Improve balance. Be able to shop in a housewares store without fear of bumping displays or falling. Personal Factors Other Personal Factors That May Effect PMH includes anxiety, R breast Therapy/Recovery cancer, hypertension, TIA PT-OP-C Subjective Start: 02/08/22 17:25 Freq: Status: Active Protocol: Document 03/23/22 09:47 AW (Rec: 03/23/22 10:32 AW [id number]) OP-PT Subjective Patient Comments Patient Comments Pt states she is walking more intentionally but finds she has more back pain end of day when she is so focused on self -corrections. PT-OP-E Functional Tests Start: 02/08/22 17:25 Freq: Status: Active Protocol: Document 02/14/22 09:00 AW (Rec: 02/14/22 12:33 AW [id number]) Functional Tests 30 Second Sit to Stand Test Score 12 reps Comments no UE support Dynamic Gait Index (DGI) Score 18 DGI Impairment Rating 20 to <40% Impaired (Score 15- 19) Five Times Sit to Stand Test Score 12.5 seconds Comments no UE support Functional Gait Assessment Score 17 Functional Gait Assessment Impairment 40 to <60% Impaired (Score 13- Rating 18) PT-OP-G Mobility & Gait Start: 02/08/22 17:25 Freq: Status: Active Protocol: Document 02/09/22 10:30 AW (Rec: 02/12/22 16:09 AW [id number]) OP Gait Assessment Comments Gait Comments Pt has bilateral genu valgum affecting gait stability. Feet are moderately pronated bilaterally. Right iliac crest is higher than left. Pt carries a cane but uses it only with increased distance or on uneven surfaces. PT-OP-H Neuro Start: 02/08/22 17:25 Freq: Status: Active Protocol: Document 02/09/22 10:30 AW (Rec: 02/12/22 16:09 AW [id number]) Sensation Evaluation Gross Sensation Gross Sensation WNL PT-OP-J Posture/Palpation/Skin Start: 02/08/22 17:25 Freq: Status: Active Protocol: Document 02/09/22 10:30 AW (Rec: 02/09/22 11:06 AW [id number]) Posture Evaluation Position Standing Evaluation View anterior, lateral Comments Posture Comments Pt stands and walks with modest genu valgus bilaterally . Feet are moderately pronated . Right iliac crest is higher than left. Pelvis is anteriorly tilted Skin Assessment Incisional Assessment Incision Appearance/Comments Well healed surgical incisions RLE PT-OP-K Range of Motion Start: 02/08/22 17:25 Freq: Status: Active Protocol: Document 02/09/22 10:30 AW (Rec: 02/09/22 11:06 AW [id number]) Shoulder Goniometric Range of Motion Shoulder Right Active Shoulder ROM WFL No Testing Position Sitting Flexion 140 Abduction 145 External Rotation at 0 degrees Abduction 0 Internal Rotation Behind Back (text) T8 Left Active Shoulder ROM WFL Yes Testing Position Sitting Flexion 145 Abduction 150 External Rotation at 0 degrees Abduction 50 Internal Rotation Behind Back (text) T4 Elbow/Forearm Range of Motion Elbow/Forearm bilat Elbow/Forearm ROM WFL Yes Hip Goniometric Range of Motion Hip bilat Hip ROM WFL Yes Testing Position Supine Comments No restriction in flexion, rotation. Knee Goniometric Range of Motion Knee Right Knee ROM WFL Yes Patient Position Supine Flexion Active (degrees) 128 Extension Active (degrees) 0 Comments Pt hesitates to flex knee further due to fear avoidance related to her surgery but ROM is WNL. Left Knee ROM WFL Yes Patient Position Supine Flexion Active (degrees) 139 Extension Active (degrees) 0 PT-OP-M Strength Start: 02/08/22 17:25 Freq: Status: Active Protocol: Document 02/09/22 10:30 AW (Rec: 02/09/22 11:09 AW [id number]) Shoulder Strength Shoulder Manual Muscle Testing Left Flexion 4 Good Abduction (C5) 4 Good External Rotation 4 Good Internal Rotation 4 Good Right Flexion 3 Fair Abduction (C5) 3+ Fair+ Internal Rotation 4- Good- Horizontal Abduction 4- Good- Hip Strength Hip Manual Muscle Testing Right Flexion (L2) 4- Good- Extension (S1) 3+ Fair+ Abduction 4- Good- External Rotation 4- Good- Internal Rotation 4- Good- Left Flexion (L2) 4+ Good+ Extension (S1) 4- Good- Abduction 4- Good- External Rotation 4 Good Internal Rotation 4 Good Knee Strength Knee Manual Muscle Testing Right Flexion (S2) 4- Good- Extension (L3) 4 Good Left Flexion (S2) 5 Normal Extension (L3) 5 Normal PT-OP-Q Treatments Start: 02/08/22 17:25 Freq: Status: Active Protocol: Document 03/23/22 09:47 AW (Rec: 03/23/22 10:32 AW [id number]) Cardio Equipment Recumbent Elliptical (Biodex) Duration (Minutes) 6 Resistance 3 with hospital mask Seat Position 5 Other target 45-50 RPM, Gym Equipment Shuttle Recovery Unilateral Squats Details uni squats Resistance 50 Shuttle Recovery Platform Stable Reps/Time 2x15 Bilateral Squats Details B squats Resistance 75; start 87 next visit Shuttle Recovery Platform Stable Reps/Time 2x12 Therapeutic Ball pelvic circles Exercise Details pelvic circles Ball Size/Color large green Body Position Sitting Comments cued TU, core awareness Therapeutic Exercises Standing Exercises paloff press Standing Exercise Name paloff press Side bilateral Resistance TB1 (both bands) Reps/Minutes 2x12 Gait Training Gait Activity stairs Description 4 step Device Used uni rail Level of Assistance SBA Surface 4 step Distance/Duration 6 steps x 10 Treatment Focus R knee stability on descent PT-OP-T Assessment and Plan Start: 02/08/22 17:25 Freq: Status: Active Protocol: Document 03/23/22 09:47 AW (Rec: 03/23/22 10:32 AW [id number]) Physical Therapy Assessment Goals Seven Impairment RLE single leg strength Barrel Loader Goal (LTG) Pt will stand on right leg 20 seconds without increased lateral shear and without UE support LTG Duration 05/12/22 Six Impairment balance Barrel Loader Goal (LTG) Pt will score 24/30 or greater on Functional Gait Assessment as a measure of improved self -efficacy in gait. LTG Duration 05/12/22 Five Impairment pt needs cane for longer distance gait Short Term Goal (STG) Pt will improve average gait speed on 6MWT to 0.75 m/s or greater without AD. 03/09/22: MET GOAL: 315m/360s=0 .87m/s with no AD, noted lateral trunk wt shifting cues for posture/core stability corrections. STG Duration GOAL MET 03/09/22 Alf Goal (LTG) Pt will improve distance on 6MWT without AD by 10% over performance on short term goal as a measure of safe community ambulation. LTG Duration 05/12/22 Four Impairment LE strength Short Term Goal (STG) Pt will complete 5 Time Sit to Stand without use of UE's in 13 seconds or less as a measure of improved LE strength 03/09/22: MET GOAL: 5 STS in 9 sec, arms across chest. STG Duration GOAL MET 03/09/22 Barrel Loader Goal (LTG) Pt will complete 12 reps on 30 Second Sit to Stand test as a measure of improved LE strength and power. 03/09/22: progress: Pt completes 15 reps on 30 Sec STS. LTG Duration 05/12/22 progressing 03/09/22 GOAL MET Three Impairment RUE ROM Alf Goal (LTG) Pt will be able to style her own hair using both arms without compensatory measures and without increase in baseline pain. LTG Duration 05/12/22 Two Impairment RUE strength Short Term Goal (STG) Pt will be able to lift 2 pounds with straight right arm to improve her ability to complete household duties and to hold a coffee cup with outstretched arm. 03/14/22 - Pt able to lift weight of arm with good self- correction/no shoulder hike. Can lift 1#db 1 rep before fatigue. STG Duration 03/23/22 Alf Goal (LTG) Pt will lift five pounds or more overhead with right arm to improve her ability to put away dishes on tall shelves. LTG Duration 05/12/22 One Impairment lacks HEP Short Term Goal (STG) Pt will be instructed in HEP for right UE and LE ROM, strength, and balance to support therapy services provided in clinic. STG Duration 03/23/22 Barrel Loader Goal (LTG) Pt will be independent with HEP for ROM, strength, and balance to sustain therapy gains. LTG Duration 05/12/22 Assessment Summary Assessment Transitioned core work to sitting on ball with hands on knees. Pt able to isolate pelvic movement fairly well. Spent extra time on stair management today with pt able to ascend and descend step over step with unilateral rail . Cueing and tactile facilitation were required for eccentric control of descent. Physical Therapy Plan Frequency and Duration Frequency of Treatment 2x/Week Duration of Treatment 3 months Plan of Care Start Date 02/09/22 Plan of Care End Date 05/12/22 Therapeutic Interventions Therapeutic Interventions Balance Training,Gait Training ,Home Exercise Program,Manual Therapy,Neuromuscular Re- education,Self-Care/Home Management,Soft Tissue Mobilization,Taping, Therapeutic Activities, Therapeutic Exercises Modalities Cold Pack/Ice Massage,Electric Stimulation,Hot Packs Next Visit Focus/Plan Next Note Type Treatment Note Next Visit Plan Continue core stab to address back pain. Single leg stance, dynamic gait, uneven surfaces. Curb training. Consider IR towel stretch.
--- NOTE | 2022-04-04 14:33 | PT.OTN ---
Current Diagnoses Displaced bicondylar fracture of right tibia, initial encounter for closed fracture (04/04/22) Physical Therapy Treatment Note PT-OP-A Visit Information Start: 02/08/22 17:25 Freq: Status: Active Protocol: Document 04/04/22 13:47 SP (Rec: 04/04/22 14:42 SP [id number]) Out-Patient Physical Therapy Visit Information Visit Information Visit Type Treatment Note Visit Note GIOVANNA Martinez assisted with pt's ther ex under direct supervision of SHADI Monson. Visit Start Time 13:47 Visit Stop Time 14:33 Total Visit Minutes 46 Visit Number 13 Number of TRAFFIC RATE ANALYST Visits 1 Evaluation Information Evaluation Date 02/09/22 PT-OP-B Current Condition Start: 02/08/22 17:25 Freq: Status: Active Protocol: Document 02/09/22 10:30 AW (Rec: 02/08/22 17:45 AW [id number]) Current Condition History of Current Condition Onset Date April 2021 Current Complaints RLE weakness, impaired balance ; RUE weakness and reduced ROM History of Current Condition Before last April, Dorothy had two falls over a period of eight years - one of which resulted in broken left ankle which was treated conservatively. On Sunday the (04/22/21), Dorothy fell down a stair when leaving a store. She dislocated her right shoulder which was reduced at ED. She also suffered a right tibial plateau fracture which was treated with ORIF on 04/23/21 at [facility]. Upon discharge from [facility] she went to [facility] until June 15. She was NWB RLE for three months, upgraded to WBAT in July 2021. She progressed well with [facility] therapy for right arm and right leg until September when outpatient PT was recommended. It has taken several months for her to get to outpatient. She has no precautions currently. Using a cane mostly when out of the house but is able to navigate her home without AD. She does admit to staying close to roman and furniture for support. She states her right knee locks or sis every now and then while walking. She is hesitant to walk without a cane because of this. Pt has history of right radical mastectomy which may have decreased ROM R shoulder prior to current injury. She is now limited in her ability to hold a coffee cup at arm's length. She is also having difficulty styling her hair with her right arm. Dorothy Lives alone and has stairs at home. She is able to navigate stairs with a rail but she can not get to her backyard (3 steps no rail). Prior Treatments and Tests SNF and HH therapies as above. Treatment Goals Patient/Caregiver Goals Reach into microwave get coffee cup without using left arm to support the right. Comb and style hair with right hand. Improve confidence with RLE. Improve balance. Be able to shop in a housewares store without fear of bumping displays or falling. Personal Factors Other Personal Factors That May Effect PMH includes anxiety, R breast Therapy/Recovery cancer, hypertension, TIA PT-OP-C Subjective Start: 02/08/22 17:25 Freq: Status: Active Protocol: Document 04/04/22 13:47 SP (Rec: 04/04/22 14:42 SP [id number]) OP-PT Subjective Patient Comments Patient Comments Pt reports improved back pain, was able to walk over uneven surfaces at picnic w/o use of SPC and went for walk down driveway. Pt states she can walk for up to an hour w/ LB pain and fatigue at the end of [employer] trip, with pain at 9/ 10 across LB. Laying down on side helps relieve LB pain. PT-OP-E Functional Tests Start: 02/08/22 17:25 Freq: Status: Active Protocol: Document 04/04/22 13:47 SP (Rec: 04/04/22 14:42 SP [id number]) Functional Tests 6 Minute Walk Test Distance 1101ft Device Used 0 Comments cued soft heel strike to decrease SI impact PT-OP-G Mobility & Gait Start: 02/08/22 17:25 Freq: Status: Active Protocol: Document 02/09/22 10:30 AW (Rec: 02/12/22 16:09 AW [id number]) OP Gait Assessment Comments Gait Comments Pt has bilateral genu valgum affecting gait stability. Feet are moderately pronated bilaterally. Right iliac crest is higher than left. Pt carries a cane but uses it only with increased distance or on uneven surfaces. PT-OP-H Neuro Start: 02/08/22 17:25 Freq: Status: Active Protocol: Document 02/09/22 10:30 AW (Rec: 02/12/22 16:09 AW [id number]) Sensation Evaluation Gross Sensation Gross Sensation WNL PT-OP-J Posture/Palpation/Skin Start: 02/08/22 17:25 Freq: Status: Active Protocol: Document 02/09/22 10:30 AW (Rec: 02/09/22 11:06 AW [id number]) Posture Evaluation Position Standing Evaluation View anterior, lateral Comments Posture Comments Pt stands and walks with modest genu valgus bilaterally . Feet are moderately pronated . Right iliac crest is higher than left. Pelvis is anteriorly tilted Skin Assessment Incisional Assessment Incision Appearance/Comments Well healed surgical incisions RLE PT-OP-K Range of Motion Start: 02/08/22 17:25 Freq: Status: Active Protocol: Document 02/09/22 10:30 AW (Rec: 02/09/22 11:06 AW [id number]) Shoulder Goniometric Range of Motion Shoulder Right Active Shoulder ROM WFL No Testing Position Sitting Flexion 140 Abduction 145 External Rotation at 0 degrees Abduction 0 Internal Rotation Behind Back (text) T8 Left Active Shoulder ROM WFL Yes Testing Position Sitting Flexion 145 Abduction 150 External Rotation at 0 degrees Abduction 50 Internal Rotation Behind Back (text) T4 Elbow/Forearm Range of Motion Elbow/Forearm bilat Elbow/Forearm ROM WFL Yes Hip Goniometric Range of Motion Hip bilat Hip ROM WFL Yes Testing Position Supine Comments No restriction in flexion, rotation. Knee Goniometric Range of Motion Knee Right Knee ROM WFL Yes Patient Position Supine Flexion Active (degrees) 128 Extension Active (degrees) 0 Comments Pt hesitates to flex knee further due to fear avoidance related to her surgery but ROM is WNL. Left Knee ROM WFL Yes Patient Position Supine Flexion Active (degrees) 139 Extension Active (degrees) 0 PT-OP-M Strength Start: 02/08/22 17:25 Freq: Status: Active Protocol: Document 02/09/22 10:30 AW (Rec: 02/09/22 11:09 AW [id number]) Shoulder Strength Shoulder Manual Muscle Testing Left Flexion 4 Good Abduction (C5) 4 Good External Rotation 4 Good Internal Rotation 4 Good Right Flexion 3 Fair Abduction (C5) 3+ Fair+ Internal Rotation 4- Good- Horizontal Abduction 4- Good- Hip Strength Hip Manual Muscle Testing Right Flexion (L2) 4- Good- Extension (S1) 3+ Fair+ Abduction 4- Good- External Rotation 4- Good- Internal Rotation 4- Good- Left Flexion (L2) 4+ Good+ Extension (S1) 4- Good- Abduction 4- Good- External Rotation 4 Good Internal Rotation 4 Good Knee Strength Knee Manual Muscle Testing Right Flexion (S2) 4- Good- Extension (L3) 4 Good Left Flexion (S2) 5 Normal Extension (L3) 5 Normal PT-OP-Q Treatments Start: 02/08/22 17:25 Freq: Status: Active Protocol: Document 04/04/22 13:47 SP (Rec: 04/04/22 14:42 SP [id number]) Cardio Equipment Recumbent Elliptical (Pull) Duration (Minutes) 6 Resistance 4 w/ hospital mask Seat Position 5 Other 552 steps, 45-50 RPMs Therapeutic Exercises Supine Exercises B shld FF w/ dowel Supine Exercise Name added to HEP Side bilateral Resistance AROM Equipment Used dowel Reps/Minutes x10 Comments good feedback response, painfree range and states feels good using dowel piriformis fig 4 stretch Supine Exercise Name added to HEP Side bilateral Reps/Minutes 3 reps x30 sec Comments good feedback response to less tension. Standing Exercises SLS Standing Exercise Name SLS- HEP Side bilateral Equipment Used firm floor at rail Reps/Minutes 4, 5, 6: LLE; 5, 13: RLE Comments cued glute & core engage w/ alignment Gait Training Gait Activity 6MWT Device Used 0 Distance/Duration 0.93m/s= 3.01ft/s Treatment Focus trunk alignment, heel toe to normalize gait and endurance for community amb Comments 1101 ft (335.5 m) in 6 min( 360s) Manual Therapy Treatment Soft Tissue Mobilization R piriformis, glut med Mobilization Type Cross-Friction,Myofascial Release,Rolling Intensity/Depth Moderate Body Position Sidelying Comments manual, good feedback response softening to muscle PT-OP-T Assessment and Plan Start: 02/08/22 17:25 Freq: Status: Active Protocol: Document 04/04/22 13:47 SP (Rec: 04/04/22 14:42 SP [id number]) Physical Therapy Assessment Goals Seven Impairment RLE single leg strength Mcfp Goal (LTG) Pt will stand on right leg 20 seconds without increased lateral shear and without UE support 04/04/22: prgrogressing :4, 5 , 6: LLE; 5, 13: RLE. LTG Duration 05/12/22 Six Impairment balance Media Traffic Manager Goal (LTG) Pt will score 24/30 or greater on Functional Gait Assessment as a measure of improved self -efficacy in gait. LTG Duration 05/12/22 Five Impairment pt needs cane for longer distance gait Short Term Goal (STG) Pt will improve average gait speed on 6MWT to 0.75 m/s or greater without AD. 03/09/22: MET GOAL: 315m/360s=0 .87m/s with no AD, noted lateral trunk wt shifting cues for posture/core stability corrections. STG Duration GOAL MET 03/09/22 Media Traffic Manager Goal (LTG) Pt will improve distance on 6MWT without AD by 10% over performance on short term goal as a measure of safe community ambulation. 04/04/22: 0.93m/s= 3.01ft/s LTG Duration 05/12/22 progressing Four Impairment LE strength Short Term Goal (STG) Pt will complete 5 Time Sit to Stand without use of UE's in 13 seconds or less as a measure of improved LE strength 03/09/22: MET GOAL: 5 STS in 9 sec, arms across chest. STG Duration GOAL MET 03/09/22 Mcfp Goal (LTG) Pt will complete 12 reps on 30 Second Sit to Stand test as a measure of improved LE strength and power. 03/09/22: progress: Pt completes 15 reps on 30 Sec STS. LTG Duration 05/12/22 progressing 03/09/22 GOAL MET Three Impairment RUE ROM Media Traffic Manager Goal (LTG) Pt will be able to style her own hair using both arms without compensatory measures and without increase in baseline pain. LTG Duration 05/12/22 Two Impairment RUE strength Short Term Goal (STG) Pt will be able to lift 2 pounds with straight right arm to improve her ability to complete household duties and to hold a coffee cup with outstretched arm. 03/14/22 - Pt able to lift weight of arm with good self- correction/no shoulder hike. Can lift 1#db 1 rep before fatigue. STG Duration 03/23/22 Mcfp Goal (LTG) Pt will lift five pounds or more overhead with right arm to improve her ability to put away dishes on tall shelves. LTG Duration 05/12/22 One Impairment lacks HEP Short Term Goal (STG) Pt will be instructed in HEP for right UE and LE ROM, strength, and balance to support therapy services provided in clinic. STG Duration 03/23/22 Mcfp Goal (LTG) Pt will be independent with HEP for ROM, strength, and balance to sustain therapy gains. LTG Duration 05/12/22 Assessment Summary Assessment Pt improved gait distance without use of AD but reports pain R hip end distance, improved post manual and initiated PF stretching. She stated L shld has been bothersome lately and during eccentric lowering PF stretch L shld grabbed causing pain, improved post initiated FF w/ dowel assist, suggested continue at home warm up in am . Pt is concerned appts end end of Apr and hoping that she can improve gait and functional mobility in community goals before finishes for better quality of life. TRAFFIC RATE ANALYST educated continue walking on own, may need to drive to level surface location besides times goes to [facility], is compliant with supine HEP per discussion. Physical Therapy Plan Frequency and Duration Frequency of Treatment 2x/Week Duration of Treatment 3 months Plan of Care Start Date 02/09/22 Plan of Care End Date 05/12/22 Therapeutic Interventions Therapeutic Interventions Balance Training,Gait Training ,Home Exercise Program,Manual Therapy,Neuromuscular Re- education,Self-Care/Home Management,Soft Tissue Mobilization,Taping, Therapeutic Activities, Therapeutic Exercises Modalities Cold Pack/Ice Massage,Electric Stimulation,Hot Packs Next Visit Focus/Plan Next Note Type Treatment Note Next Visit Plan Recheck PF stretch, supine FF and continue core stab to address back pain. Consider GH IR towel stretch. Single leg stance, dynamic gait, uneven surfaces. Curb training.
--- NOTE | 2022-04-07 14:30 | PT.OTN ---
Current Diagnoses Displaced bicondylar fracture of right tibia, initial encounter for closed fracture (04/07/22) Physical Therapy Treatment Note PT-OP-A Visit Information Start: 02/08/22 17:25 Freq: Status: Active Protocol: Document 04/07/22 13:49 SP (Rec: 04/07/22 14:34 SP [id number]) Out-Patient Physical Therapy Visit Information Visit Information Visit Type Treatment Note Visit Note GIOVANNA Martinez assisted with pt's ther ex under direct supervision of SHADI Monson. Visit Start Time 13:49 Visit Stop Time 14:30 Total Visit Minutes 41 Visit Number 14 Number of BIZTALK DEVELOPER Visits 2 Evaluation Information Evaluation Date 02/09/22 PT-OP-B Current Condition Start: 02/08/22 17:25 Freq: Status: Active Protocol: Document 02/09/22 10:30 AW (Rec: 02/08/22 17:45 AW [id number]) Current Condition History of Current Condition Onset Date April 2021 Current Complaints RLE weakness, impaired balance ; RUE weakness and reduced ROM History of Current Condition Before last April, Dorothy had two falls over a period of eight years - one of which resulted in broken left ankle which was treated conservatively. On Sunday the (04/22/21), Dorothy fell down a stair when leaving a store. She dislocated her right shoulder which was reduced at ED. She also suffered a right tibial plateau fracture which was treated with ORIF on 04/23/21 at [facility]. [facility] [place] [facility] she went to [facility] until June 15. She was NWB RLE for three months, upgraded to WBAT in July 2021. She progressed well with [facility] therapy for right arm and right leg until September when outpatient PT was recommended. It has taken several months for her to get to outpatient. She has no precautions currently. Using a cane mostly when out of the house but is able to navigate her home without AD. She does admit to staying close to roman and furniture for support. She states her right knee locks or sis every now and then while walking. She is hesitant to walk without a cane because of this. Pt has history of right radical mastectomy which may have decreased ROM R shoulder prior to current injury. She is now limited in her ability to hold a coffee cup at arm's length. She is also having difficulty styling her hair with her right arm. Dorothy Lives alone and has stairs at home. She is able to navigate stairs with a rail but she can not get to her backyard (3 steps no rail). Prior Treatments and Tests SNF and HH therapies as above. Treatment Goals Patient/Caregiver Goals Reach into microwave get coffee cup without using left arm to support the right. Comb and style hair with right hand. Improve confidence with RLE. Improve balance. Be able to shop in a [employer] store without fear of bumping displays or falling. Personal Factors Other Personal Factors That May Effect PMH includes anxiety, R breast Therapy/Recovery cancer, hypertension, TIA PT-OP-C Subjective Start: 02/08/22 17:25 Freq: Status: Active Protocol: Document 04/07/22 13:49 SP (Rec: 04/07/22 14:34 SP [id number]) OP-PT Subjective Patient Comments Patient Comments Pt reports LB little tension but much better. She states can up a cup coffee in microwave now, little OH. PT-OP-E Functional Tests Start: 02/08/22 17:25 Freq: Status: Active Protocol: Document 04/04/22 13:47 SP (Rec: 04/04/22 14:42 SP [id number]) Functional Tests 6 Minute Walk Test Distance 1101ft Device Used 0 Comments cued soft heel strike to decrease SI impact PT-OP-G Mobility & Gait Start: 02/08/22 17:25 Freq: Status: Active Protocol: Document 02/09/22 10:30 AW (Rec: 02/12/22 16:09 AW [id number]) OP Gait Assessment Comments Gait Comments Pt has bilateral genu valgum affecting gait stability. Feet are moderately pronated bilaterally. Right iliac crest is higher than left. Pt carries a cane but uses it only with increased distance or on uneven surfaces. PT-OP-H Neuro Start: 02/08/22 17:25 Freq: Status: Active Protocol: Document 02/09/22 10:30 AW (Rec: 02/12/22 16:09 AW [id number]) Sensation Evaluation Gross Sensation Gross Sensation WNL PT-OP-J Posture/Palpation/Skin Start: 02/08/22 17:25 Freq: Status: Active Protocol: Document 02/09/22 10:30 AW (Rec: 02/09/22 11:06 AW [id number]) Posture Evaluation Position Standing Evaluation View anterior, lateral Comments Posture Comments Pt stands and walks with modest genu valgus bilaterally . Feet are moderately pronated . Right iliac crest is higher than left. Pelvis is anteriorly tilted Skin Assessment Incisional Assessment Incision Appearance/Comments Well healed surgical incisions RLE PT-OP-K Range of Motion Start: 02/08/22 17:25 Freq: Status: Active Protocol: Document 02/09/22 10:30 AW (Rec: 02/09/22 11:06 AW [id number]) Shoulder Goniometric Range of Motion Shoulder Right Active Shoulder ROM WFL No Testing Position Sitting Flexion 140 Abduction 145 External Rotation at 0 degrees Abduction 0 Internal Rotation Behind Back (text) T8 Left Active Shoulder ROM WFL Yes Testing Position Sitting Flexion 145 Abduction 150 External Rotation at 0 degrees Abduction 50 Internal Rotation Behind Back (text) T4 Elbow/Forearm Range of Motion Elbow/Forearm bilat Elbow/Forearm ROM WFL Yes Hip Goniometric Range of Motion Hip bilat Hip ROM WFL Yes Testing Position Supine Comments No restriction in flexion, rotation. Knee Goniometric Range of Motion Knee Right Knee ROM WFL Yes Patient Position Supine Flexion Active (degrees) 128 Extension Active (degrees) 0 Comments Pt hesitates to flex knee further due to fear avoidance related to her surgery but ROM is WNL. Left Knee ROM WFL Yes Patient Position Supine Flexion Active (degrees) 139 Extension Active (degrees) 0 PT-OP-M Strength Start: 02/08/22 17:25 Freq: Status: Active Protocol: Document 02/09/22 10:30 AW (Rec: 02/09/22 11:09 AW [id number]) Shoulder Strength Shoulder Manual Muscle Testing Left Flexion 4 Good Abduction (C5) 4 Good External Rotation 4 Good Internal Rotation 4 Good Right Flexion 3 Fair Abduction (C5) 3+ Fair+ Internal Rotation 4- Good- Horizontal Abduction 4- Good- Hip Strength Hip Manual Muscle Testing Right Flexion (L2) 4- Good- Extension (S1) 3+ Fair+ Abduction 4- Good- External Rotation 4- Good- Internal Rotation 4- Good- Left Flexion (L2) 4+ Good+ Extension (S1) 4- Good- Abduction 4- Good- External Rotation 4 Good Internal Rotation 4 Good Knee Strength Knee Manual Muscle Testing Right Flexion (S2) 4- Good- Extension (L3) 4 Good Left Flexion (S2) 5 Normal Extension (L3) 5 Normal PT-OP-Q Treatments Start: 02/08/22 17:25 Freq: Status: Active Protocol: Document 04/07/22 13:49 SP (Rec: 04/07/22 14:34 SP [id number]) Therapeutic Exercises Sitting Exercises pulleys Sitting Exercise Name HEP review- FF (seated and standing today) Side right Resistance PROM Reps/Minutes x10 Comments good form Standing Exercises GH IR Standing Exercise Name AAROM GH IR w/ Towel- added to HEP Side right Reps/Minutes x5, held 5 breaths Comments cued 1st across to opp pelvis then up back AROM R Shlr Standing Exercise Name 1. wall walk up: ABD, Flex Reach OH taps 2. place cones into cupboard Side right Equipment Used Wall Reps/Minutes 2x10 Comments Cued for preventing shldr elevation ball wall self STMs Standing Exercise Name add PRN HEP: Trap, infrasp, RH , Piriformis, Glute Max Side right Resistance corner wall Reps/Minutes 1 min Comments good feedback and form PT-OP-T Assessment and Plan Start: 02/08/22 17:25 Freq: Status: Active Protocol: Document 04/07/22 13:49 SP (Rec: 04/07/22 14:34 SP [id number]) Physical Therapy Assessment Goals Seven Impairment RLE single leg strength Legal Compliance Officer Goal (LTG) Pt will stand on right leg 20 seconds without increased lateral shear and without UE support 04/04/22: prgrogressing :4, 5 , 6: LLE; 5, 13: RLE. LTG Duration 05/12/22 Six Impairment balance Fpc Goal (LTG) Pt will score 24/30 or greater on Functional Gait Assessment as a measure of improved self -efficacy in gait. LTG Duration 05/12/22 Five Impairment pt needs cane for longer distance gait Short Term Goal (STG) Pt will improve average gait speed on 6MWT to 0.75 m/s or greater without AD. 03/09/22: MET GOAL: 315m/360s=0 .87m/s with no AD, noted lateral trunk wt shifting cues for posture/core stability corrections. STG Duration GOAL MET 03/09/22 Fpc Goal (LTG) Pt will improve distance on 6MWT without AD by 10% over performance on short term goal as a measure of safe community ambulation. 04/04/22: 0.93m/s= 3.01ft/s LTG Duration 05/12/22 (progressed 04/04/22) Four Impairment LE strength Short Term Goal (STG) Pt will complete 5 Time Sit to Stand without use of UE's in 13 seconds or less as a measure of improved LE strength 03/09/22: MET GOAL: 5 STS in 9 sec, arms across chest. STG Duration GOAL MET 03/09/22 Fpc Goal (LTG) Pt will complete 12 reps on 30 Second Sit to Stand test as a measure of improved LE strength and power. 03/09/22: progress: Pt completes 15 reps on 30 Sec STS. LTG Duration 05/12/22 progressing 03/09/22 GOAL MET Three Impairment RUE ROM Legal Compliance Officer Goal (LTG) Pt will be able to style her own hair using both arms without compensatory measures and without increase in baseline pain. 04/07/22: Progressing: able to pick front and R/L side of head but still can't quite get back head and hold for period time. LTG Duration 05/12/22 progressing 04/07/22 Two Impairment RUE strength Short Term Goal (STG) Pt will be able to lift 2 pounds with straight right arm to improve her ability to complete household duties and to hold a coffee cup with outstretched arm. 03/14/22 - Pt able to lift weight of arm with good self- correction/no shoulder hike. Can lift 1#db 1 rep before fatigue. 04/07/22: able lift DB #1 1 rep OH but then fatigues, able to perform about 8 more AROM seated and standing. She is able to put dishes away with RUE. STG Duration 03/23/22 Progressing 04/07/22 Legal Compliance Officer Goal (LTG) Pt will lift five pounds or more overhead with right arm to improve her ability to put away dishes on tall shelves. LTG Duration 05/12/22 One Impairment lacks HEP Short Term Goal (STG) Pt will be instructed in HEP for right UE and LE ROM, strength, and balance to support therapy services provided in clinic. STG Duration 03/23/22 Fpc Goal (LTG) Pt will be independent with HEP for ROM, strength, and balance to sustain therapy gains. LTG Duration 05/12/22 Assessment Summary Assessment Pt improved in FF AROM over head cones up into cupboard and tolerated R GH IR stretching w/ towel vs cane, able to reach behind back actively, not measured. Pt is making gains in OH reaching AROM with abillitiy to put away dishes but not use of 1# DB yet >1 rep today. Ecouraged to utilize OH reaching dish activity as HEP for progression in strength. She states still has LBP, stretching does help. Physical Therapy Plan Frequency and Duration Frequency of Treatment 2x/Week Duration of Treatment 3 months Plan of Care Start Date 02/09/22 Plan of Care End Date 05/12/22 Therapeutic Interventions Therapeutic Interventions Balance Training,Gait Training ,Home Exercise Program,Manual Therapy,Neuromuscular Re- education,Self-Care/Home Management,Soft Tissue Mobilization,Taping, Therapeutic Activities, Therapeutic Exercises Modalities Cold Pack/Ice Massage,Electric Stimulation,Hot Packs Next Visit Focus/Plan Next Note Type Treatment Note Next Visit Plan Recheck R GH IR AROM, and progressed over all measurements RUE, PF stretch, continue core stab to address back pain. Single leg stance, dynamic gait, uneven surfaces . Curb training.
--- NOTE | 2022-04-25 13:05 | PT.OTN ---
Current Diagnoses Displaced bicondylar fracture of right tibia, initial encounter for closed fracture (04/25/22) Physical Therapy Treatment Note PT-OP-A Visit Information Start: 02/08/22 17:25 Freq: Status: Active Protocol: Document 04/25/22 12:15 SP (Rec: 04/25/22 13:06 SP [id number]) Out-Patient Physical Therapy Visit Information Visit Information Visit Type Treatment Note Visit Start Time 12:15 Visit Stop Time 13:05 Total Visit Minutes 50 Visit Number 15 Number of ACCESSIBILITY LIFT TECHNICIAN Visits 3 Evaluation Information Evaluation Date 02/09/22 PT-OP-B Current Condition Start: 02/08/22 17:25 Freq: Status: Active Protocol: Document 02/09/22 10:30 AW (Rec: 02/08/22 17:45 AW [id number]) Current Condition History of Current Condition Onset Date April 2021 Current Complaints RLE weakness, impaired balance ; RUE weakness and reduced ROM History of Current Condition Before last April, Dorothy had two falls over a period of eight years - one of which resulted in broken left ankle which was treated conservatively. On Sunday the (04/22/21), Dorothy fell down a stair when leaving a store. She dislocated her right shoulder which was reduced at ED. She also suffered a right tibial plateau fracture which was treated with ORIF on 04/23/21 at [facility]. [place] [facility] she went to [facility] until June 15. She was NWB RLE for three months, upgraded to WBAT in July 2021. She progressed well with [facility] therapy for right arm and right leg until September when outpatient PT was recommended. It has taken several months for her to get to outpatient. She has no precautions currently. Using a cane mostly when out of the house but is able to navigate her home without AD. She does admit to staying close to roman and furniture for support. She states her right knee locks or sis every now and then while walking. She is hesitant to walk without a cane because of this. Pt has history of right radical mastectomy which may have decreased ROM R shoulder prior to current injury. She is now limited in her ability to hold a coffee cup at arm's length. She is also having difficulty styling her hair with her right arm. Dorothy Lives alone and has stairs at home. She is able to navigate stairs with a rail but she can not get to her backyard (3 steps no rail). Prior Treatments and Tests SNF and HH therapies as above. Treatment Goals Patient/Caregiver Goals Reach into microwave get coffee cup without using left arm to support the right. Comb and style hair with right hand. Improve confidence with RLE. Improve balance. Be able to shop in a housewares store without fear of bumping displays or falling. Personal Factors Other Personal Factors That May Effect PMH includes anxiety, R breast Therapy/Recovery cancer, hypertension, TIA PT-OP-C Subjective Start: 02/08/22 17:25 Freq: Status: Active Protocol: Document 04/25/22 12:15 SP (Rec: 04/25/22 13:06 SP [id number]) OP-PT Subjective Patient Comments Patient Comments Pt states can pick comb but not use curling ironstill withRUE dueto lack of ROM. Compliant with HEP. Doing walks in driveway putting out/ pulling in. States can perform yard incline and decline carefully. Is able to mop floors now better, not uneven surface. PT-OP-E Functional Tests Start: 02/08/22 17:25 Freq: Status: Active Protocol: Document 04/04/22 13:47 SP (Rec: 04/04/22 14:42 SP [id number]) Functional Tests 6 Minute Walk Test Distance 1101ft Device Used 0 Comments cued soft heel strike to decrease SI impact PT-OP-G Mobility & Gait Start: 02/08/22 17:25 Freq: Status: Active Protocol: Document 02/09/22 10:30 AW (Rec: 02/12/22 16:09 AW [id number]) OP Gait Assessment Comments Gait Comments Pt has bilateral genu valgum affecting gait stability. Feet are moderately pronated bilaterally. Right iliac crest is higher than left. Pt carries a cane but uses it only with increased distance or on uneven surfaces. PT-OP-H Neuro Start: 02/08/22 17:25 Freq: Status: Active Protocol: Document 02/09/22 10:30 AW (Rec: 02/12/22 16:09 AW [id number]) Sensation Evaluation Gross Sensation Gross Sensation WNL PT-OP-J Posture/Palpation/Skin Start: 02/08/22 17:25 Freq: Status: Active Protocol: Document 02/09/22 10:30 AW (Rec: 02/09/22 11:06 AW [id number]) Posture Evaluation Position Standing Evaluation View anterior, lateral Comments Posture Comments Pt stands and walks with modest genu valgus bilaterally . Feet are moderately pronated . Right iliac crest is higher than left. Pelvis is anteriorly tilted Skin Assessment Incisional Assessment Incision Appearance/Comments Well healed surgical incisions RLE PT-OP-K Range of Motion Start: 02/08/22 17:25 Freq: Status: Active Protocol: Document 02/09/22 10:30 AW (Rec: 02/09/22 11:06 AW [id number]) Shoulder Goniometric Range of Motion Shoulder Right Active Shoulder ROM WFL No Testing Position Sitting Flexion 140 Abduction 145 External Rotation at 0 degrees Abduction 0 Internal Rotation Behind Back (text) T8 Left Active Shoulder ROM WFL Yes Testing Position Sitting Flexion 145 Abduction 150 External Rotation at 0 degrees Abduction 50 Internal Rotation Behind Back (text) T4 Elbow/Forearm Range of Motion Elbow/Forearm bilat Elbow/Forearm ROM WFL Yes Hip Goniometric Range of Motion Hip bilat Hip ROM WFL Yes Testing Position Supine Comments No restriction in flexion, rotation. Knee Goniometric Range of Motion Knee Right Knee ROM WFL Yes Patient Position Supine Flexion Active (degrees) 128 Extension Active (degrees) 0 Comments Pt hesitates to flex knee further due to fear avoidance related to her surgery but ROM is WNL. Left Knee ROM WFL Yes Patient Position Supine Flexion Active (degrees) 139 Extension Active (degrees) 0 PT-OP-M Strength Start: 02/08/22 17:25 Freq: Status: Active Protocol: Document 02/09/22 10:30 AW (Rec: 02/09/22 11:09 AW [id number]) Shoulder Strength Shoulder Manual Muscle Testing Left Flexion 4 Good Abduction (C5) 4 Good External Rotation 4 Good Internal Rotation 4 Good Right Flexion 3 Fair Abduction (C5) 3+ Fair+ Internal Rotation 4- Good- Horizontal Abduction 4- Good- Hip Strength Hip Manual Muscle Testing Right Flexion (L2) 4- Good- Extension (S1) 3+ Fair+ Abduction 4- Good- External Rotation 4- Good- Internal Rotation 4- Good- Left Flexion (L2) 4+ Good+ Extension (S1) 4- Good- Abduction 4- Good- External Rotation 4 Good Internal Rotation 4 Good Knee Strength Knee Manual Muscle Testing Right Flexion (S2) 4- Good- Extension (L3) 4 Good Left Flexion (S2) 5 Normal Extension (L3) 5 Normal PT-OP-Q Treatments Start: 02/08/22 17:25 Freq: Status: Active Protocol: Document 04/25/22 12:15 SP (Rec: 04/25/22 13:06 SP [id number]) Cardio Equipment Other Cardio Equipment Other Cardio Equipment Lower body peddles on floor front chair: AROM 8 min no resistance, unable to provide. Painfree. Therapeutic Exercises Sitting Exercises HS curl Sitting Exercise Name added to HEP Side right Resistance TB #2 lrg loop Equipment Used anchored to banister Reps/Minutes 2x10 Comments good form, discussed set up at home. Standing Exercises step up/downs Standing Exercise Name added to HEP Side bilateral Equipment Used contact rail LLE Reps/Minutes 2x5 reps Comments cued soft knee end range for HS fac TKE Standing Exercise Name added to [facility] (give HO next tx) Side right Resistance TB #2 Reps/Minutes 2x10, hold 5 sec quad/ HS fac Comments cued soft knee end range hold 5 sec. heel and toe raises Standing Exercise Name reviewed HEP Resistance AROM Equipment Used contact chair for support needed Reps/Minutes 10x2 Comments cued pelvis under her, soft R knee positioning Gait Training Gait Activity 6MWT Device Used 0 Level of Assistance uneven pavement outside parkinglot Surface uneven (04/04 indoors) Distance/Duration 0.92m/s= 3.01ft/s Treatment Focus trunk alignment, heel toe to normalize gait and endurance for community amb Comments 1084 ft (330.4 m) in 6 min( 360s). PT-OP-T Assessment and Plan Start: 02/08/22 17:25 Freq: Status: Active Protocol: Document 04/25/22 12:15 SP (Rec: 04/25/22 13:06 SP [id number]) Physical Therapy Assessment Goals Seven Impairment RLE single leg strength Meat Stuffer Goal (LTG) Pt will stand on right leg 20 seconds without increased lateral shear and without UE support 04/04/22: prgrogressing :4, 5 , 6: LLE; 5, 13: RLE. LTG Duration 05/12/22 Six Impairment balance Care Home Goal (LTG) Pt will score 24/30 or greater on Functional Gait Assessment as a measure of improved self -efficacy in gait. LTG Duration 05/12/22 Five Impairment pt needs cane for longer distance gait Short Term Goal (STG) Pt will improve average gait speed on 6MWT to 0.75 m/s or greater without AD. 03/09/22: MET GOAL: 315m/360s=0 .87m/s with no AD, noted lateral trunk wt shifting cues for posture/core stability corrections. STG Duration GOAL MET 03/09/22 Meat Stuffer Goal (LTG) Pt will improve distance on 6MWT without AD by 10% over performance on short term goal as a measure of safe community ambulation. 04/04/22: 0.93m/s= 3.01ft/s 04/25/22: 0.91m/s= 3.01 ft/s LTG Duration 05/12/22 (progressed 04/25/22) Four Impairment LE strength Short Term Goal (STG) Pt will complete 5 Time Sit to Stand without use of UE's in 13 seconds or less as a measure of improved LE strength 03/09/22: MET GOAL: 5 STS in 9 sec, arms across chest. STG Duration GOAL MET 03/09/22 Meat Stuffer Goal (LTG) Pt will complete 12 reps on 30 Second Sit to Stand test as a measure of improved LE strength and power. 03/09/22: GOAL MET 15 reps in 30 sec. LTG Duration 05/12/22 03/09/22 GOAL MET Three Impairment RUE ROM Meat Stuffer Goal (LTG) Pt will be able to style her own hair using both arms without compensatory measures and without increase in baseline pain. 04/07/22: Progressing: able to pick front and R/L side of head but still can't quite get back head and hold for period time. 04/25/22: pt states can pick with comb but cant' reach reach behind head still to use curling iron. LTG Duration 05/12/22 progressing 04/25/22 Two Impairment RUE strength Short Term Goal (STG) Pt will be able to lift 2 pounds with straight right arm to improve her ability to complete household duties and to hold a coffee cup with outstretched arm. 03/14/22 - Pt able to lift weight of arm with good self- correction/no shoulder hike. Can lift 1#db 1 rep before fatigue. 04/07/22: able lift DB #1 1 rep OH but then fatigues, able to perform about 8 more AROM seated and standing. She is able to put dishes away with RUE. STG Duration 03/23/22 Progressing 04/07/22 Care Home Goal (LTG) Pt will lift five pounds or more overhead with right arm to improve her ability to put away dishes on tall shelves. LTG Duration 05/12/22 One Impairment lacks HEP Short Term Goal (STG) Pt will be instructed in HEP for right UE and LE ROM, strength, and balance to support therapy services provided in clinic. STG Duration 03/23/22 Meat Stuffer Goal (LTG) Pt will be independent with HEP for ROM, strength, and balance to sustain therapy gains. LTG Duration 05/12/22 Assessment Summary Assessment Pt improved HS/ calf facilitation today with less hyperextension noted with added resistated HS curl, TKE and step ups today. Cued soft knee decrease heavy heel strike also allows less impact on LB. Physical Therapy Plan Frequency and Duration Frequency of Treatment 2x/Week Duration of Treatment 3 months Plan of Care Start Date 02/09/22 Plan of Care End Date 05/12/22 Therapeutic Interventions Therapeutic Interventions Balance Training,Gait Training ,Home Exercise Program,Manual Therapy,Neuromuscular Re- education,Self-Care/Home Management,Soft Tissue Mobilization,Taping, Therapeutic Activities, Therapeutic Exercises Modalities Cold Pack/Ice Massage,Electric Stimulation,Hot Packs Next Visit Focus/Plan Next Note Type Treatment Note Next Visit Plan Recheck R GH IR AROM, and progressed over all measurements RUE, PF stretch, continue core stab to address back pain. Single leg stance, dynamic gait, uneven surfaces . Curb training.
--- NOTE | 2022-04-28 11:00 | PT-OP ANOTE ---
Called Dorothy on and left voicemail regarding missed 11:45a PT appointment - advised there is currently an opening with me on Sunday05/01/22 at 2:30pm and to call PT front desk admin if they would like to schedule.
--- NOTE | 2022-04-28 14:04 | PT.OTN ---
Current Diagnoses Displaced bicondylar fracture of right tibia, initial encounter for closed fracture (04/28/22) Physical Therapy Treatment Note PT-OP-A Visit Information Start: 02/08/22 17:25 Freq: Status: Active Protocol: Document 04/28/22 11:04 NBM (Rec: 04/28/22 14:04 NBM [id number]) Out-Patient Physical Therapy Visit Information Visit Information Visit Type Treatment Note Visit Start Time 11:00 Visit Stop Time 11:32 Total Visit Minutes 32 Visit Number 16 Number of DAY HABILITATION SPECIALIST Visits 4 PT-OP-B Current Condition Start: 02/08/22 17:25 Freq: Status: Active Protocol: Document 02/09/22 10:30 AW (Rec: 02/08/22 17:45 AW [id number]) Current Condition History of Current Condition Onset Date April 2021 Current Complaints RLE weakness, impaired balance ; RUE weakness and reduced ROM History of Current Condition Before last April, Dorothy had two falls over a period of eight years - one of which resulted in broken left ankle which was treated conservatively. On Sunday the (04/22/21), Dorothy fell down a stair when leaving a store. She dislocated her right shoulder which was reduced at ED. She also suffered a right tibial plateau fracture which was treated with ORIF on 04/23/21 at [facility]. Upon discharge from [facility] she went to [facility] until June 15. She was NWB RLE for three months, upgraded to WBAT in July 2021. She progressed well with [facility] therapy for right arm and right leg until September when outpatient PT was recommended. It has taken several months for her to get to outpatient. She has no precautions currently. Using a cane mostly when out of the house but is able to navigate her home without AD. She does admit to staying close to roman and furniture for support. She states her right knee locks or sis every now and then while walking. She is hesitant to walk without a cane because of this. Pt has history of right radical mastectomy which may have decreased ROM R shoulder prior to current injury. She is now limited in her ability to hold a coffee cup at arm's length. She is also having difficulty styling her hair with her right arm. Dorothy Lives alone and has stairs at home. She is able to navigate stairs with a rail but she can not get to her backyard (3 steps no rail). Prior Treatments and Tests SNF and HH therapies as above. Treatment Goals Patient/Caregiver Goals Reach into microwave get coffee cup without using left arm to support the right. Comb and style hair with right hand. Improve confidence with RLE. Improve balance. Be able to shop in a housewares store without fear of bumping displays or falling. Personal Factors Other Personal Factors That May Effect PMH includes anxiety, R breast Therapy/Recovery cancer, hypertension, TIA PT-OP-C Subjective Start: 02/08/22 17:25 Freq: Status: Active Protocol: Document 04/28/22 11:04 NBM (Rec: 04/28/22 14:04 NBM [id number]) OP-PT Subjective Patient Comments Patient Comments Pt states she called this morning to confirm start time and was advised 11am. Pt reports she notices everything now in her body and feels in tune. She has a lot of exercises for leg and reports she can't reach back of head to style, and getting hair done once a week is getting expensive. PT-OP-E Functional Tests Start: 02/08/22 17:25 Freq: Status: Active Protocol: Document 04/04/22 13:47 SP (Rec: 04/04/22 14:42 SP [id number]) Functional Tests 6 Minute Walk Test Distance 1101ft Device Used 0 Comments cued soft heel strike to decrease SI impact PT-OP-G Mobility & Gait Start: 02/08/22 17:25 Freq: Status: Active Protocol: Document 02/09/22 10:30 AW (Rec: 02/12/22 16:09 AW [id number]) OP Gait Assessment Comments Gait Comments Pt has bilateral genu valgum affecting gait stability. Feet are moderately pronated bilaterally. Right iliac crest is higher than left. Pt carries a cane but uses it only with increased distance or on uneven surfaces. PT-OP-H Neuro Start: 02/08/22 17:25 Freq: Status: Active Protocol: Document 02/09/22 10:30 AW (Rec: 02/12/22 16:09 AW [id number]) Sensation Evaluation Gross Sensation Gross Sensation WNL PT-OP-J Posture/Palpation/Skin Start: 02/08/22 17:25 Freq: Status: Active Protocol: Document 02/09/22 10:30 AW (Rec: 02/09/22 11:06 AW [id number]) Posture Evaluation Position Standing Evaluation View anterior, lateral Comments Posture Comments Pt stands and walks with modest genu valgus bilaterally . Feet are moderately pronated . Right iliac crest is higher than left. Pelvis is anteriorly tilted Skin Assessment Incisional Assessment Incision Appearance/Comments Well healed surgical incisions RLE PT-OP-K Range of Motion Start: 02/08/22 17:25 Freq: Status: Active Protocol: Document 02/09/22 10:30 AW (Rec: 02/09/22 11:06 AW [id number]) Shoulder Goniometric Range of Motion Shoulder Right Active Shoulder ROM WFL No Testing Position Sitting Flexion 140 Abduction 145 External Rotation at 0 degrees Abduction 0 Internal Rotation Behind Back (text) T8 Left Active Shoulder ROM WFL Yes Testing Position Sitting Flexion 145 Abduction 150 External Rotation at 0 degrees Abduction 50 Internal Rotation Behind Back (text) T4 Elbow/Forearm Range of Motion Elbow/Forearm bilat Elbow/Forearm ROM WFL Yes Hip Goniometric Range of Motion Hip bilat Hip ROM WFL Yes Testing Position Supine Comments No restriction in flexion, rotation. Knee Goniometric Range of Motion Knee Right Knee ROM WFL Yes Patient Position Supine Flexion Active (degrees) 128 Extension Active (degrees) 0 Comments Pt hesitates to flex knee further due to fear avoidance related to her surgery but ROM is WNL. Left Knee ROM WFL Yes Patient Position Supine Flexion Active (degrees) 139 Extension Active (degrees) 0 PT-OP-M Strength Start: 02/08/22 17:25 Freq: Status: Active Protocol: Document 02/09/22 10:30 AW (Rec: 02/09/22 11:09 AW [id number]) Shoulder Strength Shoulder Manual Muscle Testing Left Flexion 4 Good Abduction (C5) 4 Good External Rotation 4 Good Internal Rotation 4 Good Right Flexion 3 Fair Abduction (C5) 3+ Fair+ Internal Rotation 4- Good- Horizontal Abduction 4- Good- Hip Strength Hip Manual Muscle Testing Right Flexion (L2) 4- Good- Extension (S1) 3+ Fair+ Abduction 4- Good- External Rotation 4- Good- Internal Rotation 4- Good- Left Flexion (L2) 4+ Good+ Extension (S1) 4- Good- Abduction 4- Good- External Rotation 4 Good Internal Rotation 4 Good Knee Strength Knee Manual Muscle Testing Right Flexion (S2) 4- Good- Extension (L3) 4 Good Left Flexion (S2) 5 Normal Extension (L3) 5 Normal PT-OP-Q Treatments Start: 02/08/22 17:25 Freq: Status: Active Protocol: Document 04/28/22 11:04 [facility] (Rec: 04/28/22 14:04 [facility] [id number]) Therapeutic Exercises Sitting Exercises pulleys Sitting Exercise Name HEP review- FF, abd, scaption, elbow straight Side right Resistance PROM Reps/Minutes x10 Comments cues for R UT overactivation, scap retraction Standing Exercises UE Posterior Chain Strengthening Standing Exercise Name 1. Scap retraction 2. Shoulder extension 3. Shoulder ER - elbows at sides Side bilateral Resistance Lvl 2 TB Reps/Minutes x 10 ea Comments Max cues initially for R UT overactivation, improved Manual Therapy Treatment Soft Tissue Mobilization R narayan-scapula Body Location R Rhomboids, Lower trapezius, UT Mobilization Type Rolling,Sustained Pressure, Trigger Point Release Intensity/Depth Moderate Body Position Sitting Comments Pt able to reach back of head w/ cueing for scap retraction after manual therapy. Self-Care/Home Management Treatment Education Patient Education Home Exercise Program,Pain Management Other Education Discussed using ball for self- STM to R narayan-scapular muscles for pain relief. PT-OP-T Assessment and Plan Start: 02/08/22 17:25 Freq: Status: Active Protocol: Document 04/28/22 11:04 [facility] (Rec: 04/28/22 14:04 [facility] [id number]) Physical Therapy Assessment Goals Seven Impairment RLE single leg strength Polymerization Kettle Operator Goal (LTG) Pt will stand on right leg 20 seconds without increased lateral shear and without UE support 04/04/22: prgrogressing :4, 5 , 6: LLE; 5, 13: RLE. LTG Duration 05/12/22 Six Impairment balance Polymerization Kettle Operator Goal (LTG) Pt will score 24/30 or greater on Functional Gait Assessment as a measure of improved self -efficacy in gait. LTG Duration 05/12/22 Five Impairment pt needs cane for longer distance gait Short Term Goal (STG) Pt will improve average gait speed on 6MWT to 0.75 m/s or greater without AD. 03/09/22: MET GOAL: 315m/360s=0 .87m/s with no AD, noted lateral trunk wt shifting cues for posture/core stability corrections. STG Duration GOAL MET 03/09/22 Senior Care Goal (LTG) Pt will improve distance on 6MWT without AD by 10% over performance on short term goal as a measure of safe community ambulation. 04/04/22: 0.93m/s= 3.01ft/s 04/25/22: 0.91m/s= 3.01 ft/s LTG Duration 05/12/22 (progressed 04/25/22) Four Impairment LE strength Short Term Goal (STG) Pt will complete 5 Time Sit to Stand without use of UE's in 13 seconds or less as a measure of improved LE strength 03/09/22: MET GOAL: 5 STS in 9 sec, arms across chest. STG Duration GOAL MET 03/09/22 Polymerization Kettle Operator Goal (LTG) Pt will complete 12 reps on 30 Second Sit to Stand test as a measure of improved LE strength and power. 03/09/22: GOAL MET 15 reps in 30 sec. LTG Duration 05/12/22 03/09/22 GOAL MET Three Impairment RUE ROM Polymerization Kettle Operator Goal (LTG) Pt will be able to style her own hair using both arms without compensatory measures and without increase in baseline pain. 04/07/22: Progressing: able to pick front and R/L side of head but still can't quite get back head and hold for period time. 04/25/22: pt states can pick with comb but cant' reach reach behind head still to use curling iron. LTG Duration 05/12/22 progressing 04/25/22 Two Impairment RUE strength Short Term Goal (STG) Pt will be able to lift 2 pounds with straight right arm to improve her ability to complete household duties and to hold a coffee cup with outstretched arm. 03/14/22 - Pt able to lift weight of arm with good self- correction/no shoulder hike. Can lift 1#db 1 rep before fatigue. 04/07/22: able lift DB #1 1 rep OH but then fatigues, able to perform about 8 more AROM seated and standing. She is able to put dishes away with RUE. STG Duration 03/23/22 Progressing 04/07/22 Polymerization Kettle Operator Goal (LTG) Pt will lift five pounds or more overhead with right arm to improve her ability to put away dishes on tall shelves. LTG Duration 05/12/22 One Impairment lacks HEP Short Term Goal (STG) Pt will be instructed in HEP for right UE and LE ROM, strength, and balance to support therapy services provided in clinic. STG Duration 03/23/22 Senior Care Goal (LTG) Pt will be independent with HEP for ROM, strength, and balance to sustain therapy gains. LTG Duration 05/12/22 Assessment Summary Assessment Shortened session today due to pt's confusion around appt start time. Treatment focus today on R scapular strengthening and manual therapy. Pt's self-awareness of R Upper trapezius overactivation and scapular setting improved throughout today's session. End of session pt is able to reach back of head w/ R hand when cued to maintain scapular retraction throughout motion. Pt advised to disregard voicemail DAY HABILITATION SPECIALIST left regarding rescheduling today's appointment. Physical Therapy Plan Next Visit Focus/Plan Next Note Type Treatment Note Next Visit Plan Recheck R GH IR AROM, and progressed over all measurements RUE, PF stretch, continue core stab to address back pain. Single leg stance, dynamic gait, uneven surfaces . Curb training.
--- NOTE | 2022-05-03 14:50 | PT.OTN ---
Current Diagnoses Displaced bicondylar fracture of right tibia, initial encounter for closed fracture (05/03/22) Physical Therapy Treatment Note PT-OP-A Visit Information Start: 02/08/22 17:25 Freq: Status: Active Protocol: Document 05/03/22 13:07 AW (Rec: 05/03/22 13:46 AW [id number]) Out-Patient Physical Therapy Visit Information Visit Information Visit Type Treatment Note Visit Start Time 13:03 Visit Stop Time 13:45 Total Visit Minutes 42 Visit Number 17 Number of MALARIOLOGIST Visits 0 Evaluation Information Evaluation Date 02/09/22 PT-OP-B Current Condition Start: 02/08/22 17:25 Freq: Status: Active Protocol: Document 02/09/22 10:30 AW (Rec: 02/08/22 17:45 AW [id number]) Current Condition History of Current Condition Onset Date April 2021 Current Complaints RLE weakness, impaired balance ; RUE weakness and reduced ROM History of Current Condition Before last April, Dorothy had two falls over a period of eight years - one of which resulted in broken left ankle which was treated conservatively. On Sunday the (04/22/21), Dorothy fell down a stair when leaving a store. She dislocated her right shoulder which was reduced at ED. She also suffered a right tibial plateau fracture which was treated with ORIF on 04/23/[address] [facility]. Upon discharge from [facility] she went to [facility] until June 15. She was NWB RLE for three months, upgraded to WBAT in July 2021. She progressed well with [facility] therapy for right arm and right leg until September when outpatient PT was recommended. It has taken several months for her to get to outpatient. She has no precautions currently. Using a cane mostly when out of the house but is able to navigate her home without AD. She does admit to staying close to roman and furniture for support. She states her right knee locks or sis every now and then while walking. She is hesitant to walk without a cane because of this. Pt has history of right radical mastectomy which may have decreased ROM R shoulder prior to current injury. She is now limited in her ability to hold a coffee cup at arm's length. She is also having difficulty styling her hair with her right arm. Dorothy Lives alone and has stairs at home. She is able to navigate stairs with a rail but she can not get to her backyard (3 steps no rail). Prior Treatments and Tests SNF and HH therapies as above. Treatment Goals Patient/Caregiver Goals Reach into microwave get coffee cup without using left arm to support the right. Comb and style hair with right hand. Improve confidence with RLE. Improve balance. Be able to shop in a housewares store without fear of bumping displays or falling. Personal Factors Other Personal Factors That May Effect PMH includes anxiety, R breast Therapy/Recovery cancer, hypertension, TIA PT-OP-C Subjective Start: 02/08/22 17:25 Freq: Status: Active Protocol: Document 05/03/22 13:07 AW (Rec: 05/03/22 13:46 AW [id number]) OP-PT Subjective Patient Comments Patient Comments Pt reports upset stomach today but otherwise ok. PT-OP-E Functional Tests Start: 02/08/22 17:25 Freq: Status: Active Protocol: Document 04/04/22 13:47 SP (Rec: 04/04/22 14:42 SP [id number]) Functional Tests 6 Minute Walk Test Distance 1101ft Device Used 0 Comments cued soft heel strike to decrease SI impact PT-OP-G Mobility & Gait Start: 02/08/22 17:25 Freq: Status: Active Protocol: Document 02/09/22 10:30 AW (Rec: 02/12/22 16:09 AW [id number]) OP Gait Assessment Comments Gait Comments Pt has bilateral genu valgum affecting gait stability. Feet are moderately pronated bilaterally. Right iliac crest is higher than left. Pt carries a cane but uses it only with increased distance or on uneven surfaces. PT-OP-H Neuro Start: 02/08/22 17:25 Freq: Status: Active Protocol: Document 02/09/22 10:30 AW (Rec: 02/12/22 16:09 AW [id number]) Sensation Evaluation Gross Sensation Gross Sensation WNL PT-OP-J Posture/Palpation/Skin Start: 02/08/22 17:25 Freq: Status: Active Protocol: Document 02/09/22 10:30 AW (Rec: 02/09/22 11:06 AW [id number]) Posture Evaluation Position Standing Evaluation View anterior, lateral Comments Posture Comments Pt stands and walks with modest genu valgus bilaterally . Feet are moderately pronated . Right iliac crest is higher than left. Pelvis is anteriorly tilted Skin Assessment Incisional Assessment Incision Appearance/Comments Well healed surgical incisions RLE PT-OP-K Range of Motion Start: 02/08/22 17:25 Freq: Status: Active Protocol: Document 05/03/22 13:07 AW (Rec: 05/03/22 14:44 AW [id number]) Shoulder Goniometric Range of Motion Shoulder Right Active Shoulder ROM WFL No Testing Position Sitting Flexion 165 Abduction 155 External Rotation at 0 degrees Abduction 30 Internal Rotation Behind Back (text) T7 PT-OP-M Strength Start: 02/08/22 17:25 Freq: Status: Active Protocol: Document 02/09/22 10:30 AW (Rec: 02/09/22 11:09 AW [id number]) Shoulder Strength Shoulder Manual Muscle Testing Left Flexion 4 Good Abduction (C5) 4 Good External Rotation 4 Good Internal Rotation 4 Good Right Flexion 3 Fair Abduction (C5) 3+ Fair+ Internal Rotation 4- Good- Horizontal Abduction 4- Good- Hip Strength Hip Manual Muscle Testing Right Flexion (L2) 4- Good- Extension (S1) 3+ Fair+ Abduction 4- Good- External Rotation 4- Good- Internal Rotation 4- Good- Left Flexion (L2) 4+ Good+ Extension (S1) 4- Good- Abduction 4- Good- External Rotation 4 Good Internal Rotation 4 Good Knee Strength Knee Manual Muscle Testing Right Flexion (S2) 4- Good- Extension (L3) 4 Good Left Flexion (S2) 5 Normal Extension (L3) 5 Normal PT-OP-Q Treatments Start: 02/08/22 17:25 Freq: Status: Active Protocol: Document 05/03/22 13:07 AW (Rec: 05/03/22 13:46 AW [id number]) Cardio Equipment Recumbent Elliptical (Biodex) Duration (Minutes) 6 Resistance 4 Seat Position 5 Other 552 steps, 45-50 RPMs Therapeutic Exercises Sitting Exercises pulleys Sitting Exercise Name HEP review- FF, abd, scaption, elbow straight Side right Resistance PROM Reps/Minutes x10 Comments cues for R UT overactivation, scap retraction Standing Exercises UE Posterior Chain Strengthening Standing Exercise Name 1. Scap retraction 2. Shoulder extension 3. Shoulder ER - elbows at sides Side bilateral Resistance Lvl 2 TB Reps/Minutes x 10 ea Comments faded cues for UT overactivation, improved Other Exercises sit to stand Other Exercise Name 1. squat tap x10 firm floor, 2 . STS on blue foam Resistance arms across chest Equipment Used Mesh chair, blue foam Reps/Minutes x10 each Comments 1 cue for knees apart Manual Therapy Treatment Soft Tissue Mobilization R narayan-scapula Body Location R Rhomboids, Lower trapezius, UT Mobilization Type Rolling,Sustained Pressure, Trigger Point Release Intensity/Depth Moderate Body Position Sitting Comments Pt able to reach back of head w/ cueing for scap retraction after manual therapy. PT-OP-T Assessment and Plan Start: 02/08/22 17:25 Freq: Status: Active Protocol: Document 05/03/22 13:07 AW (Rec: 05/03/22 13:46 AW [id number]) Physical Therapy Assessment Goals Seven Impairment RLE single leg strength Correction Goal (LTG) Pt will stand on right leg 20 seconds without increased lateral shear and without UE support 04/04/22: prgrogressing :4, 5 , 6: LLE; 5, 13: RLE. LTG Duration 05/12/22 PROGRESSING Six Impairment balance Fundraising Sale Representative Goal (LTG) Pt will score 24/30 or greater on Functional Gait Assessment as a measure of improved self -efficacy in gait. LTG Duration 05/12/22 Five Impairment pt needs cane for longer distance gait Short Term Goal (STG) Pt will improve average gait speed on 6MWT to 0.75 m/s or greater without AD. 03/09/22: MET GOAL: 315m/360s=0 .87m/s with no AD, noted lateral trunk wt shifting cues for posture/core stability corrections. STG Duration GOAL MET 03/09/22 Fundraising Sale Representative Goal (LTG) Pt will improve distance on 6MWT without AD by 10% over performance on short term goal as a measure of safe community ambulation. 04/04/22: 0.93m/s= 3.01ft/s 04/25/22: 0.91m/s= 3.01 ft/s LTG Duration 05/12/22 (progressed 04/25/22) Four Impairment LE strength Short Term Goal (STG) Pt will complete 5 Time Sit to Stand without use of UE's in 13 seconds or less as a measure of improved LE strength 03/09/22: MET GOAL: 5 STS in 9 sec, arms across chest. STG Duration GOAL MET 03/09/22 Fundraising Sale Representative Goal (LTG) Pt will complete 12 reps on 30 Second Sit to Stand test as a measure of improved LE strength and power. 03/09/22: GOAL MET 15 reps in 30 sec. LTG Duration 05/12/22 03/09/22 GOAL MET Three Impairment RUE ROM Correction Goal (LTG) Pt will be able to style her own hair using both arms without compensatory measures and without increase in baseline pain. 04/07/22: Progressing: able to pick front and R/L side of head but still can't quite get back head and hold for period time. 04/25/22: pt states can pick with comb but cant' reach reach behind head still to use curling iron. LTG Duration 05/12/22 progressing 04/25/22 Two Impairment RUE strength Short Term Goal (STG) Pt will be able to lift 2 pounds with straight right arm to improve her ability to complete household duties and to hold a coffee cup with outstretched arm. 03/14/22 - Pt able to lift weight of arm with good self- correction/no shoulder hike. Can lift 1#db 1 rep before fatigue. 04/07/22: able lift DB #1 1 rep OH but then fatigues, able to perform about 8 more AROM seated and standing. She is able to put dishes away with RUE. STG Duration 03/23/22 Progressing 04/07/22 Fundraising Sale Representative Goal (LTG) Pt will lift five pounds or more overhead with right arm to improve her ability to put away dishes on tall shelves. 05/03/22 - Pt can lift 2 pounds overhead x 2 without compensation before fatiguing. LTG Duration 05/12/22 PROGRESSING One Impairment lacks HEP Short Term Goal (STG) Pt will be instructed in HEP for right UE and LE ROM, strength, and balance to support therapy services provided in clinic. STG Duration 03/23/22 Correction Goal (LTG) Pt will be independent with HEP for ROM, strength, and balance to sustain therapy gains. 05/03/22 - GOAL MET LTG Duration 05/12/22 Assessment Summary Assessment Assessed goals today in preparation for discharge. Pt feels she has made the progress she hoped for in terms of walking and strength. Her right shoulder ROM has improved in all planes, including rotation though rotation remains most limited. She continues to have concerns over her limited RUE ROM which makes it difficult for her to style her hair. However, she feels she has plateaued and is ready to discharge after next visit. Will plan to consolidate HEP at final visit and then discharge. Physical Therapy Plan Frequency and Duration Frequency of Treatment 2x/Week Duration of Treatment 3 months Plan of Care Start Date 02/09/22 Plan of Care End Date 05/12/22 Therapeutic Interventions Therapeutic Interventions Balance Training,Gait Training ,Home Exercise Program,Manual Therapy,Neuromuscular Re- education,Self-Care/Home Management,Soft Tissue Mobilization,Taping, Therapeutic Activities, Therapeutic Exercises Modalities Cold Pack/Ice Massage,Electric Stimulation,Hot Packs Next Visit Focus/Plan Next Note Type Treatment Note Next Visit Plan Assess FGA for goals. Review HEP for independent performance in preparation for discharge.
--- NOTE | 2022-05-05 13:45 | PT.OTN ---
Current Diagnoses Displaced bicondylar fracture of right tibia, initial encounter for closed fracture (05/05/22) Physical Therapy Treatment Note PT-OP-A Visit Information Start: 02/08/22 17:25 Freq: Status: Active Protocol: Document 05/05/22 13:03 SP (Rec: 05/05/22 13:54 SP [id number]) Out-Patient Physical Therapy Visit Information Visit Information Visit Type Treatment Note Visit Start Time 13:03 Visit Stop Time 13:45 Total Visit Minutes 42 Visit Number 18 Number of PALEOLOGY TEACHER Visits 1 Evaluation Information Evaluation Date 02/09/22 PT-OP-B Current Condition Start: 02/08/22 17:25 Freq: Status: Active Protocol: Document 02/09/22 10:30 AW (Rec: 02/08/22 17:45 AW [id number]) Current Condition History of Current Condition Onset Date April 2021 Current Complaints RLE weakness, impaired balance ; RUE weakness and reduced ROM History of Current Condition Before last April, Dorothy had two falls over a period of eight years - one of which resulted in broken left ankle which was treated conservatively. On Sunday the (04/22/21), Dorothy fell down a stair when leaving a store. She dislocated her right shoulder which was reduced at ED. She also suffered a right tibial plateau fracture which was treated with ORIF on 04/23/[address] [facility]. Upon discharge from [facility] she went to [facility] until June 15. She was NWB RLE for three months, upgraded to WBAT in July 2021. She progressed well with [facility] therapy for right arm and right leg until September when outpatient PT was recommended. It has taken several months for her to get to outpatient. She has no precautions currently. Using a cane mostly when out of the house but is able to navigate her home without AD. She does admit to staying close to roman and furniture for support. She states her right knee locks or sis every now and then while walking. She is hesitant to walk without a cane because of this. Pt has history of right radical mastectomy which may have decreased ROM R shoulder prior to current injury. She is now limited in her ability to hold a coffee cup at arm's length. She is also having difficulty styling her hair with her right arm. Dorohty Lives alone and has stairs at home. She is able to navigate stairs with a rail but she can not get to her backyard (3 steps no rail). Prior Treatments and Tests SNF and HH therapies as above. Treatment Goals Patient/Caregiver Goals Reach into microwave get coffee cup without using left arm to support the right. Comb and style hair with right hand. Improve confidence with RLE. Improve balance. Be able to shop in a housewares store without fear of bumping displays or falling. Personal Factors Other Personal Factors That May Effect PMH includes anxiety, R breast Therapy/Recovery cancer, hypertension, TIA PT-OP-C Subjective Start: 02/08/22 17:25 Freq: Status: Active Protocol: Document 05/05/22 13:03 SP (Rec: 05/05/22 13:54 SP [id number]) OP-PT Subjective Patient Comments Patient Comments Pt last tx today, review HEP for I. Stated also noticed at times R knee throughs off balance if allow R knee full extend behind. Pt stated can reach up RUE OH eye height and take cup coffee out of microwave and low bring down to put on counter without LUE support. Pt reports just wants to focus on RUE HEP and use of gym equip for able return to [facility] again. Patient Reported Progress Improving PT-OP-E Functional Tests Start: 02/08/22 17:25 Freq: Status: Active Protocol: Document 04/04/22 13:47 SP (Rec: 04/04/22 14:42 SP [id number]) Functional Tests 6 Minute Walk Test Distance 1101ft Device Used 0 Comments cued soft heel strike to decrease SI impact PT-OP-G Mobility & Gait Start: 02/08/22 17:25 Freq: Status: Active Protocol: Document 02/09/22 10:30 AW (Rec: 02/12/22 16:09 AW [id number]) OP Gait Assessment Comments Gait Comments Pt has bilateral genu valgum affecting gait stability. Feet are moderately pronated bilaterally. Right iliac crest is higher than left. Pt carries a cane but uses it only with increased distance or on uneven surfaces. PT-OP-H Neuro Start: 02/08/22 17:25 Freq: Status: Active Protocol: Document 02/09/22 10:30 AW (Rec: 02/12/22 16:09 AW [id number]) Sensation Evaluation Gross Sensation Gross Sensation WNL PT-OP-J Posture/Palpation/Skin Start: 02/08/22 17:25 Freq: Status: Active Protocol: Document 02/09/22 10:30 AW (Rec: 02/09/22 11:06 AW [id number]) Posture Evaluation Position Standing Evaluation View anterior, lateral Comments Posture Comments Pt stands and walks with modest genu valgus bilaterally . Feet are moderately pronated . Right iliac crest is higher than left. Pelvis is anteriorly tilted Skin Assessment Incisional Assessment Incision Appearance/Comments Well healed surgical incisions RLE PT-OP-K Range of Motion Start: 02/08/22 17:25 Freq: Status: Active Protocol: Document 05/03/22 13:07 AW (Rec: 05/03/22 14:44 AW [id number]) Shoulder Goniometric Range of Motion Shoulder Right Active Shoulder ROM WFL No Testing Position Sitting Flexion 165 Abduction 155 External Rotation at 0 degrees Abduction 30 Internal Rotation Behind Back (text) T7 PT-OP-M Strength Start: 02/08/22 17:25 Freq: Status: Active Protocol: Document 02/09/22 10:30 AW (Rec: 02/09/22 11:09 AW [id number]) Shoulder Strength Shoulder Manual Muscle Testing Left Flexion 4 Good Abduction (C5) 4 Good External Rotation 4 Good Internal Rotation 4 Good Right Flexion 3 Fair Abduction (C5) 3+ Fair+ Internal Rotation 4- Good- Horizontal Abduction 4- Good- Hip Strength Hip Manual Muscle Testing Right Flexion (L2) 4- Good- Extension (S1) 3+ Fair+ Abduction 4- Good- External Rotation 4- Good- Internal Rotation 4- Good- Left Flexion (L2) 4+ Good+ Extension (S1) 4- Good- Abduction 4- Good- External Rotation 4 Good Internal Rotation 4 Good Knee Strength Knee Manual Muscle Testing Right Flexion (S2) 4- Good- Extension (L3) 4 Good Left Flexion (S2) 5 Normal Extension (L3) 5 Normal PT-OP-Q Treatments Start: 02/08/22 17:25 Freq: Status: Active Protocol: Document 05/05/22 13:03 SP (Rec: 05/05/22 13:54 SP [id number]) Cardio Equipment Treadmill Duration (Minutes) 7 Speed 0.8 Gym Equipment Cable Column (Body Solid) cable rows Details cued posture, scoot back allow UE ext Resistance #20, 2x10 Reps/Time good form, scap stab muscle work Lat Pull Down Details good postural muscle feeling Resistance 20# Reps/Time 2x10 Shuttle Recovery Bilateral Squats Details B squats Resistance verball discussed can continue at [facility] Shuttle Recovery Platform Stable Therapeutic Exercises Supine Exercises shld ER Supine Exercise Name added to HEP for self AROM ER Side right Resistance AROM Reps/Minutes 2x10 Comments good form, improved AROM-cued slow pacing- improved normalizing vs stand/st Sitting Exercises GH flexion AROM Sitting Exercise Name GH flexion, abd reach behind head, back OH and return side: AROM Side right Resistance AROM Equipment Used mirror in front for corrections Reps/Minutes 3-5 sec hold X 5reps Comments HEP, cued no UT recruit pulleys Sitting Exercise Name HEP review- FF, abd, scaption, elbow straight Side right Resistance PROM Reps/Minutes x10 Comments cues for R UT overactivation, scap retraction Standing Exercises GH IR Standing Exercise Name IR against resisitance, eccentric ROM into ER Side right Resistance AAROM ER, TB #2 IR Equipment Used towel under arm Reps/Minutes x5, held 5 breaths Comments cued 1st across to opp pelvis then up back ball wall self STMs Standing Exercise Name discussed ball wall glut, LB, also mid scap/UT ball Side right Equipment Used theracane performed UT, interscap Reps/Minutes 1 min Comments good feedback and form shld ER Standing Exercise Name [facility]- IR/ ER reviewed HEP Side right Resistance AAROM w/wand Equipment Used towel under arm Reps/Minutes x10 Comments cued no UT recruit PT-OP-T Assessment and Plan Start: 02/08/22 17:25 Freq: Status: Active Protocol: Document 05/05/22 13:03 SP (Rec: 05/05/22 13:54 SP [id number]) Physical Therapy Assessment Goals Seven Impairment RLE single leg strength Cripple Worker Goal (LTG) Pt will stand on right leg 20 seconds without increased lateral shear and without UE support 04/04/22: prgrogressing :4, 5 , 6: LLE; 5, 13: RLE. LTG Duration 05/12/22 PROGRESSING Six Impairment balance Cripple Worker Goal (LTG) Pt will score 24/30 or greater on Functional Gait Assessment as a measure of improved self -efficacy in gait. LTG Duration 05/12/22 Five Impairment pt needs cane for longer distance gait Short Term Goal (STG) Pt will improve average gait speed on 6MWT to 0.75 m/s or greater without AD. 03/09/22: MET GOAL: 315m/360s=0 .87m/s with no AD, noted lateral trunk wt shifting cues for posture/core stability corrections. STG Duration GOAL MET 03/09/22 Skilled Nursing Goal (LTG) Pt will improve distance on 6MWT without AD by 10% over performance on short term goal as a measure of safe community ambulation. 04/04/22: 0.93m/s= 3.01ft/s 04/25/22: 0.91m/s= 3.01 ft/s LTG Duration 05/12/22 (progressed 04/25/22) Four Impairment LE strength Short Term Goal (STG) Pt will complete 5 Time Sit to Stand without use of UE's in 13 seconds or less as a measure of improved LE strength 03/09/22: MET GOAL: 5 STS in 9 sec, arms across chest. STG Duration GOAL MET 03/09/22 Skilled Nursing Goal (LTG) Pt will complete 12 reps on 30 Second Sit to Stand test as a measure of improved LE strength and power. 03/09/22: GOAL MET 15 reps in 30 sec. LTG Duration 05/12/22 03/09/22 GOAL MET Three Impairment RUE ROM Skilled Nursing Goal (LTG) Pt will be able to style her own hair using both arms without compensatory measures and without increase in baseline pain. 04/07/22: Progressing: able to pick front and R/L side of head but still can't quite get back head and hold for period time. 04/25/22: pt states can pick with comb but cant' reach reach behind head still to use curling iron. LTG Duration 05/12/22 progressing 04/25/22 Two Impairment RUE strength Short Term Goal (STG) Pt will be able to lift 2 pounds with straight right arm to improve her ability to complete household duties and to hold a coffee cup with outstretched arm. 03/14/22 - Pt able to lift weight of arm with good self- correction/no shoulder hike. Can lift 1#db 1 rep before fatigue. 04/07/22: able lift DB #1 1 rep OH but then fatigues, able to perform about 8 more AROM seated and standing. She is able to put dishes away with RUE. STG Duration 03/23/22 Progressing 04/07/22 Cripple Worker Goal (LTG) Pt will lift five pounds or more overhead with right arm to improve her ability to put away dishes on tall shelves. 05/03/22 - Pt can lift 2 pounds overhead x 2 without compensation before fatiguing. LTG Duration 05/12/22 PROGRESSING One Impairment lacks HEP Short Term Goal (STG) Pt will be instructed in HEP for right UE and LE ROM, strength, and balance to support therapy services provided in clinic. 05/05/22: HEP consolidation: see HEP reviewed today, added supine ER AROM R shld for best form ER. STG Duration 03/23/22 Skilled Nursing Goal (LTG) Pt will be independent with HEP for ROM, strength, and balance to sustain therapy gains. 05/03/22 - GOAL MET LTG Duration 05/12/22 GOAL MET Assessment Summary Assessment Pt improved in AROM FF, ABD OH with added reach behind head with better perform able hold to progress self able do hair self. Supine ER best for ER AROM least compensation. PALEOLOGY TEACHER reviewed gym equip lat pull down and rows review for carryover review for returning back to gym. Pt is confident with HEP and HOs given to continue. PT to DC and pt stated will continue on own, knows to call Dr if needs come back. Physical Therapy Plan Frequency and Duration Frequency of Treatment 2x/Week Duration of Treatment 3 months Plan of Care Start Date 02/09/22 Plan of Care End Date 05/12/22 Therapeutic Interventions Therapeutic Interventions Balance Training,Gait Training ,Home Exercise Program,Manual Therapy,Neuromuscular Re- education,Self-Care/Home Management,Soft Tissue Mobilization,Taping, Therapeutic Activities, Therapeutic Exercises Modalities Cold Pack/Ice Massage,Electric Stimulation,Hot Packs Discharge Physical Therapy Discharge Reasons Goals Met Discharge Comments PT Tahira to [facility]. Pt feels can continue own and progress return to [facility]. Next Visit Focus/Plan Next Note Type Discharge Summary Next Visit Plan Assess FGA for goals. Review HEP for independent performance in preparation for discharge.
== END 2022-05-09 12:50 ==
LOC: PHYS 13:00
PROVIDERS: Family Provider Nurse Practitioner; PCP Nurse Practitioner; Visit Provider Student in an Organized Health Care Education/Training Program
DX: S82.141A Displaced bicondylar fracture of right tibia, initial encounter for closed fracture (principal)
CPT/HCPCS: 97110; 97112; 97116; 97140; 97162; 97530; 97535

== ENCOUNTER → 2022-10-24 10:44 | Outpatient (CLI) | payer MEDICARE, SELFPAY ==
[2019-10-23 20:40] VITALS: BMI 32.0
[2022-10-24 11:20] LABS: Hemoglobin A1C% w Est Avg Glu 6.3 % (4.0-6.0)
[2022-10-24 11:30] LABS: Alanine Aminotransferase 29 IU/L (<35); Albumin 4.4 g/dL (3.5-5.0); Albumin Globulin Ratio 1.3 (1.0-2.8); Alkaline Phosphatase 72 U/L (38-126); Aspartate Aminotransferase 29 IU/L (14-36); BUN Creatinine Ratio 26.8 (6-22); Bilirubin Total 1.7 mg/dL (0.2-1.3); Blood Urea Nitrogen 15 mg/dL (7-17); Calcium 9.1 mg/dL (8.4-10.2); Carbon Dioxide 28 mmol/L (22-32); Chloride 103 mmol/L (98-107); Cholesterol 123 mg/dL (140-199); Estimated Glomerular Filt Rate > 60 mL/min (>60); Globulin 3.4 g/dL (1.7-4.1); Glucose 108 mg/dL (80-110); HDL Cholesterol 49 mg/dL (40-60); HEMOLYSIS < 15 (0-50); LDL Cholesterol Calculated 54 mg/dL (<100); Potassium 4.3 mmol/L (3.4-5.1); Sodium 138 mmol/L (137-145); Total Protein 7.8 g/dL (6.3-8.2); Triglycerides 99 mg/dL (35-150)
[2022-10-24 11:44] LABS: Creatinine Urine Random 86.6 mg/dL
[2022-10-24 11:49] LABS: Microalbumi Creatinin Ratio Ur 13.8 ug/mg CR (<30); Microalbumin Urine Random 1.2 mg/dL (0-1.6)
[2022-10-24 11:57] LABS: Free T4, Direct Thyroxine 1.05 ng/dL (0.78-2.19)
[2022-10-24 12:11] LABS: Thyroid Stimulating Hormone 2.34 uIU/mL (0.47-4.68)
== END ==
PROVIDERS: Family Provider Nurse Practitioner; PCP Nurse Practitioner; Referring Provider Nurse Practitioner; Visit Provider Nurse Practitioner
DX: R73.01 Impaired fasting glucose (principal); E78.5 Hyperlipidemia, unspecified; E78.2 Mixed hyperlipidemia; F41.0 Panic disorder [episodic paroxysmal anxiety]; F41.1 Generalized anxiety disorder; I10 Essential (primary) hypertension; M80.061D Age-related osteoporosis with current pathological fracture, right lower leg, subsequent encounter for fracture with routine healing; Z79.899 Other long term (current) drug therapy
CPT/HCPCS: 36415; 80053; 80061; 82043; 82570; 83036; 84439; 84443; 84481

== ENCOUNTER → 2022-11-15 11:31 | Outpatient (CLI) | payer MEDICARE, SELFPAY ==
[2019-10-23 20:40] VITALS: BMI 32.0
--- NOTE | 2022-11-15 11:32 | DI.MG.S_ITS ---
UNILATERAL LEFT DIGITAL SCREENING MAMMOGRAM 3D/2D WITH CAD: 11/15/2022 CLINICAL: Routine screening. Personal history of right breast cancer. Family history of breast cancer. Comparison is made to exams dated: 10/17/2021 mammogram, 04/02/2020 mammogram, and 12/20/2018 mammogram - [facility]. There are scattered areas of fibroglandular density in the left breast (category b / 25%-50% glandular tissue). Current study was also evaluated with a Computer Aided Detection (CAD) system. There are benign calcifications in the left breast. There also are benign post operative findings in the left breast. No significant masses, calcifications, or other findings are seen in the breast. There has been no significant interval change. IMPRESSION: BENIGN There is no mammographic evidence of malignancy. A 1 year screening mammogram is recommended. This exam was interpreted at Station ID: [id number]. NOTE: For mammograms, a report in lay terms will be sent to the patient. Approximately 15% of breast malignancies will not be visualized mammographically. In the management of a palpable breast mass, a negative mammogram must not discourage biopsy of a clinically suspicious lesion. Electronically Signed By: Prosper Goodwin M.D. [facility]/:11/15/2022 15:37:20 letter sent: Normal Exam ACR BI-RADS Category 2: Benign Finding(s) 3342F
== END ==
PROVIDERS: Family Provider Nurse Practitioner; PCP Nurse Practitioner; Referring Provider Nurse Practitioner; Visit Provider Nurse Practitioner
DX: Z12.31 Encounter for screening mammogram for malignant neoplasm of breast (principal); Z85.3 Personal history of malignant neoplasm of breast; Z80.3 Family history of malignant neoplasm of breast
CPT/HCPCS: 77063; 77067

== ENCOUNTER → 2022-12-07 11:21 | Outpatient (CLI) | payer MEDICARE, SELFPAY ==
[2019-10-23 20:40] VITALS: BMI 32.0
--- NOTE | 2022-12-07 | DI.CT.S_ITS ---
PROCEDURE: CT UE RT W CON INDICATIONS: Right rotator cuff tear TECHNIQUE: After the intra-articular administration of 12 mL of dilute non-ionic contrast, 1-1.5 mm thick sections acquired from the acromioclavicular joint to the inferior scapula, with coronal and sagittal reformatting. COMPARISON: None. FINDINGS: Image quality: Excellent. Bones: Moderate acromioclavicular joint osteoarthritic changes are noted with joint space narrowing, subchondral sclerosis and downward osteophyte formation . No acute fracture or dislocation. There is superior migration of humeral head in relation to glenoid. No suspicious bony lesions. Visualized right upper ribs are intact. Soft tissues: Full-thickness rupture of distal supraspinatus and infraspinatus is seen with up to 4 cm medial retraction of torn tendon fibers to the level of acromioclavicular joint. Sagittal views shows mild to moderate supraspinatus muscle atrophy. No gross intra-articular loose bodies. No abnormal soft tissue calcifications are seen. Multiple surgical clips are noted in right axilla , no axillary lymphadenopathy is seen. Partially visualized right breast implant is grossly intact. Limited evaluation of right shoulder labrum shows contour irregularity and contrast extension in superior anterior labrum at 12 to 2 o'clock position suggestive of superior anterior labral tear. IMPRESSION: 1. Full-thickness rupture of distal supraspinatus and infraspinatus with up to 4 cm medial retraction of torn tendon fibers to the level of acromioclavicular joint. Mild to moderate supraspinatus muscle atrophy. 2. Moderate acromioclavicular joint osteoarthritis. Superior migration of humeral head in relation to glenoid. No fracture or dislocation. 3. No abnormal soft tissue calcifications or intra-articular loose bodies. 4. Suggestion of superior anterior labral tear at 12 to 2 o'clock position. Dictated by: Serafin Donahue M.D. on 12/07/2022 at 13:00 Approved by: Serafin Donahue M.D. on 12/07/2022 at 13:20
--- NOTE | 2022-12-07 | DI.RAD.S_ITS ---
PROCEDURE: FL SHOULDER INJECTION MR/CT RT INDICATIONS: Right rotator cuff tear COMPARISON: None. TECHNIQUE: The indications, alternatives, benefits, risks, and complications of the procedure were explained to the patient. Written informed consent was obtained and placed in the chart. The shoulder was examined fluoroscopically and a site for needle placement chosen for entry into the glenohumeral joint from an anterior approach. The skin was prepped and draped in a sterile fashion, and 1% lidocaine infiltrated from skin down to joint capsule. A spinal needle was inserted into the glenohumeral joint, and a small amount of iodinated contrast media injected to confirm intra-articular placement of the needle tip. This was followed by approximately 12 mL of iodinated contrast. The needle was removed and a dressing was applied. The patient was given postprocedural instructions and sent to the CT suite for imaging. FINDINGS: A single fluoroscopic spot image demonstrates intra-articular location of injected iodinated contrast. IMPRESSION: Successful fluoroscopically guided administration of iodinated contrast solution into the shoulder joint for CT arthrogram. Dictated by: Serafin Donahue M.D. on 12/07/2022 at 12:59 Approved by: Serafin Donahue M.D. on 12/07/2022 at 12:59
== END ==
PROVIDERS: Family Provider Nurse Practitioner; PCP Nurse Practitioner; Referring Provider Orthopaedic Surgery; Visit Provider Orthopaedic Surgery
DX: M75.121 Complete rotator cuff tear or rupture of right shoulder, not specified as traumatic (principal); M19.011 Primary osteoarthritis, right shoulder; M62.511 Muscle wasting and atrophy, not elsewhere classified, right shoulder
CPT/HCPCS: 23350; 73201; 77002

== ENCOUNTER → 2023-04-17 12:08 | Outpatient (CLI) | payer MEDICARE, SELFPAY ==
[2022-12-20 11:33] VITALS: BMI 32.0
[2023-04-17 16:11] LABS: Alanine Aminotransferase 30 IU/L (<35); Albumin 4.4 g/dL (3.5-5.0); Albumin Globulin Ratio 1.4 (1.0-2.8); Alkaline Phosphatase 77 U/L (38-126); Aspartate Aminotransferase 33 IU/L (14-36); BUN Creatinine Ratio 30.5 (6-22); Bilirubin Total 1.9 mg/dL (0.2-1.3); Blood Urea Nitrogen 18 mg/dL (7-17); Calcium 9.4 mg/dL (8.4-10.2); Carbon Dioxide 26 mmol/L (22-32); Chloride 105 mmol/L (98-107); Estimated Glomerular Filt Rate > 60 mL/min (>60); Globulin 3.1 g/dL (1.7-4.1); Glucose 97 mg/dL (80-110); HEMOLYSIS < 15 (0-50); Potassium 4.4 mmol/L (3.4-5.1); Sodium 141 mmol/L (137-145); Total Protein 7.5 g/dL (6.3-8.2)
[2023-04-18 03:36] LABS: Labcorp Hemoglobin (Hb) A1c 6.4 % (4.8-5.6)
== END ==
PROVIDERS: Family Provider Nurse Practitioner; PCP Nurse Practitioner; Referring Provider Nurse Practitioner; Visit Provider Nurse Practitioner
DX: R73.03 Prediabetes (principal)
CPT/HCPCS: 36415; 80053; 83036

== ENCOUNTER → 2023-05-03 13:54 | Outpatient (CLI) | payer MEDICARE, SELFPAY ==
[2022-12-20 11:33] VITALS: BMI 32.0
== END ==
PROVIDERS: Family Provider Nurse Practitioner; PCP Nurse Practitioner; Visit Provider Physician Assistant Medical
DX: R30.0 Dysuria (principal)
CPT/HCPCS: 87086

== ENCOUNTER → 2023-09-18 10:22 | Outpatient (CLI) | payer MEDICARE, SELFPAY ==
[2022-12-20 11:33] VITALS: BMI 32.0
[2023-09-18 12:47] LABS: Alanine Aminotransferase 34 IU/L (<35); Albumin 4.4 g/dL (3.5-5.0); Albumin Globulin Ratio 1.3 (1.0-2.8); Alkaline Phosphatase 81 U/L (38-126); Aspartate Aminotransferase 38 IU/L (14-36); BUN Creatinine Ratio 24.2 (6-22); Bilirubin Total 2.1 mg/dL (0.2-1.3); Blood Urea Nitrogen 15 mg/dL (7-17); Calcium 10.3 mg/dL (8.4-10.2); Carbon Dioxide 25 mmol/L (22-32); Chloride 102 mmol/L (98-107); Estimated Glomerular Filt Rate > 60 mL/min (>60); Globulin 3.4 g/dL (1.7-4.1); Glucose 104 mg/dL (80-110); Sodium 138 mmol/L (137-145); Total Protein 7.8 g/dL (6.3-8.2)
[2023-09-18 12:49] LABS: HEMOLYSIS 56 (0-50); Potassium 5.3 mmol/L (3.4-5.1)
[2023-09-20 14:24] LABS: Calcium 10.2 mg/dL (8.7-10.3); Parathyroid Hormone, Intact 30 pg/mL (15-65)
== END ==
LOC: LAB 10:24
PROVIDERS: Family Provider Nurse Practitioner; PCP Nurse Practitioner; Referring Provider Nurse Practitioner; Visit Provider Nurse Practitioner
DX: M80.061D Age-related osteoporosis with current pathological fracture, right lower leg, subsequent encounter for fracture with routine healing (principal)
CPT/HCPCS: 36415; 80053; 82310; 83970

== ENCOUNTER → 2023-11-02 10:34 | Outpatient (CLI) | payer MEDICARE, SELFPAY ==
[2023-10-08 11:31] VITALS: BMI 32.0
--- NOTE | 2023-11-02 10:35 | DI.RAD.S_ITS ---
Bone Density Report Name: CLIFTON URENA Age: 78 Sex: Female Ethnicity: White Date of : 1945 Indication: osteopenia; monitoring treatment; Referring Provider: MANASA KEVIN Study: Bone densitometry was performed. Exam Date: November 02, 2023 Accession number: [id number] Bone Density: Region BMD T-score Z-score Classification AP Spine(L1-L4) 0.842 -1.9 0.8 Osteopenia Femoral Neck (Left) 0.587 -2.4 -0.1 Osteopenia Total Hip (Left) 0.741 -1.6 0.4 Osteopenia Femoral Neck (Right) 0.568 -2.5 -0.2 Osteoporosis Total Hip (Right) 0.729 -1.7 0.3 Osteopenia Total Hip Mean 0.735 -1.7 0.4 Osteopenia World Health Organization criteria for BMD impression classify patients as: Normal (T-score at or above -1.0), Osteopenia (T-score between -1.0 and -2.5), or Osteoporosis (T-score at or below -2.5). 10-year Fracture Risk: FRAX not reported because: Some T-score for Spine Total or Hip Total or Femoral Neck at or below -2.5 Treated for osteoporosis Previous Exams: -- Region Exam Age BMD T-score BMD Change BMD Change Date g/cm2 vs Baseline vs Previous -- AP Spine (L1-L4) 11/02/2023 78 0.842 -1.9 -0.006 (-0.7%)# -0.017 (-2.0%)# 10/27/2021 76 0.859 -1.7 0.011 (1.3%) 0.011 (1.3%) 07/18/2019 73 0.848 -1.8 Total Hip(Left) 11/02/2023 78 0.741 -1.6 0.014 (2.0%)# 0.018 (2.5%)# 10/27/2021 76 0.723 -1.8 -0.004 (-0.5%) -0.004 (-0.5%) 07/18/2019 73 0.727 -1.8 Total Hip(Right) 11/02/2023 78 0.729 -1.7 -0.004 (-0.6%)# 0.011 (1.5%)# 10/27/2021 76 0.718 -1.8 -0.015 (-2.0%) -0.015 (-2.0%) 07/18/2019 73 0.733 -1.7 -- *Denotes significance at 95% confidence level, LSC for AP Spine = 0.022 g/cm2, LSC for Total Hip = 0.027 g/cm2 # Denotes dissimilar scan types or analysis methods Impression: The patient has osteoporosis, based on the Right Femoral Neck T-score. No significant bone loss was observed. Discussion: PATIENT UNDER TREATMENT WITH NO SIGNIFICANT BMD LOSS SINCE LAST EXAM. In an untreated patient, BMD typically declines with age. A lack of decline or gain is usually a sign that treatment is efficacious and fracture risk is reduced. It is important to ask patients whether they are taking their medications and to encourage continued and appropriate compliance with their osteoporosis therapies to reduce fracture risk. It is also important to review their risk factors and encourage appropriate calcium and vitamin D intakes, exercise, fall prevention and other lifestyle measures. Follow-Up: Consider a repeat BMD and Vertebral Fracture Assessment (VFA) exam in 2 years or sooner if medically necessary, to reassess this patient's status. Reported by: TARAH RAMOS M.D. on 11/02/2023 2:07:00 PM.
== END ==
PROVIDERS: Family Provider Nurse Practitioner; PCP Nurse Practitioner; Referring Provider Nurse Practitioner; Visit Provider Nurse Practitioner
DX: M81.0 Age-related osteoporosis without current pathological fracture (principal)
CPT/HCPCS: 77080

== ENCOUNTER → 2023-11-20 14:21 | Outpatient (CLI) | payer MEDICARE, SELFPAY ==
[2023-10-08 11:31] VITALS: BMI 32.0
--- NOTE | 2023-11-21 16:58 | DIAB.MNT ---
Initial Diabetes Medical Nutrition Therapy Assessment Name: Saira Wu Date: 11/20/23 Time: 235-4p Dx: Type II Diabetes Dorothy presents for initial DM visit. H/o HgA1c between 5.4-6.5%. Most recent result of 6.4%. States she is scared to have diabetes. Seems unclear about where she is in the range of prediabetes vs diabetes. No Dm meds currently. No SMBG. Would like more guidance on diet. Reports h/o stress, anxiety. Had a fall in 2020. Rehab in SNF, which was quite stressful. Did not eat adequately per report and lost wt, which resulted in reduced hgA1c of 5.4%. Wt from 170s to 150# at that time. Reduced phys activity since 2020 fall. PMH of diverticulosis, avoids seeds and nuts but would like to incorporate. Avoids salt and caffeine for heart health. Since passed from cancer, she lives alone. Finds herself snacking in web operations lead 1:30-5am and/or eating dinner late 7-830p. Would like to change this per report. Fasting time overnight often <8 hours. Diet Recall: 130-5am: taost with butter, tea 7a: tea 8a: 1 serving cream of wheat with milk and <1TB brown sugar OR potatoes and eggs OR eggs and pancetta 1-2p: sandwich on thick bread sourdough +/- 12-14 chips or coleslaw sn: tea or coffee sometimes couple oz gingerale for GI upset 7-830p: 2c chicken with wildrice and veggie OR stew with meat and veg OR 1 enchilada with 1c beans OR salad OR takeout fried rice from grocery store OR 8 crackers with 2 slices cheese Sanam: water 24-32oz, tea decaf 3-4 x12oz, coffee decaf, milk with dinner sometimes Anthropometrics: Ht: 62 Wt: 175#reported Weight history: 171# 06/2023 EMR Physical Activity: shoulder and leg exercises from PT, no other program Self-Monitoring Blood Glucose: None Diabetes Medications: None Pertinent Labs: HgA1c: 6.5% 03/2021 5.4% 06/2021 6.3% 10/2022 6.4% 04/2023 Past Medical History: (Last Updated 10/08/23 @ 12:05 by AMAIRANI Short) Ankle pain Anxiety Anxiety Arthritis Brain TIA Breast cancer Carpal tunnel syndrome Carpal tunnel syndrome of right wrist Diabetes Diverticulosis Elevated BUN Elevated fasting glucose Elevated liver enzymes Hair loss History of breast cancer History of UTI Osteoporosis with fracture Pre-diabetes Pre-diabetes Skin lesion Left mormonism UTI (urinary tract infection) Vitamin B12 deficiency Nutrition Rx: Plate Method Nutrition Diagnosis: - Inconsistent energy intake r/t nutrition knowledge deficit aeb diet recall and pt report - Physical inactivity r/t stage of change contemplation aeb pt report Intervention: This participant was very receptive. Provided appropriate educational handouts. Discussed the following topics: Completed intake assessment. Discussed barriers to care. Pathophysiology of T2DM HgA1c, its correlation to blood glucose numbers, and rationale for goal Plate Method, impact of macronutrients on blood sugar, meal timing, pairing macronutrients and spreading out carbohydrates for better blood glucose management Recommended servings for carbohydrates at meals and snacks Heart health nutrition Brainstormed appropriate meal/snack timing Role of physical activity and following provider guidelines for safety Diverticulosis MNT Created SMART goals for patient self-care and success. Goals: Look into small stationary bike or elliptical Cut out 130-4am snack Fast 8 hours overnight Aim for eating q 3-5 hours Follow-up: [facility] GONZALEZ follow-up in 2-4 weeks Ana Alexander RDN, [facility] Certified Diabetes Care and Regional Vice President Surgical Sales P: [phone] Thank you for this referral
== END ==
LOC: DIET 14:21
PROVIDERS: Family Provider Nurse Practitioner; PCP Nurse Practitioner; Referring Provider Nurse Practitioner; Visit Provider Nurse Practitioner
DX: E11.9 Type 2 diabetes mellitus without complications (principal); Z71.3 Dietary counseling and surveillance
CPT/HCPCS: 97802

== ENCOUNTER → 2023-11-21 11:04 | Outpatient (CLI) | payer MEDICARE, SELFPAY ==
[2023-10-08 11:31] VITALS: BMI 32.0
--- NOTE | 2023-11-21 11:05 | DI.MG.S_ITS ---
UNILATERAL LEFT DIGITAL SCREENING MAMMOGRAM 3D/2D WITH CAD POST MASTECTOMY: 11/21/2023 CLINICAL: Routine screening. Personal history of right breast cancer. Comparison is made to exams dated: 11/15/2022 mammogram, 10/17/2021 mammogram, 04/02/2020 mammogram, and 12/20/2018 mammogram - [facility]. There are scattered areas of fibroglandular density in the left breast (category b / 25%-50% glandular tissue). Current study was also evaluated with a Computer Aided Detection (CAD) system. There are benign calcifications in the left breast. There also are benign vascular calcifications in the left breast. Additionally, there are benign post operative findings in the left breast. No significant masses, calcifications, or other findings are seen in the breast. There has been no significant interval change. IMPRESSION: BENIGN There is no mammographic evidence of malignancy. A 1 year screening mammogram is recommended. This exam was interpreted at Station ID: [id number]. NOTE: For mammograms, a report in lay terms will be sent to the patient. Approximately 15% of breast malignancies will not be visualized mammographically. In the management of a palpable breast mass, a negative mammogram must not discourage biopsy of a clinically suspicious lesion. Electronically Signed By: Prosper fowler/laurel:11/21/2023 15:30:08 letter sent: Normal Exam ACR BI-RADS Category 2: Benign Finding(s) 3342F
== END ==
PROVIDERS: Family Provider Nurse Practitioner; PCP Nurse Practitioner; Referring Provider Nurse Practitioner; Visit Provider Nurse Practitioner
DX: Z12.31 Encounter for screening mammogram for malignant neoplasm of breast (principal); Z85.3 Personal history of malignant neoplasm of breast; R92.322 Mammographic fibroglandular density, left breast
CPT/HCPCS: 77063; 77067

== ENCOUNTER → 2023-11-23 09:27 | Outpatient (CLI) | payer MEDICARE, SELFPAY ==
[2023-10-08 11:31] VITALS: BMI 32.0
--- NOTE | 2023-11-23 09:29 | DI.US.S_ITS ---
PROCEDURE: US ABDOMEN LIMITED INDICATIONS: Elevated LFT TECHNIQUE: Real-time scanning was performed of the abdominal and retroperitoneal organs, with image documentation. COMPARISON: None. FINDINGS: Liver: Liver is normal in size. Liver is increased in echogenicity. Gallbladder: Surgically absent. Biliary ducts: Intrahepatic bile ducts are non-dilated. Extrahepatic bile duct caliber measures 8.1 mm. Normal is 6-7 mm or less in diameter, or 10 mm or less post-cholecystectomy. Pancreas: Visualized portions of the pancreas are sonographically normal. Tail is not well seen secondary to overlying bowel gas. Right Kidney: Normal in size and appearance measuring 10.4 cm. No suspicious lesions, hydronephrosis or stone. Miscellaneous: No free abdominal fluid. IMPRESSION: 1. Mildly increased echogenicity of the liver, most consistent with mild hepatic steatosis. 2. Status post cholecystectomy. Dictated by: Dariel Meehan M.D. on 11/23/2023 at 12:55 Approved by: Dariel Meehan M.D. on 11/23/2023 at 12:57
== END ==
PROVIDERS: Family Provider Nurse Practitioner; PCP Nurse Practitioner; Referring Provider Nurse Practitioner; Visit Provider Nurse Practitioner
DX: R79.89 Other specified abnormal findings of blood chemistry (principal); Z90.49 Acquired absence of other specified parts of digestive tract
CPT/HCPCS: 76705

== ENCOUNTER → 2023-12-18 10:24 | Outpatient (CLI) | payer MEDICARE, SELFPAY ==
[2023-10-08 11:31] VITALS: BMI 32.0
--- NOTE | 2023-12-31 09:17 | DIAB.MNTFU ---
Follow-up Diabetes Medical Nutrition Therapy Assessment Name: Saira Wu Date: 12/18/23 Time: [id number] Dx: Type II Diabetes Dorothy presents for Dm follow-up. Reports reduced CHO intake. Choosing higher fiber thin bread. Fasting overnight 7-8 hours, as discussed last visit. Some confusion on how much carb she is allowed to eat each day. We discussed carbs per sitting vs per day. Has questions about DM meds (whether she should be on a GLP1), having a low in the mid night that is fatal, portions of pancakes, and need for CGM. States she is afraid of certain foods. Diet Recall: 730-9a: eng muffin with tea OR egg, veg, fruit OR cream of wheat with 1 tsp brown sugar OR yogurt and toast 1p: biscuit and tea with yogurt OR bison burger with veggies, in lettuce wrap sn: 4-5 crackers with cheese OR yogurt 7p: salmon and salad OR 1.5c noodles with tuna and veg OR 1.5c casserole dish sn: nothing OR yogurt OR half pc thin toast OR crackers and egg water 24-36oz + more in between Anthropometrics: Ht: 62 Wt: 175#reported Weight history: 171# 06/2023 EMR Physical Activity: shoulder and leg exercises from PT, no other program. Has a gym membership, but she does not feel safe going do to balance. Self-Monitoring Blood Glucose: None Diabetes Medications: None Pertinent Labs: HgA1c: 6.5% 03/2021 5.4% 06/2021 6.3% 10/2022 6.4% 04/2023 Past Medical History: (Last Reviewed 12/09/23 @ 14:43 by AMAIRANI Short) Ankle pain Anxiety Anxiety Arthritis Brain TIA Breast cancer Carpal tunnel syndrome Carpal tunnel syndrome of right wrist Diabetes Diverticulosis Elevated BUN Elevated fasting glucose Elevated liver enzymes Hair loss History of breast cancer History of UTI Osteoporosis with fracture Pre-diabetes Pre-diabetes Skin lesion Left taoism UTI (urinary tract infection) Vitamin B12 deficiency Nutrition Rx: Plate Method Nutrition Diagnosis: - Inconsistent energy intake r/t nutrition knowledge deficit aeb diet recall and pt report- improved - Physical inactivity r/t stage of change contemplation and concerns for balance aeb pt report - continue Intervention: This participant was very receptive. Provided appropriate educational handouts. Discussed the following topics: Reviewed Dm medications, SE, actions and when this would be appropriate for a pt Discussed moderation in diet at length Reviewed CHO portions and recs Reviewed CGm use and unlikely need for her at this time Addressed fears with food and BG Plate Method, impact of macronutrients on blood sugar, meal timing, carbohydrate counting, pairing macronutrients and spreading out carbohydrates for better blood glucose management Discussed hydration and strategies to get adequate intake Created SMART goals for patient self-care and success. Goals: Look into small stationary bike or elliptical- d/c Cut out 130-4am snack- met Fast 8 hours overnight- met Aim for eating q 3-5 hours- met Aim for 4 x 12oz water per day- new Practice moderation with carb portions- new Enjoy 1c at meals - new If mixed macro food, enjoy 1.5c portion- new Follow-up: RICK GONZALEZ follow-up 2-3 months. Overall, Dorothy seems to be making diet changes as discussed. She is working with PT at this time. HgA1c generally <6.9%. She would like to f/u after next lab draw. Ana Alexander RDN, [facility] Certified Diabetes Care and Fieldwork Coordinator P: [phone] Thank you for this referral
== END ==
PROVIDERS: Family Provider Nurse Practitioner; PCP Nurse Practitioner; Referring Provider Nurse Practitioner
DX: E11.9 Type 2 diabetes mellitus without complications (principal); Z71.3 Dietary counseling and surveillance
CPT/HCPCS: 97803

== ENCOUNTER → 2024-02-28 12:11 | Outpatient (CLI) | payer MEDICARE, SELFPAY ==
[2023-10-08 11:31] VITALS: BMI 32.0
[2024-02-28 13:44] LABS: Alanine Aminotransferase 28 IU/L (<35); Albumin 4.4 g/dL (3.5-5.0); Albumin Globulin Ratio 1.5 (1.0-2.8); Alkaline Phosphatase 106 U/L (38-126); Aspartate Aminotransferase 34 IU/L (14-36); BUN Creatinine Ratio 25.4 (6-22); Blood Urea Nitrogen 16 mg/dL (7-17); Calcium 9.5 mg/dL (8.4-10.2); Carbon Dioxide 25 mmol/L (22-32); Chloride 108 mmol/L (98-107); Cholesterol 121 mg/dL (140-199); Estimated Glomerular Filt Rate > 60 mL/min (>60); Glucose 114 mg/dL (80-110); HDL Cholesterol 52 mg/dL (40-60); HEMOLYSIS < 15 (0-50); LDL Cholesterol Calculated 46 mg/dL (<100); Potassium 4.6 mmol/L (3.4-5.1); Sodium 138 mmol/L (137-145); Total Protein 7.4 g/dL (6.3-8.2); Triglycerides 115 mg/dL (35-150)
[2024-02-28 13:55] LABS: Free T3, Triiodothyronine Free 4.39 pg/mL (2.77-5.27); Free T4, Direct Thyroxine 0.92 ng/dL (0.78-2.19)
[2024-02-28 14:09] LABS: Thyroid Stimulating Hormone 2.35 uIU/mL (0.47-4.68)
[2024-02-28 14:22] LABS: Hemoglobin A1C% w Est Avg Glu 6.1 % (4.0-6.0)
[2024-02-28 16:31] LABS: Creatinine Urine Random 89.09 mg/dL
[2024-02-28 16:34] LABS: Microalbumin Urine Random 1.8 mg/dL (0-1.6)
== END ==
PROVIDERS: Family Provider Nurse Practitioner; PCP Nurse Practitioner; Referring Provider Nurse Practitioner; Visit Provider Nurse Practitioner
DX: E11.9 Type 2 diabetes mellitus without complications (principal); M80.80XA Other osteoporosis with current pathological fracture, unspecified site, initial encounter for fracture; I10 Essential (primary) hypertension; E78.2 Mixed hyperlipidemia; F41.1 Generalized anxiety disorder; F41.0 Panic disorder [episodic paroxysmal anxiety]; Z79.899 Other long term (current) drug therapy
CPT/HCPCS: 36415; 80053; 80061; 82043; 82570; 83036; 84439; 84443; 84481

== ENCOUNTER → 2024-08-01 12:43 | Outpatient (CLI) | payer MEDICARE, SELFPAY ==
[2023-10-08 11:31] VITALS: BMI 32.0
--- NOTE | 2024-08-29 17:35 | DIAB.FU ---
Follow-up Diabetes Education Assessment Name: Saira Wu Date: 08/01/24 Time: 1-2p Dx: Type II Diabetes Dorothy presents for Dm follow-up. Reports -2# recently, which she is happy about. Endorses more veggies lately, eating open faced sandwiches and using low CHO tortillas. Completed eye exam/screen 08/14 per report at . No eye dr visit due to cost. had some foot pain but gone now per report, denies s/s neuropathy. Using lotion on feet to reduce cracks and complication risks. Wears slippers in the house sometimes She is asking about CHO recs at meals. Also, trying to not eat until 5 hours after a meal. Can certainly eat q 3-5 hours. Anthropometrics: Ht: 62 Wt: 171.6# 07/2024 Weight history: 174.5# 03/2024 171# 06/2023 EMR Self-Monitoring Blood Glucose: None Diabetes Medications: None Pertinent Labs: HgA1c: 6.5% 03/2021 5.4% 06/2021 6.3% 10/2022 6.4% 04/2023 6.1% 02/2024 Past Medical History: (Last Reviewed 03/24/24 @ 13:13 by AMAIRANI Short) Ankle pain Anxiety Anxiety Arthritis Brain TIA Breast cancer Carpal tunnel syndrome Carpal tunnel syndrome of right wrist Diabetes Diverticulosis Elevated BUN Elevated fasting glucose Elevated liver enzymes Hair loss History of breast cancer History of UTI Osteoporosis with fracture Pre-diabetes Pre-diabetes Skin lesion Left latter day UTI (urinary tract infection) Vitamin B12 deficiency Intervention: This participant was very receptive. Provided appropriate educational handouts. Discussed the following topics: General nutrition recommendations: portions, carbs 30g pre meal, timing q 3-5 hours strategies for reduced DM complication risks Recs for wt loss for older adults Created SMART goals for patient self-care and success. Goals: Look into getting eye doctor- not met Put lotion on feet- met Wear slippers in the house- +/- Can eat q 3-5 hours- new Follow-up: RICK GONZALEZ follow-up in November per pt req. Ana Alexander, RICK, [facility] Certified Diabetes Care and Air Valve Mechanic P: [phone] Thank you for this referral
== END ==
PROVIDERS: Family Provider Nurse Practitioner; PCP Family Medicine; Referring Provider Family Medicine
DX: E11.9 Type 2 diabetes mellitus without complications (principal); M80.80XA Other osteoporosis with current pathological fracture, unspecified site, initial encounter for fracture; I10 Essential (primary) hypertension; E78.2 Mixed hyperlipidemia; Z68.32 Body mass index [BMI] 32.0-32.9, adult; Z71.3 Dietary counseling and surveillance
CPT/HCPCS: G0108

== ENCOUNTER 2024-11-10 14:36 | Emergency (ER) | payer MEDICARE, SELFPAY ==
[2023-10-08 11:31] VITALS: BMI 32.0
[2024-11-10] VITALS (7 sets, daily range): BP systolic 141–189; BP diastolic 70–86; PULSE 77–87; RESP 15–23; TEMP 36.3; O2SAT 94–100; BMI 30.9
--- NOTE | 2024-11-10 15:11 | DI.RAD.S_ITS ---
PROCEDURE: XR CHEST 2V INDICATIONS: cough TECHNIQUE: 2 views of the chest were acquired. COMPARISON: [facility], CR, XR CHEST 1V, 04/22/2021, 15:53. FINDINGS: Surgical changes and devices: Right axillary surgical clips. Lungs and pleura: Prominent tissue markings. No pleural effusions or pneumothorax. Mediastinum: Mediastinal contours are normal. Heart size is normal. Bones and chest wall: No suspicious bony abnormalities. Soft tissues appear unremarkable. IMPRESSION: Prominent tissue markings may represent atypical infection or edema. Dictated by: Dariel Meehan M.D. on 11/10/2024 at 15:41 Approved by: Dariel Meehan M.D. on 11/10/2024 at 15:43
[2024-11-10 15:40] LABS: Influenza A - CEPHEID Flu A NEGATIVE (NEGATIVE); Influenza B - CEPHEID Flu B NEGATIVE (NEGATIVE); Respiratory Syncytial Virus Negative (Negative)
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
[2024-11-10 15:41] LABS: COVID-19 CEPHEID 4-PLEX PCR Negative (Negative)
--- NOTE | 2024-11-10 16:18 | EKG_ITS ---
[address] [address] [place] [address] Test Date: 2024-11-10 Pat Name: Saira Wu Department: [facility] Room: Gender: Female [employer]: : 1945 Requested By: Order Number: [id number] Reading MD: Garry De Santiago Measurements Intervals [place] Rate: 77 P: 72 UT: 194 QRS: -17 QRSD: 84 T: 39 QT: 388 QTc: 439 Interpretive Statements Normal sinus rhythm Minimal voltage criteria for LVH, may be normal variant ( R in aVL ) Electronically Signed On 11-10-2024 18:40:05 PST by Garry De Santiago
--- NOTE | 2024-11-10 16:19 | PC.NURSE ---
Physcian embalmer assistant gave this RN verbal order to place cardiac order set except for the order for 324mg aspirin. This RN put in orders as directed.
[2024-11-10 16:59] LABS: Add Manual Diff / Slide Review NO; Basophils Absolute Auto 0 /uL (0-100); Basophils Percent Auto 0.7 % (0-2); Eosinophils Absolute Auto 100 /uL (0-450); Eosinophils Percent Auto 1.8 % (2-4); Hematocrit 40.1 % (36-46); Hemoglobin 13.2 g/dL (12.0-16.0); Lymphocytes Absolute Auto 1600 /uL (1100-4500); Lymphocytes Percent Auto 26.9 % (25-40); Mean Corpuscular HGB Conc 32.8 % (30-36); Mean Corpuscular Hemoglobin 28.5 PG (26-34); Mean Corpuscular Volume 86.8 fL (80-100); Monocytes Absolute Auto 600 /uL (0-900); Monocytes Percent Auto 9.4 % (3-14); Neutrophils Absolute Auto 3700 /uL (1500-7000); Neutrophils Percent Auto 61.2 % (50-75); Platelet Count 247 X10^3/uL (150-400); Red Blood Cell Count 4.63 X10^6/uL (4.0-5.2); White Blood Cell Count 6.1 X10^3/uL (4.5-11.0)
[2024-11-10 17:07] LABS: INR 1.1 (0.9-1.3); Prothrombin Time 12.3 SECONDS (9.4-12.5)
[2024-11-10 17:09] LABS: PTT Partial Thromboplastin Tim 36 SECONDS (25.1-36.5)
[2024-11-10 17:12] LABS: Alanine Aminotransferase 32 IU/L (<35); Albumin 4.5 g/dL (3.5-5.0); Albumin Globulin Ratio 1.3 (1.0-2.8); Alkaline Phosphatase 98 U/L (38-126); Aspartate Aminotransferase 35 IU/L (14-36); BUN Creatinine Ratio 28.6 (6-22); Bilirubin Total 1.2 mg/dL (0.2-1.3); Blood Urea Nitrogen 18 mg/dL (7-17); Calcium 9.3 mg/dL (8.4-10.2); Carbon Dioxide 25 mmol/L (22-32); Chloride 105 mmol/L (98-107); Creatine Kinase 78 U/L (30-135); Estimated Glomerular Filt Rate > 60 mL/min (>60); Globulin 3.4 g/dL (1.7-4.1); Glucose 114 mg/dL (80-110); HEMOLYSIS < 15 (0-50); Lipase 97 U/L (23-300); Potassium 4.2 mmol/L (3.4-5.1); Sodium 139 mmol/L (137-145); Total Protein 7.9 g/dL (6.3-8.2)
[2024-11-10 17:23] LABS: NT-proBNP (BNP-Adult 18+) 714 pg/mL (<450); Troponin I < 0.012 ng/mL (0.01-0.034)
== END 2024-11-10 18:23 | disposition home or self-care (01) ==
PROVIDERS: Emergency Provider Student in an Organized Health Care Education/Training Program; Family Provider Nurse Practitioner; PCP Family Medicine
DX: J18.9 Pneumonia, unspecified organism (principal); Z87.891 Personal history of nicotine dependence
CPT/HCPCS: 0241U; 36415; 71046; 80053; 82550; 83690; 83735; 83880; 84484; 85025; 85610; 85730; 93005; 99283; 99284

== ENCOUNTER → 2024-11-26 10:57 | Outpatient (CLI) | payer MEDICARE, SELFPAY ==
[2023-10-08 11:31] VITALS: BMI 32.0
--- NOTE | 2024-11-26 11:11 | DIAB.MNTFU ---
Follow-up Diabetes Medical Nutrition Therapy Assessment Name: Saira Wu Date: 11/26/24 Time: 1110a-12p Dx: Type II Diabetes Dorothy presents for Dm follow-up. Reports continued nutrition changes. HgA1c steady <6.5% choosing veggies Choosing low CHO choices, ie carbsmart tortillas No pasta recently h/o diverticulosis. Constipation 1x per week or less. Diet Recall: 530-730a: nothing or toast and tea 730-9a: eggs, ham, hashbrowns OR cream of wheat with cinnamon OR cheerios with 1/3 banana 1p: soup with protein and veggies OR sandwich sn: part of cookie OR low CHO tortilla with gutierrez, cheese, onions and avocados 7-8p: tomato soup with grilled cheese OR salmon and veggies +/- potatoes OR chicken enchiladas with low CHO tortillas sn: nothing or toast with tea OR yogurt Questions about nuts and diverticulosis Anthropometrics: Ht: 62 Wt: 169# 11/2024 Weight history: 171.6# 07/2024 174.5# 03/2024 171# 06/2023 EMR Self-Monitoring Blood Glucose: None Diabetes Medications: None Pertinent Labs: HgA1c: 6.5% 03/2021 5.4% 06/2021 6.3% 10/2022 6.4% 04/2023 6.1% 02/2024 6.1% 09/2024 Past Medical History: (Last Reviewed 03/24/24 @ 13:13 by AMAIRANI Short) Ankle pain Anxiety Anxiety Arthritis Brain TIA Breast cancer Carpal tunnel syndrome Carpal tunnel syndrome of right wrist Diabetes Diverticulosis Elevated BUN Elevated fasting glucose Elevated liver enzymes Hair loss History of breast cancer History of UTI Osteoporosis with fracture Pre-diabetes Pre-diabetes Skin lesion Left gnosticist UTI (urinary tract infection) Vitamin B12 deficiency Nutrition Rx: Plate Method Nutrition Diagnosis: - Inconsistent energy intake r/t nutrition knowledge deficit aeb diet recall and pt report- improved - Nutrition knowledge deficit r/t needing review about fiber and diverticular dx aeb pt report- new Intervention: This participant was very receptive. Provided appropriate educational handouts. Discussed the following topics: Diverticulosis MNT HgA1c review and goals Fiber intake and foods Meal timing Balancing meals/snack macronutrients Created SMART goals for patient self-care and success. Goals: Can eat q 3-5 hours- met eat nuts in moderation if no diverticulitis symptoms- new Follow-up: RICK GONZALEZ follow-up in 6 months after next hgA1c per pt request. Ana Alexander, RICK, CARLOS Certified Diabetes Care and Manager [employer] P: [phone] Thank you for this referral
== END ==
PROVIDERS: Family Provider Nurse Practitioner; PCP Family Medicine; Referring Provider Family Medicine
DX: E11.9 Type 2 diabetes mellitus without complications (principal); Z71.3 Dietary counseling and surveillance
CPT/HCPCS: 97803

== ENCOUNTER → 2025-02-16 14:34 | Outpatient (CLI) | payer MEDICARE, SELFPAY ==
[2023-10-08 11:31] VITALS: BMI 32.0
--- NOTE | 2025-02-16 14:39 | DI.MG.S_ITS ---
MM screening mammo unilat LT: 02/16/2025. BI-RADS: 2 CLINICAL: 79-year old female for left screening mammogram. No Tyrer-Cuzick risk score calculation due to the patient's personal history of breast cancer. Patient reports a history of right breast carcinoma diagnosed at age 48. Status-post right mastectomy with chemotherapy and hormonal therapy. No first-degree family history of breast cancer. The patient has a right breast implant. PRIOR EXAMS: 11/21/2023, 11/15/2022, 10/17/2021. MAMMOGRAPHY TECHNIQUE: 2D and 3D (tomosynthesis) digital mammographic views obtained, with additional images as needed for full coverage. Current study was also evaluated with a Computer Aided Detection (CAD) system. DENSITY Left: B. There are scattered areas of fibroglandular density. MAMMOGRAPHY FINDINGS Left: Typically-benign vascular calcifications noted. IMPRESSION: Left * No evidence of malignancy with benign findings. RECOMMENDATIONS Left * Annual screening mammography. OVERALL ASSESSMENT CATEGORY BI-RADS-2: Benign. The [employer] recommends annual screening mammography beginning at age 40 for women with average risk of breast cancer. ELECTRONICALLY SIGNED: Prosper Goodwin M.D. on 02/17/2025 at 08:08:30 AM PT Interpreting Station ID: [id number]
== END ==
PROVIDERS: Family Provider Nurse Practitioner; PCP Family Medicine; Referring Provider Family Medicine; Visit Provider Family Medicine
DX: Z12.31 Encounter for screening mammogram for malignant neoplasm of breast (principal); Z85.3 Personal history of malignant neoplasm of breast; Z90.11 Acquired absence of right breast and nipple; Z98.82 Breast implant status
CPT/HCPCS: 77063; 77067

== ENCOUNTER → 2025-02-18 14:49 | Outpatient (CLI) | payer MEDICARE, SELFPAY ==
[2023-10-08 11:31] VITALS: BMI 32.0
[2025-02-18 19:20] LABS: Appearance Urine UA CLEAR; Bilirubin Urine UA NEGATIVE (NEGATIVE); Color Urine UA YELLOW; Glucose Urine UA NEGATIVE (Negative); Ketones Urine UA NEGATIVE (NEGATIVE); Leukocyte Esterase Urine UA NEGATIVE (NEGATIVE); Nitrite Urine UA NEGATIVE (Negative); Occult Blood Urine UA NEGATIVE (Negative); Protein Urine UA NEGATIVE (Negative); Specific Gravity Urine UA >=1.030 (1.000-1.035); Urobilinogen Urine UA 0.2 E.U./dL (0.2)
[2025-02-18 19:22] LABS: pH Urine UA 5.5 (4.5-8.0)
[2025-02-18 19:26] LABS: Amorphous Sediment Urine 1+; Bacteria Urine Occasional (0-1); Culture Indicated Urine Cult Not Indicated; RBC Urine 0-1/HPF (0-5/HPF); Squamous Epithelial Cell Urine 0-1 /HPF (0-5/HPF); Urine Volume Low Vol <10mL (spun); WBC Urine 0-1/HPF (0-5/HPF)
== END ==
LOC: LAB 14:49
PROVIDERS: Family Provider Nurse Practitioner; PCP Family Medicine; Visit Provider Obstetrics & Gynecology Gynecology
DX: N39.0 Urinary tract infection, site not specified (principal)
CPT/HCPCS: 81001

== ENCOUNTER → 2025-05-20 11:00 | Outpatient (CLI) | payer MEDICARE, SELFPAY ==
[2023-10-08 11:31] VITALS: BMI 32.0
[2025-05-20 12:01] LABS: Add Manual Diff / Slide Review NO; Hematocrit 40.5 % (36-46); Hemoglobin 13.3 g/dL (12.0-16.0); Lymphocytes Absolute Auto 1300 /uL (1100-4500); Mean Corpuscular HGB Conc 33.0 % (30-36); Mean Corpuscular Hemoglobin 29.0 PG (26-34); Mean Corpuscular Volume 87.9 fL (80-100); Platelet Count 198 X10^3/uL (150-400)
[2025-05-20 12:14] LABS: Hemoglobin A1C% w Est Avg Glu 6.4 % (4.0-6.0)
[2025-05-20 12:47] LABS: Alanine Aminotransferase 27 IU/L (<35); Albumin 4.5 g/dL (3.5-5.0); Albumin Globulin Ratio 1.6 (1.0-2.8); Alkaline Phosphatase 75 U/L (38-126); Blood Urea Nitrogen 18 mg/dL (7-17); Calcium 9.5 mg/dL (8.4-10.2); Carbon Dioxide 22 mmol/L (22-32); Chloride 104 mmol/L (98-107); Cholesterol 103 mg/dL (140-199); Estimated Glomerular Filt Rate > 60 mL/min (>60); Globulin 2.9 g/dL (1.7-4.1); Glucose 103 mg/dL (70-99); HDL Cholesterol 52 mg/dL (40-60); HEMOLYSIS 30 (0-50); Potassium 4.5 mmol/L (3.4-5.1); Sodium 137 mmol/L (137-145); Total Protein 7.4 g/dL (6.3-8.2); Triglycerides 85 mg/dL (35-150)
[2025-05-20 16:23] LABS: Microalbumi Creatinin Ratio Ur 16.0 ug/mg CR (<30)
== END ==
PROVIDERS: Family Provider Nurse Practitioner; PCP Family Medicine; Referring Provider Family Medicine; Visit Provider Family Medicine
DX: E11.9 Type 2 diabetes mellitus without complications (principal); Z85.3 Personal history of malignant neoplasm of breast; I10 Essential (primary) hypertension; E78.2 Mixed hyperlipidemia
CPT/HCPCS: 36415; 80053; 80061; 82043; 82570; 83036; 85025

== ENCOUNTER → 2025-06-02 10:55 | Outpatient (CLI) | payer MEDICARE, SELFPAY ==
[2023-10-08 11:31] VITALS: BMI 32.0
--- NOTE | 2025-06-02 11:25 | DIAB.MNTFU ---
Follow-up Diabetes Medical Nutrition Therapy Assessment Name: Saira Wu Date: 06/02/25 Time: 1115-12 Dx: Type II Diabetes Dorothy presents for Dm follow-up. Reports continued nutrition changes. HgA1c steady <6.5% Has questions about type of nuts to add to diet. h/o diverticulosis. Constipation 1x per week or less. Not adding sugar to anything per report. Has questions about honey. Endorses good sleep. Trying to build up my bones r/t osteoporosis per report. Plans to sell her home. May move to [place]. Diet Recall: 530-730a: nothing or toast and tea 730-9a: cheerios OR eggs and hashbrowns OR cream of wheat with cinnamon 1230-1p: soup with protein and veggies OR sandwich sn: part of cookie OR low CHO tortilla with gutierrez, cheese, onions and avocados 7-8p: pasta salad with veggies OR Cod, broccoli with <1c coleslaw sn: nothing or toast with tea OR yogurt Physical Activity: Tries to stay active. Some barriers with exercise r/t drop foot. Troubleshooting brace and shoes to resolve foot issues. Reports interest in resistance training for bone health. Anthropometrics: Ht: 62 Wt: 171# 05/2025 Weight history: 171.6# 07/2024 174.5# 03/2024 171# 06/2023 EMR 169# 11/2024 Self-Monitoring Blood Glucose: None Diabetes Medications: None Pertinent Labs: HgA1c: 6.5% 03/2021 5.4% 06/2021 6.3% 10/2022 6.4% 04/2023 6.1% 02/2024 6.1% 09/2024 6.4% 05/2025 Past Medical History: (Last Reviewed 03/24/24 @ 13:13 by AMAIRANI Short) Ankle pain Anxiety Anxiety Arthritis Brain TIA Breast cancer Carpal tunnel syndrome Carpal tunnel syndrome of right wrist Diabetes Diverticulosis Elevated BUN Elevated fasting glucose Elevated liver enzymes Hair loss History of breast cancer History of UTI Osteoporosis with fracture Pre-diabetes Pre-diabetes Skin lesion Left episcopal UTI (urinary tract infection) Vitamin B12 deficiency Nutrition Rx: Plate Method Nutrition Diagnosis: - Nutrition knowledge deficit r/t needing review about fiber and diverticular dx aeb pt report- in progress - Physical inactivity r/t limited program with stage of change preparation aeb pt report- new Intervention: This participant was very receptive. Provided appropriate educational handouts. Discussed the following topics: Diverticulosis MNT HgA1c review and goals Types of nuts and intake Choosing safe activity with some resistance Sweeteners and impact on BG Created SMART goals for patient self-care and success. Goals: Eat nuts in moderation if no diverticulitis symptoms- in progress Start hand weights safely 3x per week- new if you eat honey, practice moderation- new Follow-up: RICK GONZALEZ follow-up prn. Ana Alexander RDN, JOSIASES Certified Diabetes Care and [employer] P: [phone] Thank you for this referral
== END ==
PROVIDERS: PCP Family Medicine; Referring Provider Family Medicine
DX: E11.9 Type 2 diabetes mellitus without complications (principal); Z71.3 Dietary counseling and surveillance
CPT/HCPCS: 97803

== ENCOUNTER → 2025-08-07 12:34 | Outpatient (CLI) | payer MEDICARE, SELFPAY ==
[2025-07-30 15:58] VITALS: BMI 32.0
[2025-08-07 14:05] LABS: Clostridium difficile toxin AB Detected (Not Detect); Enteroaggregative E.coli Not Detected (Not Detect); Enteropathogenic E.coli Not Detected (Not Detect); Enterotoxigenic E.coli It/st Not Detected (Not Detect); Plesiomonsa shigelloides Not Detected (Not Detect); Shiga-like toxin-prod E.coli Not Detected (Not Detect)
== END ==
PROVIDERS: PCP Family Medicine; Referring Provider Family Medicine; Visit Provider Family Medicine
DX: R19.7 Diarrhea, unspecified (principal)
CPT/HCPCS: 87324; 87507